=== PATIENT | male | born 1955 | race Caucasian/White ===

== ENCOUNTER 2016-07-04 09:40 | Day surgery (SDC) | payer MEDICAID, OTHER ==
--- NOTE | 2016-06-20 09:10 | HP ---
DATE OF ADMISSION: CHIEF COMPLAINT: Left inguinal hernia. HISTORY OF PRESENT ILLNESS: The patient is a 61-year-old male who is known to our service. He underwent an operative repair of a large right inguinal hernia approximately one year ago. Recently he has had complaints of increasing pain in the right and left groin. This has been persisting. Pain does seem to come and go at times and radiates back and forth from the left to the right. The patient's last hernia on the right was a direct and an indirect. This was treated with an onlay mesh with closed defect. Denies nausea or vomiting. No change of bowel habits. PAST MEDICAL HISTORY: GERD. PAST SURGICAL HISTORY: Hernia. Left orchiectomy. MEDICATIONS: Omeprazole. ALLERGIES: None. PHYSICAL EXAM: HEENT is normocephalic. Sclerae anicteric. CHEST: No deformities. ABDOMEN: Soft, nontender, nondistended. A palpable reducible left inguinal hernia noted. On examination left teste absent. IMPRESSION: A 61-year-old male with reducible left inguinal hernia. PLAN: Will proceed with robotic-assisted left inguinal herniorrhaphy on 07/04 possible bilateral if a recurrent hernia is palpable on the right. Risks of bleeding, infection, postoperative pain, scarring, numbness, recurrence, bladder injury, bowel injury and conversion to an open procedure. The patient understands and wishes to proceed.
[2016-06-29 11:51] VITALS: BMI 31.1
[~2016-07-04 09:40] MED LIST: DEXAMETHASONE SOD PHOSPHATE 10 MG/ML 1 ML VIAL IV ONE; HEPARIN SODIUM,PORCINE 5,000 UNIT/ML 1 ML VIAL SQ ONE; HYDROmorphone 1 MG/ML 1 ML SYRINGE IVP PRN; LACTATED RINGERS 1,000 ML IV SCH; MIDAZOLAM 2 MG/2 ML VIAL IV PRN; ONDANSETRON 4 MG/2 ML VIAL IVP ONE; SCOPOLAMINE 1.5MG/72HR PATCH TRANSDERM ONE; ceFAZolin 2 GM in SODIUM CHLORIDE 0.9% 100 ML IVPB ONE
[2016-07-04 10:40] VITALS: RESP 18
[2016-07-04] MEDS ORDERED: LIDOCAINE 1% 20 ML VIAL (10MG/ML) FOR IV START INTRADERMA ONE ×2 (10:45)
[2016-07-04] MEDS ORDERED: GLYCOPYRROLATE 0.2 MG/ML 2 ML VIAL ONE (13:22)
[2016-07-04] MEDS ORDERED: KETOROLAC 30 MG/ML 1 ML VIAL ONE (13:22)
[2016-07-04] MEDS ORDERED: LIDOCAINE 1% INJ 10MG/ML (20 ML MDV) ONE (13:22)
[2016-07-04] MEDS ORDERED: SUCCINYLCHOLINE CHLORIDE 100 MG/5 ML SYR IV ONE (13:22)
[2016-07-04] MEDS ORDERED: NEOSTIGMINE 1 MG/ML 10 ML VIAL ONE (13:22)
[2016-07-04] MEDS ORDERED: MIDAZOLAM 2 MG/2 ML VIAL ONE (13:22)
[2016-07-04] MEDS ORDERED: PROPOFOL 10 MG/ML 20 ML VIAL IV ONE (13:22)
[2016-07-04] MEDS ORDERED: fentaNYL (PF) 50 MCG/ML 2 ML AMP ONE (13:22)
[2016-07-04] MEDS ORDERED: VECURONIUM 10 MG VIAL IV ONE (13:22)
[2016-07-04] MEDS ORDERED: BUPIVACAIN-EPI 0.25%-1:200,000 30 ML VIAL SQ ONE (13:54)
[2016-07-04] MEDS ORDERED: LACTATED RINGERS 1,000 ML IV ONE (15:51)
[2016-07-04] MEDS ORDERED: HYDROcodone/APAP 5-325MG 1 EACH TAB PO PRN (16:00)
[2016-07-04] MEDS ORDERED: NALOXONE 0.4 MG/ML 1 ML VIAL IV PRN (16:00)
--- NOTE | 2016-07-04 16:11 | P.PCN ---
Date of Procedure: 07/04/16 Procedure(s) Performed: PREOPERATIVE DIAGNOSIS: Left inguinal hernia POSTOPERATIVE DIAGNOSIS: Same PROCEDURE: Laparoscopic repair left inguinal hernia with the da Lakshmi robot assistance SURGEON: Ramón EBL: Minimal ANESTHESIA: General COMPLICATIONS: None OPERATIVE PROCEDURE: Patient was placed in the operating table in the supine position. A Houston catheter was placed. The patient was then placed in lithotomy. The abdomen was prepped and draped in usual sterile fashion. A small curvilinear supraumbilical incision was made. The fascia was retracted anteriorly with Zina forceps. The Veress needle was inserted. The saline drop test was normal. Insufflation took place to 15 mmHg. A 5 mm trocar was then inserted. 2 additional 8 mm trochars were placed in the right upper quadrant and left upper quadrant under visualization. The initial 5 was switched to a 12 mm trocar at that time under direct visualization. The robotic arms were then brought in and docked into place. The fenestrated bipolar was used in the left arm and the laparoscopic sean was utilized in the right arm. A 30 12 mm scope was used in the up position. The peritoneal cavity was inspected. The patient was having chronic right-sided pain. I was able to visualize a silk suture at the site of the previous open repair. This appeared to be ligating the indirect sac. There was no recurrent hernia on the right side identified. The left side was then addressed. The patient had a large hernia that appeared consistent with an indirect hernia. The peritoneum was opened cephalad to the defect by several centimeters from medial to lateral. Following that careful dissection of the preperitoneal space took place. This took place using both electrocautery and sharp dissection and primarily blunt dissection. Visualization of the pubic tubercle and Dawit's ligament took place medially. Full dissection took place laterally as well. The patient's hernia was indeed a indirect hernia. The hernia sac was fully dissected. The spermatic cord structures were identified. The peritoneum was dissected down to and proximal to the iliac vessels. Once we had adequate space the 15 x 10 progrip mesh was advanced into the preperitoneal space and flattened out appropriately to cover all potential hernia sites. No sutures were used. The peritoneal defect was then closed using a 2-0 VLok suture. The pneumoperitoneum was then evacuated. The fascia at the 12 mm site was closed using the Azeem Mcdonough technique and a 0 Vicryl stitch. The skin of all 3 sites was closed using a 4-0 Monocryl stitch. Steri-Strips and sterile dressings were applied. DISPOSITION: Stable to recovery room
[2016-07-04 16:18] VITALS: TEMP 97.4
[2016-07-04 18:05] VITALS: BP 143/86; PULSE 88
[2016-07-04] MEDS ORDERED: HYDROcodone/APAP 5-325MG 1 EACH TAB PO ONE (18:20)
== END 2016-07-04 19:07 | disposition home or self-care (01) ==
LOC: OR 09:40
PROVIDERS: ATTEND Surgery
DX: K40.90 Unilateral inguinal hernia, without obstruction or gangrene, not specified as recurrent (principal); K21.9 Gastro-esophageal reflux disease without esophagitis; Z79.899 Other long term (current) drug therapy; Z90.79 Acquired absence of other genital organ(s)
CPT/HCPCS: 49650; C1781; J2250; J1644; J1100; J2710; J0690; J2405; J2001; J3010; J1885; J0330; J2704

== ENCOUNTER → 2017-09-15 | Outpatient (CLI) | payer MEDICAID ==
[2017-09-15 16:47] LABS: Basophils # (A) 0.1 k/uL (0-0.2); Basophils % (A) 1 %; Eosinophils # (A) 0.1 k/uL (0-0.7); Eosinophils % (A) 1 %; HCT 48.7 % (39.0-53.0); HGB 16.1 gm/dL (13.0-17.5); Lymphocytes # (A) 1.9 k/uL (1.0-4.8); Lymphocytes % (A) 24 %; MCHC 33.1 g/dL (31.0-37.0); MCV 90.6 fL (80.0-100.0); Mean Platelet Volume 6.2; Monocytes # (A) 0.6 k/uL (0-1.0); Monocytes % (A) 8 %; Neutrophils # (A) 4.7 k/uL (1.3-7.7); Neutrophils % (A) 62 %; Platelet Count 242 k/uL (150-450); RBC 5.37 m/uL (4.30-5.90); RDW 13.3 % (11.5-15.5); WBC 7.6 k/uL (3.8-10.6)
[2017-09-15 16:53] LABS: Appearance,Urine Clear (Clear); Bilirubin,Urine Negative (Negative); Blood,Urine Negative (Negative); Color,Urine Yellow; Glucose,Urine (UA) Negative (Negative); Ketones,Urine Negative (Negative); Leukocyte Esterase,Urine Negative (Negative); Nitrite,Urine Negative (Negative); PH, Urine 5.5 (5.0-8.0); Protein,Urine Negative (Negative); Urobilinogen,Urine <2.0 mg/dL (<2.0)
[2017-09-15 17:30] LABS: Albumin 4.4 g/dL (3.5-5.0); Calcium 9.6 mg/dL (8.4-10.2); Potassium 4.7 mmol/L (3.5-5.1); Total Bilirubin 0.7 mg/dL (0.2-1.3); Total Protein 7.1 g/dL (6.3-8.2)
[2017-09-15 17:41] LABS: T4, Free (Free Thyroxine) 0.96 ng/dL (0.78-2.19)
[2017-09-15 17:55] LABS: Prostate Specific Antigen 0.99 ng/mL (0.00-4.00)
[2017-09-16 00:43] LABS: Vitamin D 25 Hydroxy 20.2 ng/mL (30.0-100.0)
== END | disposition home or self-care (01) ==
LOC: LABWHC1 15:52
PROVIDERS: ATTEND Family Medicine
DX: E66.9 Obesity, unspecified (principal); R41.3 Other amnesia
CPT/HCPCS: 36415; 80053; 80061; 81003; 82175; 82306; 82570; 82607; 83036; 83655; 83825; 84153; 84439; 84443; 85025; 86780

== ENCOUNTER → 2017-10-24 | Outpatient (CLI) | payer MEDICAID ==
--- NOTE | 2017-10-24 21:36 | CT ---
EXAMINATION TYPE: CT brain wo con DATE OF EXAM: 10/24/2017 HISTORY: Amnesia CT DLP: 1156 mGycm. Automated Exposure Control for Dose Reduction was Utilized. TECHNIQUE: CT scan of the head is performed without contrast. COMPARISON: None. FINDINGS: There is no acute intracranial hemorrhage or midline shift identified. There is diffuse v entricular and sulcal prominence consistent with diffuse age-related cerebral atrophy. Huffman-white mat ter differentiation is maintained.. The globes are intact and the visualized sinuses are clear. IMPRESSION: No acute intracranial hemorrhage or midline shift. There is mild minimal diffuse age-re lated cerebral atrophy otherwise unremarkable study.
== END ==
LOC: RADCTMAIN 18:19
PROVIDERS: ATTEND Family Medicine
DX: G31.9 Degenerative disease of nervous system, unspecified (principal); R41.3 Other amnesia
CPT/HCPCS: 70450

== ENCOUNTER → 2017-11-13 | Outpatient (CLI) | payer MEDICAID ==
[2017-11-14 02:08] LABS: Protein, Total 6.8 g/dL (6.2-8.2)
[2017-11-14 10:59] LABS: Lyme IgG/IgM 0.1 Index
[2017-11-14 13:36] LABS: Albumin 3.86 g/dL (3.80-4.90); Gamma Globulin 1.02 g/dL (0.70-1.50)
== END | disposition home or self-care (01) ==
LOC: LABWHC1 16:34
PROVIDERS: ATTEND Psychiatry & Neurology Neurology
DX: R20.0 Anesthesia of skin (principal)
CPT/HCPCS: 36415; 82607; 84165; 85652; 86038; 86334; 86618

== ENCOUNTER → 2017-12-16 | Outpatient (CLI) | payer MEDICAID ==
--- NOTE | 2017-12-19 09:58 | EEG ---
ELECTROENCEPHALOGRAM REPORT EEG SUBJECTIVE: This is a digitally acquired EEG utilizing 10-20 international system placement was standard montages able to be digitally reformatted for at least 20 minutes duration in the evaluation of a 62-year-old male for increasing memory loss. EEG FINDINGS: The resting alert record is characterized as 8.5 - 9 hertz posterior dominant background activity which is well developed, formed and sustained of 20-30 microvolts radiating to the central head regions bilaterally. There are no gross hemispheric asymmetries appreciated. There are no persistent areas of focal slow waves. The background attenuates symmetrically on eye opening. Bifrontal low voltage fast activity predominates. Photo stimulus reveals a symmetric driving response. Hyperventilation did not add any new features to the record. There was spontaneous drowsiness as the record progressed into stage 2 sleep, characterized by symmetric vertex sharp waves and slowing of the background activity into the theta region. There were no paroxysmal discharges, temporal slowing, epileptiform activity or electrographic seizures noted. EKG rhythm strip was regular throughout. IMPRESSION: Unremarkable EEG for age and state of the patient. No epileptiform activity noted. MMODL / IJN: [id number] /
== END | disposition home or self-care (01) ==
LOC: NEUROMAIN 07:00
PROVIDERS: ATTEND Psychiatry & Neurology Neurology
DX: R41.3 Other amnesia (principal)
CPT/HCPCS: 95816

== ENCOUNTER → 2018-02-27 | Outpatient (CLI) | payer MEDICAID ==
--- NOTE | 2018-02-27 21:48 | CONS ---
CONSULTATION REASON FOR THE CONSULT: Sleep apnea. HISTORY OF PRESENT ILLNESS: 62-year-old male patient has been having difficulty with memory for the past few years and his condition gradually getting worse. His Suzanna works at the [employer]. The patient has been having difficulty with short and long-term memory. He has already seen his neurologist, Dr. Fortune and the patient has undergone a workup including CT scan of the brain came back negative. The patient states that he forgets names of people, objects and has been forgetting relationships. 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 He does not get lost and is able to drive and his motor skills are well preserved. No tremors. No seizures or CVA. No history of head trauma. No history of closed head injury. No seizure activity. No history of meningitis. No substance abuse. No alcoholism. No history of any sepsis or connective tissue disease. No history of underlying malignancy. Along with memory difficulties, the patient has been having some increased tiredness and sleepiness and this raised concern for obstructive sleep apnea especially that he snores loud. His current Axtell score is at 12. No history of anxiety. No history of depression. He goes to bed between 9:00-10:00 p.m., wakes up 4:30 am in the morning. He is able to average good 6-7 hours of sleep. He does not take any naps during the day. He does not fall asleep during day-to-day activities. No recent weight gain. PAST MEDICAL HISTORY: Heartburn. He is also known to have sciatica. PAST SURGICAL HISTORY: Includes appendectomy and hernia repair. DRUG ALLERGIES: Not known. OUTPATIENT MEDICATIONS INCLUDE: Omeprazole 20 mg p.o. daily. Magnesium 500 mg p.o. daily, vitamin D3 and vitamin B12. He is also taking supplements including Gingko biloba. FAMILY HISTORY: Negative for sleep apnea. Also negative for dementia. REVIEW OF SYSTEMS: 12-point review of system was done. Positive findings are mentioned above in history of present illness. He has no other complaints for now. PHYSICAL EXAMINATION: BP is 126/78, pulse 72, respirations 16, temperature 97.5, saturation 97% on room air. GENERAL APPEARANCE: Calm comfortable in no acute distress. Head is atraumatic, normocephalic. NECK: Supple. There is no JVD. No goiter or neck masses. LUNGS: Diminished breath sounds. Otherwise clear. HEART: Sounds regular. Normal S1, S2. No S3. No murmurs. ABDOMEN: Soft, nontender. No organomegaly. EXTREMITIES: No edema. No cyanosis or clubbing. IMPRESSION: Memory loss. Consider underlying obstructive sleep apnea. Sleep breathing disorders have been associated with early onset mild cognitive impairment. This can include memory, typically some mild memory deficits may occur. However, not enough to impair day-to-day activities or functioning. This patient is experiencing forgetfulness and amnesia of recent and old events. His workup including blood work, a CT scan of the brain is negative. We are in the process of ruling out a sleep breathing disorder causing impairment of cognition and memory. The possibility of early onset Alzheimer's dementia cannot be completely ruled out. The patient is already seeing a neurologist. We will proceed with a screening polysomnogram and make further recommendations based on the findings. MMODL / IJN: [id number] /
== END ==
LOC: SLEEP 16:19
PROVIDERS: ATTEND Internal Medicine Critical Care Medicine
DX: F06.8 Other specified mental disorders due to known physiological condition (principal); R12 Heartburn; Z79.899 Other long term (current) drug therapy
CPT/HCPCS: 99211

== ENCOUNTER → 2018-05-29 | Outpatient (CLI) | payer MEDICAID ==
--- NOTE | 2018-05-29 18:29 | PN ---
PROGRESS NOTE I am seeing this patient for a followup. This is a compliancy check. This patient is [id number] and he was referred to me for difficulty with memory and concentration. He was found to have mild obstructive sleep apnea. I told the patient that his sleep apnea is not the main cause for his memory loss. Nevertheless, he had some increased fatigue and tiredness and sleepiness and we decided to proceed with a CPAP therapy. The patient is currently utilizing a APAP, minimum pressure of 5 and maximum pressure of 20. He is benefiting from the treatment. He is waking up more refreshed and alert during the day. Based on the compliance data, he has been averaging around 4.3 hours of CPAP use per night. His CPAP use for more than 4 hours is 26 out of 30 over the past 1 month. His average pressure is at 7.2, his leak is around 14 L/minute. AHI is down to 1. He is using a DreamWear nose mask. He has no specific complaints. He is following treatment for now. No major improvement in terms of his memory. PHYSICAL EXAMINATION: BP is 130/84, pulse 72, respirations 16, temperature 98.1, weight is 231. [place] score is at 7. General appearance is calm and comfortable. Head is atraumatic, normocephalic. Neck is supple. There is no JVD. No goiter or neck masses. LUNGS: Clear to auscultation. Heart sounds are regular rate and rhythm. Normal S1, S2. No S3, S4. No murmurs. Abdomen is soft, nontender. No organomegaly. EXTREMITIES: No edema. No cyanosis or clubbing. Neurologically: Memory impairment. No focal neurological deficits. IMPRESSION: 1. Obstructive sleep apnea mild with an AHI of 9.1, successfully treated with an APAP, minimum pressure of 5 maximum pressure of 20. 2. Memory impairment. Rule out early signs of dementia. PLAN: CPAP therapy and sleep apnea treatment is successful. The patient is tolerating the treatment without any major difficulties. Continue same setting. Continue same mask interface which is a DreamWear nose mask. Encourage weight loss. Consider neurology evaluation in regards to his memory loss. MMODL / IJN: [id number] /
== END | disposition home or self-care (01) ==
LOC: SLEEP 16:13
PROVIDERS: ATTEND Internal Medicine Critical Care Medicine
DX: G47.33 Obstructive sleep apnea (adult) (pediatric) (principal); R41.3 Other amnesia; R53.83 Other fatigue; Z99.89 Dependence on other enabling machines and devices

== ENCOUNTER → 2018-07-04 | Outpatient (CLI) | payer MEDICAID ==
--- NOTE | 2018-07-04 22:35 | MR ---
EXAMINATION TYPE: MR brain wo con DATE OF EXAM: 07/04/2018 COMPARISON: CT brain October 24, 2017. HISTORY: Memory loss. TECHNIQUE: Multiplanar, multisequence imaging of the brain and brainstem is performed without IV cont rast. FINDINGS: Diffusion weighted images demonstrate no evidence of a recent infarct or other diffusion abnormality. There is no worrisome extra-axial fluid collection. There is mild ventricular and sulcal prominence. There are some scattered foci of T2 hyperintensity seen throughout the deep and periventricular white matter. Midline structures demonstrate normal morphology. The craniocervical junction appears within normal limits. Normal vascular flow voids are present. The visualized sinuses are clear and the globes are i ntact. IMPRESSION: Mild diffuse cerebral atrophy and chronic small vessel ischemic changes.
== END | disposition home or self-care (01) ==
LOC: RADMRIMAIN 18:33
PROVIDERS: ATTEND Family Medicine
DX: G31.9 Degenerative disease of nervous system, unspecified (principal); I67.82 Cerebral ischemia
CPT/HCPCS: 70551

== ENCOUNTER → 2019-01-25 | Outpatient (CLI) | payer MEDICAID ==
[2019-01-25 13:44] LABS: Appearance,Urine Clear (Clear); Bilirubin,Urine Negative (Negative); Blood,Urine Negative (Negative); Color,Urine Yellow; Glucose,Urine (UA) Negative (Negative); Ketones,Urine Negative (Negative); Leukocyte Esterase,Urine Negative (Negative); Nitrite,Urine Negative (Negative); Protein,Urine Negative (Negative); Specific Gravity,Urine 1.022 (1.001-1.035); Urobilinogen,Urine <2.0 mg/dL (<2.0)
[2019-01-25 14:10] LABS: HGB 16.1 gm/dL (13.0-17.5); MCH 30.1 pg (25.0-35.0); MCHC 32.8 g/dL (31.0-37.0); MCV 91.6 fL (80.0-100.0); Mean Platelet Volume 6.5; Platelet Count 279 k/uL (150-450); RBC 5.35 m/uL (4.30-5.90); RDW 12.5 % (11.5-15.5); WBC 8.5 k/uL (3.8-10.6)
[2019-01-25 19:14] LABS: ALT 25 U/L (10-49); AST 22 U/L (14-35); African American GFR (CKD) 83.5 (60.0-200.0); Albumin/Globulin Ratio 2.09 (1.60-3.17); Alkaline Phosphatase 75 U/L (41-126); BUN/Creat Ratio 16.36 Ratio (12.00-20.00); Calcium 9.6 mg/dL (8.7-10.3); Carbon Dioxide 25.7 mmol/L (21.6-31.8); Chloride 106 mmol/L (96-109); Chol/HDL Ratio 4.07; Cholesterol 175 mg/dL (0-200); Globulin 2.2 g/dL (1.6-3.3); Glucose 86 mg/dL (70-110); Potassium 4.3 mmol/L (3.5-5.5); Sodium 142 mmol/L (135-145); Total Bilirubin 0.7 mg/dL (0.3-1.2); Total Protein 6.8 g/dL (6.2-8.2); Triglycerides <50.0 mg/dL (0.0-149.0)
[2019-01-25 19:56] LABS: Hepatitis C IgG Antibody Non-Reactive (Non-Reactive)
[2019-01-25 21:11] LABS: Hemoglobin A1C 5.9 % (4.0-6.0)
[2019-01-25 22:41] LABS: Erythrocyte Sedimentation Rate 8 mm/hr (0-15)
== END | disposition home or self-care (01) ==
LOC: LABWHC1 13:17
PROVIDERS: ATTEND Psychiatry & Neurology Neurology
DX: Z00.00 Encounter for general adult medical examination without abnormal findings (principal); G62.9 Polyneuropathy, unspecified; R41.3 Other amnesia
CPT/HCPCS: 36415; 80053; 80061; 81003; 82607; 83036; 84153; 84439; 84443; 85027; 85652; 86038; 86803

== ENCOUNTER 2019-06-09 11:39 | Inpatient (IN) | payer MEDICAID ==
--- NOTE | 2019-06-09 12:09 | ED ---
General Adult HPI - General Chief complaint: Shortness of Breath Stated complaint: chest discomfort; shortness of breath Time Seen by Provider: 06/09/19 11:40 Source: patient, RN notes reviewed, old records reviewed Mode of arrival: ambulatory Limitations: no limitations - History of Present Illness Initial comments: This is a 64-year-old male who presents emergency Department complaining of central chest pain as well as some epigastric abdominal pain. Patient states it started on Monday. Patient states it hurts worse when he lays on his stomach or when he takes a deep breath. Patient states definitely worse with movement. Patient states he is not breathing or coughing he states it is much improved. Patient denies any fever chills or cough. Patient denies any vomiting or diarrhea. Patient states she's on multiple medications and he is not sure how long he has been on them and he states he stopped a couple of is not sure which ones they are. Patient states his urine has been really dark lately and he had very loose stools this morning. Patient denies any lightheadedness or dizziness. Patient denies headache patient denies numbness weakness. - Related Data Home Medications Medication Instructions Recorded Confirmed Cholecalciferol [Vitamin D3 (25 1,000 unit PO DAILY 06/09/19 06/09/19 Mcg = 1000 Iu)] Cyanocobalamin (Vitamin B-12) 1,000 mcg PO DAILY 06/09/19 06/09/19 [Vitamin B-12] Escitalopram [Lexapro] 10 mg PO DAILY 06/09/19 06/09/19 Galantamine HBr [Galantamine ER] 16 mg PO DAILY 06/09/19 06/09/19 Magnesium Oxide [Daíz] 500 mg PO DAILY 06/09/19 06/09/19 Monroe-3 Fatty Acids/Fish Oil [Fish 1 cap PO DAILY 06/09/19 06/09/19 Oil 1,000 mg Softgel] Omeprazole 20 mg PO DAILY 06/09/19 06/09/19 Vitamin E 400 unit PO DAILY 06/09/19 06/09/19 diphenhydrAMINE [Benadryl] 50 mg PO HS PRN 06/09/19 06/09/19 Allergies Allergy/AdvReac Type Severity Reaction Status Date / Time donepezil [From Aricept] AdvReac Diarrhea Verified 03/15/20 12:33 Review of Systems ROS Statement: Those systems with pertinent positive or pertinent negative responses have been documented in the HPI. ROS Other: All systems not noted in ROS Statement are negative. Past Medical History Past Medical History: GERD/Reflux Additional Past Medical History / Comment(s): INGUINAL HERNIA History of Any Multi-Drug Resistant Organisms: None Reported Past Surgical History: Appendectomy, Hernia Repair Additional Past Surgical History / Comment(s): LT ORCHIECTOMY, LT bone spur, RT INGUINAL HERNIA REPAIR, Past Anesthesia/Blood Transfusion Reactions: No Reported Reaction Past Psychological History: No Psychological Hx Reported Smoking Status: Never smoker Past Alcohol Use History: None Reported Past Drug Use History: None Reported - Past Family History Mother Family Medical History: No Reported History General Exam - General Exam Comments Initial Comments: GENERAL: Patient is well-developed and well-nourished. Patient is nontoxic and well- hydrated and is in no acute distress. ENT: Neck is soft and supple. No significant lymphadenopathy is noted. Oropharynx is clear. Moist mucous membranes. Neck has full range of motion without eliciting any pain. EYES: The sclera were anicteric and conjunctiva were pink and moist. Extraocular movements were intact and pupils were equal round and reactive to light. Eyelids were unremarkable. PULMONARY: Unlabored respirations. Good breath sounds bilaterally. No audible rales rhonchi or wheezing was noted. CARDIOVASCULAR: There is a regular rate and rhythm without any murmurs gallops or rubs. ABDOMEN: Patient has some epigastric and right upper quadrant abdominal tenderness SKIN: Skin is clear with no lesions or rashes and otherwise unremarkable. NEUROLOGIC: Patient is alert and oriented x3. Cranial nerves II through XII are grossly intact. Motor and sensory are also intact. Normal speech, volume and content. Symmetrical smile. MUSCULOSKELETAL: Normal extremities with adequate strength and full range of motion. No lower extremity swelling or edema. No calf tenderness. LYMPHATICS: No significant lymphadenopathy is noted PSYCHIATRIC: Normal psychiatric evaluation. Limitations: no limitations Course Vital Signs 06/09/19 06/09/19 06/09/19 11:41 12:20 12:30 Temperature 98.9 F Pulse Rate 85 85 83 Respiratory 18 16 16 Rate Blood Pressure 151/89 128/82 128/82 O2 Sat by Pulse 98 96 96 Oximetry 06/09/19 06/09/19 06/09/19 13:00 13:30 13:33 Temperature Pulse Rate 85 82 87 Respiratory 20 16 16 Rate Blood Pressure 131/93 127/80 125/80 O2 Sat by Pulse 95 96 98 Oximetry 06/09/19 06/09/19 14:00 14:30 Temperature Pulse Rate 81 80 Respiratory 16 18 Rate Blood Pressure 136/87 144/90 O2 Sat by Pulse 96 95 Oximetry Medical Decision Making - Medical Decision Making EKG shows normal sinus rhythm at 82 bpm ME interval is 152 QRS is 88 QT interval 356 QTC is 4:15. Patient's EKG shows no ST segment elevation or depression CT shows a small pulmonary embolism I started the patient on heparin high dose. Patient's liver enzymes were elevated consistent with hepatitis I ordered a hepatitis panel and a heterophile heterophile was negative. I ordered ultrasound the gallbladder. Spoke with Dr. Agrawal he agreed to admit the patient admitted the patient consult Dr. Staley. I continued heparin on the floor. - Lab Data Result diagrams: 06/09/19 12:00 06/09/19 12:10 Lab Results 06/09/19 06/09/19 06/09/19 Range/Units 12:00 12:00 12:00 WBC 5.8 (3.8-10.6) k/uL RBC 5.24 (4.30-5.90) m/uL Hgb 15.6 (13.0-17.5) gm/dL Hct 47.8 (39.0-53.0) % MCV 91.2 (80.0-100.0) fL MCH 29.7 (25.0-35.0) pg MCHC 32.6 (31.0-37.0) g/dL RDW 13.5 (11.5-15.5) % Plt Count 252 (150-450) k/uL Neutrophils % 59 % Lymphocytes % 21 % Monocytes % 13 % Eosinophils % 2 % Basophils % 1 % Neutrophils # 3.4 (1.3-7.7) k/uL Lymphocytes # 1.2 (1.0-4.8) k/uL Monocytes # 0.8 (0-1.0) k/uL Eosinophils # 0.1 (0-0.7) k/uL Basophils # 0.0 (0-0.2) k/uL PT 9.5 (9.0-12.0) sec INR 0.9 (<1.2) APTT 22.3 (22.0-30.0) sec D-Dimer 2.76 H (<0.60) mg/L FEU Sodium (137-145) mmol/L Potassium (3.5-5.1) mmol/L Chloride (98-107) mmol/L Carbon Dioxide (22-30) mmol/L Anion Gap mmol/L BUN (9-20) mg/dL Creatinine (0.66-1.25) mg/dL Est GFR (CKD-EPI)AfAm (>60 ml/min/1.73 sqM) Est GFR (CKD-EPI)NonAf (>60 ml/min/1.73 sqM) Glucose (74-99) mg/dL Plasma Lactic Acid Ambrocio (0.7-2.0) mmol/L Calcium (8.4-10.2) mg/dL Magnesium (1.6-2.3) mg/dL Total Bilirubin (0.2-1.3) mg/dL AST (17-59) U/L ALT (4-49) U/L Alkaline Phosphatase (38-126) U/L Troponin I <0.012 (0.000-0.034) ng/mL Total Protein (6.3-8.2) g/dL Albumin (3.5-5.0) g/dL Amylase (30-110) U/L Lipase (23-300) U/L Hepatitis A IgM Ab Heterophile Antibody (Negative) 06/09/19 06/09/19 06/09/19 Range/Units 12:10 12:10 12:10 WBC (3.8-10.6) k/uL RBC (4.30-5.90) m/uL Hgb (13.0-17.5) gm/dL Hct (39.0-53.0) % MCV (80.0-100.0) fL MCH (25.0-35.0) pg MCHC (31.0-37.0) g/dL RDW (11.5-15.5) % Plt Count (150-450) k/uL Neutrophils % % Lymphocytes % % Monocytes % % Eosinophils % % Basophils % % Neutrophils # (1.3-7.7) k/uL Lymphocytes # (1.0-4.8) k/uL Monocytes # (0-1.0) k/uL Eosinophils # (0-0.7) k/uL Basophils # (0-0.2) k/uL PT (9.0-12.0) sec INR (<1.2) APTT (22.0-30.0) sec D-Dimer (<0.60) mg/L FEU Sodium 138 (137-145) mmol/L Potassium 3.7 (3.5-5.1) mmol/L Chloride 104 (98-107) mmol/L Carbon Dioxide 25 (22-30) mmol/L Anion Gap 9 mmol/L BUN 15 (9-20) mg/dL Creatinine 0.91 (0.66-1.25) mg/dL Est GFR (CKD-EPI)AfAm >90 (>60 ml/min/1.73 sqM) Est GFR (CKD-EPI)NonAf >90 (>60 ml/min/1.73 sqM) Glucose 121 H (74-99) mg/dL Plasma Lactic Acid Ambrocio 1.3 (0.7-2.0) mmol/L Calcium 9.3 (8.4-10.2) mg/dL Magnesium 1.9 (1.6-2.3) mg/dL Total Bilirubin 8.6 H (0.2-1.3) mg/dL AST 225 H (17-59) U/L ALT 345 H (4-49) U/L Alkaline Phosphatase 226 H (38-126) U/L Troponin I (0.000-0.034) ng/mL Total Protein 7.7 (6.3-8.2) g/dL Albumin 4.2 (3.5-5.0) g/dL Amylase 54 (30-110) U/L Lipase 142 (23-300) U/L Hepatitis A IgM Ab Heterophile Antibody Negative (Negative) 06/09/19 Range/Units 13:00 WBC (3.8-10.6) k/uL RBC (4.30-5.90) m/uL Hgb (13.0-17.5) gm/dL Hct (39.0-53.0) % MCV (80.0-100.0) fL MCH (25.0-35.0) pg MCHC (31.0-37.0) g/dL RDW (11.5-15.5) % Plt Count (150-450) k/uL Neutrophils % % Lymphocytes % % Monocytes % % Eosinophils % % Basophils % % Neutrophils # (1.3-7.7) k/uL Lymphocytes # (1.0-4.8) k/uL Monocytes # (0-1.0) k/uL Eosinophils # (0-0.7) k/uL Basophils # (0-0.2) k/uL PT (9.0-12.0) sec INR (<1.2) APTT (22.0-30.0) sec D-Dimer (<0.60) mg/L FEU Sodium (137-145) mmol/L Potassium (3.5-5.1) mmol/L Chloride (98-107) mmol/L Carbon Dioxide (22-30) mmol/L Anion Gap mmol/L BUN (9-20) mg/dL Creatinine (0.66-1.25) mg/dL Est GFR (CKD-EPI)AfAm (>60 ml/min/1.73 sqM) Est GFR (CKD-EPI)NonAf (>60 ml/min/1.73 sqM) Glucose (74-99) mg/dL Plasma Lactic Acid Ambrocio (0.7-2.0) mmol/L Calcium (8.4-10.2) mg/dL Magnesium (1.6-2.3) mg/dL Total Bilirubin (0.2-1.3) mg/dL AST (17-59) U/L ALT (4-49) U/L Alkaline Phosphatase (38-126) U/L Troponin I (0.000-0.034) ng/mL Total Protein (6.3-8.2) g/dL Albumin (3.5-5.0) g/dL Amylase (30-110) U/L Lipase (23-300) U/L Hepatitis A IgM Ab NEGATIVE Heterophile Antibody (Negative) Critical Care Time Critical Care Time: Yes Total Critical Care Time: 35 Disposition Clinical Impression: Pulmonary embolism, Hepatitis Disposition: ADMITTED IP TO THIS [facility] Referrals: Paolo Quach DO [Primary Care Provider] - 1-2 days Time of Disposition: 15:46
[2019-06-09 12:30] LABS: ALT 345 U/L (4-49); AST 225 U/L (17-59); African American GFR (CKD) >90 (>60 ml/min/1.73 sqM); Albumin 4.2 g/dL (3.5-5.0); Alkaline Phosphatase 226 U/L (38-126); Amylase 54 U/L (30-110); Anion Gap 9 mmol/L; Blood Urea Nitrogen 15 mg/dL (9-20); Calcium 9.3 mg/dL (8.4-10.2); Carbon Dioxide 25 mmol/L (22-30); Chloride 104 mmol/L (98-107); Glucose 121 mg/dL (74-99); Magnesium 1.9 mg/dL (1.6-2.3); Non-African American GFR(CKD) >90 (>60 ml/min/1.73 sqM); Potassium 3.7 mmol/L (3.5-5.1); Sodium 138 mmol/L (137-145); Total Bilirubin 8.6 mg/dL (0.2-1.3); Total Protein 7.7 g/dL (6.3-8.2)
--- NOTE | 2019-06-09 12:30 | XR ---
EXAMINATION TYPE: XR chest 2V DATE OF EXAM: 06/09/2019 COMPARISON: NONE TECHNIQUE: PA and lateral views submitted. HISTORY: Difficulty breathing FINDINGS: The lungs are clear and there is no pneumothorax, pleural effusion, or focal pneumonia. Coarsened i nterstitium with subsegmental changes. Hypertrophic and degenerative change of the spine. IMPRESSION: 1. Basilar atelectasis favored over pneumonia..
[2019-06-09 12:46] LABS: INR 0.9 (<1.2); Partial Thromboplastin Time 22.3 sec (22.0-30.0); Prothrombin Time 9.5 sec (9.0-12.0)
[2019-06-09 12:49] LABS: Basophils % (A) 1 %; Eosinophils # (A) 0.1 k/uL (0-0.7); Eosinophils % (A) 2 %; HCT 47.8 % (39.0-53.0); HGB 15.6 gm/dL (13.0-17.5); Lymphocytes # (A) 1.2 k/uL (1.0-4.8); Lymphocytes % (A) 21 %; MCH 29.7 pg (25.0-35.0); MCHC 32.6 g/dL (31.0-37.0); MCV 91.2 fL (80.0-100.0); Mean Platelet Volume 7.3; Monocytes # (A) 0.8 k/uL (0-1.0); Monocytes % (A) 13 %; Neutrophils # (A) 3.4 k/uL (1.3-7.7); Neutrophils % (A) 59 %; Platelet Count 252 k/uL (150-450); RBC 5.24 m/uL (4.30-5.90); RDW 13.5 % (11.5-15.5); WBC 5.8 k/uL (3.8-10.6)
[2019-06-09 13:02] LABS: D-Dimer 2.76 mg/L FEU (<0.60)
[2019-06-09] MEDS ORDERED: NITROGLYCERIN SL TABS 0.4 MG TAB SUBLINGUAL STA (14:04)
[2019-06-09] MEDS ORDERED: ASPIRIN 81 MG PO STA (14:04)
[2019-06-09] MEDS ORDERED: NITROGLYCERIN OINT 1 INCH/GM PACKET TOPICAL STA (14:04)
[2019-06-09 14:17] LABS: Hepatitis A Antibody IgM NEGATIVE
--- NOTE | 2019-06-09 15:09 | CT ---
EXAMINATION TYPE: CT chest angio for PE DATE OF EXAM: 06/09/2019 COMPARISON: HISTORY: chest pain, suspected pulmonary embolus CT DLP: 459.4 mGycm Automated exposure control for dose reduction was used. CONTRAST: CT Chest for pulmonary embolism performed with with IV Contrast, patient injected with 100 mL of Isov ue 370. FINDINGS: LUNGS: Basilar bronchiectasis noted with subsegmental areas of consolidation most typical of atelecta sis. No pneumothorax or pleural effusion. MEDIASTINUM: There is a small filling defect within the left lower lobe branch of the pulmonary arter y axial image 66. There are no greater than 1 cm hilar or mediastinal lymph nodes. No pericardial effusion is seen. Aorta of normal caliber. OTHER: Hypertrophic and degenerative change of the spine.. There is a small hiatal hernia. Hypodensi ty within the liver is too small to characterize IMPRESSION: 1. Small filling defect left lower lobe distal branch suspicious for small pulmonary embolism. Subseg mental changes at the lung bases are noted.
[2019-06-09] MEDS ORDERED: HEPARIN SODIUM,PORCINE 10,000 UNIT/ML 1 ML VIAL IV ONE (15:12)
[2019-06-09] MEDS: HEPARIN SOD,PORK IN 0.45% NACL 25,000 UNIT in 0.45% NACL 1 250ML.BAG IV SCH (15:27)
[2019-06-09] MEDS ORDERED: SODIUM CHLORIDE 0.9% 1,000 ML IV ONE (15:44)
--- NOTE | 2019-06-09 16:23 | US ---
EXAMINATION TYPE: US gallbladder DATE OF EXAM: 06/09/2019 COMPARISON: NONE CLINICAL HISTORY: Elevated liver enzymes . Elevated liver enzymes, nausea, loss of appetite, epigastr ic pain, SOB EXAM MEASUREMENTS: Liver Length: 18.1 cm Gallbladder Wall: 0.3 cm CBD: 0.8 cm Right Kidney: 12.2 x 5.2 x 5.1 cm Technical limitations due to large amount of overlying bowel content Pancreas: Obscured by bowel gas Liver: limited evaluation, only visualized intercostally Gallbladder: hydropic = 12.2cm Evidence for sonographic Diaz's sign: no CBD: appears dilated Right Kidney: no evidence of hydronephrosis IMPRESSION: 1. The gallbladder is hydropic measuring 12 cm and the common bile duct is dilated measuring 8 mm. Ga llbladder wall measures at the upper limits of normal and there are no definite gallstones. Findings are suspicious for a distal obstruction likely within the CBD. Correlate clinically.
[2019-06-09] MEDS: HYDROmorphone 0.5 MG/0.5 ML SYRINGE IVP PRN (18:27)
[2019-06-09] MEDS: IOPAMIDOL CONTRAST (ORAL USE) VIAL PO PRN ×2 (20:07→21:14)
[2019-06-09] MEDS: SODIUM CHLORIDE 0.9% 1,000 ML IV SCH (20:16)
[2019-06-09] MEDS: PANTOPRAZOLE 40 MG/10 ML VIAL IVP SCH (20:19)
--- NOTE | 2019-06-09 20:21 | HP ---
HISTORY AND PHYSICAL DATE OF SERVICE: 06/09/2019 CHIEF COMPLAINT: Abdominal and chest pain, shortness of breath. HISTORY OF PRESENT ILLNESS: This is a 64-year-old gentleman with a past medical history of multiple medical problems including history of GERD, history of inguinal hernia, history of appendectomy, history of hernia repair, history of some memory impairment, being followed by Dr. 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 The pain was felt in the anterior part of the chest and subsequently felt upwards and increasing with respiration, also some shortness of breath. The patient went home and had significant itching also. The next day, he did not seek any medical attention. The next day, he returned to work and the patient was better. Because of increasing pains and difficulties, the patient came and patient came to [facility] and was admitted for evaluation and treatment. The patient also had some high colored urine and has seen some black colored material at the end of the urination also. After admission, the patient found to have obstructive jaundice with significant abnormalities in the liver and ultrasound showed possible CBD obstruction. The patient also had a suspected small left lower lobe pulmonary embolism also. Patient admitted for evaluation. Heparin was initiated. There is no history of fever, rigors or chills. No history of headache or loss of consciousness. The patient is severely jaundiced. PAST MEDICAL HISTORY: History of GERD, inguinal hernia, memory impairment, appendectomy, hernia repair. MEDICATIONS: Home medications are: 1. Benadryl 50 mg q.h.s. 2. Vitamin E 400 units daily. 3. Omeprazole 20 mg daily. 5. Magnesium oxide 500 mg daily. 6. Galantamine ER 60 mg daily. 7. Lexapro 10 mg daily. 8. Vitamin B12 1000 mcg daily. 9. Vitamin D3 2000 daily. ALLERGIES: ARICEPT. FAMILY HISTORY: No history of heart disease or strokes in the family. SOCIAL HISTORY: No history of smoking. No history of alcohol intake. REVIEW OF SYSTEMS: ENT as mentioned earlier. CARDIOVASCULAR: No angina or palpitations. RESPIRATION: As mentioned earlier. GASTROINTESTINAL: As mentioned earlier. no dysuria or retention. NERVOUS SYSTEM: No numbness or weakness. ALLERGY/IMMUNOLOGY: No asthma or hayfever. MUSCULOSKELETAL as mentioned earlier. HEMATOLOGY/ONCOLOGY: No history of anemia. ENDOCRINE: No history of diabetes. CONSTITUTIONAL: As mentioned earlier. DERMATOLOGY: Negative. RHEUMATOLOGY: Negative. PSYCHIATRY: As mentioned earlier. PHYSICAL EXAMINATION: Alert and oriented x3. Pulse is 91, blood pressure 150/83, respiration 20, temperature 98.8, pulse ox 97% on room air. HEENT: Conjunctivae icteric. Oral mucosa is also high colored. NECK is no jugular venous distention. No carotid bruit. No lymph node enlargement. CARDIOVASCULAR system: S1, S2 muffled. No S3, no S4. RESPIRATIONS: Breath sounds diminished in the bases. A few scattered rhonchi. No crackles. ABDOMEN: Soft. No mass palpable. Mild diffuse tenderness in the epigastric area and also right upper quadrant present. Otherwise, no ascites. Bowel sounds present. LEGS no edema. No swelling. NERVOUS SYSTEM: Higher functions as mentioned earlier. Moves all four limbs. No focal deficits. LYMPHATICS: No lymph nodes palpable in the neck, axillae or groin. SKIN: No ulcer, no rashes and no bleeding. JOINTS: No active deforming arthropathy. LABS: CBC within normal limits. D-dimer is 2.76. Glucose 121. Total bilirubin is 8.6, AST is 225, ALT is 345, and alkaline phosphatase 226. ASSESSMENT: 1. Obstructive jaundice for evaluation, rule out common bile duct obstruction. Rule out gallstones. 2. Hydrops gallbladder. 3. Elevated bilirubin, AST, ALT, alkaline phosphatase. 4. Increased random blood sugar. 5. Elevated D-dimer. 6. Possible small left lower lobe pulmonary embolism. 7. History of memory difficulty. 8. History of gastroesophageal reflux disease. 9. History of inguinal hernia. 10.History of appendectomy. 11.History of hernia repair. 12.History of left orchiectomy. 13.History of left inguinal repair. RECOMMENDATIONS AND DISCUSSION: In this 64-year-old gentleman who presented with multiple medical issues, at this time I recommend continue the current medications, management and symptomatic treatment. The exact etiology for obstructive jaundice are unknown at this time. I recommend a CT scan of the abdomen and pelvis. Gastroenterology evaluation. Continue the heparin. Pulmonary consultation for the suspected small pulmonary embolism. Other symptomatic treatment will be provided. Avoid hepatotoxic medications. We will hold off home medications and provide just symptomatic treatment currently and continue to monitor. Prognosis guarded because of multiple complex medical issues. Further recommendations to follow. A copy of dictation being forwarded to Dr. Quach who is the primary physician. MMPRISCILLAL / IJN: [id number] / MALINI
[2019-06-09 21:31] LABS: Amylase 37 U/L (30-110)
--- NOTE | 2019-06-09 22:23 | CT ---
EXAMINATION TYPE: CT brain wo con DATE OF EXAM: 06/09/2019 COMPARISON: 10/24/2017 HISTORY: weakness, memory loss CT DLP: 1056.4 mGycm Automated exposure control for dose reduction was used. There is mild cerebral atrophy. There is no mass effect nor midline shift. There is no sign of intrac ranial hemorrhage. Calvarium is intact. IMPRESSION: Negative unenhanced head CT scan. No change.
--- NOTE | 2019-06-09 22:34 | CT ---
EXAMINATION TYPE: CT abdomen pelvis wo con DATE OF EXAM: 06/09/2019 COMPARISON: None HISTORY: abdominal pain, nausea CT DLP: 925.7 mGycm Automated exposure control for dose reduction was used. Multiple axial sections were obtained from the diaphragm to the floor the pelvis with oral contrast o nly. FINDINGS: There is hiatal hernia. Stomach is large. Gallbladder is enlarged and measures 11.5 x 4.8 cm. Spleen is intact. The bile ducts are not dilated. There is infiltrate and atelectasis at the lung bases. The re is no pleural effusion. Heart is fairly normal. There is no pancreatic mass. There is contrast in the kidneys from recent chest CT scan. There is no hydronephrosis. Ureters are not dilated. There is no adrenal mass. Bladder distends smoothly without contrast. There is left side scrotal hernia that contains fat. Ther e are a few sigmoid diverticula. There is no sign of diverticulitis. There is no free fluid in the pe lvis. Terminal ileum appears normal. There is no evidence of thickened appendix. Appendix not definit chaim seen. There is no mesenteric edema. There is no ascites or free air. There is no sign of a bowel obstruction. Lumbar vertebra have normal alignment. Disc spaces are normal for age. There is no compression fractu re. Bony pelvis appears intact. IMPRESSION: There is some sigmoid diverticulosis without diverticulitis. Patchy infiltrate and atelectasis at both lung bases. Hiatal hernia. Dilated gallbladder could relate to gallbladder dysfunction or cholecystitis. No dilated ducts.
[2019-06-10] MEDS: HEPARIN SOD,PORK IN 0.45% NACL 25,000 UNIT in 0.45% NACL 1 250ML.BAG IV SCH (02:44)
[2019-06-10] MEDS: HYDROmorphone 0.5 MG/0.5 ML SYRINGE IVP PRN ×4 (02:47→20:26)
[2019-06-10 03:33] LABS: Appearance,Urine Clear (Clear); Bilirubin,Urine 2+ (Negative); Blood,Urine Negative (Negative); Color,Urine Dark Yellow; Glucose,Urine (UA) Negative (Negative); Ketones,Urine Trace (Negative); Leukocyte Esterase,Urine Negative (Negative); Nitrite,Urine Negative (Negative); Protein,Urine Trace (Negative); Urobilinogen,Urine <2.0 mg/dL (<2.0)
[2019-06-10] MEDS ORDERED: ONDANSETRON 4 MG/2 ML VIAL IVP STA (06:50)
[2019-06-10 06:59] LABS: Basophils % (A) 0 %; Eosinophils # (A) 0.1 k/uL (0-0.7); Eosinophils % (A) 1 %; HCT 46.3 % (39.0-53.0); HGB 14.8 gm/dL (13.0-17.5); Lymphocytes # (A) 1.7 k/uL (1.0-4.8); Lymphocytes % (A) 24 %; MCH 29.8 pg (25.0-35.0); MCHC 31.9 g/dL (31.0-37.0); MCV 93.4 fL (80.0-100.0); Mean Platelet Volume 7.4; Monocytes # (A) 0.8 k/uL (0-1.0); Monocytes % (A) 11 %; Neutrophils # (A) 4.3 k/uL (1.3-7.7); Neutrophils % (A) 60 %; Platelet Count 231 k/uL (150-450); RBC 4.95 m/uL (4.30-5.90); RDW 13.8 % (11.5-15.5); WBC 7.1 k/uL (3.8-10.6)
[2019-06-10 08:24] LABS: ALT 298 U/L (4-49); AST 203 U/L (17-59); African American GFR (CKD) >90 (>60 ml/min/1.73 sqM); Albumin 3.5 g/dL (3.5-5.0); Alkaline Phosphatase 225 U/L (38-126); Anion Gap 11 mmol/L; Blood Urea Nitrogen 15 mg/dL (9-20); Calcium 8.8 mg/dL (8.4-10.2); Carbon Dioxide 21 mmol/L (22-30); Chloride 105 mmol/L (98-107); Cholesterol 222 mg/dL (<200); Glucose 117 mg/dL (74-99); HDL Cholesterol 19 mg/dL (40-60); LDL Cholesterol,Calculated 140 mg/dL (0-99); Non-African American GFR(CKD) >90 (>60 ml/min/1.73 sqM); Potassium 3.8 mmol/L (3.5-5.1); Sodium 137 mmol/L (137-145); Total Bilirubin 8.5 mg/dL (0.2-1.3); Total Protein 6.7 g/dL (6.3-8.2); Triglycerides 314 mg/dL (<150)
--- NOTE | 2019-06-10 10:16 | P.GSCN ---
<Millie Godoy - Last Filed: 06/10/19 10:07> History of Present Illness Consult date: 06/10/19 Reason for Consult: Elevated liver enzymes Requesting physician: Betty Agrawal History of present illness: CHIEF COMPLAINT: Elevated liver enzymes, abdominal pain HISTORY OF PRESENT ILLNESS: 64-year-old male who presented to emergency room with chief complaint of abdominal pain. Patient reports he has been having epigastric pain for approximately one week at home. He denies nausea or vomiting at home. However he reports 2 episodes of bilious emesis this morning. Denies diarrhea or constipation. Denies fever or chills. Patient currently complains of epigastric pain. Rating 5/10. He does report dark colored urine at home for the past few days. Denies known history of gallbladder disease or gallstones. Patient was also found to have a pulmonary embolism during workup in the emergency room and was started on IV heparin. PAST MEDICAL HISTORY: See list. PAST SURGICAL HISTORY: See list. SOCIAL HISTORY: No illicit drug use. REVIEW OF SYSTEMS: CONSTITUTIONAL: Denies fever or chills. HEENT: Denies blurred vision, vision changes, or eye pain. Denies hemoptysis CARDIOVASCULAR: Denies chest pain or pressure. RESPIRATORY: No shortness of breath. GASTROINTESTINAL: Refer to HPI for pertinent findings HEMATOLOGIC: Denies bleeding disorders. GENITOURINARY: Denies any blood in urine. Reports dark urine. SKIN: Denies pruitis. Denies rash. PHYSICAL EXAM: VITAL SIGNS: Reviewed. GENERAL: Well-developed in no acute distress. Mild Jaundice. HEENT: Mild sclera icterus. Extraocular movements grossly intact. Moist buccal mucosa. Head is atraumatic, normocephalic. ABDOMEN: Soft. Nondistended. Nontender. . NEUROLOGIC: Alert and oriented. Cranial nerves II through XII grossly intact. LABORATORY DATA: WBC 7.1. Hemoglobin 14.8. Platelet count 231. Sodium 137. Potassium 3.8. BUN 15. Creatinine 0.79. Lactic acid 1.3. Magnesium 2.0 Bilirubin 8.5. AST 203. ALT 298. Alkaline phosphatase 225. IMAGIN. Gallbladder ultrasound: Hydropic gallbladder measuring 12 cm. Common bile duct dilated measuring 8 mm. Gallbladder wall measures at the upper limits of normal. No definite gallstones. Findings are suspicious for distal obstruction likely within the common bile duct. 2. CT abdomen and pelvis: Sigmoid diverticulosis without diverticulitis. Dilated gallbladder could relate to gallbladder dysfunction or cholecystitis. No dilated ducts. ASSESSMENT: 1. Epigastric pain 2. Hyperbilirubinemia 3. Transaminitis 4. Hydropic gallbladder 5. Obstructive jaundice, suspect choledocholithiasis 6. Pulmonary embolism PLAN: Patient was given clear liquid tray for breakfast. However, he has had two episodes of emesis this morning. Will change diet to NPO. Add antiemetics PRN Monitor LFTs daily GI on consult. Await input and recommendations No immediate surgical intervention recommended Nurse practitioner note has been reviewed by physician. Signing provider agrees with the documented findings, assessment, and plan of care. Past Medical History Past Medical History: GERD/Reflux Additional Past Medical History / Comment(s): INGUINAL HERNIA. Memory impairment. Patient states he can remember things but has a hard time piecing his words together, this has been going on for years. History of Any Multi-Drug Resistant Organisms: None Reported Past Surgical History: Appendectomy, Hernia Repair Additional Past Surgical History / Comment(s): LT ORCHIECTOMY (done at age 17) , LT bone spur, RT INGUINAL HERNIA REPAIR, Past Anesthesia/Blood Transfusion Reactions: No Reported Reaction Past Psychological History: No Psychological Hx Reported Smoking Status: Never smoker Past Alcohol Use History: None Reported Past Drug Use History: None Reported - Past Family History Mother Family Medical History: No Reported History Medications and Allergies Home Medications Medication Instructions Recorded Confirmed Type Cholecalciferol [Vitamin D3 (25 1,000 unit PO DAILY 06/09/19 06/09/19 History Mcg = 1000 Iu)] Cyanocobalamin (Vitamin B-12) 1,000 mcg PO DAILY 06/09/19 06/09/19 History [Vitamin B-12] Escitalopram [Lexapro] 10 mg PO DAILY 06/09/19 06/09/19 History Galantamine HBr [Galantamine ER] 16 mg PO DAILY 06/09/19 06/09/19 History Magnesium Oxide [Díaz] 500 mg PO DAILY 06/09/19 06/09/19 History Byron-3 Fatty Acids/Fish Oil [Fish 1 cap PO DAILY 06/09/19 06/09/19 History Oil 1,000 mg Softgel] Omeprazole 20 mg PO DAILY 06/09/19 06/09/19 History Vitamin E 400 unit PO DAILY 06/09/19 06/09/19 History diphenhydrAMINE [Benadryl] 50 mg PO HS PRN 06/09/19 06/09/19 History Allergies Allergy/AdvReac Type Severity Reaction Status Date / Time donepezil [From Aricept] AdvReac Diarrhea Verified 06/09/19 12:33 Surgical - Exam Vital Signs Temp Pulse Resp BP Pulse Ox 98.9 F 85 18 151/89 98 06/09/19 11:41 06/09/19 11:41 06/09/19 11:41 06/09/19 11:41 06/09/19 11:41 Results - Labs 06/10/19 05:54 06/10/19 05:54 Abnormal Lab Results - Last 24 Hours (Table) 06/09/19 06/09/19 06/09/19 Range/Units 12:00 12:10 20:56 APTT 61.3 H (22.0-30.0) sec D-Dimer 2.76 H (<0.60) mg/L FEU Carbon Dioxide (22-30) mmol/L Glucose 121 H (74-99) mg/dL Total Bilirubin 8.6 H (0.2-1.3) mg/dL AST 225 H (17-59) U/L ALT 345 H (4-49) U/L Alkaline Phosphatase 226 H (38-126) U/L Triglycerides (<150) mg/dL Cholesterol (<200) mg/dL LDL Cholesterol, Calc (0-99) mg/dL HDL Cholesterol (40-60) mg/dL Urine Protein (Negative) Urine Ketones (Negative) Urine Bilirubin (Negative) 06/10/19 06/10/19 06/10/19 Range/Units 00:56 05:54 05:54 APTT 62.7 H (22.0-30.0) sec D-Dimer (<0.60) mg/L FEU Carbon Dioxide 21 L (22-30) mmol/L Glucose 117 H (74-99) mg/dL Total Bilirubin 8.5 H (0.2-1.3) mg/dL AST 203 H (17-59) U/L ALT 298 H (4-49) U/L Alkaline Phosphatase 225 H (38-126) U/L Triglycerides 314 H (<150) mg/dL Cholesterol 222 H (<200) mg/dL LDL Cholesterol, Calc 140 H (0-99) mg/dL HDL Cholesterol 19 L (40-60) mg/dL Urine Protein Trace H (Negative) Urine Ketones Trace H (Negative) Urine Bilirubin 2+ H (Negative) Diabetes panel 06/09/19 06/10/19 Range/Units 12:10 05:54 Sodium 138 137 (137-145) mmol/L Potassium 3.7 3.8 (3.5-5.1) mmol/L Chloride 104 105 (98-107) mmol/L Carbon Dioxide 25 21 L (22-30) mmol/L BUN 15 15 (9-20) mg/dL Creatinine 0.91 0.79 (0.66-1.25) mg/dL Glucose 121 H 117 H (74-99) mg/dL Calcium 9.3 8.8 (8.4-10.2) mg/dL AST 225 H 203 H (17-59) U/L ALT 345 H 298 H (4-49) U/L Alkaline Phosphatase 226 H 225 H (38-126) U/L Total Protein 7.7 6.7 (6.3-8.2) g/dL Albumin 4.2 3.5 (3.5-5.0) g/dL Triglycerides 314 H (<150) mg/dL HDL Cholesterol 19 L (40-60) mg/dL Calcium panel 06/09/19 06/10/19 Range/Units 12:10 05:54 Calcium 9.3 8.8 (8.4-10.2) mg/dL Albumin 4.2 3.5 (3.5-5.0) g/dL Pituitary panel 06/09/19 06/10/19 Range/Units 12:10 05:54 Sodium 138 137 (137-145) mmol/L Potassium 3.7 3.8 (3.5-5.1) mmol/L Chloride 104 105 (98-107) mmol/L Carbon Dioxide 25 21 L (22-30) mmol/L BUN 15 15 (9-20) mg/dL Creatinine 0.91 0.79 (0.66-1.25) mg/dL Glucose 121 H 117 H (74-99) mg/dL Calcium 9.3 8.8 (8.4-10.2) mg/dL Adrenal panel 06/09/19 06/10/19 Range/Units 12:10 05:54 Sodium 138 137 (137-145) mmol/L Potassium 3.7 3.8 (3.5-5.1) mmol/L Chloride 104 105 (98-107) mmol/L Carbon Dioxide 25 21 L (22-30) mmol/L BUN 15 15 (9-20) mg/dL Creatinine 0.91 0.79 (0.66-1.25) mg/dL Glucose 121 H 117 H (74-99) mg/dL Calcium 9.3 8.8 (8.4-10.2) mg/dL Total Bilirubin 8.6 H 8.5 H (0.2-1.3) mg/dL AST 225 H 203 H (17-59) U/L ALT 345 H 298 H (4-49) U/L Alkaline Phosphatase 226 H 225 H (38-126) U/L Total Protein 7.7 6.7 (6.3-8.2) g/dL Albumin 4.2 3.5 (3.5-5.0) g/dL <Darell Melgar - Last Filed: 06/10/19 14:21> History of Present Illness History of present illness: As above. Patient tentatively scheduled for ERCP tomorrow. Currently having a VQ scan to evaluate CAT scan findings of pulmonary embolism. Await findings of ERCP before surgical recommendations available. Will follow. Surgical - Exam Vital Signs Temp Pulse Resp BP Pulse Ox 98.9 F 85 18 151/89 98 06/09/19 11:41 06/09/19 11:41 06/09/19 11:41 06/09/19 11:41 06/09/19 11:41 Results - Labs 06/10/19 05:54 06/10/19 05:54 Abnormal Lab Results - Last 24 Hours (Table) 06/09/19 06/10/19 06/10/19 Range/Units 20:56 00:56 05:54 APTT 61.3 H (22.0-30.0) sec Carbon Dioxide 21 L (22-30) mmol/L Glucose 117 H (74-99) mg/dL Total Bilirubin 8.5 H (0.2-1.3) mg/dL AST 203 H (17-59) U/L ALT 298 H (4-49) U/L Alkaline Phosphatase 225 H (38-126) U/L Triglycerides 314 H (<150) mg/dL Cholesterol 222 H (<200) mg/dL LDL Cholesterol, Calc 140 H (0-99) mg/dL HDL Cholesterol 19 L (40-60) mg/dL Urine Protein Trace H (Negative) Urine Ketones Trace H (Negative) Urine Bilirubin 2+ H (Negative) 06/10/19 Range/Units 05:54 APTT 62.7 H (22.0-30.0) sec Carbon Dioxide (22-30) mmol/L Glucose (74-99) mg/dL Total Bilirubin (0.2-1.3) mg/dL AST (17-59) U/L ALT (4-49) U/L Alkaline Phosphatase (38-126) U/L Triglycerides (<150) mg/dL Cholesterol (<200) mg/dL LDL Cholesterol, Calc (0-99) mg/dL HDL Cholesterol (40-60) mg/dL Urine Protein (Negative) Urine Ketones (Negative) Urine Bilirubin (Negative) Diabetes panel 06/10/19 Range/Units 05:54 Sodium 137 (137-145) mmol/L Potassium 3.8 (3.5-5.1) mmol/L Chloride 105 (98-107) mmol/L Carbon Dioxide 21 L (22-30) mmol/L BUN 15 (9-20) mg/dL Creatinine 0.79 (0.66-1.25) mg/dL Glucose 117 H (74-99) mg/dL Calcium 8.8 (8.4-10.2) mg/dL AST 203 H (17-59) U/L ALT 298 H (4-49) U/L Alkaline Phosphatase 225 H (38-126) U/L Total Protein 6.7 (6.3-8.2) g/dL Albumin 3.5 (3.5-5.0) g/dL Triglycerides 314 H (<150) mg/dL HDL Cholesterol 19 L (40-60) mg/dL Calcium panel 06/10/19 Range/Units 05:54 Calcium 8.8 (8.4-10.2) mg/dL Albumin 3.5 (3.5-5.0) g/dL Pituitary panel 06/10/19 Range/Units 05:54 Sodium 137 (137-145) mmol/L Potassium 3.8 (3.5-5.1) mmol/L Chloride 105 (98-107) mmol/L Carbon Dioxide 21 L (22-30) mmol/L BUN 15 (9-20) mg/dL Creatinine 0.79 (0.66-1.25) mg/dL Glucose 117 H (74-99) mg/dL Calcium 8.8 (8.4-10.2) mg/dL Adrenal panel 06/10/19 Range/Units 05:54 Sodium 137 (137-145) mmol/L Potassium 3.8 (3.5-5.1) mmol/L Chloride 105 (98-107) mmol/L Carbon Dioxide 21 L (22-30) mmol/L BUN 15 (9-20) mg/dL Creatinine 0.79 (0.66-1.25) mg/dL Glucose 117 H (74-99) mg/dL Calcium 8.8 (8.4-10.2) mg/dL Total Bilirubin 8.5 H (0.2-1.3) mg/dL AST 203 H (17-59) U/L ALT 298 H (4-49) U/L Alkaline Phosphatase 225 H (38-126) U/L Total Protein 6.7 (6.3-8.2) g/dL Albumin 3.5 (3.5-5.0) g/dL
[2019-06-10 10:20] LABS: Hepatitis B Core IgM Non-Reactive (Non-Reactive); Hepatitis B Surface Antigen Non-Reactive (Non-Reactive); Hepatitis C IgG Antibody Non-Reactive (Non-Reactive)
--- NOTE | 2019-06-10 10:31 | ECHOF ---
Referral Reason:pericardial effusion MEASUREMENTS -------- HEIGHT: 182.9 cm WEIGHT: 97.1 kg BP: 131/76 RVIDd: 3.3 cm (< 3.3) IVSd: 0.9 cm (0.6 - 1.1) LVIDd: 3.9 cm (3.9 - 5.3) LVPWd: 1.2 cm (0.6 - 1.1) IVSs: 1.4 cm LVIDs: 2.7 cm LVPWs: 1.5 cm LA Diam: 3.7 cm (2.7 - 3.8) LAESV Index (A-L): 30.36 ml/m Ao Diam: 3.4 cm (2.0 - 3.7) AV Cusp: 1.9 cm (1.5 - 2.6) LA Diam: 4.3 cm (2.7 - 3.8) MV EXCURSION: 22.560 mm (> 18.000) MV EF SLOPE: 110 mm/s (70 - 150) EPSS: 0.2 cm MV E Anselmo: 0.55 m/s MV DecT: 189 ms MV A Anselmo: 0.84 m/s MV E/A Ratio: 0.65 RAP: 5.00 mmHg RVSP: 22.75 mmHg FINDINGS -------- Sinus rhythm. This was a technically good study. LV size, wall thickness and systolic function are normal, with an EF greater than 55%. The left yeimi tricular size is normal. The diastolic filling pattern is normal for the age of the patient 7.91. The right ventricle is normal in size. The left atrium is mildly dilated. LA is midly dilated 29-33ml/m2. The right atrial size is normal. The aortic valve is trileaflet, and appears structurally normal. No aortic stenosis or regurgitation. Mild mitral annular calcification present. Mild mitral regurgitation is present. Mild tricuspid regurgitation present. Right ventricular systolic pressure is normal at < 35 mmHg. There is no evidence of pulmonary hypertension. Trace/mild (physiologic) pulmonic regurgitation. The aortic root size is normal. There is no pericardial effusion. CONCLUSIONS -------- 1. Sinus rhythm. 2. This was a technically good study. 3. LV size, wall thickness and systolic function are normal, with an EF greater than 55%. 4. The left ventricular size is normal. 5. The diastolic filling pattern is normal for the age of the patient 7.91 6. The right ventricle is normal in size. 7. The left atrium is mildly dilated. 8. LA is midly dilated 29-33ml/m2. 9. The right atrial size is normal. 10. The aortic valve is trileaflet, and appears structurally normal. No aortic stenosis or regurgitat ion. 11. Mild mitral annular calcification present. 12. Mild mitral regurgitation is present. 13. Mild tricuspid regurgitation present. 14. Right ventricular systolic pressure is normal at < 35 mmHg. 15. There is no evidence of pulmonary hypertension. 16. Trace/mild (physiologic) pulmonic regurgitation. 17. The aortic root size is normal. 18. There is no pericardial effusion. CHIP MACHINE OPERATOR: Laurel Herring RDCS
[2019-06-10] MEDS: PANTOPRAZOLE 40 MG/10 ML VIAL IVP SCH ×2 (10:38→20:26)
--- NOTE | 2019-06-10 10:55 | US ---
EXAMINATION TYPE: US venous doppler duplex LE DATE OF EXAM: 06/10/2019 10:43 AM COMPARISON: NONE CLINICAL HISTORY: r/o dvt. R/O DVT, possible PE visualized on CT SIDE PERFORMED: Bilateral TECHNIQUE: The lower extremity deep venous system is examined utilizing real time linear array sonog kiah with graded compression, doppler sonography and color-flow sonography. VESSELS IMAGED: External Iliac Vein (EIV) Common Femoral Vein Deep Femoral Vein Greater Saphenous Vein * Femoral Vein Popliteal Vein Small Saphenous Vein * Proximal Calf Veins (* superficial vessels) Grayscale, color doppler, spectral doppler imaging performed of the deep veins of the lower extremiti es. There is normal flow, compressibility, vascular waveforms. Right Leg: Negative for DVT Left Leg: Negative for DVT IMPRESSION: No sonographic evidence of deep venous thrombosis within either the bilateral lower extr emities.
--- NOTE | 2019-06-10 11:28 | CONS ---
CONSULTATION Mr. Vallejo is a 64-year-old gentleman who is seen for cardiac evaluation. The patient's medical records are reviewed. This patient came to the hospital with the complaint of epigastric abdominal pain. The patient's pain started on Monday and he says the pain gets worse when he lies on his stomach and when he takes a deep breath and the pain was also high with movement. The patient did not have any nausea or vomiting or diarrhea. He denies any definite fever or chills. The patient was seen in the emergency room where he underwent a CT scan of the chest which showed a small subsegmental PE, however, patient's liver enzymes were elevated and subsequent evaluation shows hydrops of the gallbladder and dilated common bile duct. The patient denies any history of angina or prior cardiac history. PAST MEDICAL HISTORY: Hernia repair and appendectomy. PHYSICAL EXAMINATION: Physical examination in the emergency room revealed the patient's temperature was normal, blood pressure was 158/98 mmHg, oxygen saturation was 98%. HEENT: Examination is negative. The patient has evidence of jaundice. NECK: Supple. There is no increase in jugular venous pressure. Both the carotid pulses are felt. There is no bruit. CHEST: Symmetrical. HEART: The PMI is not felt. The first and second heart sounds are normal. LUNGS: Clinically clear to auscultation and percussion. ABDOMEN: Abdomen has epigastric tenderness. EXTREMITIES: Peripheral pulses are 2+. LABORATORY DATA: This patient had a mildly elevated D-dimer. The patient's total bilirubin is 8.6. The patient has elevated liver enzymes. The troponins are normal. Lipase is 239. EKG is normal. FINAL IMPRESSION: This patient is mainly admitted with epigastric discomfort. The patient has evidence of most likely acute cholangitis and common bile duct stone. I really doubt this patient has any evidence of pulmonary embolism which could be falsely positive. We will await Pulmonary consultation but we will get a venous duplex study as well as a VQ scan. MMODL / IJN: [id number] /
--- NOTE | 2019-06-10 13:12 | P.CNPUL ---
History of Present Illness Consult date: 06/10/19 Reason for consult: dyspnea, chest pain, other Chief complaint: Epigastric discomfort, chest pain History of present illness: 64-year-old white male patient with history of GERD/reflux, left inguinal hernia with surgical repair, lifetime nonsmoker, presented to the emergency department on 06/09/2019 for evaluation of epigastric discomfort radiating to his central chest, palpitations, and difficulty breathing. Patient states that the pain in his epigastric abdomen was so sharp that he was having trouble taking deep breaths. The onset of symptoms was last Monday, and fell to improve, denied any fever chills or cough. Patient noted dark urine, and very loose stools. No lightheadedness, no dizziness, difficulty of an episode of palpitations. Chest x-ray showed basilar atelectasis, d-dimer was elevated at 2.76, is CTA chest was completed showing small filling defect in the left lower lobe distal branch suspicious for small pulmonary embolism. No leukocytosis, electrolyte and renal profile were unremarkable, lactic acid was 1.3, total bilirubin was elevated at 8.6, AST was 225, ALT was 345, alkaline phosphatase was 226, lipase was 239, amylase was 37, gallbladder ultrasound showed hydropic gallbladder measuring 12 cm and dilated common bile duct measuring 8 mm, there were no definite gallstones, however findings were suspicious for distal obstruction within the CBD. CT of abdomen and pelvis showed sigmoid diverticulosis without diverticulitis, patchy infiltrate and atelectasis at both lung bases, hiatal hernia, and dilated gallbladder that could relate to gallbladder dysfunction or cholecystitis, no dilated ducts reported on the CT of abdomen and pelvis. Surgical services were consulted. Patient was started on heparin infusion, her regimen consulted, echocardiogram showed LVEF greater than 55%, mild MR, mild TR, right ventricle systolic pressure less than 35 mmHg, no evidence of pulmonary hypertension. Denies any history of prior thromboembolic events, no history of DVT or PE in the family, no recent history of immobility or surgical procedure. Lower extremity Dopplers were negative for DVT, VQ scan is pending. Hemodynamically patient remains stable Review of Systems All systems: negative Constitutional: Denies chills, Denies fever Eyes: denies blurred vision, denies pain Ears, nose, mouth and throat: Denies headache, Denies sore throat Cardiovascular: Reports chest pain, Denies shortness of breath Respiratory: Reports dyspnea, Denies cough Gastrointestinal: Reports abdominal pain, Reports jaundice, Denies diarrhea, Denies nausea, Denies vomiting Musculoskeletal: Denies myalgias Integumentary: Reports pruritus, Reports rash Neurological: Denies numbness, Denies weakness Psychiatric: Denies anxiety, Denies depression Endocrine: Denies fatigue, Denies weight change Past Medical History Past Medical History: GERD/Reflux Additional Past Medical History / Comment(s): INGUINAL HERNIA. Memory impairment. Patient states he can remember things but has a hard time piecing his words together, this has been going on for years. History of Any Multi-Drug Resistant Organisms: None Reported Past Surgical History: Appendectomy, Hernia Repair Additional Past Surgical History / Comment(s): LT ORCHIECTOMY (done at age 17) , LT bone spur, RT INGUINAL HERNIA REPAIR, Past Anesthesia/Blood Transfusion Reactions: No Reported Reaction Past Psychological History: No Psychological Hx Reported Smoking Status: Never smoker Past Alcohol Use History: None Reported Past Drug Use History: None Reported - Past Family History Mother Family Medical History: No Reported History Medications and Allergies Home Medications Medication Instructions Recorded Confirmed Type Cholecalciferol [Vitamin D3 (25 1,000 unit PO DAILY 06/09/19 06/09/19 History Mcg = 1000 Iu)] Cyanocobalamin (Vitamin B-12) 1,000 mcg PO DAILY 06/09/19 06/09/19 History [Vitamin B-12] Escitalopram [Lexapro] 10 mg PO DAILY 06/09/19 06/09/19 History Galantamine HBr [Galantamine ER] 16 mg PO DAILY 06/09/19 06/09/19 History Magnesium Oxide [Díaz] 500 mg PO DAILY 06/09/19 06/09/19 History [place]-3 Fatty Acids/Fish Oil [Fish 1 cap PO DAILY 06/09/19 06/09/19 History Oil 1,000 mg Softgel] Omeprazole 20 mg PO DAILY 06/09/19 06/09/19 History Vitamin E 400 unit PO DAILY 06/09/19 06/09/19 History diphenhydrAMINE [Benadryl] 50 mg PO HS PRN 06/09/19 06/09/19 History Allergies Allergy/AdvReac Type Severity Reaction Status Date / Time donepezil [From Aricept] AdvReac Diarrhea Verified 06/09/19 12:33 Physical Exam Vitals: Vital Signs Temp Pulse Pulse Resp BP BP Pulse Ox 06/10/19 08:45 97.9 F 74 18 120/77 95 06/10/19 04:00 97.7 F 80 18 131/76 97 06/10/19 00:00 97.3 F L 73 18 134/80 97 06/09/19 20:00 83 18 129/80 95 06/09/19 16:17 98.8 F 91 20 150/83 97 06/09/19 16:00 81 18 126/86 95 06/09/19 15:30 88 16 138/81 95 06/09/19 15:00 89 20 145/88 97 06/09/19 14:30 80 18 144/90 95 06/09/19 14:00 81 16 136/87 96 06/09/19 13:33 87 16 125/80 98 06/09/19 13:30 82 16 127/80 96 06/09/19 13:00 85 20 131/93 95 Intake and Output 06/09/19 06/10/19 06/10/19 22:59 06:59 14:59 Intake Total 1200 211.89 Output Total 1000 Balance 200 211.89 Intake: Intake, IV Titration 211.89 Amount Heparin Sod,Pork in 0.45% 211.89 NaCl 25,000 unit In 0.45 % NaCl 1 250ml.bag @ 18 UNITS/KG/HR 18.779 mls/hr IV .[id number] [facility] Rx#: [id number] Oral 1200 Output: Emesis 1000 Other: Voiding Method Urinal # Voids 1 1 1 Weight 104.326 kg 97.3 kg GENERAL EXAM: Alert, very pleasant, 64-year-old white male, resting comfortably in bed, comfortable in no apparent distress. HEAD: Normocephalic/atraumatic. EYES: Normal reaction of pupils, equal size. Conjunctiva pink, sclera white. NOSE: Clear with pink turbinates. THROAT: No erythema or exudates. NECK: No masses, no JVD, no thyroid enlargement, no adenopathy. CHEST: No chest wall deformity. Symmetrical expansion. LUNGS: Equal air entry with no crackles, wheeze, rhonchi or dullness. CVS: Regular rate and rhythm, normal S1 and S2, no gallops, no murmurs, no rubs ABDOMEN: Soft, nontender. No hepatosplenomegaly, normal bowel sounds, no guarding or rigidity. EXTREMITIES: No clubbing, no edema, no cyanosis, 2+ pulses and upper and lower extremities. MUSCULOSKELETAL: Muscle strength and tone normal. SPINE: No scoliosis or deformity SKIN: No rashes CENTRAL NERVOUS SYSTEM: Alert and oriented -3. No focal deficits, tone is normal in all 4 extremities. PSYCHIATRIC: Alert and oriented -3. Appropriate affect. Intact judgment and insight. Results - Laboratory Findings CBC and BMP: 06/10/19 05:54 06/10/19 05:54 PT/INR, D-dimer PT 9.5 sec (9.0-12.0) 06/09/19 12:00 INR 0.9 (<1.2) 06/09/19 12:00 D-Dimer 2.76 mg/L FEU (<0.60) H 06/09/19 12:00 Abnormal lab findings: Abnormal Labs 06/09/19 06/09/19 06/09/19 12:00 12:10 20:56 APTT 61.3 H D-Dimer 2.76 H Carbon Dioxide Glucose 121 H Total Bilirubin 8.6 H AST 225 H ALT 345 H Alkaline Phosphatase 226 H Triglycerides Cholesterol LDL Cholesterol, Calc HDL Cholesterol Urine Protein Urine Ketones Urine Bilirubin 06/10/19 06/10/19 06/10/19 00:56 05:54 05:54 APTT 62.7 H D-Dimer Carbon Dioxide 21 L Glucose 117 H Total Bilirubin 8.5 H AST 203 H ALT 298 H Alkaline Phosphatase 225 H Triglycerides 314 H Cholesterol 222 H LDL Cholesterol, Calc 140 H HDL Cholesterol 19 L Urine Protein Trace H Urine Ketones Trace H Urine Bilirubin 2+ H - Diagnostic Findings Chest x-ray: report reviewed, image reviewed CT scan - chest: report reviewed, image reviewed U/S of Legs: report reviewed, image reviewed Additional studies: EKG reviewed, brain CT reviewed, CT of abdomen and pelvis reviewed Assessment and Plan Plan: Assessment: #1. Obstructive jaundice, hydropic gallbladder, epigastric pain, surgical services following #2. Elevated d-dimer, CTA chest showed small filling defect in the left lower lobe, suspicious for small pulmonary embolism. Lower extremity Dopplers were negative for DVT #3. Elevated liver enzymes #4. History of GERD/reflux #5. History of left inguinal hernia with surgical repair #6. History of appendectomy #7. History of memory difficulty #8. Mild obstructive sleep apnea with an AHI score of 9.1, on APAP, with minimum pressure of 5 and maximum pressure of 20 #9. Lifetime nonsmoker Plan: Continue heparin infusion, echocardiogram results, CTA chest and bilateral lower extremity Dopplers have been reviewed, discussed case with cardiology, VQ scan is currently pending, hemodynamically patient is stable, no complaints of chest pain, he is on room air. He is being evaluated by surgical services in regards to hydrops gallbladder, and obstructive jaundice. Patient may wear his APAP device from home if available. Vital signs are stable, await results of the VQ scan. We'll continue to follow I performed a history & physical examination of the patient and discussed their management with my nurse practitioner, Ginette Hyde. I reviewed the nurse practitioner's note and agree with the documented findings and plan of care. Lung sounds are positive for diminished breath sounds. The findings and the impression was discussed with the patient. I attest to the documentation by the nurse practitioner. Time with Patient: Greater than 30
--- NOTE | 2019-06-10 15:07 | NM ---
EXAMINATION TYPE: NM pul vent and perfuse DATE OF EXAM: 06/10/2019 COMPARISON: CT chest dated 06/09/2019 HISTORY: Chest pain TECHNIQUE: Utilizing inhalation of 66 mCi Tc 99m DTPA aerosol and intravenous injection of 5.23 mCi of Tc 99m MAA, ventilation and perfusion images are acquired post injection in multiple projections. FINDINGS: Normal radiotracer distribution is noted in the lungs. There is no evidence of mismatched defects. He art is enlarged. IMPRESSION: Exam is limited without chest x-ray of the same date. Overall low probability for pulmona ry embolus.
[2019-06-10] MEDS: ONDANSETRON 4 MG/2 ML VIAL IVP PRN ×2 (15:29→20:25)
[2019-06-10] MEDS: SODIUM CHLORIDE 0.9% 1,000 ML IV SCH ×2 (19:54→22:23)
--- NOTE | 2019-06-10 20:34 | PN ---
PROGRESS NOTE DATE OF SERVICE: 06/10/2019 This 64-year-old gentleman admitted with possible CBD obstruction also had multiple other medical problems, including obstructive jaundice as well as suspected pulmonary embolus. V/Q scan is low probability. Dr. Dillard has recommended stopping the heparin at this time. The patient was seen by multiple consultants, including Cardiology and Surgery. A 2D echo with Doppler was also done which showed ejection fraction more than 55% and no pericardial effusion. Surgery has seen the patient and recommended GI consultation. GI is planning planning ERCP. No chest pain. No palpitations. Past medical history reviewed. REVIEW OF SYSTEMS: CARDIOVASCULAR SYSTEM: No angina, palpitations. RESPIRATORY SYSTEM: As mentioned earlier. GI: As mentioned earlier. : No dysuria or retention. NERVOUS SYSTEM: No numbness, weakness. CURRENT MEDICATIONS: Reviewed. They include: 1. Dilaudid p.r.n. 2. Zofran. 3. Protonix. PHYSICAL EXAMINATION: Patient is alert, oriented x3. Pulse 74, blood pressure 127/70, respiration 18, temperature 97.9, pulse ox 94%. HEENT: Conjunctivae dry. Oral mucosa moist. NAUSEA NECK: No jugular venous distention. No carotid bruit. No lymph node enlargement. CARDIOVASCULAR SYSTEM: S1, S2 muffled. No S3. No S4. RESPIRATORY SYSTEM: Breath sounds diminished at the bases. A few scattered rhonchi. No crackles. ABDOMEN: Soft. Minimal diffuse discomfort in the epigastrium. Otherwise no mass palpable. No ascites. No guarding. No rigidity. LEGS: No edema. No swelling. NERVOUS SYSTEM: Higher functions as mentioned earlier. Moves all 4 limbs. No focal motor or sensory deficit. LYMPHATICS: No lymph node palpable in neck, axillae or groin. SKIN: No ulcer, rash, bleeding. JOINTS: No active deforming arthropathy. LABS: CBC within normal limits. Sodium 137. Total bilirubin is 8.5. Triglycerides 214. Cholesterol is 222. Hepatitis is negative. Heterophile antibody is negative, also. ASSESSMENT: 1. Obstructive jaundice for evaluation. Rule out CBD obstruction. Rule out gallstones. 2. Hydrops gallbladder. 3. Elevated bilirubin, AST, ALT, alkaline phosphatase. 4. Increased random blood sugar. 5. Elevated D-dimer. 6. Pulmonary embolism unlikely, per Pulmonary. 7. History of memory difficulties. 8. History of gastroesophageal reflux disease. 9. History of inguinal hernia. 10.Appendectomy. 11.History of hernia repair. 12.Left orchiectomy. 13.History of left inguinal hernia repair. RECOMMENDATIONS AND DISCUSSION: I recommend to continue current medications, continue with the monitoring, symptomatic treatment. Follow the patient closely with Gastroenterology. I would also obtain a couple of blood cultures. The 2D echo was noted. Continue with IV fluids. Guarded prognosis because of multiple complex medical issues. ERCP. Further recommendations to follow. Cardiology has also seen the patient. Prognosis is guarded. MMODL / IJN: [id number] /
--- NOTE | 2019-06-10 22:20 | CONS ---
CONSULTATION DATE OF SERVICE: June 10, 2019. REQUESTING PHYSICIAN: Dr. Quach REASON FOR CONSULTATION: Abdominal pain. Elevated LFTs and shortness of breath. HISTORY OF PRESENT ILLNESS: The patient is a 64-year-old pleasant white male with no significant past medical history, came to the emergency room complaining of some chest pain and epigastric abdominal pain that has been going on since last Monday. The pain is mostly in the epigastric area and gets worse with deep breath. He denies any specific chest pain. He came into the emergency room and was noted to have elevated LFTs and jaundice and hence we are consulted in regards to this issue. The patient denies any prior history of chronic liver disease. No history of alcohol abuse. In the ER, he had routine labs done which showed a bilirubin of 8.6, AST and ALT are 225 and 345 respectively. Alkaline phosphatase was 226. He subsequently had ultrasound of the gallbladder that showed hydropic gallbladder with a dilated common bile duct measuring 8 mm in size. No gross definite gallstones were noted. Subsequently, he had a CT of the abdomen and pelvis done that showed dilated common gallbladder with no evidence of biliary ductal dilation. He denies any symptoms in the past. He reports no nausea, vomiting, weight loss of about 5 pounds in the last 2 weeks duration. He also had a CT of the chest done in the emergency room that showed a small filling defect in the left lower lobe of the liver suspicious for small pulmonary embolism and he was started on IV heparin. He is scheduled for a V/Q scan today. PAST MEDICAL HISTORY: Past medical history is significant for gastroesophageal reflux disease and mild memory impairment. PAST SURGICAL HISTORY: Appendectomy, hernia repair, left orchiectomy. MEDICATIONS: At home include vitamin D3, vitamin B12, Lexapro, milk of magnesia, fatty acids, Donepezil, Benadryl and vitamin D. ALLERGIES: TO ARICEPT. SOCIAL HISTORY: No smoking. No alcohol use. FAMILY HISTORY: Unremarkable. REVIEW OF SYSTEMS: Cardiopulmonary: He denies any chest pain, shortness of breath. : No dysuria or hematuria. MUSCULOSKELETAL unremarkable. SKIN unremarkable. ENDOCRINE unremarkable. PSYCHIATRIC unremarkable. NEUROLOGY: Complains of some memory impairment. ENT vision unremarkable. CONSTITUTIONAL: No recent weight loss. No fever, chills, night sweats. PHYSICAL EXAMINATION: He appears comfortable. No apparent distress. Vital signs stable. Blood pressure is 133/76, pulse rate 80, temperature 97.7. HEENT examination unremarkable. Conjunctivae pink. Sclerae deeply icteric. Oral cavity no lesions NECK: No JVD or lymph node enlargement. CHEST: Clear to auscultation. HEART: Regular rate and rhythm. ABDOMEN: Soft. There was tenderness in the epigastric area. No rebound or rigidity. EXTREMITIES: No pedal edema. SKIN: No rashes. NEUROLOGIC: Alert and oriented x3. No focal deficits. LABS: Done yesterday, WBC 5.8, hemoglobin 15.6, platelets normal. Basic metabolic panel is within normal limits. BUN and creatinine are within normal limits. Bilirubin is 8.6. AST and ALT are 225 and 346 respectively. Alkaline phosphatase is 226. Labs from today, bilirubin is 8.5, AST and ALT are 203 and 298 respectively and alkaline phosphatase is 223. Hepatitis serologies for A, B and C are negative. IMPRESSION: 1. This is a patient who presents to the hospital with epigastric pain for the last 1 week duration and noted to have jaundice with elevated serum transaminases. The ultrasound of the abdomen did show evidence of hydrops of the gallbladder with a slightly dilated common bile duct measuring about [address] of the abdomen showed hydrops of the gallbladder but no evidence of gallstones or biliary ductal dilation. At this time, possibility of extrahepatic biliary obstruction versus intrahepatic cholestasis cannot be excluded. The patient does not recall starting any new medications in the last 1 month. 2. Possible pulmonary embolism on CT of the chest on IV heparin. He is scheduled for a V/Q scan this afternoon. 3. History of gastroesophageal reflux disease. RECOMMENDATIONS: 1. Await V/Q scan results. 2. We will proceed with an ERCP tomorrow. I discussed with the patient, risks, benefits and complications of procedure and he is agreeable to it. 3. Repeat labs in the morning and follow with you closely. Thank you for this consultation. MMODL / IJN: [id number] /
[2019-06-11 06:10] LABS: Basophils % (A) 1 %; Eosinophils # (A) 0.1 k/uL (0-0.7); Eosinophils % (A) 2 %; HCT 51.3 % (39.0-53.0); Lymphocytes # (A) 1.4 k/uL (1.0-4.8); Lymphocytes % (A) 18 %; MCH 29.4 pg (25.0-35.0); MCHC 31.2 g/dL (31.0-37.0); MCV 94.1 fL (80.0-100.0); Monocytes # (A) 0.7 k/uL (0-1.0); Monocytes % (A) 10 %; Neutrophils # (A) 5.2 k/uL (1.3-7.7); Neutrophils % (A) 68 %; Platelet Count 289 k/uL (150-450); RBC 5.45 m/uL (4.30-5.90); RDW 13.9 % (11.5-15.5); WBC 7.6 k/uL (3.8-10.6)
[2019-06-11 06:21] LABS: ALT 299 U/L (4-49); AST 229 U/L (17-59); African American GFR (CKD) >90 (>60 ml/min/1.73 sqM); Albumin 3.9 g/dL (3.5-5.0); Alkaline Phosphatase 279 U/L (38-126); Anion Gap 14 mmol/L; Blood Urea Nitrogen 16 mg/dL (9-20); Carbon Dioxide 22 mmol/L (22-30); Chloride 102 mmol/L (98-107); Glucose 118 mg/dL (74-99); Non-African American GFR(CKD) 88 (>60 ml/min/1.73 sqM); Potassium 3.8 mmol/L (3.5-5.1); Sodium 138 mmol/L (137-145); Total Bilirubin 11.1 mg/dL (0.2-1.3); Total Protein 7.4 g/dL (6.3-8.2)
[2019-06-11] MEDS: ONDANSETRON 4 MG/2 ML VIAL IVP PRN ×3 (06:37→20:26)
[2019-06-11] MEDS: HYDROmorphone 0.5 MG/0.5 ML SYRINGE IVP PRN ×3 (06:38→20:27)
--- NOTE | 2019-06-11 09:39 | P.PN ---
Subjective Progress Note Date: 06/11/19 64-year-old white male patient with history of GERD/reflux, left inguinal hernia with surgical repair, lifetime nonsmoker, presented to the emergency department on 06/09/2019 for evaluation of epigastric discomfort radiating to his central chest, palpitations, and difficulty breathing. Patient states that the pain in his epigastric abdomen was so sharp that he was having trouble taking deep breaths. The onset of symptoms was last Monday, and fell to improve, denied any fever chills or cough. Patient noted dark urine, and very loose stools. No lightheadedness, no dizziness, difficulty of an episode of palpitations. Chest x-ray showed basilar atelectasis, d-dimer was elevated at 2.76, is CTA chest was completed showing small filling defect in the left lower lobe distal branch suspicious for small pulmonary embolism. No leukocytosis, electrolyte and renal profile were unremarkable, lactic acid was 1.3, total bilirubin was elevated at 8.6, AST was 225, ALT was 345, alkaline phosphatase was 226, lipase was 239, amylase was 37, gallbladder ultrasound showed hydropic gallbladder measuring 12 cm and dilated common bile duct measuring 8 mm, there were no definite gallstones, however findings were suspicious for distal obstruction within the CBD. CT of abdomen and pelvis showed sigmoid diverticulosis without diverticulitis, patchy infiltrate and atelectasis at both lung bases, hiatal hernia, and dilated gallbladder that could relate to gallbladder dysfunction or cholecystitis, no dilated ducts reported on the CT of abdomen and pelvis. Surgical services were consulted. Patient was started on heparin infusion, her regimen consulted, echocardiogram showed LVEF greater than 55%, mild MR, mild TR, right ventricle systolic pressure less than 35 mmHg, no evidence of pulmonary hypertension. Denies any history of prior thromboembolic events, no history of DVT or PE in the family, no recent history of immobility or surgical procedure. Lower extremity Dopplers were negative for DVT, VQ scan is pending. Hemodynamically patient remains stable On 06/11/2019 patient seen in follow-up on selective care unit, he is resting flat in bed on his back, he states he still has tenderness across his mid abdomen and occasionally has sudden sharp pains in his right upper quadrant. Abdomen is soft, there has been no nausea vomiting or diarrhea, no shortness of breath, V/Q scan was completed yesterday showing low probability of pulmonary embolism, and heparin drip has been discontinued, this morning patient is on 0.9 normal saline at a rate of 75 ML per hour, Levaquin has been added per GI service. No complaints of chest pain, no complaints of pleuritic discomfort, room air pulse ox is 94%, hemodynamically stable, no fever or chills, lung sounds are clear to auscultation, no rhonchi or wheezes, today's labs have been reviewed showing CBC within normal limits, electrolytes and renal profile were unremarkable, there has been further increase in patient's LFTs, with the total bilirubin up to 11.1, AST of 229, ALT of 299, alkaline phosphatase at 279, CA 199 antigen came back elevated at 187.6. Patient is scheduled for ERCP evaluation today Objective - Vital Signs Vital signs: Vital Signs Temp 98.8 F 06/11/19 08:15 Pulse 74 06/11/19 08:15 Resp 18 06/11/19 08:15 BP 120/72 06/11/19 08:15 Pulse Ox 94 L 06/11/19 08:15 Intake & Output 06/10/19 06/11/19 06/11/19 18:59 06:59 18:59 Intake Total 825 Output Total 500 750 Balance -500 75 Weight 97.7 kg Intake: Intake, IV Titration 825 Amount Sodium Chloride 0.9% 1, 825 000 ml @ 75 mls/hr IV . [id number] [facility] Rx#:[id number] Output: Urine 500 750 Other: Voiding Method Urinal # Voids 1 1 # Bowel Movements 1 - Exam GENERAL EXAM: Alert, very pleasant, 64-year-old white male, resting comfortably in bed, comfortable in no apparent distress. HEAD: Normocephalic/atraumatic. EYES: Normal reaction of pupils, equal size. Conjunctiva pink, sclera white. NOSE: Clear with pink turbinates. THROAT: No erythema or exudates. NECK: No masses, no JVD, no thyroid enlargement, no adenopathy. CHEST: No chest wall deformity. Symmetrical expansion. LUNGS: Equal air entry with no crackles, wheeze, rhonchi or dullness. CVS: Regular rate and rhythm, normal S1 and S2, no gallops, no murmurs, no rubs ABDOMEN: Soft, slightly tender to palpation, across the midabdomen with occasional sharp sudden pains in the right upper quadrant. No hepatosplenomegaly, normal bowel sounds, no guarding or rigidity. EXTREMITIES: No clubbing, no edema, no cyanosis, 2+ pulses and upper and lower extremities. MUSCULOSKELETAL: Muscle strength and tone normal. SPINE: No scoliosis or deformity SKIN: No rashes CENTRAL NERVOUS SYSTEM: Alert and oriented -3. No focal deficits, tone is normal in all 4 extremities. PSYCHIATRIC: Alert and oriented -3. Appropriate affect. Intact judgment and insight. - Labs CBC & Chem 7: 06/11/19 05:57 06/11/19 05:57 Labs: Abnormal Lab Results - Last 24 Hours (Table) 06/10/19 06/11/19 Range/Units 05:54 05:57 Glucose 118 H (74-99) mg/dL Total Bilirubin 11.1 H (0.2-1.3) mg/dL AST 229 H (17-59) U/L ALT 299 H (4-49) U/L Alkaline Phosphatase 279 H (38-126) U/L CA 19-9 Antigen 187.6 H (0.0-34.9) U/mL Assessment and Plan Plan: Assessment: #1. Obstructive jaundice, hydropic gallbladder, epigastric pain, surgical services following #2. Elevated d-dimer, CTA chest showed small filling defect in the left lower lobe, suspicious for small pulmonary embolism. Lower extremity Dopplers were negative for DVT, VQ scan showed low probability for pulmonary embolism, heparin drip has been discontinued #3. Elevated liver enzymes #4. History of GERD/reflux #5. History of left inguinal hernia with surgical repair #6. History of appendectomy #7. History of memory difficulty #8. Mild obstructive sleep apnea with an AHI score of 9.1, on APAP, with minimum pressure of 5 and maximum pressure of 20 #9. Lifetime nonsmoker #10. Elevated CA 19-9, patient is scheduled for ERCP today Plan: VQ scan has been reviewed showing low probability of pulmonary embolism, heparin drip has been discontinued, patient denies any chest pain, denies any pleuritic discomfort, he is on room air, sounds are clear, he is awaiting ERCP this afternoon. Patient states he has not been wearing his sleep apnea device consistently. If patient experiences any lethargy we may place him on high-dose device with above-mentioned settings.We'll continue to follow I performed a history & physical examination of the patient and discussed their management with my nurse practitioner, Ginette Hyde. I reviewed the nurse practitioner's note and agree with the documented findings and plan of care. Lung sounds are positive for diminished breath sounds. The findings and the impression was discussed with the patient. I attest to the documentation by the nurse practitioner. Time with Patient: Less than 30
[2019-06-11] MEDS: PANTOPRAZOLE 40 MG/10 ML VIAL IVP SCH ×2 (10:26→20:26)
--- NOTE | 2019-06-11 11:00 | P.PN ---
<Millie Godoy - Last Filed: 06/11/19 10:54> Subjective Progress Note Date: 06/11/19 CHIEF COMPLAINT: Elevated liver enzymes, abdominal pain HISTORY OF PRESENT ILLNESS: Patient examined this morning at the bedside. Patient denies any further episodes of emesis. Denies nausea. He is currently rating his epigastric discomfort 5/10. He states it is improved since yesterday . Bilirubin 11.1. AST 229. ALT 299. CA 19-9 187.6 PHYSICAL EXAM: VITAL SIGNS: Reviewed. GENERAL: Well-developed in no acute distress. Mild Jaundice. HEENT: Sclera icterus. Extraocular movements grossly intact. Moist buccal mucosa. Head is atraumatic, normocephalic. ABDOMEN: Soft. Nondistended. Nontender. NEUROLOGIC: Alert and oriented. Cranial nerves II through XII grossly intact. ASSESSMENT: 1. Epigastric pain 2. Hyperbilirubinemia 3. Transaminitis 4. Hydropic gallbladder 5. Jaundice, possible choledocholithiasis 6. Pulmonary embolism, now ruled out per pulmonary PLAN: NPO Monitor LFTs daily GI on consult. Patient scheduled for ERCP today. Await findings. Further recommendations from surgical team pending ERCP Nurse practitioner note has been reviewed by physician. Signing provider agrees with the documented findings, assessment, and plan of care. Objective - Vital Signs Vital signs: Vital Signs Temp 98.8 F 06/11/19 08:15 Pulse 74 06/11/19 08:15 Resp 18 06/11/19 08:15 BP 120/72 06/11/19 08:15 Pulse Ox 94 L 06/11/19 08:15 Intake & Output 06/10/19 06/11/19 06/11/19 18:59 06:59 18:59 Intake Total 825 Output Total 500 750 Balance -500 75 Weight 97.7 kg Intake: Intake, IV Titration 825 Amount Sodium Chloride 0.9% 1, 825 000 ml @ 75 mls/hr IV . [id number] [facility] Rx#:[id number] Output: Urine 500 750 Other: Voiding Method Urinal # Voids 1 1 # Bowel Movements 1 - Labs CBC & Chem 7: 06/11/19 05:57 06/11/19 05:57 Labs: Abnormal Lab Results - Last 24 Hours (Table) 06/10/19 06/11/19 Range/Units 05:54 05:57 Glucose 118 H (74-99) mg/dL Total Bilirubin 11.1 H (0.2-1.3) mg/dL AST 229 H (17-59) U/L ALT 299 H (4-49) U/L Alkaline Phosphatase 279 H (38-126) U/L CA 19-9 Antigen 187.6 H (0.0-34.9) U/mL <Darell Melgar - Last Filed: 06/11/19 15:36> Subjective As above. Patient was evaluated while he was having his ERCP performed. Only a few images of the CBD obtained because of the diverticulum. There does appear to be a stricture however involving the distal common bile duct. Patient will be sent for MRI at this time. Likely will require stent placement. Decision regarding transfer will be made following review of the MRCP. Objective - Vital Signs Vital signs: Vital Signs Temp 98.8 F 06/11/19 11:30 Pulse 79 06/11/19 11:30 Resp 18 06/11/19 11:30 BP 122/73 06/11/19 11:30 Pulse Ox 95 06/11/19 11:30 Intake & Output 06/10/19 06/11/19 06/11/19 18:59 06:59 18:59 Intake Total 825 700 Output Total 500 750 Balance -500 75 700 Weight 97.7 kg Intake: IV 700 Intake, IV Titration 825 Amount Sodium Chloride 0.9% 1, 825 000 ml @ 75 mls/hr IV . [id number] [facility] Rx#:[id number] Output: Urine 500 750 Other: Voiding Method Urinal # Voids 1 1 1 # Bowel Movements 1 - Labs CBC & Chem 7: 06/11/19 05:57 06/11/19 05:57 Labs: Abnormal Lab Results - Last 24 Hours (Table) 06/10/19 06/11/19 Range/Units 05:54 05:57 Glucose 118 H (74-99) mg/dL Total Bilirubin 11.1 H (0.2-1.3) mg/dL AST 229 H (17-59) U/L ALT 299 H (4-49) U/L Alkaline Phosphatase 279 H (38-126) U/L CA 19-9 Antigen 187.6 H (0.0-34.9) U/mL
[2019-06-11] MEDS: SODIUM CHLORIDE 0.9% 1,000 ML IV SCH (11:32)
[2019-06-11] MEDS ORDERED: INDOMETHACIN 50MG SUPPOSITORY RECTAL ONE (12:00)
[2019-06-11] MEDS ORDERED: LEVOFLOXACIN 500MG-D5W PMX 500 MG in DEXTROSE/WATER 1 100ML.BAG IVPB SCH (12:00)
--- NOTE | 2019-06-11 13:00 | P.PN ---
Subjective Progress Note Date: 06/11/19 64-year-old white male patient with history of GERD/reflux, left inguinal hernia with surgical repair, lifetime nonsmoker, presented to the emergency department on 06/09/2019 for evaluation of epigastric discomfort radiating to his central chest, palpitations, and difficulty breathing. Patient states that the pain in his epigastric abdomen was so sharp that he was having trouble taking deep breaths. Patient was seen in the emergency room and underwent a CAT scan of the chest which showed small subsegmental pulmonary embolism however the patient's liver enzymes were elevated and subsequent evaluation showed hydrops of the gallbladder and dilated common bile duct. Patient underwent a lung perfusion study which was low probability for pulmonary embolism. Venous duplex study of the lower extremities was negative for DVT. Patient scheduled today to undergo ERCP. Echocardiogram with Doppler study revealed an ejection fraction greater than 55%. Objective - Vital Signs Vital signs: Vital Signs Temp 98.8 F 06/11/19 08:15 Pulse 74 06/11/19 08:15 Resp 18 06/11/19 08:15 BP 120/72 06/11/19 08:15 Pulse Ox 94 L 06/11/19 08:15 Intake & Output 06/10/19 06/11/19 06/11/19 18:59 06:59 18:59 Intake Total 825 Output Total 500 750 Balance -500 75 Weight 97.7 kg Intake: Intake, IV Titration 825 Amount Sodium Chloride 0.9% 1, 825 000 ml @ 75 mls/hr IV . [id number] [facility] Rx#:[id number] Output: Urine 500 750 Other: Voiding Method Urinal # Voids 1 1 1 # Bowel Movements 1 - Exam HEAD: Normocephalic/atraumatic. EYES: Normal reaction of pupils, equal size. Conjunctiva pink, sclera white. NOSE: Clear with pink turbinates. THROAT: No erythema or exudates. NECK: No masses, no JVD, no thyroid enlargement, no adenopathy. CHEST: No chest wall deformity. Symmetrical expansion. LUNGS: Equal air entry with no crackles, wheeze, rhonchi or dullness. CVS: Regular rate and rhythm, normal S1 and S2, no gallops, no murmurs, no rubs ABDOMEN: Soft, nontender. No hepatosplenomegaly, normal bowel sounds, no guarding or rigidity. EXTREMITIES: No clubbing, no edema, no cyanosis, 2+ pulses and upper and lower extremities. MUSCULOSKELETAL: Muscle strength and tone normal. SPINE: No scoliosis or deformity SKIN: No rashes CENTRAL NERVOUS SYSTEM: Alert and oriented -3. No focal deficits, tone is n ormal in all 4 extremities. PSYCHIATRIC: Alert and oriented -3. Appropriate affect. Intact judgment and insight. - Labs CBC & Chem 7: 06/11/19 05:57 06/11/19 05:57 Labs: Abnormal Lab Results - Last 24 Hours (Table) 06/10/19 06/11/19 Range/Units 05:54 05:57 Glucose 118 H (74-99) mg/dL Total Bilirubin 11.1 H (0.2-1.3) mg/dL AST 229 H (17-59) U/L ALT 299 H (4-49) U/L Alkaline Phosphatase 279 H (38-126) U/L CA 19-9 Antigen 187.6 H (0.0-34.9) U/mL Assessment and Plan Plan: Assessment and plan: #1. Obstructive jaundice, hydropic gallbladder, epigastric pain, surgical services following scheduled for ERCP today #2. Elevated d-dimer, CTA chest showed small filling defect in the left lower lobe, suspicious for small pulmonary embolism. Lower extremity Dopplers were negative for DVT, lung perfusion scan low probability for PE #3. Lifetime nonsmoker #4. History of GERD/reflux #5. History of left inguinal hernia with surgical repair #6. History of appendectomy #7. History of memory difficulty #8. Mild obstructive sleep apnea with an AHI score of 9.1, on APAP, with minimum pressure of 5 and maximum pressure of 20 Plan From cardiology's perspective, we'll follow this patient along with you now on an as-needed basis only, please don't hesitate to call with any questions. DNP note has been reviewed, I agree with a documented findings and plan of care. Patient was seen and examined.
[2019-06-11] MEDS ORDERED: PROPOFOL 10 MG/ML 20 ML VIAL IV ONE (13:36)
[2019-06-11] MEDS ORDERED: KETAMINE 10 MG/ML 20 ML VIAL ONE (13:36)
[2019-06-11] MEDS ORDERED: MIDAZOLAM 2 MG/2 ML VIAL ONE (13:36)
[2019-06-11] MEDS ORDERED: fentaNYL (PF) 50 MCG/ML 2 ML AMP ONE (13:36)
[2019-06-11] MEDS ORDERED: LIDOCAINE 1% INJ 10MG/ML (20 ML MDV) ONE (13:36)
[2019-06-11] MEDS ORDERED: IV FLUID CONTINUATION 1,000 ML IV ONE (13:36)
[2019-06-11] MEDS ORDERED: IOPAMIDOL-300 50ML BTL INJ ONE ×2 (13:40→13:52)
--- NOTE | 2019-06-11 14:48 | FL ---
EXAMINATION TYPE: FL ERCP DATE OF EXAM: 06/11/2019 CLINICAL HISTORY: Common bile duct obstruction. Fluoroscopic documentation during ERCP. TECHNIQUE: Fluoroscopy. COMPARISON: None. FINDINGS: Fluoroscopic guidance was provided during procedure performed by Dr. Staley. A total of 2. 27 minutes of fluoroscopic time was utilized during the procedure and 3 spot images was acquired demo nstrating cannulation and opacification of the common bile duct during ERCP. IMPRESSION: As Above.
--- NOTE | 2019-06-11 14:51 | P.PCN ---
Date of Procedure: 06/11/19 Procedure(s) Performed: Brief history: Patient is a 64 year-old pleasant white male, admitted to the hospital with epigastric pain, nausea, weakness and jaundice that started a week ago. Came into the ER and was noted to have a bilirubin of 8 g/dL with mild elevation of serum transaminases and alkaline phosphatase. CT of the abdomen and pelvis revealed hydrops of the gallbladder with no dilated ducts. No pancreatic mass seen. Ultrasound revealed dilated CBD measuring 8 mm and distended gallbladder with no stones. Because of a clinical suspicion for possible excised. Biliary obstruction he is scheduled for an ERCP. Preoperative diagnoses: Jaundice and elevated LFTs/ rule out extrahepatic biliary obstruction Procedure performed: ERCP IV sedation per anesthesia: Procedure: After informed consent was obtained from the patient and after the risks benefits and complications including bleeding perforation and pancreatitis explained in detail the patient was brought into the endoscopy unit. The patient was placed in prone position and IV conscious sedation was administered by anesthesia under continuous monitoring. The Olympus side-viewing duodenoscope was then inserted into the mouth and esophagus intubated without any difficulty. The scope was gradually advanced into the stomach and duodenum. The major papilla was identified without any difficulty. It was located a large periampullary diverticulum. With some difficulty and was able to cannulate the common bile duct and upon injection of the dye the distal common bile duct appeared normal. There was a mid common bile duct stricture measuring about 2 cm in length with proximal CBD and .intrahepatic biliary ductal dilation. At this time I tried to advance the catheter but during this process the catheter fell out along with the scope. The scope was advanced back into the duodenum and from here on, despite multiple attempts I was not able to cannulate the common bile duct. I tried to 30 minutes and the procedure was terminated and the patient tolerated the procedure Impression: Mid common bile duct stricture measuring 2-3 cm in length with mild proximal biliary dilation, but deep cannulation of the common bile duct could not be achieved hence procedure was terminated Large periampullary diverticulum Pancreatic duct not cannulated Recommendations: The findings of this examination were discussed with the patient as well as a family. Since the study wasn't conclusive I will proceed with an MRCP today. If the MRCP that showed any evidence of excessive hepatic biliary obstruction will transfer him to a tertiary hospital/[facility] for further management
--- NOTE | 2019-06-11 17:00 | MR ---
EXAMINATION TYPE: MR MRCP DATE OF EXAM: 06/11/2019 COMPARISON: None HISTORY: Abd pain, failed ERCP, r/o CBD stone Multiplanar multiecho imaging of the abdomen was performed without contrast. There are 3-D post proce ssed images. Gallbladder is dilated and measures 13 x 4.7 cm. There is mildly dilated biliary tree. The common luann e duct is 16 mm. There is mild dilation of the intrahepatic bile ducts. Liver shows no focal defect. There is no evidence of a pancreatic mass. Pancreatic duct appears shawn l. Spleen appears normal. Kidneys have normal size and contour. There is no hydronephrosis. There is no ascites. There is mild atelectasis and pleural thickening at the lung bases. I see no filling defect within the common bile duct. There is smooth tapering of the distal common bi le duct. There is 12 mm cortical cyst lateral right kidney. There is no evidence of retroperitoneal a denopathy. There is no adrenal mass. IMPRESSION: Dilated gallbladder and biliary tree. No definite filling defect seen. This could relate to a strictu re of the distal common bile duct or tiny obstructing distal common duct stone.
[2019-06-11] MEDS: BENZOCAINE/MENTHOL LOZENG 1 EACH LOZENGE MUCOUS MEM PRN (18:46)
--- NOTE | 2019-06-11 20:42 | PN ---
PROGRESS NOTE DATE OF SERVICE: 06/11/2019 This 64-year-old gentleman who was admitted with obstructive jaundice had ERCP by Dr. Staley. Distal CBD obstruction was suspected and the scope could not be negotiated. MRCP also showed the possibility of distal CBD obstruction. The patient had obstructive jaundice and bilirubin has gone up to 11.1 at this time. The patient is being closely monitored. The patient had also. There is no history of any fever, rigor or chills at this time. CA 19.9 is 187.6. Past medical history reviewed. REVIEW OF SYSTEMS: CARDIOVASCULAR SYSTEM: No angina, palpitations. RESPIRATORY SYSTEM: As mentioned earlier. GI: As mentioned earlier. : No dysuria or retention. NERVOUS SYSTEM: No numbness, weakness. CURRENT MEDICATIONS: Reviewed. They include: 1. Cepacol p.r.n. 2. Dilaudid 0.5 mg q.4 p.r.n. 3. Zofran. 4. Protonix. PHYSICAL EXAMINATION: Patient is alert, oriented x3. Pulse 79, blood pressure 122/73, respiration 18, temperature 98.8, pulse ox 95% on room air. HEENT: Conjunctivae icteric. NECK: No jugular venous distention. CARDIOVASCULAR SYSTEM: S1, S2 muffled. RESPIRATORY SYSTEM: Breath sounds diminished at the bases. A few scattered rhonchi. ABDOMEN: Soft. Mild diffuse tenderness in the epigastrium present. No mass palpable. No ascites. LEGS: No edema. No swelling. NERVOUS SYSTEM: No focal deficit. LABS: CBC within normal limits. Sodium 138. Bilirubin is 11.1 and AST is 229 and ALT is 219, alkaline phosphatase 279. Glucose 118. Triglycerides 314. Cholesterol is 222. LDL is 140. UA noted. CA 19.9 is 187.6. ASSESSMENT: 1. Obstructive jaundice, possibly with distal common bile duct obstruction. Rule out pancreatic malignancy. Rule out gallstones. Rule out stricture. 2. Hydrops gallbladder secondary to number 1. 3. Elevated bilirubin, AST, ALT, alkaline phosphatase; obstructive jaundice. 4. Increased random blood sugar. 5. Elevated D-dimer without any evidence of pulmonary embolism, which is unlikely per Pulmonary. 6. History of memory difficulties. 7. History of gastroesophageal reflux disease. 8. History of inguinal hernia. 9. Appendectomy. 10.History of hernia repair. 11.Left orchiectomy history remotely for possible torsion. 12.History of left inguinal hernia repair. 13.Hyperlipidemia and hypertriglyceridemia. 14.Elevated CA 19.9. 15.FULL CODE. RECOMMENDATIONS AND DISCUSSION: In this 64-year-old gentleman who presented with multiple complex medical issues, we will monitor the patient closely, continue the symptomatic treatment. The patient had significant CBD obstruction as detailed above. Discussed at length with Dr. Staley, who recommended possible transfer to [facility]. Multiple consultants are following the patient closely. The patient will require endoscopic ultrasound and other evaluations. As mentioned earlier, the possibility of malignancy is also a concern. Guarded prognosis. Further recommendations to follow. Discussed with the patient at length. Dr. Staley discussed with the patient's also at length. We will possibly consider transfer to [facility] tomorrow. TAIL / JUAN MN: [phone] / MTDD
[2019-06-12] MEDS: SODIUM CHLORIDE 0.9% 1,000 ML IV SCH ×2 (00:24→03:25)
[2019-06-12] MEDS: HYDROmorphone 0.5 MG/0.5 ML SYRINGE IVP PRN ×2 (03:25→08:47)
[2019-06-12] MEDS: ONDANSETRON 4 MG/2 ML VIAL IVP PRN (03:25)
[2019-06-12] MEDS: BENZOCAINE/MENTHOL LOZENG 1 EACH LOZENGE MUCOUS MEM PRN ×2 (03:30→08:45)
[2019-06-12 06:25] LABS: Basophils % (A) 0 %; Eosinophils % (A) 0 %; HCT 41.5 % (39.0-53.0); HGB 13.2 gm/dL (13.0-17.5); Lymphocytes # (A) 0.9 k/uL (1.0-4.8); Lymphocytes % (A) 7 %; MCH 29.7 pg (25.0-35.0); MCHC 31.8 g/dL (31.0-37.0); MCV 93.5 fL (80.0-100.0); Mean Platelet Volume 7.1; Monocytes # (A) 0.7 k/uL (0-1.0); Monocytes % (A) 6 %; Neutrophils # (A) 10.6 k/uL (1.3-7.7); Neutrophils % (A) 85 %; Platelet Count 217 k/uL (150-450); RBC 4.44 m/uL (4.30-5.90); RDW 14.2 % (11.5-15.5); WBC 12.5 k/uL (3.8-10.6)
[2019-06-12 06:46] LABS: ALT 215 U/L (4-49); AST 136 U/L (17-59); African American GFR (CKD) >90 (>60 ml/min/1.73 sqM); Albumin 2.9 g/dL (3.5-5.0); Alkaline Phosphatase 229 U/L (38-126); Anion Gap 6 mmol/L; Blood Urea Nitrogen 16 mg/dL (9-20); Calcium 8.3 mg/dL (8.4-10.2); Carbon Dioxide 25 mmol/L (22-30); Chloride 106 mmol/L (98-107); Glucose 103 mg/dL (74-99); Non-African American GFR(CKD) 86 (>60 ml/min/1.73 sqM); Potassium 4.3 mmol/L (3.5-5.1); Sodium 137 mmol/L (137-145); Total Bilirubin 10.7 mg/dL (0.2-1.3)
[2019-06-12 08:33] VITALS: TEMP 98.4
[2019-06-12] MEDS: PANTOPRAZOLE 40 MG/10 ML VIAL IVP SCH (08:47)
--- NOTE | 2019-06-12 09:32 | P.PN ---
Subjective Progress Note Date: 06/12/19 Principal diagnosis: Obstructive jaundice Patient still having mild upper quadrant and right-sided abdominal pain. Bilirubin remains elevated. ERCP yesterday only partially successful. No stent was able to be placed. MRI results noted. Distal CBD stricture suspected. No large mass lesions seen. White blood cell count mildly elevated. Objective - Vital Signs Vital signs: Vital Signs Temp 98.4 F 06/12/19 08:00 Pulse 81 06/12/19 08:00 Resp 17 06/12/19 08:00 BP 136/82 06/12/19 08:00 Pulse Ox 97 06/12/19 08:00 Intake & Output 06/11/19 06/12/19 06/12/19 18:59 06:59 18:59 Intake Total 700 1425 Output Total 975 Balance 700 450 Weight 98.5 kg Intake: IV 700 Intake, IV Titration 825 Amount Sodium Chloride 0.9% 1, 825 000 ml @ 75 mls/hr IV . [id number] [facility] Rx#:[id number] Oral 0 600 Output: Urine 975 Other: Voiding Method Urinal Urinal # Voids 1 # Bowel Movements 0 - Exam Abdomen: Soft, nondistended, right upper quadrant tenderness - Labs CBC & Chem 7: 06/12/19 05:49 06/12/19 05:49 Labs: Abnormal Lab Results - Last 24 Hours (Table) 06/12/19 06/12/19 Range/Units 05:49 05:49 WBC 12.5 H (3.8-10.6) k/uL Neutrophils # 10.6 H (1.3-7.7) k/uL Lymphocytes # 0.9 L (1.0-4.8) k/uL Glucose 103 H (74-99) mg/dL Calcium 8.3 L (8.4-10.2) mg/dL Total Bilirubin 10.7 H (0.2-1.3) mg/dL AST 136 H (17-59) U/L ALT 215 H (4-49) U/L Alkaline Phosphatase 229 H (38-126) U/L Total Protein 6.0 L (6.3-8.2) g/dL Albumin 2.9 L (3.5-5.0) g/dL Microbiology - Last 24 Hours (Table) 06/10/19 18:43 Blood Culture - Preliminary Blood No Growth after 24 hours Assessment and Plan (1) Obstructive jaundice Narrative/Plan: Begin empiric antibiotics with elevated white blood cell count. Agree with plans for tertiary care transfer for endoscopic ultrasound and CBD stent placement. Current Visit: Yes Status: Acute Code(s): K83.1 - OBSTRUCTION OF BILE DUCT SNOMED Code(s): 64574962 (2) Acute cholecystitis Current Visit: Yes Status: Acute Code(s): K81.0 - ACUTE CHOLECYSTITIS SNOMED Code(s): 25691421
[2019-06-12] MEDS: PIPERACILLIN-TAZOBACTAM 3.375 GM in SODIUM CHLORIDE 0.9% 100 ML IVPB SCH ×2 (11:33→17:52)
[2019-06-12] MEDS ORDERED: CYANOCOBALAMIN 500 MCG TAB PO SCH (12:15)
[2019-06-12] MEDS ORDERED: ESCITALOPRAM 10 MG TAB PO SCH (12:15)
--- NOTE | 2019-06-12 12:41 | PN ---
PROGRESS NOTE DATE OF SERVICE: 06/12/2019 Patient is a 64-year-old pleasant white male admitted to hospital with some epigastric pain, weakness, and jaundice of 1 week duration. He had an ERCP done by me yesterday that showed a distal common bile duct stricture measuring 2 cm in size with a proximal biliary dilation; however, I could not a deep cannulation and hence a brushing and stent could not be done. In any event, he had an MRCP done subsequently that showed dilated common bile duct with distal common bile duct stricture with a stone, but no pancreatic lesions identified. CA 99 was ordered, which was 187. Patient in the meantime is doing well. He denies any symptoms. PHYSICAL EXAMINATION: Appears comfortable, in no apparent distress. VITAL SIGNS: Stable. Blood pressure is 114/66, pulse rate 94, temperature 98. HEENT: Examination unremarkable. Conjunctivae are pink. Sclerae nonicteric. Oral cavity no lesions. NECK: No JVD or lymph node enlargement. CHEST: Clear to auscultation. HEART: Regular rate and rhythm. ABDOMEN: Soft. There was mild tenderness in the epigastric area. Bowel sounds are positive. No organomegaly. EXTREMITIES: No pedal edema. SKIN: No rashes. NEUROLOGIC: Alert and oriented x3. No focal deficits. LABS: Done today WBC 12.5, hemoglobin 13, platelets normal, basic metabolic panel is within normal limits. BUN and creatinine are normal. Bilirubin is up to 10.7. AST, ALT are 136 and 215 respectively. Alkaline phosphatase 229. CA 99 is 187.6. IMPRESSION: Jaundice secondary to extrahepatic biliary obstruction. ERCP done yesterday showed distal common bile duct stricture measuring 2 cm in length with proximal biliary dilation and pancreatic duct could not be cannulated. MRCP subsequently done yesterday showed distal common bile duct stricture and no pancreatic masses. CA 99 is 187, bilirubin is 10.7 today. RECOMMENDATION: I had a lengthy discussion with the patient as an as well as his and with Dr. Sumner at this time. Will talk to the patient for further management and transfer the patient to a tertiary institute at [facility] for further management. Thank you for this consultation. MMODL / IJN: [id number] /
[2019-06-12 18:46] VITALS: BP 126/66; PULSE 90; RESP 18
[2019-06-13] MEDS ORDERED: PANTOPRAZOLE 40 MG TABLET PO SCH (07:30)
--- NOTE | 2019-06-15 21:28 | DS ---
DISCHARGE SUMMARY DATE OF ADMISSION: June 09, 2019. DATE OF DISCHARGE: June 12, 2019. FINAL DIAGNOSES: 1. Obstructive jaundice due to stricture in the common bile duct. 2. Gastroesophageal reflux disease. 3. Moderate cognitive impairment. 4. Inguinal hernia. 5. Hyperbilirubinemia. 6. Hyperlipidemia. 7. Elevated CA19. HOSPITAL COURSE: The patient presented with nonspecific chest pain, felt more to be epigastric. Itching, dark-colored urine. The patient is found to have obstructive jaundice. Ultrasound showed CBD obstruction. Did undergo ERCP. Dr. Staley could not go past the ampulla. It was decided to call [facility] to transfer for higher level of care. I spoke to the accepting physician there, Dr. Driscoll who accepted the patient. Care was discussed with the patient. Also information was conveyed to the . Discussion and discharge planning more than 35 minutes. CONSULTATIONS: Dr. Melgar from General surgery[facility], Dr. Peña Staley from Gastroenterology. PHYSICAL EXAMINATION: Temperature 98.4, pulse 81, respirations 17, blood pressure 136/92, pulse ox 97% on room air. Eyes: Icterus. Lungs fair entry. Cardiovascular: First and second sounds normal. ABDOMEN: Soft, nontender. Psychiatry able to answer simple questions. INVESTIGATIONS: White count 12.5, hemoglobin 13.2, potassium 4.3, total bilirubin 2.7, AST 136, ALT 215, CA 19 187. PROCEDURES PERFORMED: ERCP. Perfusion scan low probability for PE. Doppler ultrasound negative for DVT in both the legs. A 2D echo, EF 55%. CT abdomen and pelvis shows diverticulosis, sigmoid' hiatal hernia, dilated gallbladder. CT scan of the brain negative. Chest CTA small filling defect. DISCHARGE MEDICATIONS: 1. B12 1000 mcg daily. 2. Lexapro 10 mg p.o. daily. 3. Galantamine ER 60 mg p.o. daily. 4. Fish oil 1000 mg p.o. daily. 5. Omeprazole 20 mg p.o. daily. 6. Cepacol q.4h p.r.n. 7. Zosyn 3.375 g IV piggyback q.8. DISPOSITION: [facility] for higher level of care. Copy to Dr. Quach. MMPRISCILLAL / JUAN MN: [phone] /
== END 2019-06-12 20:25 | disposition short-term general hospital (02) | DRG 445 ==
LOC: EC 11:39 → 3SCARD 15:44
PROVIDERS: ADMIT Hospitalist; ATTEND Hospitalist
PROC: 0FJB8ZZ Inspection of Hepatobiliary Duct, Via Natural or Artificial Opening Endoscopic (ICD-10-PCS; principal; 2019-06-11 07:30)
DX: K83.1 Obstruction of bile duct (principal); J98.11 Atelectasis; K82.1 Hydrops of gallbladder; E78.1 Pure hyperglyceridemia; E78.5 Hyperlipidemia, unspecified; G47.33 Obstructive sleep apnea (adult) (pediatric); K21.9 Gastro-esophageal reflux disease without esophagitis; K40.90 Unilateral inguinal hernia, without obstruction or gangrene, not specified as recurrent; K57.30 Diverticulosis of large intestine without perforation or abscess without bleeding; K75.9 Inflammatory liver disease, unspecified; Z79.899 Other long term (current) drug therapy; Z90.49 Acquired absence of other specified parts of digestive tract; R79.89 Other specified abnormal findings of blood chemistry; R41.89 Other symptoms and signs involving cognitive functions and awareness
CPT/HCPCS: 36415; 43235; 43260; 70450; 71046; 71275; 74176; 74181; 74330; 76705; 78582; 80053; 80061; 80074; 81003; 82150; 83605; 83690; 83735; 84484; 85025; 85379; 85610; 85730; 86301; 86308; 87040; 93005; 93306; 93970; 96365; 96376; 99291

== ENCOUNTER 2019-06-25 16:32 | Emergency (ER) | payer MEDICAID ==
[2019-06-25] MEDS ORDERED: SODIUM CHLORIDE 0.9% 1,000 ML IV STA (17:07)
[2019-06-25 18:07] LABS: Basophils % (A) 1 %; Eosinophils % (A) 0 %; HCT 47.8 % (39.0-53.0); HGB 15.5 gm/dL (13.0-17.5); Lymphocytes % (A) 23 %; MCH 29.1 pg (25.0-35.0); MCHC 32.5 g/dL (31.0-37.0); MCV 89.4 fL (80.0-100.0); Mean Platelet Volume 7.4; Monocytes # (A) 0.5 k/uL (0-1.0); Monocytes % (A) 12 %; Neutrophils # (A) 2.6 k/uL (1.3-7.7); Neutrophils % (A) 62 %; Platelet Count 359 k/uL (150-450); RBC 5.35 m/uL (4.30-5.90); RDW 14.2 % (11.5-15.5); WBC 4.2 k/uL (3.8-10.6)
--- NOTE | 2019-06-25 18:09 | ED ---
General Adult HPI - General Chief complaint: Upper Respiratory Infection Stated complaint: SOB,Cough Time Seen by Provider: 06/25/19 16:44 Source: patient Mode of arrival: ambulatory Limitations: no limitations - History of Present Illness Initial comments: Patient is a 64-year-old male with recently diagnosed pancreatic cancer presenting to the emergency Department with chief complaint of cough and shortness of breath. Patient states he was in the ED about 2 weeks ago and diagnosed with hepatitis and pulmonary embolism. Patient states [facility]CP was at [facility] in this hospital and afterwards the patient was sent to [facility] in [place]. patient patient reports he had a biliary stent placed there and was also diagnosed with pancreatic cancer. Hepatic lesions were also noted and he scheduled for a biopsy. Patient states he was discharged one week ago. States he was initially improving over the last, however he has developed a nonproductive cough with some shortness of breath. Denies dyspnea on exertion. Also reports nausea but no vomiting. Does report nonbloody diarrhea. Patient states increased fatigue and weakness over the last 3 days. States has no appetite today. Denies any night sweats fevers or chills at home. Denies any urinary symptoms. - Related Data Home Medications Medication Instructions Recorded Confirmed Cyanocobalamin (Vitamin B-12) 1,000 mcg PO DAILY 06/09/19 06/25/19 [Vitamin B-12] Escitalopram [Lexapro] 10 mg PO HS 06/09/19 06/25/19 Galantamine HBr [Galantamine ER] 16 mg PO HS 06/09/19 06/25/19 Omeprazole 20 mg PO DAILY 06/09/19 06/25/19 Cholecalciferol [Vitamin D3 (25 3,000 unit PO DAILY 06/25/19 06/25/19 Mcg = 1000 Iu)] Magnesium 500 mg PO DAILY 06/25/19 06/25/19 Ubidecarenone [Coenzyme Q10] 200 mg PO DAILY 06/25/19 06/25/19 Vitamin E 400 unit PO DAILY 06/25/19 06/25/19 Allergies Allergy/AdvReac Type Severity Reaction Status Date / Time donepezil [From Aricept] AdvReac Diarrhea Verified 06/25/19 17:35 Review of Systems ROS Statement: Those systems with pertinent positive or pertinent negative responses have been documented in the HPI. ROS Other: All systems not noted in ROS Statement are negative. Past Medical History Past Medical History: GERD/Reflux Additional Past Medical History / Comment(s): INGUINAL HERNIA.alzeheimers Memory impairment. Patient states he can remember things but has a hard time piecing his words together, this has been going on for years. History of Any Multi-Drug Resistant Organisms: None Reported Past Surgical History: Appendectomy, Hernia Repair Additional Past Surgical History / Comment(s): LT ORCHIECTOMY (done at age 17) , LT bone spur, RT INGUINAL HERNIA REPAIR, Past Anesthesia/Blood Transfusion Reactions: No Reported Reaction Past Psychological History: No Psychological Hx Reported Smoking Status: Never smoker Past Alcohol Use History: None Reported Past Drug Use History: None Reported - Past Family History Mother Family Medical History: No Reported History General Exam Limitations: no limitations General appearance: alert, in no apparent distress Head exam: Present: atraumatic, normocephalic, normal inspection Eye exam: Present: normal appearance, PERRL, EOMI Pupils: Present: normal accommodation ENT exam: Present: normal exam, normal oropharynx, mucous membranes moist, TM's normal bilaterally, normal external ear exam Neck exam: Present: normal inspection, full ROM. Absent: lymphadenopathy Respiratory exam: Present: normal lung sounds bilaterally. Absent: respiratory distress, wheezes, rales, rhonchi Cardiovascular Exam: Present: regular rate, normal rhythm, normal heart sounds GI/Abdominal exam: Present: soft, tenderness (Mild epigastric tenderness). Absent: distended, guarding Extremities exam: Present: normal inspection, full ROM Back exam: Present: normal inspection, full ROM Neurological exam: Present: alert, oriented X3 Psychiatric exam: Present: normal affect, normal mood Skin exam: Present: warm, dry, intact, normal color Course Vital Signs 06/25/19 06/25/19 06/25/19 16:35 17:11 18:12 Temperature 98.0 F 100.7 F H Pulse Rate 84 83 Respiratory 18 18 18 Rate Blood Pressure 110/78 117/77 O2 Sat by Pulse 97 96 Oximetry 06/25/19 06/25/19 06/25/19 18:30 18:54 19:00 Temperature 101.6 F H Pulse Rate Respiratory 18 16 Rate Blood Pressure 117/77 112/77 O2 Sat by Pulse 95 97 Oximetry 06/25/19 19:49 Temperature 101.6 F H Pulse Rate 83 Respiratory 16 Rate Blood Pressure 112/77 O2 Sat by Pulse 97 Oximetry EKG Findings - EKG Comments: EKG Findings:: Normal sinus rhythm. Ventricular rate 81, NC 142, QRS 80, QTC 415. Medical Decision Making - Medical Decision Making Patient is 64-year-old male with recent diagnosis of pancreatic cancer presenting to emergency Department with a chief complaint of cough and shortness of breath. On examination patient is resting comfortably and is not in any respiratory distress. No wheezing rhonchi or stridor appreciated. CBC and coags unremarkable. Elevated potassium levels due to hemolysis. Redraw showed potassium level of 4.5. Patient has a downtrending liver enzymes and bilirubin levels. Lipase does appear elevated but not diagnostic of pancreatitis at this time. Chest x-ray shows no significant changes compared to imaging from 2 weeks ago. No signs of focal consolidation. Patient did develop a fever during hospital stay. Patient administered antipyretics and fluids. Patient did report decreased oral intake. States the fluids greatly helped and states the weakness is somewhat resolved. Patient was able to ambulate without any issues. EKG showed normal sinus rhythm with no ST changes. Return parameters thoroughly discussed the patient is understanding and agreeable. Case discussed with physician. - Lab Data Result diagrams: 06/25/19 17:30 06/25/19 18:47 Lab Results 06/25/19 06/25/19 06/25/19 Range/Units 17:30 17:30 17:30 WBC 4.2 (3.8-10.6) k/uL RBC 5.35 (4.30-5.90) m/uL Hgb 15.5 (13.0-17.5) gm/dL Hct 47.8 (39.0-53.0) % MCV 89.4 (80.0-100.0) fL MCH 29.1 (25.0-35.0) pg MCHC 32.5 (31.0-37.0) g/dL RDW 14.2 (11.5-15.5) % Plt Count 359 (150-450) k/uL Neutrophils % 62 % Lymphocytes % 23 % Monocytes % 12 % Eosinophils % 0 % Basophils % 1 % Neutrophils # 2.6 (1.3-7.7) k/uL Lymphocytes # 1.0 (1.0-4.8) k/uL Monocytes # 0.5 (0-1.0) k/uL Eosinophils # 0.0 (0-0.7) k/uL Basophils # 0.0 (0-0.2) k/uL PT 9.9 (9.0-12.0) sec INR 0.9 (<1.2) APTT 25.7 (22.0-30.0) sec Sodium 129 L (137-145) mmol/L Potassium 6.3 H* (3.5-5.1) mmol/L Chloride 100 (98-107) mmol/L Carbon Dioxide 20 L (22-30) mmol/L Anion Gap 9 mmol/L BUN 17 (9-20) mg/dL Creatinine 0.90 (0.66-1.25) mg/dL Est GFR (CKD-EPI)AfAm >90 (>60 ml/min/1.73 sqM) Est GFR (CKD-EPI)NonAf >90 (>60 ml/min/1.73 sqM) Glucose 113 H (74-99) mg/dL Calcium 8.3 L (8.4-10.2) mg/dL Total Bilirubin 2.0 H (0.2-1.3) mg/dL AST 138 H (17-59) U/L ALT 127 H (4-49) U/L Alkaline Phosphatase 102 (38-126) U/L Troponin I (0.000-0.034) ng/mL Total Protein 7.6 (6.3-8.2) g/dL Albumin 3.7 (3.5-5.0) g/dL Lipase 554 H (23-300) U/L 06/25/19 06/25/19 Range/Units 17:30 18:47 WBC (3.8-10.6) k/uL RBC (4.30-5.90) m/uL Hgb (13.0-17.5) gm/dL Hct (39.0-53.0) % MCV (80.0-100.0) fL MCH (25.0-35.0) pg MCHC (31.0-37.0) g/dL RDW (11.5-15.5) % Plt Count (150-450) k/uL Neutrophils % % Lymphocytes % % Monocytes % % Eosinophils % % Basophils % % Neutrophils # (1.3-7.7) k/uL Lymphocytes # (1.0-4.8) k/uL Monocytes # (0-1.0) k/uL Eosinophils # (0-0.7) k/uL Basophils # (0-0.2) k/uL PT (9.0-12.0) sec INR (<1.2) APTT (22.0-30.0) sec Sodium (137-145) mmol/L Potassium 4.7 (3.5-5.1) mmol/L Chloride (98-107) mmol/L Carbon Dioxide (22-30) mmol/L Anion Gap mmol/L BUN (9-20) mg/dL Creatinine (0.66-1.25) mg/dL Est GFR (CKD-EPI)AfAm (>60 ml/min/1.73 sqM) Est GFR (CKD-EPI)NonAf (>60 ml/min/1.73 sqM) Glucose (74-99) mg/dL Calcium (8.4-10.2) mg/dL Total Bilirubin (0.2-1.3) mg/dL AST (17-59) U/L ALT (4-49) U/L Alkaline Phosphatase (38-126) U/L Troponin I <0.012 (0.000-0.034) ng/mL Total Protein (6.3-8.2) g/dL Albumin (3.5-5.0) g/dL Lipase (23-300) U/L Disposition Clinical Impression: Cough with fever, Bronchitis Disposition: HOME SELF-CARE Condition: Stable Instructions (If sedation given, give patient instructions): Acute Bronchitis (ED) Additional Instructions: Drink lots of fluids. Return to emergency department if symptoms worsen. Follow-up with primary care. Is patient prescribed a controlled substance at d/c from ED?: No Referrals: Paolo Quach DO [Primary Care Provider] - 1-2 days Time of Disposition: 19:46
[2019-06-25 18:13] VITALS: PULSE 83
[2019-06-25 18:14] LABS: ALT 127 U/L (4-49); AST 138 U/L (17-59); African American GFR (CKD) >90 (>60 ml/min/1.73 sqM); Albumin 3.7 g/dL (3.5-5.0); Alkaline Phosphatase 102 U/L (38-126); Anion Gap 9 mmol/L; Blood Urea Nitrogen 17 mg/dL (9-20); Calcium 8.3 mg/dL (8.4-10.2); Carbon Dioxide 20 mmol/L (22-30); Chloride 100 mmol/L (98-107); Glucose 113 mg/dL (74-99); Non-African American GFR(CKD) >90 (>60 ml/min/1.73 sqM); Sodium 129 mmol/L (137-145); Total Protein 7.6 g/dL (6.3-8.2)
[2019-06-25] MEDS ORDERED: ACETAMINOPHEN TAB 500 MG TAB PO STA ×2 (18:15→18:53)
[2019-06-25 18:18] LABS: Potassium 6.3 mmol/L (3.5-5.1)
--- NOTE | 2019-06-25 18:18 | XR ---
EXAMINATION TYPE: XR chest 1V portable DATE OF EXAM: 06/25/2019 COMPARISON: 06/09/2019 HISTORY: Dyspnea TECHNIQUE: Single frontal view of the chest is obtained. FINDINGS: Similar-appearing streak-like bibasilar opacities in comparison the prior of 06/09/2019. The re is no new focal air space opacity, pleural effusion, or pneumothorax seen. The cardiac silhouette size is within normal limits. The osseous structures are intact. IMPRESSION: No new focal consolidation. Similar streak-like opacities at the lung bases as seen on t he exam of 06/09/2019 again likely relate to minimal bibasilar atelectasis.
[2019-06-25 18:29] LABS: INR 0.9 (<1.2); Partial Thromboplastin Time 25.7 sec (22.0-30.0); Prothrombin Time 9.9 sec (9.0-12.0)
[2019-06-25 18:55] VITALS: TEMP 101.6
[2019-06-25 19:21] VITALS: BP 112/77; RESP 16
== END 2019-06-25 19:53 | disposition home or self-care (01) ==
LOC: EC 16:32
DX: J40 Bronchitis, not specified as acute or chronic (principal); R50.9 Fever, unspecified; G30.9 Alzheimer's disease, unspecified; K21.9 Gastro-esophageal reflux disease without esophagitis; Z79.899 Other long term (current) drug therapy
CPT/HCPCS: 36415; 71045; 80053; 83690; 84132; 84484; 85025; 85610; 85730; 93005; 96360; 99285

== ENCOUNTER → 2019-07-30 | Outpatient (CLI) | payer MEDICAID | END | disposition home or self-care (01) | LOC: LABWHC1 09:17 | PROVIDERS: ATTEND Internal Medicine Hematology & Oncology | DX: U07.1 COVID-19 (principal) | CPT/HCPCS: 87635 ==

== ENCOUNTER 2019-08-01 10:53 | Day surgery (SDC) | payer MEDICAID ==
[2019-07-31 13:00] VITALS: BMI 27.1
--- NOTE | 2019-08-01 10:17 | P.GSHP ---
History of Present Illness H&P Date: 08/01/19 CHIEF COMPLAINT: Pancreatic cancer HISTORY OF PRESENT ILLNESS: The patient is a 64-year-old male diagnosed with pancreatic cancer. He needs a Mediport placement for chemotherapy. PAST MEDICAL HISTORY: See list PAST SURGICAL HISTORY: See list CURRENT MEDICATIONS: See list. ALLERGIES: See list. SOCIAL HISTORY: No active tobacco or alcohol use. FAMILY HISTORY: Noncontributory. REVIEW OF ORGAN SYSTEMS: CONSTITUTIONAL: Has weight loss. PHYSICAL EXAMINATION: Vital signs: Stable GENERAL: Well developed and in no acute distress. Pleasant. HEENT: No sclera icterus. Extraocular movements grossly intact. Moist buccal mucosa. Head is atraumatic, normocephalic. Hears conversational speech. No nasal drainage. NECK: Supple without lymphadenopathy. No JV distention. CHEST: Non-labored respirations and equal bilateral excursions. CARDIOVASCULAR: Regular rate and rhythm. Palpable 2+ radial pulses. ABDOMEN: Nontender. MUSCULOSKELETAL: No clubbing, cyanosis or edema. NEUROLOGIC: No focal or lateralizing signs. PSYCH: Appropriate affect. Alert and oriented to person, place and time. ASSESSMENT: 1. Pancreatic cancer 2. Need for chemotherapeutic access. PLAN: 1. Agree with Port-A-Cath placement. Past Medical History Past Medical History: Cancer, GERD/Reflux, Memory Impairment, Sleep Apnea/CPAP/BIPAP Additional Past Medical History / Comment(s): MILD SLEEP APNEA (NO MACHINE) MEMORY IMPAIRMENT " PRIMARY PROGRESSIVE APHASIA- HAS DIFFICULTY RECALLING WORDS- AFFECTED MEMORY AND SOME COGNITIVE. , HOSPITALIZED AT [facility] JUNE 08 THROUGH 06/15/19 WITH BLOCKAGE AT [facility] AND JAUNDICE, HE WAS TRANSFERRED TO [facility], PANCREATITIS, AND LIVER INFECTION & INFECTION AT [facility]- STENT INSERTED AT [facility]., DISCHARGED AND THEN WAS DIAGNOSED WITH COVID 19- DENIES CURRENT SYMPTOMS AND STATES HE WAS TESTED 07/22/19 AND WAITING FOR RESULTS SO HE CAN HAVE MEDIPORT INSERTED FOR NEW DIAGNOSIS OF PANCREATIC CANCER. History of Any Multi-Drug Resistant Organisms: None Reported Past Surgical History: Appendectomy, Hernia Repair Additional Past Surgical History / Comment(s): LT ORCHIECTOMY (done at age 17) , LT bone spur, MARIO INGUINAL HERNIA REPAIR, STENT IN [facility]. Past Anesthesia/Blood Transfusion Reactions: No Reported Reaction Smoking Status: Never smoker - Past Family History Mother Family Medical History: No Reported History Father Family Medical History: Cancer Additional Family Medical History / Comment(s): PROSTATE CANCER Medications and Allergies Home Medications Medication Instructions Recorded Confirmed Type Omeprazole 20 mg PO DAILY PRN 06/09/19 07/31/19 History Allergies Allergy/AdvReac Type Severity Reaction Status Date / Time donepezil [From Aricept] AdvReac Diarrhea Verified 07/31/19 12:51
[~2019-08-01 10:53] MED LIST changes: -HEPARIN SODIUM,PORCINE 5,000 UNIT/ML 1 ML VIAL SQ ONE; +HYDROmorphone 0.5 MG/0.5 ML SYRINGE IVP PRN; -HYDROmorphone 1 MG/ML 1 ML SYRINGE IVP PRN; -MIDAZOLAM 2 MG/2 ML VIAL IV PRN; +Pre Op ABX Message 1 EACH MISC MISCELLANE ONE; -SCOPOLAMINE 1.5MG/72HR PATCH TRANSDERM ONE; -ceFAZolin 2 GM in SODIUM CHLORIDE 0.9% 100 ML IVPB ONE
[2019-08-01] MEDS ORDERED: LIDOCAINE 1% (10MG/ML) FOR IV START INTRADERMA ONE (11:35)
[2019-08-01 11:49] VITALS: TEMP 98.9
[2019-08-01] MEDS ORDERED: fentaNYL (PF) 50 MCG/ML 2 ML AMP ONE (12:17)
[2019-08-01] MEDS ORDERED: PROPOFOL 10 MG/ML 20 ML VIAL IV ONE (12:17)
[2019-08-01] MEDS ORDERED: MIDAZOLAM 2 MG/2 ML VIAL ONE (12:17)
[2019-08-01] MEDS ORDERED: BUPIVACAIN-EPI 0.25%-1:200,000 30 ML VIAL SQ ONE (12:17)
[2019-08-01] MEDS ORDERED: SODIUM CHLORIDE 0.9% 500 ML 500 ML with HEPARIN SODIUM,PORCINE 5,000 UNIT IV ONE ×2 (12:34)
--- NOTE | 2019-08-01 13:30 | P.OP ---
Date of Procedure: 08/01/19 Description of Procedure: SURGEON: ROXANA TOUSSAINT MD DEVELOPMENTAL EDUCATION INSTRUCTOR: None. PREOPERATIVE DIAGNOSES: 1. Pancreatic cancer 2. Need for chemotherapeutic access. POSTOPERATIVE DIAGNOSES: 1. Pancreatic cancer 2. Need for chemotherapeutic access. PROCEDURES PERFORMED: 1. Ultrasound guided central venous access of the right internal jugular venous vein. 2. Fluoroscopic guidance for central venous access right internal jugular vein 1 seconds. 3. Placement of right internal jugular power port 6 [place]anian by Bard. ANESTHESIA: IV sedation with 20 mL 1% lidocaine. ESTIMATED BLOOD LOSS: 5 mL. SPECIMENS REMOVED: None. COMPLICATIONS: None. HISTORY: The patient is a 74-year-old male recently diagnosed with pancreatic. He now presents for chemotherapeutic access. Benefits and risks of surgical intervention were described including bleeding, infection, mechanical problems with her port. Informed consent was obtained. DESCRIPTION OR PROCEDURE: The patient was brought into the operating room, laid in supine position. After adequate IV sedation, the chest and right neck were prepped and draped in a standard sterile fashion including the shoulder with ChloraPrep. Timeout protocol was confirmed with the surgical team regarding the patient's name, procedure to be performed including preoperative medications for which he received Ancef 2 g IV piggyback. Bilateral SCDs were placed. An ultrasound was used to capture views of the right internal jugular vein including right carotid artery, which was patent and without thrombus along its course. The right IJ was then localized using anesthetic for the skin. A 16 Tanzanian needle was used to access the IJ. The needle was advanced into the IJ with successful dark nonpulsatile venous blood. A J-wire was placed under fluoroscopic guidance. The skin was generally localized using anesthetic along the proposed port site as well as subcutaneous tract. Two fingerbreadths distal to the clavicle, on the lateral third, a transverse 2-cm incision was deepened into the skin after localizing the skin. A pocket was created for the port. The port on the back table was flushed with heparinized saline and then attached to the catheter tubing. An adapter was fastened to the actual port site over the tubing. The port easily had fit snug into the pocket. A subcutaneous tunneler was placed along the open end of the tubing and brought out through the separate stab incision. Fluoroscopic guidance confirmed no kinking along the tubing and the port site. Next, the J-wire was exchanged for a catheter sheath for which the tubing was cut to 24 cm and then advanced through the catheter sheath. The Peel-away sheath was then removed and the tubing was secured at the junction of the superior vena cava as well as the right atrium. Easy pullback of the syringe with return and aspiration was obtained of the port. The skin incision was closed using layers using 3-0 Vicryl for the subcu followed by 4-0 Monocryl in a running subcuticular fashion. At the stick site this was also reapproximated using 4-0 Monocryl. The skin was cleansed and Dermabond was applied. The incisions were covered with Optifoam. A total of 20 mL of local anesthetic was placed. At the end of the procedure, needle, sponge, and instrument count was verified correct by ammonia technician. Heparin lock of 4 mL was placed. The patient was awoken and pain free and taken to the second stage postanesthesia care unit. The patient tolerated the procedure well. FINDINGS: 1. No thrombus encountered along the right carotid artery or right internal jugular vein. 2. Access of the right internal jugular vein under ultrasound guidance. 3. Fluoroscopy of 1 seconds. 4. Final fluoroscopic image confirmed no mechanical kink of the port site or at the junction at the skin puncture site. Plan - Discharge Summary Discharge Rx Participant: Yes New Discharge Prescriptions: New Acetaminophen Tab [Tylenol Tab] 500 mg PO Q6H PRN #30 tablet PRN Reason: Pain No Action Omeprazole 20 mg PO DAILY PRN PRN Reason: Heartburn Discharge Medication List Omeprazole 20 mg PO DAILY PRN 06/09/19 [History] Acetaminophen Tab [Tylenol Tab] 500 mg PO Q6H PRN #30 tablet 08/01/19 [Rx] Follow up Appointment(s)/Referral(s): Roxana Toussaint MD [STAFF PHYSICIAN] - As Needed Patient Instructions/Handouts: Implanted Venous Access Port (GEN), How to Care for Your Implanted Venous Access Port (DC) Activity/Diet/Wound Care/Special Instructions: Remove dressing on 08/06/2019 May shower. No bathtub soaks for 2 weeks. No wide motions of the right arm to prevent dislodge of your port for 3 weeks. EXPECT BRUISING AND SLEEP WITH 2 TO 3 PILLOWS. BRUISING RESOLVES IN 2 TO 3 WEEKS. Use tylenol, Motrin or Aleve for pain. Discharge Disposition: HOME SELF-CARE
--- NOTE | 2019-08-01 13:48 | FL ---
Fluoroscopy History: PORT A CATH INSERTION 1 second of fluoroscopic time and 1 film are submitted for PORT A CATH INSERTION .
--- NOTE | 2019-08-01 13:52 | XR ---
EXAMINATION TYPE: XR chest 1V confirm line [facility] DATE OF EXAM: 08/01/2019 HISTORY: Shortness of breath. COMPARISON: 06/25/2019 TECHNIQUE: Single view of the chest is submitted. FINDINGS: Demonstrated are scattered senescent parenchymal change. Port-A-Cath is noted with its distal tip ov erlying the SVC. No evidence for pneumothorax. There is no evidence for focal infiltrate. The heart is stable. Hilar and mediastinal structures are within normal limits. Degenerative changes are seen of the dorsal spine. IMPRESSION: 1. Chronic changes without evidence for acute pulmonary disease.
[2019-08-01 14:04] VITALS: RESP 18
[2019-08-01] MEDS ORDERED: ACETAMINOPHEN TAB 500 MG TAB PO ONE (14:05)
[2019-08-01 14:22] VITALS: BP 118/74; PULSE 77
== END 2019-08-01 14:36 | disposition home or self-care (01) ==
LOC: OR 10:53
PROVIDERS: ATTEND Surgery Plastic and Reconstructive Surgery
DX: C25.9 Malignant neoplasm of pancreas, unspecified (principal); K21.9 Gastro-esophageal reflux disease without esophagitis; G47.30 Sleep apnea, unspecified; G31.01 Pick's disease; F02.80 Dementia in other diseases classified elsewhere, unspecified severity, without behavioral disturbance, psychotic disturbance, mood disturbance, and anxiety; Z79.899 Other long term (current) drug therapy; Z90.49 Acquired absence of other specified parts of digestive tract; Z98.890 Other specified postprocedural states; Z95.828 Presence of other vascular implants and grafts; Z80.42 Family history of malignant neoplasm of prostate; Z88.8 Allergy status to other drugs, medicaments and biological substances
CPT/HCPCS: 77001

== ENCOUNTER → 2019-08-09 | Outpatient (CLI) | payer MEDICAID ==
[2019-08-09 10:30] LABS: INR 0.9 (<1.2); Partial Thromboplastin Time 23.7 sec (22.0-30.0); Prothrombin Time 9.5 sec (9.0-12.0)
[2019-08-09 10:31] LABS: Basophils # (A) 0.1 k/uL (0-0.2); Basophils % (A) 1 %; Eosinophils # (A) 0.2 k/uL (0-0.7); Eosinophils % (A) 3 %; HCT 45.9 % (39.0-53.0); HGB 15.3 gm/dL (13.0-17.5); Lymphocytes # (A) 1.7 k/uL (1.0-4.8); Lymphocytes % (A) 21 %; MCH 30.4 pg (25.0-35.0); MCHC 33.3 g/dL (31.0-37.0); MCV 91.3 fL (80.0-100.0); Mean Platelet Volume 7.1; Monocytes # (A) 0.5 k/uL (0-1.0); Monocytes % (A) 6 %; Neutrophils # (A) 5.5 k/uL (1.3-7.7); Neutrophils % (A) 67 %; Platelet Count 271 k/uL (150-450); RBC 5.03 m/uL (4.30-5.90); RDW 14.3 % (11.5-15.5); WBC 8.2 k/uL (3.8-10.6)
--- NOTE | 2019-08-09 11:24 | PE ---
Nuclear medicine PET/CT HISTORY: C25.1, pancreatic carcinoma, initial Patient received 12.3 mCi F-18 FDG intravenously in delayed scanning was performed from the skull bas e to the mid thighs. Localization and attenuation correction CT scan was performed. Correlation to prior CT scan dated 06/09/2019, MRCP 06/11/2019 Neck and chest: There is no cervical or supraclavicular adenopathy. Port-A-Cath is present in the rig ht pectoral region, right internal jugular vein catheter courses to the level of the cavoatrial junct ion. There is no mediastinal, axillary, or hilar adenopathy. Hiatal hernia is present. There is no ev ident lung mass or suspicious hypermetabolic uptake. No pleural or pericardial effusion. ABDOMEN: There is a stent present within the common bile duct at head of the pancreas, focus of incre ased uptake is present at this level, SUV is 3. The focus of T2 bright signal on the MRCP and corresp onding hypodensity seen on CT scan noncontrast does not show any hypermetabolic uptake on PET/CT and measures 16 mm. There is no retroperitoneal adenopathy. Duodenal diverticulum is present at the head of the pancreas level. No additional suspicious hypermetabolic uptake. Prostate is enlarged. No pelvi c adenopathy or free fluid. Bowel uptake is likely physiologic. Osseous structures show no suspicious uptake. Degenerative disc changes are present in the visualized spine. IMPRESSION: There is no suspicious hypermetabolic uptake to suggest metastasis. Indeterminate lesion within the liver does not show associated hypermetabolic uptake and may be cystic.
[2019-08-09 11:35] LABS: ALT 27 U/L (4-49); AST 26 U/L (17-59); African American GFR (CKD) >90 (>60 ml/min/1.73 sqM); Albumin 4.1 g/dL (3.5-5.0); Alkaline Phosphatase 79 U/L (38-126); Anion Gap 7 mmol/L; Blood Urea Nitrogen 23 mg/dL (9-20); Calcium 9.7 mg/dL (8.4-10.2); Carbon Dioxide 25 mmol/L (22-30); Chloride 106 mmol/L (98-107); Glucose 128 mg/dL (74-99); Magnesium 2.1 mg/dL (1.6-2.3); Non-African American GFR(CKD) >90 (>60 ml/min/1.73 sqM); Phosphorus 3.7 mg/dL (2.5-4.5); Potassium 4.5 mmol/L (3.5-5.1); Sodium 138 mmol/L (137-145); Total Bilirubin 0.5 mg/dL (0.2-1.3); Total Protein 7.3 g/dL (6.3-8.2)
[2019-08-09 15:37] LABS: % Iron Saturation 19.81 (15.00-50.00); Iron 61 ug/dL (65-175); Total Iron Binding Capacity 308 ug/dL (228-460)
[2019-08-09 15:45] LABS: Ferritin 289.7 ng/mL (22.0-322.0); Folate, Serum 6.8 ng/mL
== END | disposition home or self-care (01) ==
LOC: RADPETMAIN 07:10
PROVIDERS: ATTEND Internal Medicine Hematology & Oncology
DX: C25.1 Malignant neoplasm of body of pancreas (principal); G30.9 Alzheimer's disease, unspecified; R97.20 Elevated prostate specific antigen [PSA]
CPT/HCPCS: 84153; 80053; 82607; 82728; 82746; 83540; 83550; 83735; 84100; 85025; 85610; 85730; 86301; 78815; A9552

== ENCOUNTER → 2019-08-22 | Outpatient (CLI) | payer MEDICAID | END | disposition home or self-care (01) | LOC: RADMRIMAIN 15:48 | PROVIDERS: ATTEND Internal Medicine Hematology & Oncology | DX: Z53.9 Procedure and treatment not carried out, unspecified reason (principal) ==

== ENCOUNTER → 2019-08-26 | Outpatient (CLI) | payer MEDICAID ==
--- NOTE | 2019-08-26 13:44 | MR ---
EXAMINATION TYPE: MR brain wo/w con DATE OF EXAM: 08/26/2019 COMPARISON: CT brain August 09, 2019 HISTORY: Memory loss, aphasia, pancreatic cancer TECHNIQUE: Multiplanar, multisequence images of the brain and brainstem is performed without and with IV contras t, utilizing 10 mL intravenous Gadavist . FINDINGS: Diffusion weighted images demonstrate no evidence of a recent infarct or other diffusion ab normality. There is no worrisome some extra-axial fluid collection. Ventricles and sulci are within normal limits in size for patient's age. Some scattered areas of T2 hyperintensity seen throughout th e white matter greatest at the posterior periventricular levels. Lesions presumed basis of product of chronic small vessel ischemic change in patient of this age. Midline structures demonstrate normal morphology. The craniocervical junction appears within normal limits. Post contrast images demonstrate no suspicious enhancement or enhancing masses. The dural ve nous sinuses appear patent. The visualized sinuses are clear and the globes are intact. IMPRESSION: Mild nonspecific white matter changes presumed on the basis of product of chronic small v essel ischemic change. No suspicious enhancing masses to suggest metastatic disease to the brain.
== END | disposition home or self-care (01) ==
LOC: RADMRIMAIN 12:48
PROVIDERS: ATTEND Internal Medicine Hematology & Oncology
DX: R90.82 White matter disease, unspecified (principal); R47.01 Aphasia
CPT/HCPCS: 70553; A9585

== ENCOUNTER → 2019-10-14 | Outpatient (CLI) | payer MEDICAID ==
[2019-10-14 12:56] LABS: African American GFR (CKD) >90 (>60 ml/min/1.73 sqM); Blood Urea Nitrogen 14 mg/dL (9-20); Non-African American GFR(CKD) >90 (>60 ml/min/1.73 sqM)
--- NOTE | 2019-10-14 14:40 | CT ---
EXAMINATION TYPE: CT ChestAbdPelvis w con DATE OF EXAM: 10/14/2019 COMPARISON: PET CT 08/09/2019 and abdomen and pelvis 06/09/2019 HISTORY: 64-year-old male Pancreatic cancer TECHNIQUE: Contiguous axial scanning of the chest, abdomen, and pelvis performed with IV Contrast, pa tient injected with 100 mL of Isovue 300. Delayed images through the kidneys were obtained. Coronal/s agittal reconstructions performed. CT DLP: 1462.6 mGycm Automated exposure control for dose reduction was used. FINDINGS: CHEST: Right anterior chest wall injection with catheter tip at the cavoatrial junction. Heart normal size without pericardial effusion. Aorta normal caliber with conventional arch vessel branching anatomy. No thoracic lymphadenopathy by CT size criteria. No consolidation or pleural effusion. ABDOMEN: Small hiatal hernia. Hepatic steatosis. Portal venous system is patent. A bile duct stent is redemonstrated. There is seco ndary pneumobilia and air in the gallbladder lumen. No suspicious liver lesion. On the arterial images, there is a vague hypovascular area suggested involving the posterior pancreat ic head adjacent to the stent measuring 1.8 x 1.4 cm, refer to axial image 62. There is no vascular a butment. Mild dilatation of the main pancreatic duct up to 4 mm. Adrenal glands, left kidney, and spleen appear within normal limits. An intermediate attenuating 1.3 cm cortical lesion lateral right kidney shows density of around 50 Ho unsfield units but is too small for complete accurate characterization. A complicated cyst is suspect ed in should be reassessed at follow-up. No dilated small bowel, free fluid, or free air. No mesenteric or retroperitoneal lymphadenopathy. Oral contrast progressed into the proximal sigmoid colon. Moderate stool within the sigmoid colon. No pericolic inflammatory change. Mild diverticular change of the junction of the descending and sigmoi d colon. PELVIS: Prostate gland enlargement 5.0 cm wide. Bladder is urine distended. Pelvic phleboliths. Patulous left internal canal. No abnormal fluid collection the pelvis or pelvic lymphadenopathy. BONES: Mild to moderate degenerative change of the hips. Mild degenerative changes left SI joint. Hypertroph ic facet arthropathy mid to lower lumbar spine. Grade 1 retrolisthesis L1-L2. Moderate to advanced de generative disc disease L4-L5. Anterior endplate spondylosis midthoracic spine. Accentuated mid thora cic kyphosis. No osseous destructive process seen. IMPRESSION: 1. VAGUE HYPOVASCULAR AREA MEASURING 1.8 X 1.4 CM IN THE POSTERIOR PANCREATIC HEAD ADJACENT TO THE BI LIARY STENT (ARTERIAL SERIES AXIAL IMAGE 62). THIS FINDING PROBABLY RELATES TO THE PATIENT'S UNDERLYI NG PANCREATIC CARCINOMA. THIS IS NOT WELL DEMONSTRATED ON OTHER PHASES OF IMAGING. NO VASCULAR ABUTME NT OR EVIDENCE FOR METASTATIC DISEASE. 2. PNEUMOBILIA AND AIR IN THE GALLBLADDER LUMEN SECONDARY TO THE PRESENCE OF THE BILIARY STENT. 3. A 1.3 CM INDETERMINATE CORTICAL LESION OF THE RIGHT KIDNEY, SUSPECT A COMPLICATED CYST. ATTENTION ON FOLLOW-UP. 4. HEPATIC STEATOSIS. SMALL HIATAL HERNIA.
== END | disposition home or self-care (01) ==
LOC: RADCTMAIN 11:34
PROVIDERS: ATTEND Internal Medicine Hematology & Oncology
DX: K76.0 Fatty (change of) liver, not elsewhere classified (principal); K44.9 Diaphragmatic hernia without obstruction or gangrene; C25.1 Malignant neoplasm of body of pancreas
CPT/HCPCS: 82565; 84520; 71260; 74177; 36415; Q9967

== ENCOUNTER → 2020-02-21 | Outpatient (CLI) | payer MEDICAID ==
--- NOTE | 2020-02-25 07:55 | PE ---
EXAMINATION TYPE: PET CT fusion skull to thigh DATE OF EXAM: 02/21/2020 COMPARISON: Prior CT October 14, 2019 and older CTs. Prior PET/CT August 09, 2019. HISTORY: Pancreatic cancer into liver. Diagnosed June 12, 2019. Completed chemotherapy December 26, 2019. TECHNIQUE: Following the intravenous administration of 8.79 mCi of F-18 FDG, whole body images are p erformed from the skull base to the midthigh. Images are reviewed on the computer in the coronal, ax ial, and sagittal planes. Reconstructed rotating images are created on independent workstation and r eviewed on the computer. A noncontrast CT is performed in conjunction with the PET scan. Blood gluc ose level equals 98. SCAN: Subsequent Scan FINDINGS: SKULL BASE AND NECK: No new areas of abnormal hypermetabolic uptake. Mild uptake surrounding the luann ateral shoulder joints presumed postinflammatory. CHEST, MEDIASTINUM, AND HILAR REGION: No new areas of abnormal hypermetabolic uptake. ABDOMEN AND PELVIS: Redemonstration of metallic biliary stent with some central pneumobilia suggestin g persistent patency despite lack of aeration centrally in the stent. No new biliary dilatation also noted positive sign. Persistent abnormal hypermetabolic uptake along the right anterior aspect of stent image 144 is suspi cious for residual active neoplasm, max SUV is 5.58. This is more prominent from prior PET/CT. There is more fullness to the pancreas at this level relative to the body and tail which show mild to moder ate generalized atrophy. No ductal dilatation is identified. No discrete mass identified on attenuati on correction CT. Scattered nonspecific diffuse bowel uptake. Excretion into kidneys and bladder noted. No new areas of suspicious hypermetabolic uptake. OSSEOUS STRUCTURES: No new areas of suspicious hypermetabolic uptake. OTHER CT: Stable right internal jugular Mediport catheter. Marked fatty infiltration of liver redemonstrated. Persistent small duodenal diverticulum with air-fl uid level axial image 146. A few distal colonic diverticula. Few scattered left-sided pelvic phleboli ths. Moderate multilevel spurring in the spine. Moderate disc space narrowing and vacuum disc phenomenon w ith facet arthropathy in lower lumbar spine. IMPRESSION: Persistent slightly more prominent hypermetabolic uptake in the pancreatic head worrisome for local active neoplastic progression. No new metastatic disease or adenopathy identified.
== END | disposition home or self-care (01) ==
LOC: RADPETMAIN 12:47
PROVIDERS: ATTEND Internal Medicine Hematology & Oncology
DX: C25.1 Malignant neoplasm of body of pancreas (principal)
CPT/HCPCS: 78815; A9552

== ENCOUNTER → 2020-04-24 | Outpatient (CLI) | payer MEDICAID ==
[2020-04-24 13:46] LABS: African American GFR (CKD) >90 (>60 ml/min/1.73 sqM); Blood Urea Nitrogen 10 mg/dL (9-20); Non-African American GFR(CKD) 84 (>60 ml/min/1.73 sqM)
--- NOTE | 2020-04-25 17:56 | CT ---
EXAMINATION TYPE: CT ChestAbdPelvis w con DATE OF EXAM: 04/24/2020 COMPARISON: PET/CT scan 02/21/2020 HISTORY: pancreatic ca f/u CT DLP: 1406 mGycm Automated exposure control for dose reduction was used. CONTRAST: Performed with IV Contrast, patient injected with 100 mL of Isovue 300. The lungs are clear of infiltrate. There is no pleural effusion. There is no evidence of a pulmonary mass. Heart size is normal. There is no pericardial effusion. There is no mediastinal adenopathy. The re are no hilar masses. Thoracic aorta is intact. There is no aneurysm or dissection. There is diffuse fatty infiltration of the liver. There is reflux of air into the biliary tree. There is biliary stent noted. Gallbladder is contracted. Spleen is intact. There is some bulkiness of the pancreatic head. The body and tail of the pancreas appear normal. There is no adrenal mass. Kidneys show satisfactory contrast opacification. There is no hydronephrosi s. Ureters are not dilated. Delayed images show normal renal excretion. There is no retroperitoneal a denopathy. Bladder distends smoothly. There is no inguinal hernia. There is no free fluid in the pelv is. There is some retained fecal material in the left colon. Terminal ileum appears normal. Appendix is not seen. There is no sign of thickened appendix. There is no mesenteric edema. There is no ascites or free air. There is no sign of a bowel obstructio n. There are a few sigmoid diverticula. There is no sign of diverticulitis. The thoracic and lumbar s pine appear intact. There is no compression fracture. Bony pelvis is intact. The hip joints are intac t. There is moderately severe spinal stenosis at L4-5 due to facet arthropathy and posterior disc mil d herniation. IMPRESSION: Fatty infiltration of the liver. No focal defect. There is stent noted in good position. Minimal air reflux into the biliary tree unchanged. Slight bulkiness of the pancreatic head but no discrete mass seen. This appears stable compared to ol d exam. I see no sign of metastatic disease. Moderately severe L4-5 spinal stenosis.
== END | disposition home or self-care (01) ==
LOC: RADPROMAIN 12:48
PROVIDERS: ATTEND Internal Medicine Hematology & Oncology
DX: K76.0 Fatty (change of) liver, not elsewhere classified (principal); K21.9 Gastro-esophageal reflux disease without esophagitis; C25.1 Malignant neoplasm of body of pancreas
CPT/HCPCS: 82565; 84520; 71260; 74177; 36415; Q9967

== ENCOUNTER → 2020-05-08 | Outpatient (CLI) | payer MEDICAID ==
--- NOTE | 2020-05-09 03:24 | MR ---
EXAMINATION TYPE: MR abdomen wo/w con DATE OF EXAM: 05/08/2020 COMPARISON: CT scan 04/24/2020 HISTORY: Cancer staging for radiation, hx of abd ca CONTRAST: Standard multiplanar, multisequence MRI departmental protocol utilizing 10 mL intravenous Gadavist ga dolinium contrast. There is 1.3 cm area of increased signal in the subcortical lateral aspect of right lobe of the liver on the T2 images. This shows ring enhancement on the contrast images. The bile ducts are not dilated . Gallbladder has normal size and contour. There is mild ectasia of the mid pancreatic duct that sade ures up to 6 mm. There is some bulkiness of the right lateral aspect of the pancreatic head. This are a measures 2.5 x 1.5 cm. This is adjacent to the second part of the duodenum. This area shows slight decreased signal on T2 images. There is no adrenal mass. Kidneys have normal size. There is no hydronephrosis. There is 1 cm cortica l cyst upper pole of the right kidney. There is 1 cm cortical cyst upper pole left kidney. There is n o sign of retroperitoneal adenopathy. There is no ascites. There is no pleural effusion. I do not see any significant pathologic enhancement. There is a biliary stent noted. IMPRESSION: There is some enlargement of the right lateral aspect of the pancreatic head with decreased signal co nsistent with residual tumor that appears not changed significantly compared to the CT scan of 021. There is small ring-enhancing focus in the lateral right lobe of the liver that could be a site of metastatic disease.
== END | disposition home or self-care (01) ==
LOC: RADMRIMAIN 09:13
PROVIDERS: ATTEND Radiology Radiation Oncology
DX: R93.2 Abnormal findings on diagnostic imaging of liver and biliary tract (principal); K86.89 Other specified diseases of pancreas; C25.0 Malignant neoplasm of head of pancreas; C78.7 Secondary malignant neoplasm of liver and intrahepatic bile duct
CPT/HCPCS: 74183; A9585

== ENCOUNTER → 2020-07-24 | Outpatient (CLI) | payer MEDICAID ==
--- NOTE | 2020-07-27 06:40 | PE ---
EXAMINATION TYPE: PET CT fusion skull to thigh DATE OF EXAM: 07/24/2020 COMPARISON: Most recent CT April 24, 2020 and older studies. Original PET CT August 09, 2019 HISTORY: History of pancreatic cancer metastatic to liver. Diagnosed June 12, 2019. Completed chem otherapy and radiation treatment reasonably. TECHNIQUE: Following the intravenous administration of 10.44 mCi of F-18 FDG, whole body images are performed from the skull base to the midthigh. Images are reviewed on the computer in the coronal, a xial, and sagittal planes. Reconstructed rotating images are created on independent workstation and reviewed on the computer. A localization and attenuation correction CT is performed in conjunction with the PET scan. Blood glucose level equals 111. SCAN: Subsequent Scan FINDINGS: SKULL BASE AND NECK: No new areas of suspicious hypermetabolic uptake. Mild hypermetabolic uptake le ft shoulder region presumed postinflammatory. CHEST, MEDIASTINUM, AND HILAR REGION: No new areas of abnormal hypermetabolic uptake. ABDOMEN AND PELVIS: Redemonstration of metallic biliary stent with some central pneumobilia suggestin g persistent patency despite lack of aeration centrally in significant portion of the stent. No new b iliary dilatation also noted positive sign. Marked improvement in the abnormal hypermetabolic uptake along the metallic stent, max SUV is 3.26 on current study. This is much less prominent versus most recent PET/CT. There is more generalized atro phy at this level similar to the body and tail which redemonstrated mild to moderate generalized atro phy. No new ductal dilatation is identified. No discrete mass identified on attenuation correction CT . Nonspecific bowel uptake redemonstrated. Normal excretion. No new areas of abnormal hypermetabolic up take. OSSEOUS STRUCTURES: No new areas of suspicious hypermetabolic uptake. OTHER CT: Stable right internal jugular Mediport catheter. Marked fatty infiltration of liver redemonstrated. Persistent small duodenal diverticulum with air-fl uid level axial image 149 current study. A few distal colonic diverticula. Several scattered left-skylar ed pelvic phleboliths redemonstrated. Moderate multilevel spurring in the spine. Moderate disc space narrowing and vacuum disc phenomenon w ith facet arthropathy in lower lumbar spine. Exaggerated kyphosis. IMPRESSION: Positive treatment response, marked interval improvement in abnormal hypermetabolic uptak e surrounding biliary stent. No new areas of abnormal hypermetabolic uptake noted.
== END | disposition home or self-care (01) ==
LOC: RADPETMAIN 14:53
PROVIDERS: ATTEND Internal Medicine Hematology & Oncology
DX: C25.1 Malignant neoplasm of body of pancreas (principal); C78.7 Secondary malignant neoplasm of liver and intrahepatic bile duct
CPT/HCPCS: 78815; A9552

== ENCOUNTER → 2020-09-03 | Outpatient (CLI) | payer MEDICAID ==
--- NOTE | 2020-09-04 05:43 | MR ---
EXAMINATION TYPE: MR liver wo/w con DATE OF EXAM: 09/03/2020 COMPARISON: 05/08/2020 HISTORY: Hx of liver/pancreatic ca, f/u treatment CONTRAST: Standard multiplanar, multisequence MRI departmental protocol utilizing 9 mL intravenous Gadavist obie olinium contrast. There are numerous ring-enhancing lesions in the liver. The largest is in the anterior left lobe of t he liver and measures 2.1 cm. Most of the lesions are approximately 1 cm. There is no pleural effusio n. The spleen is intact. Common bile duct measures 8 mm. The pancreatic duct is not dilated. There is minimal bulkiness of the right lateral aspect of the pancreatic head There is no adrenal mass. Kidneys have fairly normal size. There are small cortical cysts that measur e less than 1 cm. There is no hydronephrosis. There is no sign of retroperitoneal adenopathy. Gallbla dder distends smoothly. The spleen is intact. There is no ascites. There is no sign of a bowel obstruction. IMPRESSION: Multiple ring-enhancing liver lesions are significantly increased in size and number compared to old exam. This is consistent with progression of metastatic disease. Mild bulkiness of the anterior and right lateral pancreatic head suggestive of tumor. Unchanged.
== END | disposition home or self-care (01) ==
LOC: RADMRIMAIN 12:21
PROVIDERS: ATTEND Radiology Radiation Oncology
DX: C25.0 Malignant neoplasm of head of pancreas (principal); K76.9 Liver disease, unspecified
CPT/HCPCS: 74183; A9585

== ENCOUNTER 2020-09-23 22:16 | Inpatient (IN) | payer MEDICAID ==
[2020-09-23 23:37] LABS: Basophils % (A) 0 %; Eosinophils # (A) 0.1 k/uL (0-0.7); Eosinophils % (A) 1 %; HGB 11.5 gm/dL (13.0-17.5); Lymphocytes # (A) 0.2 k/uL (1.0-4.8); Lymphocytes % (A) 3 %; MCH 33.4 pg (25.0-35.0); MCHC 33.8 g/dL (31.0-37.0); MCV 98.7 fL (80.0-100.0); Mean Platelet Volume 7.6; Monocytes # (A) 0.2 k/uL (0-1.0); Monocytes % (A) 2 %; Neutrophils % (A) 94 %; Platelet Count 140 k/uL (150-450); RBC 3.44 m/uL (4.30-5.90); RDW 12.9 % (11.5-15.5); WBC 7.5 k/uL (3.8-10.6)
[2020-09-23 23:44] LABS: ALT 143 U/L (4-49); AST 203 U/L (17-59); African American GFR (CKD) 89 (>60 ml/min/1.73 sqM); Albumin 3.1 g/dL (3.5-5.0); Alkaline Phosphatase 146 U/L (38-126); Amylase <30 U/L (30-110); Anion Gap 8 mmol/L; Blood Urea Nitrogen 13 mg/dL (9-20); Calcium 8.1 mg/dL (8.4-10.2); Carbon Dioxide 20 mmol/L (22-30); Chloride 110 mmol/L (98-107); Glucose 141 mg/dL (74-99); Lipase <10 U/L (23-300); Non-African American GFR(CKD) 77 (>60 ml/min/1.73 sqM); Sodium 138 mmol/L (137-145); Total Bilirubin 1.2 mg/dL (0.2-1.3)
--- NOTE | 2020-09-24 00:01 | XR ---
EXAMINATION TYPE: XR KUB DATE OF EXAM: 09/23/2020 COMPARISON: NONE HISTORY: Abdominal pain TECHNIQUE: 3 views FINDINGS: 3 views upright were obtained. There is no sign of intestinal obstruction or pneumoperitone um. Fecal pattern is normal. There is no sign of a mass. There is minimal atelectasis left costophren ic angle. There are no pathologic calcifications over the kidneys. IMPRESSION: Nonacute abdomen.
[2020-09-24 00:03] LABS: Amorphous Sediment,Urine Rare /hpf; Appearance,Urine Clear (Clear); Bilirubin,Urine 1+ (Negative); Blood,Urine Negative (Negative); Color,Urine Orange; Glucose,Urine (UA) Trace (Negative); Ketones,Urine Negative (Negative); Leukocyte Esterase,Urine Negative (Negative); Mucus,Urine Moderate /hpf; Nitrite,Urine Negative (Negative); PH, Urine 5.5 (5.0-8.0); Protein,Urine 1+ (Negative); RBC,Urine 2 /hpf (0-5); Specific Gravity,Urine 1.028 (1.001-1.035); WBC,Urine 2 /hpf (0-5)
--- NOTE | 2020-09-24 00:29 | XR ---
EXAMINATION TYPE: XR chest 2V DATE OF EXAM: 09/24/2020 COMPARISON: 08/01/2019 HISTORY: Postop TECHNIQUE: 2 views FINDINGS: There is right central venous catheter with tip in the superior vena cava. There is no hear t failure. Lungs are clear of consolidation. Heart size is normal. There are no hilar masses. Bony th orax is intact. IMPRESSION: No pulmonary consolidation or heart failure. Suboptimal inspiration. No adverse change co mpared to old exam.
[2020-09-24] MEDS ORDERED: CEFEPIME 2 GM in SODIUM CHLORIDE 0.9% 100 ML IVPB STA (02:00)
[2020-09-24] MEDS ORDERED: SODIUM CHLORIDE 0.9% 500 ML 500 ML IV ONE (02:05)
[2020-09-24] MEDS ORDERED: SODIUM CHLORIDE 0.9% 1,000 ML IV ONE (02:05)
[2020-09-24] MEDS ORDERED: IBUPROFEN 600 MG TAB PO STA (02:07)
[2020-09-24] MEDS ORDERED: ONDANSETRON 4 MG/2 ML VIAL IVP PRN (02:08)
[2020-09-24] MEDS ORDERED: NALOXONE 0.4 MG/ML 1 ML VIAL IV PRN (02:08)
--- NOTE | 2020-09-24 02:10 | ED ---
General Adult HPI - General Chief complaint: Abdominal Pain Stated complaint: Fever,High heart rate,ABD pain Time Seen by Provider: 09/23/20 23:28 Source: patient, family Mode of arrival: wheelchair Limitations: no limitations - History of Present Illness Initial comments: 65 year-old male patient with history significant for pancreatic and liver cancer presents to the emergency department for evaluation of fever and abdominal discomfort. Patient states symptoms started today. reports that he slept in later than usual. Reported upper abdominal discomfort that has now resolved. He did have some nausea. Was able to eat today. Denies any cough, c ongestion, rash, wounds, or urinary symptoms. Does report diarrhea but states this is usual due to his chemotherapy. He does take imodium for this. Did not take any tylenol or motrin. Started new chemotherapy on Monday. Patient denies any recent rash, shortness of breath, chest pain, back pain, numbness, tingling, dizziness, weakness, headache, visual changes, or any other complaints. - Related Data Home Medications Medication Instructions Recorded Confirmed Omeprazole 20 mg PO DAILY PRN 06/09/19 08/01/19 Previous Rx's Medication Instructions Recorded Acetaminophen Tab [Tylenol Tab] 500 mg PO Q6H PRN #30 tablet 08/01/19 Allergies Allergy/AdvReac Type Severity Reaction Status Date / Time donepezil [From Aricept] AdvReac Diarrhea Verified 09/23/20 22:22 Review of Systems ROS Statement: Those systems with pertinent positive or pertinent negative responses have been documented in the HPI. ROS Other: All systems not noted in ROS Statement are negative. Past Medical History Past Medical History: Cancer, GERD/Reflux, Memory Impairment, Sleep Apnea/CPAP/BIPAP Additional Past Medical History / Comment(s): MILD SLEEP APNEA (NO MACHINE) MEMORY IMPAIRMENT " PRIMARY PROGRESSIVE APHASIA- HAS DIFFICULTY RECALLING WORDS- AFFECTED MEMORY AND SOME COGNITIVE. , HOSPITALIZED AT [facility] JUNE 08 THROUGH 06/15/19 WITH BLOCKAGE AT [facility] AND [facility], HE WAS TRANSFERRED TO [facility], PANCREATITIS, AND LIVER INFECTION & INFECTION AT [facility]- STENT INSERTED AT [facility] DISCHARGED AND THEN WAS DIAGNOSED WITH COVID 19- DENIES CURRENT SYMPTOMS AND STATES HE WAS TESTED 07/22/19 AND WAITING FOR RESULTS SO HE CAN HAVE MEDIPORT INSERTED FOR NEW DIAGNOSIS OF PANCREATIC CANCER. History of Any Multi-Drug Resistant Organisms: None Reported Past Surgical History: Appendectomy, Hernia Repair Additional Past Surgical History / Comment(s): LT ORCHIECTOMY (done at age 17) , LT bone spur, MARIO INGUINAL HERNIA REPAIR, STENT IN [facility]. Past Anesthesia/Blood Transfusion Reactions: No Reported Reaction Past Psychological History: No Psychological Hx Reported Smoking Status: Never smoker Past Alcohol Use History: Rare Past Drug Use History: None Reported - Past Family History Mother Family Medical History: No Reported History Father Family Medical History: Cancer Additional Family Medical History / Comment(s): PROSTATE CANCER General Exam Limitations: no limitations General appearance: alert, in no apparent distress, other (This is a well developed, well nourished adult male patient in no acute distress. Vital signs upon arrival show temp 99.7, pulse 104, respirations 20, BP 96/63, PUlse ox 96% on room air. ) ENT exam: Present: normal exam, normal oropharynx, mucous membranes moist Respiratory exam: Present: normal lung sounds bilaterally. Absent: respiratory distress, wheezes, rales, rhonchi, stridor Cardiovascular Exam: Present: normal rhythm, tachycardia, normal heart sounds. Absent: systolic murmur, diastolic murmur, rubs, gallop, clicks GI/Abdominal exam: Present: soft, normal bowel sounds. Absent: distended, tenderness, guarding, rebound, rigid Neurological exam: Present: alert, oriented X3, CN II-XII intact Psychiatric exam: Present: normal affect, normal mood Skin exam: Present: warm, dry, intact, normal color. Absent: rash Course Vital Signs 09/23/20 09/23/20 09/24/20 22:23 22:45 01:48 Temperature 99.7 F H 103.0 F H 100.2 F H Pulse Rate 104 H 85 Respiratory 20 18 Rate Blood Pressure 96/63 93/65 O2 Sat by Pulse 96 96 Oximetry Medical Decision Making - Medical Decision Making 65-year-old male patient currently in treatment for pancreatic and liver cancer presents for evaluation of fever and abdominal discomfort. Labs reviewed and did show white blood cell count of 7.5. Lactic acid is 2.2. Elevated liver enzymes. Urinalysis shows no signs of infection. Negative for carotid. Chest x-ray is negative. KUB was unremarkable. Patient's abdomen was soft and nontender during my physical exam. He'll be admitted to the hospital for fever of unknown origin. We will give a dose of cefepime. I did discuss findings and results with patient and his . Case discussed with my attending Dr. Gross. - Lab Data Result diagrams: 09/23/20 23:08 09/23/20 23:08 Lab Results 09/23/20 09/23/20 09/23/20 Range/Units 23:08 23:08 23:08 WBC 7.5 (3.8-10.6) k/uL RBC 3.44 L (4.30-5.90) m/uL Hgb 11.5 L (13.0-17.5) gm/dL Hct 34.0 L (39.0-53.0) % MCV 98.7 (80.0-100.0) fL MCH 33.4 (25.0-35.0) pg MCHC 33.8 (31.0-37.0) g/dL RDW 12.9 (11.5-15.5) % Plt Count 140 L (150-450) k/uL MPV 7.6 Neutrophils % 94 % Lymphocytes % 3 % Monocytes % 2 % Eosinophils % 1 % Basophils % 0 % Neutrophils # 7.0 (1.3-7.7) k/uL Lymphocytes # 0.2 L (1.0-4.8) k/uL Monocytes # 0.2 (0-1.0) k/uL Eosinophils # 0.1 (0-0.7) k/uL Basophils # 0.0 (0-0.2) k/uL Sodium 138 (137-145) mmol/L Potassium 4.0 (3.5-5.1) mmol/L Chloride 110 H (98-107) mmol/L Carbon Dioxide 20 L (22-30) mmol/L Anion Gap 8 mmol/L BUN 13 (9-20) mg/dL Creatinine 1.03 (0.66-1.25) mg/dL Est GFR (CKD-EPI)AfAm 89 (>60 ml/min/1.73 sqM) Est GFR (CKD-EPI)NonAf 77 (>60 ml/min/1.73 sqM) Glucose 141 H (74-99) mg/dL Lactic Ac Sepsis Rflx Plasma Lactic Acid [place] (0.7-2.0) mmol/L Calcium 8.1 L (8.4-10.2) mg/dL Total Bilirubin 1.2 (0.2-1.3) mg/dL AST 203 H (17-59) U/L ALT 143 H (4-49) U/L Alkaline Phosphatase 146 H (38-126) U/L Total Protein 6.0 L (6.3-8.2) g/dL Albumin 3.1 L (3.5-5.0) g/dL Amylase <30 L (30-110) U/L Lipase <10 L (23-300) U/L Urine Color [place] Urine Appearance Clear (Clear) Urine pH 5.5 (5.0-8.0) Ur Specific [place] 1.028 (1.001-1.035) Urine Protein 1+ H (Negative) Urine Glucose (UA) Trace H (Negative) Urine Ketones Negative (Negative) Urine Blood Negative (Negative) Urine Nitrite Negative (Negative) Urine Bilirubin 1+ H (Negative) Urine Urobilinogen 2.0 (<2.0) mg/dL Ur Leukocyte Esterase Negative (Negative) Urine RBC 2 (0-5) /hpf Urine WBC 2 (0-5) /hpf Amorphous Sediment Rare H (None) /hpf Urine Mucus Moderate H (None) /hpf 09/23/20 09/23/20 Range/Units 23:08 23:53 WBC (3.8-10.6) k/uL RBC (4.30-5.90) m/uL Hgb (13.0-17.5) gm/dL Hct (39.0-53.0) % MCV (80.0-100.0) fL MCH (25.0-35.0) pg MCHC (31.0-37.0) g/dL RDW (11.5-15.5) % Plt Count (150-450) k/uL MPV Neutrophils % % Lymphocytes % % Monocytes % % Eosinophils % % Basophils % % Neutrophils # (1.3-7.7) k/uL Lymphocytes # (1.0-4.8) k/uL Monocytes # (0-1.0) k/uL Eosinophils # (0-0.7) k/uL Basophils # (0-0.2) k/uL Sodium (137-145) mmol/L Potassium (3.5-5.1) mmol/L Chloride (98-107) mmol/L Carbon Dioxide (22-30) mmol/L Anion Gap mmol/L BUN (9-20) mg/dL Creatinine (0.66-1.25) mg/dL Est GFR (CKD-EPI)AfAm (>60 ml/min/1.73 sqM) Est GFR (CKD-EPI)NonAf (>60 ml/min/1.73 sqM) Glucose (74-99) mg/dL Lactic Ac Sepsis Rflx Y Plasma Lactic Acid [place] 2.2 H* (0.7-2.0) mmol/L Calcium (8.4-10.2) mg/dL Total Bilirubin (0.2-1.3) mg/dL AST (17-59) U/L ALT (4-49) U/L Alkaline Phosphatase (38-126) U/L Total Protein (6.3-8.2) g/dL Albumin (3.5-5.0) g/dL Amylase (30-110) U/L Lipase (23-300) U/L Urine Color Urine Appearance (Clear) Urine pH (5.0-8.0) Ur Specific [place] (1.001-1.035) Urine Protein (Negative) Urine Glucose (UA) (Negative) Urine Ketones (Negative) Urine Blood (Negative) Urine Nitrite (Negative) Urine Bilirubin (Negative) Urine Urobilinogen (<2.0) mg/dL Ur Leukocyte Esterase (Negative) Urine RBC (0-5) /hpf Urine WBC (0-5) /hpf Amorphous Sediment (None) /hpf Urine Mucus (None) /hpf - Radiology Data Radiology results: report reviewed, image reviewed Chest x-ray shows no pulmonary consolidation a heart failure. Suboptimal inspiration. No adverse change compared to old exam. Abdominal x-ray shows nonacute abdomen. Disposition Clinical Impression: Fever, unknown origin, Sepsis Disposition: ADMITTED IP TO THIS [facility] Condition: Serious Decision to Admit Reason: Admit from EC Decision Date: 09/24/20 Decision Time: 02:10
[2020-09-24] MEDS: SODIUM CHLORIDE 0.9% 1,000 ML IV SCH ×2 (03:20→11:11)
[2020-09-24] MEDS ORDERED: LOPERAMIDE 2 MG CAP PO PRN (10:47)
[2020-09-24] MEDS: AMPICILLIN-SULBACTAM 3 GM in SODIUM CHLORIDE 0.9% 100 ML IVPB SCH ×2 (11:12→19:33)
[2020-09-24 12:41] VITALS: BMI 27.1
--- NOTE | 2020-09-24 15:34 | P.HPIM ---
History of Present Illness 65-year-old male who was diagnosed with pancreatic cancer recently and I was started on chemotherapy last Monday came in with complaints of for generalized weakness fever. Apparently patient complained about abdominal discomfort patie nt didn't give me any such history patient doesn't remember if she had abdominal pain although patient was having diarrhea for which patient was using Imodium. Patient did have fever area and patient denied any cough, denied any increasing confusion patient appears to have some baseline dementia for which patient is on Nemanda, denied any dysuria. Urinalysis is not significant for DONATO chest x-ray is not significant for pneumonic infiltrate. Patient does have metastatic pancreatic cancer. Patient does have elevated liver enzymes counseling that he has abdominal pain on admission and elevated liver enzymes I was started the workup with U/S of the abdomen to see if there is any cholelithiasis or ascending cholangitis, patient does have metastatic disease to liver which may be contributing to his elevated liver enzymes. If ultrasound of the abdomen is negative we'll obtain a CT of the abdomen to see if there is any intra-abdominal source of his infection. be started on Unasyn patient received a dose of cefepime in ER. REVIEW OF SYSTEMS: CONSTITUTIONAL: No fever, no malaise, no fatigue. HEENT: No recent visual problems or hearing problems. Denied any sore throat. CARDIOVASCULAR: No chest pain, orthopnea, PND, no palpitations, no syncope. PULMONARY: No shortness of breath, no cough, no hemoptysis. GASTROINTESTINAL: No diarrhea, no nausea, no vomiting, no abdominal pain. NEUROLOGICAL: No headaches, no weakness, no numbness. HEMATOLOGICAL: Denies any bleeding or petechiae. GENITOURINARY: Denies any burning micturition, frequency, or urgency. MUSCULOSKELETAL/RHEUMATOLOGICAL: Denies any joint pain, swelling, or any muscle pain. ENDOCRINE: Denies any polyuria or polydipsia. The rest of the 14-point review of systems is negative. PHYSICAL EXAMINATION: GENERAL: The patient is alert and oriented x3, not in any acute distress. Well developed, well nourished. HEENT: Pupils are round and equally reacting to light. EOMI. No scleral icterus. No conjunctival pallor. Normocephalic, atraumatic. No pharyngeal erythema. No thyromegaly. CARDIOVASCULAR: S1 and S2 present. No murmurs, rubs, or gallops. PULMONARY: Chest is clear to auscultation, no wheezing or crackles. ABDOMEN: Soft, nontender, nondistended, normoactive bowel sounds. No palpable organomegaly. MUSCULOSKELETAL: No joint swelling or deformity. EXTREMITIES: No cyanosis, clubbing, or pedal edema. NEUROLOGICAL: Gross neurological examination did not reveal any focal deficits. SKIN: No rashes. Assessment and plan -Fever: Can be related to cancer although sepsis cannot be completely ruled out. There is no obvious source of infection at this time patient does have elevated liver enzymes which can be secondary to metastatic disease from the pancreatic cancer although ascending cholangitis cannot be ruled out will obtain ultrasound of the common bile duct and gallbladder and if that's negative. CT of the abdomen with and without contrast to evaluate for any intra-abdominal infection. Patient will be continued on Unasyn empirically for now. -Pancreatic cancer, stage IV: Oncology will evaluate the patient patient is recently started on chemotherapy -Gastroesophageal reflux disease -Sleep apnea -Depression -Early dementia: Possibly Alzheimer's appears to be mild DVT prophylaxis: Lovenox Past Medical History Past Medical History: Cancer, GERD/Reflux, Memory Impairment, Sleep Apnea/CPAP/BIPAP Additional Past Medical History / Comment(s): MILD SLEEP APNEA (NO MACHINE) MEMORY IMPAIRMENT " PRIMARY PROGRESSIVE APHASIA- HAS DIFFICULTY RECALLING WORDS- AFFECTED MEMORY AND SOME COGNITIVE. , HOSPITALIZED AT [facility] JUNE 08 THROUGH 06/15/19 WITH BLOCKAGE AT CBD AND JAUNDICE, HE WAS TRANSFERRED TO [facility], PANCREATITIS, AND LIVER INFECTION & INFECTION AT CBD- STENT INSERTED AT [facility]., DISCHARGED AND THEN WAS DIAGNOSED WITH COVID 19- DENIES CURRENT SYMPTOMS AND STATES HE WAS TESTED 07/22/19 AND WAITING FOR RESULTS SO HE CAN HAVE MEDIPORT INSERTED FOR NEW DIAGNOSIS OF PANCREATIC CANCER. History of Any Multi-Drug Resistant Organisms: None Reported Past Surgical History: Appendectomy, Hernia Repair Additional Past Surgical History / Comment(s): LT ORCHIECTOMY (done at age 17) , LT bone spur, MARIO INGUINAL HERNIA REPAIR, STENT IN CBD. Past Anesthesia/Blood Transfusion Reactions: No Reported Reaction Past Psychological History: No Psychological Hx Reported Smoking Status: Never smoker Past Alcohol Use History: Rare Past Drug Use History: None Reported - Past Family History Mother Family Medical History: No Reported History Father Family Medical History: Cancer Additional Family Medical History / Comment(s): PROSTATE CANCER Medications and Allergies Home Medications Medication Instructions Recorded Confirmed Type Acetaminophen Tab [Tylenol Tab] 500 mg PO Q6H PRN #30 tablet 08/01/19 09/24/20 Rx Colestipol HCl 2 gm PO BID 09/24/20 09/24/20 History Cyanocobalamin (Vitamin B-12) 1,000 mcg PO DAILY 09/24/20 09/24/20 History [Vitamin B-12] Escitalopram [Lexapro] 10 mg PO DAILY 09/24/20 09/24/20 History Loperamide HCl [Imodium A-D] 1 tab PO Q6HR PRN 09/24/20 09/24/20 History Memantine [Namenda] 10 mg PO BID 09/24/20 09/24/20 History OLANZapine [ZyPREXA] 5 mg PO HS 09/24/20 09/24/20 History Omeprazole [PriLOSEC] 40 mg PO AC-BRKFST 09/24/20 09/24/20 History Pyridoxine HCl (Vitamin B6) 1 tab PO DAILY 09/24/20 09/24/20 History [Vitamin B-6] Allergies Allergy/AdvReac Type Severity Reaction Status Date / Time donepezil [From Aricept] AdvReac Diarrhea Verified 09/24/20 07:37 Physical Exam Vitals: Vital Signs Temp Pulse Pulse Resp BP BP Pulse Ox 09/24/20 05:05 100.1 F H 80 16 107/58 80 L 09/24/20 03:51 99.2 F 82 14 111/63 97 09/24/20 03:40 100.1 F H 90 18 102/66 94 L 09/24/20 02:54 99.2 F 82 14 111/63 97 09/24/20 01:48 100.2 F H 85 18 93/65 96 09/23/20 22:45 103.0 F H 09/23/20 22:23 99.7 F H 104 H 20 96/63 96 Intake and Output 09/23/20 09/24/20 09/24/20 22:59 06:59 14:59 Intake Total 590 Balance 590 Intake: Oral 590 Other: Voiding Method Toilet Weight 90.718 kg 90.718 kg Results CBC & Chem 7: 09/23/20 23:08 09/23/20 23:08 Labs: Abnormal Lab Results - Last 24 Hours (Table) 09/23/20 09/23/20 09/23/20 Range/Units 23:08 23:08 23:08 RBC 3.44 L (4.30-5.90) m/uL Hgb 11.5 L (13.0-17.5) gm/dL Hct 34.0 L (39.0-53.0) % Plt Count 140 L (150-450) k/uL Lymphocytes # 0.2 L (1.0-4.8) k/uL Chloride 110 H (98-107) mmol/L Carbon Dioxide 20 L (22-30) mmol/L Glucose 141 H (74-99) mg/dL Plasma Lactic Acid Ambrocio (0.7-2.0) mmol/L Calcium 8.1 L (8.4-10.2) mg/dL AST 203 H (17-59) U/L ALT 143 H (4-49) U/L Alkaline Phosphatase 146 H (38-126) U/L Total Protein 6.0 L (6.3-8.2) g/dL Albumin 3.1 L (3.5-5.0) g/dL Amylase <30 L (30-110) U/L Lipase <10 L (23-300) U/L Urine Protein 1+ H (Negative) Urine Glucose (UA) Trace H (Negative) Urine Bilirubin 1+ H (Negative) Amorphous Sediment Rare H (None) /hpf Urine Mucus Moderate H (None) /hpf 09/23/20 Range/Units 23:08 RBC (4.30-5.90) m/uL Hgb (13.0-17.5) gm/dL Hct (39.0-53.0) % Plt Count (150-450) k/uL Lymphocytes # (1.0-4.8) k/uL Chloride (98-107) mmol/L Carbon Dioxide (22-30) mmol/L Glucose (74-99) mg/dL Plasma Lactic Acid Ambrocio 2.2 H* (0.7-2.0) mmol/L Calcium (8.4-10.2) mg/dL AST (17-59) U/L ALT (4-49) U/L Alkaline Phosphatase (38-126) U/L Total Protein (6.3-8.2) g/dL Albumin (3.5-5.0) g/dL Amylase (30-110) U/L Lipase (23-300) U/L Urine Protein (Negative) Urine Glucose (UA) (Negative) Urine Bilirubin (Negative) Amorphous Sediment (None) /hpf Urine Mucus (None) /hpf Thrombosis Risk Factor Assmnt - Choose All That Apply Any of the Below Risk Factors Present?: No Each Risk Factor Represents 2 Points: Age 61-74 years Other congenital or acquired thrombophilia - If yes, enter type in comment: No Thrombosis Risk Factor Assessment Total Risk Factor Score: 2 Thrombosis Risk Factor Assessment Level: Low Risk
--- NOTE | 2020-09-24 15:35 | P.CONS ---
History of Present Illness - Reason for Consult Consult date: 09/24/20 fever NOS, pancreatic adenocarcinoma Requesting physician: Diana Modi - Chief Complaint fever - History of Present Illness Mr Vallejo is a very pleasant 65-year-old male patient of Dr. Rousseau, he is a poor historian, his provides most of his historical information. Patient was admitted to [facility] 06/12/19 with obstructive jaundice, bilirubin 8.6 elev ated LFTs. 06/11/19 ERCP performed revealing CBD stricture, cannulation of the CBD was unable to be performed. MRCP demonstrated dilated gallbladder and biliary tree. Patient was treated for cholangitis. ERCP was reperformed with stent placement, found what appeared to be a malignant-appearing structure in the bile duct. CT of the pancreas performed revealed pancreatic head mass and undefined lesions on the adrenal gland and liver. FNA positive for adenocarcinoma. 06/13/19 CT of the pelvis with contrast revealed noncirrhotic liver, 1.4 cm hypodense lesion within the right hepatic lobe, slightly irregular margins. Pancreas 1.9 x 1.7 x 2.1 cm mass located at the posterior pancreatic head. There were a few prominent non-enlarged peripancreatic and portal, lymph nodes. 1.5 cm lesion in the midpole of the right kidney, too small to characterize. Clinical stage TIc, N1 MX. Multidisciplinary clinic at [facility] reviewed his case. Biopsy of the liver lesion was ordered but when patient presented for the biopsy there was no abnormal area found on imaging to collect tissue from. Neoadjuvant chemotherapy was recommended. FOLFIRINOX started 08/28/19. Repeat PET scan and MRI of the brain showed no metastases. He completed 9 cycles in early 01/13. Dr. Barnes at [facility] evaluated him for surgery, 02/05/20 preop laparoscopic evaluation unfortunately, found the liver lesions, biopsy was positive. Patient was deemed a nonsurgical. He was started back on chemotherapy and completed a total of 12 cycles 04/08/20. He was referred to radiation oncology with plan for concurrent chemoradiation to treat the pancreatic head mass and evaluate liver lesions and treat with stereotactic radiosurgery. He completed chemotherapy/RT 07/01/20. He had 3 XRT treatments to the liver. CA-19-9 was significantly elevated in the 1200 range after radiation. PET scan done showed no uptake other than low level at the primary site. 08/14 CA-19-9 was down in the 600 range, plan was to continue on observation. MRI done by radiation oncology 09/03/20 unfortunately showed multiple ring enhancing lesions in the liver. Patient is status post first cycle of Gemzar and Abraxane 3 days ago. His at the bedside reports that the day after treatment he started to show symptoms of swallowing down, 2 days after treatment he had a fever, increased belching and gas, denied cough, sore throat, nausea, vomiting, dysuria, epigastric pain, he does have chronic diarrhea at baseline, no bleeding, swelling or pain. Patient's brought him to the emergency department, MAXIMUM TEMPERATURE 103 Fahrenheit. He has been started on empiric antibiotics. Watson cultures have been collected. Patient's fever pattern has abated since admit. Review of Systems 10 point ROS is neg except as stated and HPI Past Medical History Past Medical History: Cancer, GERD/Reflux, Memory Impairment, Sleep Apnea/CPAP/BIPAP Additional Past Medical History / Comment(s): MILD SLEEP APNEA (NO MACHINE) MEMORY IMPAIRMENT " PRIMARY PROGRESSIVE APHASIA- HAS DIFFICULTY RECALLING WORDS- AFFECTED MEMORY AND SOME COGNITIVE. , HOSPITALIZED AT [facility] JUNE 08 THROUGH 06/15/19 WITH BLOCKAGE AT [facility] AND JAUNDICE, HE WAS TRANSFERRED TO [facility], PANCREATITIS, AND LIVER INFECTION & INFECTION AT [facility]- STENT INSERTED AT [facility]., DISCHARGED AND THEN WAS DIAGNOSED WITH COVID 19- DENIES CURRENT SYMPTOMS AND STATES HE WAS TESTED 07/22/19 AND WAITING FOR RESULTS SO HE CAN HAVE MEDIPORT INSERTED FOR NEW DIAGNOSIS OF PANCREATIC CANCER. History of Any Multi-Drug Resistant Organisms: None Reported Past Surgical History: Appendectomy, Hernia Repair Additional Past Surgical History / Comment(s): LT ORCHIECTOMY (done at age 17) , LT bone spur, MARIO INGUINAL HERNIA REPAIR, STENT IN CBD. Past Anesthesia/Blood Transfusion Reactions: No Reported Reaction Past Psychological History: No Psychological Hx Reported Smoking Status: Never smoker Past Alcohol Use History: Rare Past Drug Use History: None Reported - Past Family History Mother Family Medical History: No Reported History Father Family Medical History: Cancer Additional Family Medical History / Comment(s): PROSTATE CANCER Medications and Allergies Home Medications Medication Instructions Recorded Confirmed Type Acetaminophen Tab [Tylenol Tab] 500 mg PO Q6H PRN #30 tablet 08/01/19 09/24/20 Rx Colestipol HCl 2 gm PO BID 09/24/20 09/24/20 History Cyanocobalamin (Vitamin B-12) 1,000 mcg PO DAILY 09/24/20 09/24/20 History [Vitamin B-12] Escitalopram [Lexapro] 10 mg PO DAILY 09/24/20 09/24/20 History Loperamide HCl [Imodium A-D] 1 tab PO Q6HR PRN 09/24/20 09/24/20 History Memantine [Namenda] 10 mg PO BID 09/24/20 09/24/20 History OLANZapine [ZyPREXA] 5 mg PO HS 09/24/20 09/24/20 History Omeprazole [PriLOSEC] 40 mg PO AC-BRKFST 09/24/20 09/24/20 History Pyridoxine HCl (Vitamin B6) 1 tab PO DAILY 09/24/20 09/24/20 History [Vitamin B-6] Allergies Allergy/AdvReac Type Severity Reaction Status Date / Time donepezil [From Aricept] AdvReac Diarrhea Verified 09/24/20 07:37 Physical Exam Vitals: Vital Signs Temp Pulse Pulse Resp BP BP Pulse Ox 09/24/20 12:06 97.6 F 60 16 98/61 98 09/24/20 05:05 100.1 F H 80 16 107/58 80 L 09/24/20 03:51 99.2 F 82 14 111/63 97 09/24/20 03:40 100.1 F H 90 18 102/66 94 L 09/24/20 02:54 99.2 F 82 14 111/63 97 09/24/20 01:48 100.2 F H 85 18 93/65 96 09/23/20 22:45 103.0 F H 09/23/20 22:23 99.7 F H 104 H 20 96/63 96 Intake and Output 09/24/20 09/24/20 09/24/20 06:59 14:59 22:59 Intake Total 590 Balance 590 Intake: Oral 590 Other: Voiding Method Toilet Weight 90.718 kg 90.718 kg - Constitutional General appearance: average body habitus, cooperative, no acute distress - EENT Eyes: anicteric sclerae, EOMI ENT: hearing grossly normal, normal oropharynx - Neck Neck: no lymphadenopathy - Respiratory Respiratory: bilateral: CTA - Cardiovascular Rhythm: regular Heart sounds: normal: S1, S2 Abnormal Heart Sounds: no systolic murmur, no diastolic murmur, no rub, no S3 Gallop, no S4 Gallop, no click, no other leg Peripheral Edema: bilateral: None - Gastrointestinal General gastrointestinal: no absent bowel sounds, no decreased bowel sounds, no distended, no hepatomegaly, no hyperactive bowel sounds, normal bowel sounds, no organomegaly, no rigid, no scaphoid, soft, no splenomegaly, no tenderness, no umbilical hernia, no ventral hernia - Integumentary Integumentary: normal - Neurologic Neurologic: CNII-XII intact - Musculoskeletal Musculoskeletal: generalized weakness, strength equal bilaterally - Psychiatric flat affect, poor long-term memory recall Psychiatric: A&O x's 3 Results CBC & Chem 7: 09/23/20 23:08 09/23/20 23:08 Labs: Abnormal Lab Results - Last 24 Hours (Table) 09/23/20 09/23/20 09/23/20 Range/Units 23:08 23:08 23:08 RBC 3.44 L (4.30-5.90) m/uL Hgb 11.5 L (13.0-17.5) gm/dL Hct 34.0 L (39.0-53.0) % Plt Count 140 L (150-450) k/uL Lymphocytes # 0.2 L (1.0-4.8) k/uL Chloride 110 H (98-107) mmol/L Carbon Dioxide 20 L (22-30) mmol/L Glucose 141 H (74-99) mg/dL Plasma Lactic Acid Ambrocio (0.7-2.0) mmol/L Calcium 8.1 L (8.4-10.2) mg/dL AST 203 H (17-59) U/L ALT 143 H (4-49) U/L Alkaline Phosphatase 146 H (38-126) U/L Total Protein 6.0 L (6.3-8.2) g/dL Albumin 3.1 L (3.5-5.0) g/dL Amylase <30 L (30-110) U/L Lipase <10 L (23-300) U/L Urine Protein 1+ H (Negative) Urine Glucose (UA) Trace H (Negative) Urine Bilirubin 1+ H (Negative) Amorphous Sediment Rare H (None) /hpf Urine Mucus Moderate H (None) /hpf 09/23/20 Range/Units 23:08 RBC (4.30-5.90) m/uL Hgb (13.0-17.5) gm/dL Hct (39.0-53.0) % Plt Count (150-450) k/uL Lymphocytes # (1.0-4.8) k/uL Chloride (98-107) mmol/L Carbon Dioxide (22-30) mmol/L Glucose (74-99) mg/dL Plasma Lactic Acid Ambrocio 2.2 H* (0.7-2.0) mmol/L Calcium (8.4-10.2) mg/dL AST (17-59) U/L ALT (4-49) U/L Alkaline Phosphatase (38-126) U/L Total Protein (6.3-8.2) g/dL Albumin (3.5-5.0) g/dL Amylase (30-110) U/L Lipase (23-300) U/L Urine Protein (Negative) Urine Glucose (UA) (Negative) Urine Bilirubin (Negative) Amorphous Sediment (None) /hpf Urine Mucus (None) /hpf Chest x-ray: report reviewed Abdominal x-ray: report reviewed Assessment and Plan (1) Fever, unknown origin Current Visit: Yes Status: Acute Code(s): R50.9 - FEVER, UNSPECIFIED SNOMED Code(s): 9080750 Plan: patient is status post first cycle of Abraxane and Gemzar. It was discussed with the patient and his that the extraordinarily high fever could be secondary to Gemzar, tumor fever or infection. Currently patient is being worked up for infection, is on empiric antibiotics. If the patient is having a tumor fever then as tumor is treated the fevers should regress. If patient is having a reaction to Gemzar this can sometimes be premedicated for with success so that the patient can continue on therapy. Will see how patient progresses through this hospitalization and make further decisions regarding treatment after he has recovered. Agree with current plan of care. Pending watson culture workup completion. Stool studies have been ordered due to patient stating chronic diarrhea. Continue antibiotics per Internal Medicine. Patient is due for day 8 of cycle 1 on 09/28. May need to be delayed based on patient's response to treatment and if there is an infection found. Will make a djustments in scheduling of treatment as needed. attests: I have seen and examined patient, performed H&P, developed impression and plan of care. Discussed with dictator. Agree with dictation, documented as a scribe.
--- NOTE | 2020-09-24 15:49 | US ---
EXAMINATION TYPE: US gallbladder DATE OF EXAM: 09/24/2020 COMPARISON: CT, MRI 09/03/2020 ultrasound 06/09/2019 CLINICAL HISTORY: elevated liver enzymes. Pancreatic CA with metastasis to liver; just started back o n chemotherapy; CBD stent per patient's , abdominal pain per patient EXAM MEASUREMENTS: Liver Length: 16.8 cm Gallbladder Wall: 0.4 cm CBD: 0.5 cm Right Kidney: 12.4 x 7.1 x 5.3 cm Pancreas: Obscured by bowel gas Liver: multiple, oval/round, calcific masses seen in right lobe with largest = 1.7 x 1.8 x 1.7cm i nferior right lobe. These findings are worrisome for metastatic disease. A CT or MRI using liver prot ocol is recommended for further evaluation. Most recent MRI of the liver with 09/03/2020; diffuse fatt y infiltration of liver. Gallbladder: Abnormally thickened wall with pericholecystic fluid; mobile, internal, mixed fundal con tents measuring 1.4 x 0.6 x 0.6 cm. Evidence for sonographic Diaz's sign: yes CBD: wnl Right Kidney: No hydronephrosis or masses seen IMPRESSION: 1. Multiple rounded masses within the liver are suggestive of metastatic disease. A CT or MRI could b e used for further evaluation. Most recent MRI of the liver with 09/03/2020. 2. Diffuse fatty infiltration liver. 3. The pancreas is obscured by overlying bowel gas. 4. The gallbladder wall is abnormally thickened measuring up to 4 mm. There is pericholecystic fluid. There are multiple fundal contents measuring up to 1.4 cm with calcifications. The sonographic Chary y's sign is positive per echo technologist. These findings are worrisome for acute or chronic c holecystitis. Surgical evaluation is strongly recommended.
[2020-09-24] MEDS: OLANZapine 5 MG TAB PO SCH (19:35)
[2020-09-24] MEDS: COLESTIPOL HCL 1 GM PO SCH (19:35)
[2020-09-24] MEDS: MEMANTINE 10 MG TAB PO SCH (19:35)
[2020-09-24] MEDS ORDERED: ACETAMINOPHEN TAB 325 MG TAB PO STA (21:41)
[2020-09-25] MEDS: SODIUM CHLORIDE 0.9% 1,000 ML IV SCH ×4 (02:00→22:53)
[2020-09-25] MEDS: AMPICILLIN-SULBACTAM 3 GM in SODIUM CHLORIDE 0.9% 100 ML IVPB SCH ×3 (04:17→20:38)
[2020-09-25 05:46] LABS: HCT 30.4 % (39.0-53.0); HGB 9.8 gm/dL (13.0-17.5); MCH 32.9 pg (25.0-35.0); MCHC 32.4 g/dL (31.0-37.0); MCV 101.6 fL (80.0-100.0); Macrocytosis Slight; Mean Platelet Volume 8.5; RBC 2.99 m/uL (4.30-5.90); RDW 13.5 % (11.5-15.5); WBC 3.8 k/uL (3.8-10.6)
[2020-09-25 05:51] LABS: Platelet Count 76 k/uL (150-450)
[2020-09-25 06:19] LABS: Eosinophils # (M) 0.04 k/uL (0-0.7); Lymphocytes # (M) 0.15 k/uL (1.0-4.8); Neutrophils # (M) 3.61 k/uL (1.3-7.7); Neutrophils % (M) 95 %; Nucleated Red Blood Cells 0 /100 WBC (0-0); Total Cells Counted 100
[2020-09-25 11:40] LABS: African American GFR (CKD) 110.2 (60.0-200.0); Albumin/Globulin Ratio 1.58 (1.60-3.17); Anion Gap 6.8 mmol/L (4.00-12.00); BUN/Creat Ratio 8.75 Ratio (12.00-20.00); Calcium 7.3 mg/dL (8.7-10.3); Carbon Dioxide 21.2 mmol/L (21.6-31.8); Globulin 1.9 g/dL (1.6-3.3); Non-African American GFR(CKD) 95.1 (60.0-200.0); Potassium 3.6 mmol/L (3.5-5.5); Total Bilirubin 1.7 mg/dL (0.3-1.2); Total Protein 4.9 g/dL (6.2-8.2)
[2020-09-25] MEDS: MEMANTINE 10 MG TAB PO SCH ×2 (12:55→20:38)
[2020-09-25] MEDS: PANTOPRAZOLE 40 MG TABLET PO SCH (12:55)
[2020-09-25] MEDS: PYRIDOXINE 50 MG TAB PO SCH (12:55)
[2020-09-25] MEDS: ESCITALOPRAM 10 MG TAB PO SCH (12:55)
[2020-09-25] MEDS: COLESTIPOL HCL 1 GM PO SCH ×2 (12:55→21:15)
[2020-09-25] MEDS: ENOXAPARIN 40 MG/0.4 ML SYRINGE SQ SCH (12:55)
--- NOTE | 2020-09-25 13:08 | P.PN ---
Progress Note - Text Progress Note Date: 09/25/20 The patient states his pain has improved significantly. He denies any nausea or vomiting. He is resting comfortably in bed. On exam vital signs are stable. Abdomen soft. There is some minimal left lower quadrant tenderness. There is no significant right upper quadrant pain. Acute on chronic cholecystitis. Patient is relatively high risk with his history of pancreatic cancer. At this point the patient will be observed. We'll follow him closely.
--- NOTE | 2020-09-25 15:57 | P.PN ---
Subjective 65-year-old male who was diagnosed with pancreatic cancer recently and I was started on chemotherapy last Monday came in with complaints of for generalized weakness fever. Apparently patient complained about abdominal discomfort patient didn't give me any such history patient doesn't remember if she had abdominal pain although patient was having diarrhea for which patient was using Imodium. Patient did have fever area and patient denied any cough, denied any increasing confusion patient appears to have some baseline dementia for which patient is on Nemanda, denied any dysuria. Urinalysis is not significant for DONATO chest x-ray is not significant for pneumonic infiltrate. Patient does have metastatic pancreatic cancer. Patient does have elevated liver enzymes counseling that he has abdominal pain on admission and elevated liver enzymes I was started the workup with U/S of the abdomen to see if there is any cholelithiasis or ascending cholangitis, patient does have metastatic disease to liver which may be contributing to his elevated liver enzymes. If ultrasound of the abdomen is negative we'll obtain a CT of the abdomen to see if there is any intra-abdominal source of his infection. be started on Unasyn patient received a dose of cefepime in ER. 09/25/2020 Patient fever may be related to her cancer are cancer chemotherapy. Patient had an ultrasound which was abnormal and did show gallbladder thickening and did show multiple metastatic lesions to the liver enzymes are improving at this time. Neurosurgery valid the patient initially wanted to operate but the clinically patient's abdomen is soft didn't appear to have cholecystitis clinically because of which are just surgeries according monitoring without surgical intervention at this time REVIEW OF SYSTEMS: CONSTITUTIONAL: No fever, no malaise, no fatigue. HEENT: No recent visual problems or hearing problems. Denied any sore throat. CARDIOVASCULAR: No chest pain, orthopnea, PND, no palpitations, no syncope. PULMONARY: No shortness of breath, no cough, no hemoptysis. GASTROINTESTINAL: No diarrhea, no nausea, no vomiting, no abdominal pain. NEUROLOGICAL: No headaches, no weakness, no numbness. HEMATOLOGICAL: Denies any bleeding or petechiae. GENITOURINARY: Denies any burning micturition, frequency, or urgency. MUSCULOSKELETAL/RHEUMATOLOGICAL: Denies any joint pain, swelling, or any muscle pain. ENDOCRINE: Denies any polyuria or polydipsia. The rest of the 14-point review of systems is negative. PHYSICAL EXAMINATION: GENERAL: The patient is alert and oriented x3, not in any acute distress. Well developed, well nourished. HEENT: Pupils are round and equally reacting to light. EOMI. No scleral icterus. No conjunctival pallor. Normocephalic, atraumatic. No pharyngeal erythema. No thyromegaly. CARDIOVASCULAR: S1 and S2 present. No murmurs, rubs, or gallops. PULMONARY: Chest is clear to auscultation, no wheezing or crackles. ABDOMEN: Soft, nontender, nondistended, normoactive bowel sounds. No palpable organomegaly. MUSCULOSKELETAL: No joint swelling or deformity. EXTREMITIES: No cyanosis, clubbing, or pedal edema. NEUROLOGICAL: Gross neurological examination did not reveal any focal deficits. SKIN: No rashes. Assessment and plan -Fever: Possible cholecystitis or pancreatic cancer itself or cancer chemotherapy. Patient is on Unasyn which will be continued. -Pancreatic cancer, stage IV: Oncology will evaluate the patient patient is recently started on chemotherapy -Gastroesophageal reflux disease -Sleep apnea -Depression -Early dementia: Possibly Alzheimer's appears to be mild DVT prophylaxis: Lovenox Objective - Vital Signs Vital signs: Vital Signs Temp 99.3 F 09/25/20 13:09 Pulse 76 09/25/20 12:10 Resp 16 09/25/20 12:10 BP 119/74 09/25/20 12:10 Pulse Ox 98 09/25/20 12:10 Intake & Output 09/24/20 09/25/20 09/25/20 18:59 06:59 18:59 Intake Total 680 1300 Balance 680 1300 Weight 90.718 kg Intake: Intake, IV Titration 1300 Amount Ampicillin-Sulbactam 3 gm 100 In Sodium Chloride 0.9% 100 ml @ 200 mls/hr IVPB Q8H [facility] Rx#:[id number] Sodium Chloride 0.9% 1, 1200 000 ml @ 100 mls/hr IV . Q10H [facility] Rx#:[id number] Oral 680 Other: Voiding Method Toilet Toilet # Voids 3 3 # Bowel Movements 1 - Labs CBC & Chem 7: 09/25/20 04:50 09/25/20 04:50 Labs: Abnormal Lab Results - Last 24 Hours (Table) 09/25/20 09/25/20 Range/Units 04:50 04:50 RBC 2.99 L (4.30-5.90) m/uL Hgb 9.8 L D (13.0-17.5) gm/dL Hct 30.4 L (39.0-53.0) % MCV 101.6 H (80.0-100.0) fL Plt Count 76 L (150-450) k/uL Lymphocytes # (Manual) 0.15 L (1.0-4.8) k/uL Chloride 112 H (96-109) mmol/L Carbon Dioxide 21.2 L (21.6-31.8) mmol/L BUN 7.0 L (9.0-27.0) mg/dL BUN/Creatinine Ratio 8.75 L (12.00-20.00) Ratio Glucose 157 H (70-110) mg/dL Calcium 7.3 L (8.7-10.3) mg/dL Total Bilirubin 1.7 H (0.3-1.2) mg/dL AST 128 H (14-35) U/L ALT 137 H (10-49) U/L Total Protein 4.9 L (6.2-8.2) g/dL Albumin 3.00 L (3.80-4.90) g/dL Albumin/Globulin Ratio 1.58 L (1.60-3.17) g/dL Microbiology - Last 24 Hours (Table) 09/24/20 10:30 Stool Culture - Preliminary Stool 09/23/20 23:27 Blood Culture - Preliminary Blood No Growth after 24 hours 09/23/20 23:27 Blood Culture - Preliminary Blood No Growth after 24 hours
--- NOTE | 2020-09-25 18:57 | P.PN ---
Subjective Progress Note Date: 09/25/20 and had recurrent fever, up to 102.7 yesterday. He was evaluated with ultrasound of the abdomen that showed evidence of cholecystitis. He was seen by surgery and initially they were plans for cholecystectomy. The patient however is improved today with antibiotics, with no fever, and improvement in his abdominal discomfort. Objective - Vital Signs Vital signs: Vital Signs Temp 99.3 F 09/25/20 13:09 Pulse 76 09/25/20 12:10 Resp 16 09/25/20 12:10 BP 119/74 09/25/20 12:10 Pulse Ox 98 09/25/20 12:10 Intake & Output 09/24/20 09/25/20 09/25/20 18:59 06:59 18:59 Intake Total 680 1300 2400 Balance 680 1300 2400 Weight 90.718 kg Intake: Intake, IV Titration 1300 1200 Amount Ampicillin-Sulbactam 3 gm 100 In Sodium Chloride 0.9% 100 ml @ 200 mls/hr IVPB Q8H [facility] Rx#:[id number] Sodium Chloride 0.9% 1, 1200 1200 000 ml @ 100 mls/hr IV . Q10H [facility] Rx#:[id number] Oral 680 1200 Other: Voiding Method Toilet Toilet # Voids 3 3 4 # Bowel Movements 1 - Constitutional General appearance: Present: no acute distress - EENT Eyes: Present: EOMI ENT: Present: hearing grossly normal, normal oropharynx - Respiratory Respiratory: bilateral: CTA - Cardiovascular Rhythm: regular Heart sounds: normal: S1, S2 - Gastrointestinal General gastrointestinal: Present: normal bowel sounds, soft - Integumentary Integumentary: Present: normal - Neurologic Neurologic: Present: CNII-XII intact - Musculoskeletal Musculoskeletal: Present: strength equal bilaterally - Psychiatric Psychiatric Comment(s): memory loss, chronic, stable - Labs CBC & Chem 7: 09/25/20 04:50 09/25/20 04:50 Labs: Abnormal Lab Results - Last 24 Hours (Table) 09/25/20 09/25/20 Range/Units 04:50 04:50 RBC 2.99 L (4.30-5.90) m/uL Hgb 9.8 L D (13.0-17.5) gm/dL Hct 30.4 L (39.0-53.0) % MCV 101.6 H (80.0-100.0) fL Plt Count 76 L (150-450) k/uL Lymphocytes # (Manual) 0.15 L (1.0-4.8) k/uL Chloride 112 H (96-109) mmol/L Carbon Dioxide 21.2 L (21.6-31.8) mmol/L BUN 7.0 L (9.0-27.0) mg/dL BUN/Creatinine Ratio 8.75 L (12.00-20.00) Ratio Glucose 157 H (70-110) mg/dL Calcium 7.3 L (8.7-10.3) mg/dL Total Bilirubin 1.7 H (0.3-1.2) mg/dL AST 128 H (14-35) U/L ALT 137 H (10-49) U/L Total Protein 4.9 L (6.2-8.2) g/dL Albumin 3.00 L (3.80-4.90) g/dL Albumin/Globulin Ratio 1.58 L (1.60-3.17) g/dL Microbiology - Last 24 Hours (Table) 09/24/20 10:30 Stool Culture - Preliminary Stool 09/23/20 23:27 Blood Culture - Preliminary Blood No Growth after 24 hours 09/23/20 23:27 Blood Culture - Preliminary Blood No Growth after 24 hours Assessment and Plan (1) Acute cholecystitis Narrative/Plan: the patient has been diagnosed with acute cholecystitis based on imaging, during this hospitalization. This is felt to be possibly the source of his fever. - Case was discussed in detail with the surgical service. The patient was initially planned for cholecystectomy. However he has had improvement in his fever pattern with antibiotics. Abdominal exam is felt to be fairly benign. Therefore at this time the plan is to see if he can be managed conservatively with ongoing medical treatment - It was discussed with surgery, and also with the patient and his , that from the oncology standpoint, this is definitely preferable. While his WBC and platelets are in a safe range, he could have some increased risk of postoperative, occasions given very recent chemotherapy. In addition surgery would delay additional systemic chemotherapy by at least 2-4 weeks assuming no postop complications. - Continue to follow along with the surgical service. Current Visit: No Status: Acute Code(s): K81.0 - ACUTE CHOLECYSTITIS SNOMED Code(s): 41464879 (2) Fever, unknown origin Narrative/Plan: as above. Component of chemotherapy effect or tumor fever is also still a possibility. improvement with antibiotics makes these 2 etiology is less likely, however. Current Visit: Yes Status: Acute Code(s): R50.9 - FEVER, UNSPECIFIED SNOMED Code(s): 8706839 (3) Pancreatic cancer metastasized to liver Narrative/Plan: the patient has had cycle 1 day 1. Day 8 of cycle one was scheduled for 09/28/20. At this time it was discussed with nursing to produce tentatively on hold, depending on the patient's clinical progression during this admission Current Visit: Yes Status: Acute Code(s): C25.9 - MALIGNANT NEOPLASM OF PANCREAS, UNSPECIFIED; C78.7 - SECONDARY MALIG NEOPLASM OF LIVER AND IN TRAHEPATIC BILE DUCT SNOMED Code(s): 938969828
[2020-09-25] MEDS: OLANZapine 5 MG TAB PO SCH (20:38)
[2020-09-25] MEDS ORDERED: ACETAMINOPHEN TAB 325 MG TAB PO PRN (22:37)
[2020-09-26] MEDS: AMPICILLIN-SULBACTAM 3 GM in SODIUM CHLORIDE 0.9% 100 ML IVPB SCH ×3 (04:04→21:20)
[2020-09-26 06:25] LABS: HCT 29.3 % (39.0-53.0); HGB 10.4 gm/dL (13.0-17.5); MCH 34.8 pg (25.0-35.0); MCHC 35.4 g/dL (31.0-37.0); MCV 98.4 fL (80.0-100.0); Mean Platelet Volume 8.2; Platelet Count 64 k/uL (150-450); RBC 2.98 m/uL (4.30-5.90); RDW 12.9 % (11.5-15.5)
[2020-09-26 06:45] LABS: WBC 1.4 k/uL (3.8-10.6)
[2020-09-26] MEDS: PYRIDOXINE 50 MG TAB PO SCH (08:26)
[2020-09-26] MEDS: MEMANTINE 10 MG TAB PO SCH ×2 (08:26→21:21)
[2020-09-26] MEDS: COLESTIPOL HCL 1 GM PO SCH ×2 (08:26→21:21)
[2020-09-26] MEDS: ESCITALOPRAM 10 MG TAB PO SCH (08:26)
[2020-09-26] MEDS: PANTOPRAZOLE 40 MG TABLET PO SCH (08:26)
[2020-09-26] MEDS: ENOXAPARIN 40 MG/0.4 ML SYRINGE SQ SCH (08:26)
[2020-09-26] MEDS: SODIUM CHLORIDE 0.9% 1,000 ML IV SCH (09:37)
[2020-09-26 11:38] LABS: African American GFR (CKD) 116.4 (60.0-200.0); Anion Gap 7.1 mmol/L (4.00-12.00); Calcium 7.6 mg/dL (8.7-10.3); Carbon Dioxide 22.9 mmol/L (21.6-31.8); Non-African American GFR(CKD) 100.4 (60.0-200.0); Potassium 3.7 mmol/L (3.5-5.5)
--- NOTE | 2020-09-26 12:34 | PN ---
PROGRESS NOTE DATE OF SERVICE: 09/26/2020 CHIEF COMPLAINT: Tired. INTERVAL HISTORY: Norman is seen today in followup. He feels tired and weak. He has no appetite. He had a fever and chills last night. CURRENT MEDICATION: Reviewed in the electronic medical record. PHYSICAL EXAMINATION: He is alert and oriented x3. His vital signs are temperature 99.3. His temp max was 102.6, pulse is 87, respirations 20, blood pressure 127/74. HEENT: Normocephalic, atraumatic. NECK: Supple. Chest equal expansion bilaterally. Lungs are clear to auscultation. Heart is regular rate and rhythm. ABDOMEN: Soft. There is no apparent tenderness. EXTREMITIES: No edema. Skin with no significant bruises. LABORATORY DATA: WBCs are 1.4, hemoglobin is 10.4, hematocrit 29.3, platelets are 64. Sodium 139, potassium is 3.7, chloride is 109, BUN is 7, creatinine 0.7. IMPRESSION: 1. Fever in this patient who is becoming neutropenic now from recent systemic chemotherapy. The source of fever is not clear, although this could be tumor fever or even related to chemotherapy, but an underlying infection cannot be excluded, although clinically he does not seem to have clinical signs to suggest a source of infection. 2. Pancreatic carcinoma with recent progression with multiple liver metastases. He was recently started on combination of Gemzar and Abraxane chemotherapy. 3. Developing neutropenia and thrombocytopenia from recent chemotherapy. RECOMMENDATION: 1. Continue broad-spectrum antibiotic. He is currently on Unasyn. 2. Monitor blood counts. 3. Supportive transfusion. 4. IV hydration. 5. Based on his clinical progress and the final result of his cultures, further decision will be made. The above was discussed with the patient and his at bedside and answered all the questions. MMODL / IJN: [id number] /
--- NOTE | 2020-09-26 13:09 | P.PN ---
Progress Note - Text Progress Note Date: 09/26/20 The patient is resting in his bed. He has minimal abdominal pain. On exam her vital signs are stable. Abdomen soft. There is minimal tenderness right upper quadrant. Resolving cholecystitis. Patient will receive supportive care. His white count is 1.6 which is most likely due to his recent chemotherapy.
--- NOTE | 2020-09-26 13:57 | P.PN ---
Subjective 65-year-old male who was diagnosed with pancreatic cancer recently and I was started on chemotherapy last Monday came in with complaints of for generalized weakness fever. Apparently patient complained about abdominal discomfort patient didn't give me any such history patient doesn't remember if she had abdominal pain although patient was having diarrhea for which patient was using Imodium. Patient did have fever area and patient denied any cough, denied any increasing confusion patient appears to have some baseline dementia for which patient is on Nemanda, denied any dysuria. Urinalysis is not significant for DONATO chest x-ray is not significant for pneumonic infiltrate. Patient does have metastatic pancreatic cancer. Patient does have elevated liver enzymes counseling that he has abdominal pain on admission and elevated liver enzymes I was started the workup with U/S of the abdomen to see if there is any cholelithiasis or ascending cholangitis, patient does have metastatic disease to liver which may be contributing to his elevated liver enzymes. If ultrasound of the abdomen is negative we'll obtain a CT of the abdomen to see if there is any intra-abdominal source of his infection. be started on Unasyn patient received a dose of cefepime in ER. 09/25/2020 Patient fever may be related to her cancer are cancer chemotherapy. Patient had an ultrasound which was abnormal and did show gallbladder thickening and did show multiple metastatic lesions to the liver enzymes are improving at this time. Neurosurgery valid the patient initially wanted to operate but the clinically patient's abdomen is soft didn't appear to have cholecystitis clinically because of which are just surgeries according monitoring without surgical intervention at this time 09/26/2020 Patient still had fevers last night. Patient remains on Unasyn. No plans for cholecystectomy at this time patient blood cell count has gone down to 1.4 because of his recent chemotherapy patient denied any abdominal pain today p atient is feeling better today. Physical therapy and outpatient therapy will be consulted IConstitutional: Denied any fatigue denied any fever. Cardio vascular: denied any chest pain, palpitations Gastrointestinal denied any nausea vomiting Pulmonary: Denied any shortness of breath cough Neurologic denied any new focal deficits All inpatient medications were reviewed and appropriate changes in these medications as dictated in the interval history and assessment and plan. PHYSICAL EXAMINATION: GENERAL: The patient is alert and oriented x3, not in any acute distress. Well developed, well nourished. HEENT: Pupils are round and equally reacting to light. EOMI. No scleral icterus. No conjunctival pallor. Normocephalic, atraumatic. No pharyngeal erythema. No thyromegaly. CARDIOVASCULAR: S1 and S2 present. No murmurs, rubs, or gallops. PULMONARY: Chest is clear to auscultation, no wheezing or crackles. ABDOMEN: Soft, nontender, nondistended, normoactive bowel sounds. No palpable organomegaly. MUSCULOSKELETAL: No joint swelling or deformity. EXTREMITIES: No cyanosis, clubbing, or pedal edema. NEUROLOGICAL: Gross neurological examination did not reveal any focal deficits. SKIN: No rashes. Assessment and plan -Fever: Possible cholecystitis or pancreatic cancer itself or cancer chemotherapy. Patient is on Unasyn which will be continued. -Pancreatic cancer, stage IV: Oncology will evaluate the patient patient is recently started on chemotherapy -Gastroesophageal reflux disease -Sleep apnea -Depression -Early dementia: Possibly Alzheimer's appears to be mild DVT prophylaxis: Lovenox Objective - Vital Signs Vital signs: Vital Signs Temp 99.3 F 09/26/20 11:10 Pulse 86 09/26/20 11:10 Resp 20 09/26/20 11:10 BP 126/74 09/26/20 11:10 Pulse Ox 96 09/26/20 11:10 Intake & Output 09/25/20 09/26/20 09/26/20 18:59 06:59 18:59 Intake Total 2400 220 720 Balance 2400 220 720 Intake: Intake, IV Titration 1200 Amount Sodium Chloride 0.9% 1, 1200 000 ml @ 100 mls/hr IV . Q10H [facility] Rx#:[id number] Oral 1200 220 720 Other: Voiding Method Toilet Toilet Toilet # Voids 4 2 - Labs CBC & Chem 7: 09/26/20 05:38 09/26/20 05:38 Labs: Abnormal Lab Results - Last 24 Hours (Table) 09/26/20 09/26/20 Range/Units 05:38 05:38 WBC 1.4 L* (3.8-10.6) k/uL RBC 2.98 L (4.30-5.90) m/uL Hgb 10.4 L (13.0-17.5) gm/dL Hct 29.3 L (39.0-53.0) % Plt Count 64 L (150-450) k/uL BUN 7.0 L (9.0-27.0) mg/dL BUN/Creatinine Ratio 10.00 L (12.00-20.00) Ratio Calcium 7.6 L (8.7-10.3) mg/dL Microbiology - Last 24 Hours (Table) 09/23/20 23:27 Blood Culture - Preliminary Blood No Growth after 48 hours 09/23/20 23:27 Blood Culture - Preliminary Blood No Growth after 48 hours 09/24/20 10:30 Stool Culture - Preliminary Stool
[2020-09-26] MEDS: OLANZapine 5 MG TAB PO SCH (21:21)
[2020-09-27] MEDS: SODIUM CHLORIDE 0.9% 1,000 ML IV SCH ×3 (03:59→21:13)
[2020-09-27] MEDS: AMPICILLIN-SULBACTAM 3 GM in SODIUM CHLORIDE 0.9% 100 ML IVPB SCH ×3 (04:57→21:11)
[2020-09-27 06:08] LABS: Basophils % (A) 0 %; Eosinophils % (A) 2 %; HCT 28.7 % (39.0-53.0); HGB 9.9 gm/dL (13.0-17.5); Lymphocytes # (A) 0.2 k/uL (1.0-4.8); Lymphocytes % (A) 15 %; MCH 34.1 pg (25.0-35.0); MCHC 34.7 g/dL (31.0-37.0); MCV 98.4 fL (80.0-100.0); Mean Platelet Volume 8.9; Monocytes % (A) 3 %; Neutrophils % (A) 77 %; Platelet Count 46 k/uL (150-450); RBC 2.92 m/uL (4.30-5.90); RDW 12.7 % (11.5-15.5)
[2020-09-27 06:21] LABS: WBC 1.3 k/uL (3.8-10.6)
[2020-09-27] MEDS: COLESTIPOL HCL 1 GM PO SCH ×2 (08:19→21:12)
[2020-09-27] MEDS: ENOXAPARIN 40 MG/0.4 ML SYRINGE SQ SCH (08:25)
[2020-09-27] MEDS: PYRIDOXINE 50 MG TAB PO SCH (08:25)
[2020-09-27] MEDS: MEMANTINE 10 MG TAB PO SCH ×2 (08:25→21:11)
[2020-09-27] MEDS: ESCITALOPRAM 10 MG TAB PO SCH (08:25)
[2020-09-27] MEDS: PANTOPRAZOLE 40 MG TABLET PO SCH (08:29)
[2020-09-27 09:56] LABS: African American GFR (CKD) 110.2 (60.0-200.0); Anion Gap 4.8 mmol/L (4.00-12.00); BUN/Creat Ratio 8.75 Ratio (12.00-20.00); Calcium 7.3 mg/dL (8.7-10.3); Carbon Dioxide 25.2 mmol/L (21.6-31.8); Non-African American GFR(CKD) 95.1 (60.0-200.0); Potassium 3.9 mmol/L (3.5-5.5)
--- NOTE | 2020-09-27 09:59 | P.PN ---
Subjective 65-year-old male who was diagnosed with pancreatic cancer recently and I was started on chemotherapy last Monday came in with complaints of for generalized weakness fever. Apparently patient complained about abdominal discomfort patient didn't give me any such history patient doesn't remember if she had abdominal pain although patient was having diarrhea for which patient was using Imodium. Patient did have fever area and patient denied any cough, denied any increasing confusion patient appears to have some baseline dementia for which patient is on Nemanda, denied any dysuria. Urinalysis is not significant for DONATO chest x-ray is not significant for pneumonic infiltrate. Patient does have metastatic pancreatic cancer. Patient does have elevated liver enzymes counseling that he has abdominal pain on admission and elevated liver enzymes I was started the workup with U/S of the abdomen to see if there is any cholelithiasis or ascending cholangitis, patient does have metastatic disease to liver which may be contributing to his elevated liver enzymes. If ultrasound of the abdomen is negative we'll obtain a CT of the abdomen to see if there is any intra-abdominal source of his infection. be started on Unasyn patient received a dose of cefepime in ER. 09/25/2020 Patient fever may be related to her cancer are cancer chemotherapy. Patient had an ultrasound which was abnormal and did show gallbladder thickening and did show multiple metastatic lesions to the liver enzymes are improving at this time. Neurosurgery valid the patient initially wanted to operate but the clinically patient's abdomen is soft didn't appear to have cholecystitis clinically because of which are just surgeries according monitoring without surgical intervention at this time 09/26/2020 Patient still had fevers last night. Patient remains on Unasyn. No plans for cholecystectomy at this time patient blood cell count has gone down to 1.4 because of his recent chemotherapy patient denied any abdominal pain today p atient is feeling better today. Physical therapy and outpatient therapy will be consulted 09/27/2020 Patient has a pancytopenia now and this is secondary to chemotherapy further management as per oncology. With physical therapy and occupational therapy will evaluate the patient patient doesn't have any fevers any more I do not believe a pancytopenia secondary to Unasyn because of which are good and continue that antibiotic for now. IConstitutional: Denied any fatigue denied any fever. Cardio vascular: denied any chest pain, palpitations Gastrointestinal denied any nausea vomiting Pulmonary: Denied any shortness of breath cough Neurologic denied any new focal deficits All inpatient medications were reviewed and appropriate changes in these medications as dictated in the interval history and assessment and plan. PHYSICAL EXAMINATION: GENERAL: The patient is alert and oriented x3, not in any acute distress. Well developed, well nourished. HEENT: Pupils are round and equally reacting to light. EOMI. No scleral icterus. No conjunctival pallor. Normocephalic, atraumatic. No pharyngeal erythema. No thyromegaly. CARDIOVASCULAR: S1 and S2 present. No murmurs, rubs, or gallops. PULMONARY: Chest is clear to auscultation, no wheezing or crackles. ABDOMEN: Soft, nontender, nondistended, normoactive bowel sounds. No palpable organomegaly. MUSCULOSKELETAL: No joint swelling or deformity. EXTREMITIES: No cyanosis, clubbing, or pedal edema. NEUROLOGICAL: Gross neurological examination did not reveal any focal deficits. SKIN: No rashes. Assessment and plan -Fever: Possible cholecystitis or pancreatic cancer itself or cancer chemotherapy. Patient is on Unasyn which will be continued. -Chemo therapy induced a pancytopenia, platelets have come down because of which I'll discontinue the Lovenox -Pancreatic cancer, stage IV: Oncology following the patient patient is recently started on chemotherapy -Gastroesophageal reflux disease -Sleep apnea -Depression -Early dementia: Possibly Alzheimer's appears to be mild DVT prophylaxis: Lovenox Objective - Vital Signs Vital signs: Vital Signs Temp 99.1 F 09/27/20 05:00 Pulse 82 09/27/20 05:00 Resp 20 09/27/20 05:00 BP 148/84 09/27/20 05:00 Pulse Ox 97 09/27/20 05:00 Intake & Output 09/26/20 09/27/20 09/27/20 18:59 06:59 18:59 Intake Total 720 100 Balance 720 100 Intake: Oral 720 100 Other: Voiding Method Toilet Toilet # Voids 2 1 - Labs CBC & Chem 7: 09/27/20 05:42 09/27/20 05:42 Labs: Abnormal Lab Results - Last 24 Hours (Table) 09/26/20 09/27/20 09/27/20 Range/Units 05:38 05:42 05:42 WBC 1.3 L* (3.8-10.6) k/uL RBC 2.92 L (4.30-5.90) m/uL Hgb 9.9 L (13.0-17.5) gm/dL Hct 28.7 L (39.0-53.0) % Plt Count 46 L (150-450) k/uL Neutrophils # 1.0 L (1.3-7.7) k/uL Lymphocytes # 0.2 L (1.0-4.8) k/uL Chloride 110 H (96-109) mmol/L BUN 7.0 L 7.0 L (9.0-27.0) mg/dL BUN/Creatinine Ratio 10.00 L 8.75 L (12.00-20.00) Ratio Glucose 113 H (70-110) mg/dL Calcium 7.6 L 7.3 L (8.7-10.3) mg/dL Microbiology - Last 24 Hours (Table) 09/23/20 23:27 Blood Culture - Preliminary Blood No Growth after 72 hours 09/23/20 23:27 Blood Culture - Preliminary Blood No Growth after 72 hours
--- NOTE | 2020-09-27 13:40 | P.PN ---
Progress Note - Text Progress Note Date: 09/27/20 Patient feels better. He has less pain. He is tolerating diet. On exam her vital signs are stable. Abdomen soft. Pancreatic cancer with chronic cholecystitis. Patient will receive supportive care.
--- NOTE | 2020-09-27 19:08 | PN ---
PROGRESS NOTE DATE OF SERVICE: 09/27/2020 CHIEF COMPLAINT: Tired. INTERVAL HISTORY: Norman is seen today in followup. He feels a little tired. He did have a normal bowel movement. No nausea or vomiting. His fever is trending down and his cultures so far are negative. His appetite is down. CURRENT MEDICATION: Reviewed in his electronic medical record. PHYSICAL EXAMINATION: GENERAL: He is alert and x3. No distress. VITAL SIGNS: Temperature 98.7, temp max was 99.7 last night, pulse 76 regular, respirations 20. Blood pressure 125/77. HEENT: Normocephalic, atraumatic. NECK: Supple. LUNGS: Clear to auscultation. HEART: Regular rate and rhythm. ABDOMEN: Soft. No obvious tenderness or organomegaly or ascites. EXTREMITIES: No edema. LABORATORY DATA: From today, WBC is 1.3, hemoglobin 9.9, hematocrit 28.7, platelets are 47. Sodium 140, potassium 3.9, chloride 110, BUN is 7, creatinine 0.8. IMPRESSION AND RECOMMENDATIONS: 1. Fever, could be related to recent chemotherapy with Gemzar and Abraxane or could be tumor fever. Clinically and I do not believe he has acute cholecystitis and all his cultures have come back negative so far and his fever is trending down. However, in view of developing neutropenia from recent chemotherapy, it is reasonable to continue with current antibiotics, awaiting further clinical improvement in his condition. 2. Metastatic pancreatic carcinoma with liver metastasis. He is currently on Abraxane and Gemzar. 3. Developing neutropenia, anemia and thrombocytopenia related to recent chemotherapy. The Lovenox has been on hold now due to worsening thrombocytopenia. MMODL / IJN: [id number] /
[2020-09-27 20:25] VITALS: RESP 16
[2020-09-27] MEDS: OLANZapine 5 MG TAB PO SCH (21:11)
[2020-09-28] MEDS: SODIUM CHLORIDE 0.9% 1,000 ML IV SCH (04:48)
[2020-09-28] MEDS: AMPICILLIN-SULBACTAM 3 GM in SODIUM CHLORIDE 0.9% 100 ML IVPB SCH ×2 (04:51→14:00)
[2020-09-28 06:09] LABS: Basophils % (A) 1 %; Eosinophils % (A) 2 %; HCT 28.5 % (39.0-53.0); HGB 9.8 gm/dL (13.0-17.5); Lymphocytes # (A) 0.2 k/uL (1.0-4.8); Lymphocytes % (A) 12 %; MCH 33.8 pg (25.0-35.0); MCHC 34.3 g/dL (31.0-37.0); MCV 98.6 fL (80.0-100.0); Mean Platelet Volume 8.2; Monocytes # (A) 0.1 k/uL (0-1.0); Monocytes % (A) 6 %; Neutrophils # (A) 1.1 k/uL (1.3-7.7); Neutrophils % (A) 78 %; Platelet Count 36 k/uL (150-450); RBC 2.89 m/uL (4.30-5.90); RDW 12.9 % (11.5-15.5); WBC 1.5 k/uL (3.8-10.6)
[2020-09-28] MEDS: COLESTIPOL HCL 1 GM PO SCH (07:30)
[2020-09-28] MEDS: PYRIDOXINE 50 MG TAB PO SCH (07:46)
[2020-09-28] MEDS: MEMANTINE 10 MG TAB PO SCH (07:46)
[2020-09-28] MEDS: PANTOPRAZOLE 40 MG TABLET PO SCH (07:46)
[2020-09-28] MEDS: ESCITALOPRAM 10 MG TAB PO SCH (07:46)
[2020-09-28 09:41] LABS: African American GFR (CKD) 110.2 (60.0-200.0); Anion Gap 6.9 mmol/L (4.00-12.00); BUN/Creat Ratio 11.25 Ratio (12.00-20.00); Calcium 7.6 mg/dL (8.7-10.3); Carbon Dioxide 22.1 mmol/L (21.6-31.8); Non-African American GFR(CKD) 95.1 (60.0-200.0); Potassium 3.6 mmol/L (3.5-5.5)
[2020-09-28 11:40] VITALS: BP 122/76; PULSE 75; TEMP 98.7
--- NOTE | 2020-09-28 12:32 | P.PN ---
Progress Note - Text Progress Note Date: 09/28/20 Patient remains pain-free. He is tolerating diet. He is requesting a home. On exam her vital signs are stable. Abdomen soft. Resolving cholecystitis. Patient will be discharged home today.
--- NOTE | 2020-09-28 19:47 | P.PN ---
Subjective Progress Note Date: 09/28/20 the patient, and his will usually provides a significant amount of his history, report that he has been doing well. Denies any fever or chills. He is tolerating diet. No significant abdominal pain, nausea or vomiting Objective - Vital Signs Vital signs: Vital Signs Temp 98.7 F 09/28/20 11:15 Pulse 75 09/28/20 11:15 Resp 16 09/28/20 11:15 BP 122/76 09/28/20 11:15 Pulse Ox 95 09/28/20 11:15 Intake & Output 09/28/20 09/28/20 09/29/20 06:59 18:59 06:59 Intake Total 1200 Balance 1200 Weight 90.718 kg Intake: Intake, IV Titration 1200 Amount Ampicillin-Sulbactam 3 gm 200 In Sodium Chloride 0.9% 100 ml @ 200 mls/hr IVPB Q8H [facility] Rx#:[id number] Sodium Chloride 0.9% 1, 1000 000 ml @ 100 mls/hr IV . Q10H [facility] Rx#:[id number] Other: Voiding Method Toilet - Constitutional General appearance: Present: no acute distress - EENT Eyes: Present: EOMI ENT: Present: hearing grossly normal, normal oropharynx - Respiratory Respiratory: bilateral: CTA - Cardiovascular Rhythm: regular Heart sounds: normal: S1, S2 - Gastrointestinal General gastrointestinal: Present: soft - Integumentary Integumentary: Present: normal - Neurologic Neurologic: Present: CNII-XII intact - Musculoskeletal Musculoskeletal: Present: strength equal bilaterally - Psychiatric Psychiatric: Present: A&O x's 3 - Labs CBC & Chem 7: 09/28/20 05:14 09/28/20 05:14 Labs: Abnormal Lab Results - Last 24 Hours (Table) 09/28/20 09/28/20 Range/Units 05:14 05:14 WBC 1.5 L (3.8-10.6) k/uL RBC 2.89 L (4.30-5.90) m/uL Hgb 9.8 L (13.0-17.5) gm/dL Hct 28.5 L (39.0-53.0) % Plt Count 36 L (150-450) k/uL Neutrophils # 1.1 L (1.3-7.7) k/uL Lymphocytes # 0.2 L (1.0-4.8) k/uL Chloride 111 H (96-109) mmol/L BUN/Creatinine Ratio 11.25 L (12.00-20.00) Ratio Glucose 118 H (70-110) mg/dL Calcium 7.6 L (8.7-10.3) mg/dL Microbiology - Last 24 Hours (Table) 09/24/20 10:30 Stool Culture - Final Stool 09/23/20 23:27 Blood Culture - Preliminary Blood No Growth after 96 hours 09/23/20 23:27 Blood Culture - Preliminary Blood No Growth after 96 hours Assessment and Plan (1) Acute cholecystitis Narrative/Plan: the patient has a manage cause relatively by General surgery. There notes were reviewed. He has progressed well. He is tolerating a diet, and denies any abdominal pain, nausea or vomiting. Physical exam is unremarkable. - At this time it appears that the patient that hopefully not require surgery acutely. Defer to surgery for discharge recommendations Status: Acute Code(s): K81.0 - ACUTE CHOLECYSTITIS SNOMED Code(s): 80838648 (2) Fever, unknown origin Narrative/Plan: at this time it is not clear if this was due to chemotherapy, tumor necrosis, or cholecystitis. This has resolved. Infection workup was negative. Status: Acute Code(s): R50.9 - FEVER, UNSPECIFIED SNOMED Code(s): 7336314 (3) Pancreatic cancer metastasized to liver Narrative/Plan: patient was supposed to receive cycle 1 day 8 today. This will be postponed ab out 3-4 days to enable additional days of antibiotic therapy to reduce gallbladder inflammation. It was discussed with the patient and his , that resumption of chemotherapy does carry the risk of flare up of cholecystitis. Hence the decision to delay chemotherapy to improve inflammation as much as possible. They expressed understanding that if the patient had recurrent flare, he will likely need surgery and delay in chemotherapy. Status: Acute Code(s): C25.9 - MALIGNANT NEOPLASM OF PANCREAS, UNSPECIFIED; C78.7 - SECONDARY MALIG NEOPLASM OF LIVER AND INTRAHEPATIC BILE DUCT SNOMED Code(s): 277894013
--- NOTE | 2020-09-28 20:24 | DS ---
DISCHARGE SUMMARY DATE OF ADMISSION: 09/24/2020. DATE OF DISCHARGE: 09/28/2020. FINAL DIAGNOSES: 1. Febrile neutropenia, exact cause unknown. 2. Possible acute cholecystitis. 3. Metastatic pancreatic carcinoma with liver metastasis, currently on Abraxane, and Gemzar. 4. Pancytopenia secondary to chemotherapy. 5. Gastroesophageal reflux disease. 6. Cognitive impairment. 7. Gastroesophageal reflux disease. 8. Depression, not otherwise specified. CONSULTATION: 1. Dr. Silva from general surgery. 2. Oncology, Dr. Rousseau and colleagues. HOSPITAL COURSE: This is a pleasant 65-year-old patient who follows with Dr. Quach. His oncologist is Dr. Rousseau. The patient, back in May of 2019, was admitted to [facility] with obstructive jaundice. ERCP performed revealed CBD stricture. MRCP showed dilated gallbladder and biliary tree. The patient then had a stent placed. CT of the pancreas showed pancreatic head mass. FNA was positive for adenocarcinoma. Also, a hypodense lesion was found to be in the right hepatic lobe. Neoadjuvant chemotherapy was recommended. Surgery was recommended. Laparoscopic evaluation then showed liver lesions. Biopsy was positive. The patient was not felt to be a surgical candidate. The patient did complete chemotherapy in June of 2020 and radiation treatment to the liver. PET scan did not show any uptake other than low level at the primary site. MRI done on September 03 showed multiple ring-enhancing lesions in the liver. The patient had 1st cycle of Gemzar and Abraxane 3 days ago. The patient developed fever and admitted to the ER. Gallbladder ultrasound showed multiple dominant masses in the liver. Diffuse fatty infiltration of the liver. Gallbladder wall is abnormally thickened with some pericholecystic fluid. Multiple fundal contents measuring 1.4 cm with calcifications. The patient was seen by Dr. Silva from general surgery. Put on IV Zosyn. The patient's fever resolved. Blood cultures were negative. Chest x-ray did not show any obvious infiltrate. Today: The patient is sitting up. Eating well. No nausea, vomiting. No abdominal pain. The patient's at the bedside. Has been up to the bathroom. Had a bowel movement. Discussed with Dr. Silva from general surgery. The patient is stable to be discharged. Also cleared by oncology. The patient will complete a course of oral antibiotic. Plan is for patient to get chemotherapy next week. Discussion on discharge therapy more than 35 minutes. INVESTIGATIONS: WBC 1.5, hemoglobin 9.8, platelets 36, potassium 3.6, creatinine 0.8, AST 128, ALT 137. Blood culture negative. DISCHARGE MEDICATIONS: 1. Tylenol 500 mg q.6 p.r.n. 2. Colestipol 2 grams p.o. b.i.d. 3. Vitamin B12 1000 mcg p.o. daily. 4. Lexapro 10 mg p.o. daily. 5. Imodium 80, 1 tab q.6h p.r.n.. 6. Namenda 10 mg p.o. b.i.d. 7. Zyprexa 5 mg at bedtime. 8. Prilosec 40 mg before breakfast. 9. Vitamin B6 1 tablet p.o. daily. 10.Augmentin 875 1 tablet p.o. q.12, 10 tablets. FOLLOWUP: Follow up with Dr. Rousseau on October 16, 2020. Follow up Dr. Quach in 3 days. Labs: CBC, BMP 09/30/2020. MMODL / IJN: [id number] /
== END 2020-09-28 15:00 | disposition home or self-care (01) | DRG 871 ==
LOC: EC 22:16 → 5NMEDONC 09-24 02:36
PROVIDERS: ADMIT Hospitalist; ATTEND Hospitalist
DX: A41.9 Sepsis, unspecified organism (principal); D61.810 Antineoplastic chemotherapy induced pancytopenia; K83.1 Obstruction of bile duct; K81.2 Acute cholecystitis with chronic cholecystitis; C25.9 Malignant neoplasm of pancreas, unspecified; C78.7 Secondary malignant neoplasm of liver and intrahepatic bile duct; K83.09 Other cholangitis; R17 Unspecified jaundice; D70.9 Neutropenia, unspecified; D69.59 Other secondary thrombocytopenia; R50.81 Fever presenting with conditions classified elsewhere; T45.1X5A Adverse effect of antineoplastic and immunosuppressive drugs, initial encounter; G30.9 Alzheimer's disease, unspecified; F02.80 Dementia in other diseases classified elsewhere, unspecified severity, without behavioral disturbance, psychotic disturbance, mood disturbance, and anxiety; R19.7 Diarrhea, unspecified; G47.30 Sleep apnea, unspecified; M77.9 Enthesopathy, unspecified; R53.1 Weakness; Z85.05 Personal history of malignant neoplasm of liver; R74.8 Abnormal levels of other serum enzymes; K21.9 Gastro-esophageal reflux disease without esophagitis; F32.9 Major depressive disorder, single episode, unspecified; Z79.899 Other long term (current) drug therapy; Z20.822 Contact with and (suspected) exposure to COVID-19; Z86.16 Personal history of COVID-19; Z85.07 Personal history of malignant neoplasm of pancreas; Z88.8 Allergy status to other drugs, medicaments and biological substances; Z80.42 Family history of malignant neoplasm of prostate; Z87.19 Personal history of other diseases of the digestive system
CPT/HCPCS: 36415; 71046; 74018; 76705; 80048; 80053; 81001; 82150; 83605; 83690; 85025; 85027; 87040; 87045; 87046; 87635; 99285

== ENCOUNTER → 2020-09-30 | Outpatient (CLI) | payer MEDICAID ==
[2020-09-30 13:45] LABS: African American GFR (CKD) >90 (>60 ml/min/1.73 sqM); Anion Gap 7 mmol/L; Blood Urea Nitrogen 10 mg/dL (9-20); Calcium 8.4 mg/dL (8.4-10.2); Carbon Dioxide 25 mmol/L (22-30); Chloride 106 mmol/L (98-107); Glucose 107 mg/dL (74-99); Non-African American GFR(CKD) >90 (>60 ml/min/1.73 sqM); Potassium 3.9 mmol/L (3.5-5.1); Sodium 138 mmol/L (137-145)
[2020-09-30 13:59] LABS: HCT 33.9 % (39.0-53.0); HGB 11.1 gm/dL (13.0-17.5); MCH 32.7 pg (25.0-35.0); MCHC 32.8 g/dL (31.0-37.0); MCV 99.7 fL (80.0-100.0); Mean Platelet Volume 8.4; RDW 13.6 % (11.5-15.5); WBC 1.8 k/uL (3.8-10.6)
[2020-09-30 14:02] LABS: Platelet Count 56 k/uL (150-450)
== END | disposition home or self-care (01) ==
LOC: LABWHC1 12:32
PROVIDERS: ATTEND Hospitalist
DX: A41.9 Sepsis, unspecified organism (principal)
CPT/HCPCS: 36415; 80048; 85027

== ENCOUNTER 2020-10-10 12:30 | Inpatient (IN) | payer MEDICAID ==
--- NOTE | 2020-10-10 12:59 | ED ---
General Adult HPI - General Chief complaint: Fever Stated complaint: Fever Time Seen by Provider: 10/10/20 12:42 Source: patient, family, RN notes reviewed Mode of arrival: wheelchair Limitations: physical limitation - History of Present Illness Initial comments: Patient is a pleasant 65-year-old male laying to the emergency department with fever. Majority of history is taken from the . Patient has had fever increasing again over the past couple of days, usually nighttime. Fever also occurred today. Patient was given Tylenol. Patient complains of feeling iron and fatigued, otherwise no other complaints. Patient does have history of pancr eatic cancer with liver metastasis and is on chemotherapy for this. No cough or dyspnea. No upper a story symptoms. No abdominal pain. No urinary symptoms. - Related Data Home Medications Medication Instructions Recorded Confirmed Colestipol HCl 2 gm PO BID 09/24/20 10/10/20 Cyanocobalamin (Vitamin B-12) 1,000 mcg PO DAILY 09/24/20 10/10/20 [Vitamin B-12] Escitalopram [Lexapro] 10 mg PO DAILY 09/24/20 10/10/20 Loperamide HCl [Imodium A-D] 2 mg PO Q6H PRN 09/24/20 10/10/20 Memantine [Namenda] 10 mg PO BID 09/24/20 10/10/20 Omeprazole [PriLOSEC] 40 mg PO AC-BRKFST 09/24/20 10/10/20 Pyridoxine HCl (Vitamin B6) 1 tab PO DAILY 09/24/20 10/10/20 [Vitamin B-6] Docusate [Colace] 100 mg PO DAILY PRN 10/10/20 10/10/20 Ondansetron [Zofran] 4 mg PO QID PRN 10/10/20 10/10/20 Prochlorperazine [Compazine] 10 mg PO Q6H PRN 10/10/20 10/10/20 Rivastigmine 13.3MG/24Hr Patch 1 patch TRANSDERM DAILY 10/10/20 10/10/20 [Exelon 13.3MG/24Hr Patch] chlorproMAZINE [Thorazine] 10 mg PO Q8H PRN 10/10/20 10/10/20 Previous Rx's Medication Instructions Recorded Acetaminophen Tab [Tylenol] 500 mg PO Q6H PRN #30 tablet 08/01/19 Allergies Allergy/AdvReac Type Severity Reaction Status Date / Time donepezil [From Aricept] AdvReac Diarrhea Verified 10/10/20 14:07 Review of Systems ROS Statement: Those systems with pertinent positive or pertinent negative responses have been documented in the HPI. ROS Other: All systems not noted in ROS Statement are negative. 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 , HOSPITALIZED AT [facility] JUNE 08 THROUGH 06/15/19 WITH BLOCKAGE AT [facility] AND [facility], HE WAS TRANSFERRED TO [facility], PANCREATITIS, AND LIVER INFECTION & INFECTION AT [facility]- STENT INSERTED AT [facility]., DISCHARGED AND THEN WAS DIAGNOSED WITH COVID 19- DENIES CURRENT SYMPTOMS AND STATES HE WAS TESTED 07/22/19 AND WAITING FOR RESULTS SO HE CAN HAVE MEDIPORT INSERTED FOR NEW DIAGNOSIS OF PANCREATIC CANCER. History of Any Multi-Drug Resistant Organisms: None Reported Past Surgical History: Appendectomy, Hernia Repair Additional Past Surgical History / Comment(s): LT ORCHIECTOMY (done at age 17) , LT bone spur, MARIO INGUINAL HERNIA REPAIR, STENT IN [facility]. Past Anesthesia/Blood Transfusion Reactions: No Reported Reaction Past Psychological History: No Psychological Hx Reported Smoking Status: Never smoker Past Alcohol Use History: Rare Past Drug Use History: None Reported - Past Family History Mother Family Medical History: No Reported History Father Family Medical History: Cancer Additional Family Medical History / Comment(s): PROSTATE CANCER General Exam Limitations: physical limitation General appearance: alert, in no apparent distress Head exam: Present: normocephalic Eye exam: Present: normal appearance Neck exam: Present: normal inspection. Absent: tenderness, meningismus, lym phadenopathy Respiratory exam: Present: normal lung sounds bilaterally Cardiovascular Exam: Present: regular rate, normal rhythm GI/Abdominal exam: Present: soft. Absent: tenderness Extremities exam: Present: normal inspection Neurological exam: Present: alert Psychiatric exam: Present: normal affect, normal mood Skin exam: Present: normal color Course Vital Signs 10/10/20 10/10/20 10/10/20 12:33 13:25 14:05 Temperature 98.7 F 99.1 F Pulse Rate 105 H 86 87 Respiratory 18 18 18 Rate Blood Pressure 95/60 98/68 110/70 O2 Sat by Pulse 98 95 95 Oximetry EKG Findings - EKG Comments: EKG Findings:: Normal sinus rhythm with rate of 89. NM 140. QRS 80. QT 338. QTC 411 by mouth left axis. Normal QRS. No acute ST change. Medical Decision Making - Medical Decision Making Patient reevaluated and resting comfortably in bed. Patient and family updated on results and plan. Case was discussed with Dr. Rousseau who would like patient admitted to medicine with cefepime and vancomycin. He would also like Neupogen and repeat ultrasound and surgical consult. Dr. Sumner has been paged for admission, covering for Dr. Quach. - Lab Data Result diagrams: 10/10/20 13:05 10/10/20 13:05 Lab Results 10/10/20 10/10/20 10/10/20 Range/Units 13:05 13:05 13:05 WBC 0.4 L* (3.8-10.6) k/uL RBC 3.49 L (4.30-5.90) m/uL Hgb 11.2 L (13.0-17.5) gm/dL Hct 33.8 L (39.0-53.0) % MCV 96.8 (80.0-100.0) fL MCH 32.1 (25.0-35.0) pg MCHC 33.1 (31.0-37.0) g/dL RDW 14.4 (11.5-15.5) % Plt Count 120 L D (150-450) k/uL MPV 7.7 Neutrophils % Not Reportable Lymphocytes % Not Reportable Monocytes % Not Reportable Eosinophils % Not Reportable Basophils % Not Reportable Neutrophils # Not Reportable Lymphocytes # Not Reportable Monocytes # Not Reportable Eosinophils # Not Reportable Basophils # Not Reportable Differential Comment Manual Slide Review Performed Poikilocytosis (manual Present Anisocytosis (manual) Present PT 13.0 H (9.0-12.0) sec INR 1.3 H (<1.2) APTT 24.5 (22.0-30.0) sec Sodium (137-145) mmol/L Potassium (3.5-5.1) mmol/L Chloride (98-107) mmol/L Carbon Dioxide (22-30) mmol/L Anion Gap mmol/L BUN (9-20) mg/dL Creatinine (0.66-1.25) mg/dL Est GFR (CKD-EPI)AfAm (>60 ml/min/1.73 sqM) Est GFR (CKD-EPI)NonAf (>60 ml/min/1.73 sqM) Glucose (74-99) mg/dL Plasma Lactic Acid [place] (0.7-2.0) mmol/L Calcium (8.4-10.2) mg/dL Total Bilirubin (0.2-1.3) mg/dL AST (17-59) U/L ALT (4-49) U/L Alkaline Phosphatase (38-126) U/L Total Protein (6.3-8.2) g/dL Albumin (3.5-5.0) g/dL Amylase (30-110) U/L Lipase (23-300) U/L Urine Color Yellow Urine Appearance Clear (Clear) Urine pH 6.5 (5.0-8.0) Ur Specific [place] 1.004 (1.001-1.035) Urine Protein Negative (Negative) Urine Glucose (UA) Negative (Negative) Urine Ketones Negative (Negative) Urine Blood Negative (Negative) Urine Nitrite Negative (Negative) Urine Bilirubin Negative (Negative) Urine Urobilinogen <2.0 (<2.0) mg/dL Ur Leukocyte Esterase Negative (Negative) 10/10/20 10/10/20 Range/Units 13:05 13:05 WBC (3.8-10.6) k/uL RBC (4.30-5.90) m/uL Hgb (13.0-17.5) gm/dL Hct (39.0-53.0) % MCV (80.0-100.0) fL MCH (25.0-35.0) pg MCHC (31.0-37.0) g/dL RDW (11.5-15.5) % Plt Count (150-450) k/uL MPV Neutrophils % Lymphocytes % Monocytes % Eosinophils % Basophils % Neutrophils # Lymphocytes # Monocytes # Eosinophils # Basophils # Differential Comment Manual Slide Review Poikilocytosis (manual Anisocytosis (manual) PT (9.0-12.0) sec INR (<1.2) APTT (22.0-30.0) sec Sodium 131 L (137-145) mmol/L Potassium 4.4 (3.5-5.1) mmol/L Chloride 103 (98-107) mmol/L Carbon Dioxide 22 (22-30) mmol/L Anion Gap 6 mmol/L BUN 11 (9-20) mg/dL Creatinine 0.75 (0.66-1.25) mg/dL Est GFR (CKD-EPI)AfAm >90 (>60 ml/min/1.73 sqM) Est GFR (CKD-EPI)NonAf >90 (>60 ml/min/1.73 sqM) Glucose 116 H (74-99) mg/dL Plasma Lactic Acid [place] 1.4 (0.7-2.0) mmol/L Calcium 8.7 (8.4-10.2) mg/dL Total Bilirubin 1.6 H (0.2-1.3) mg/dL AST 113 H (17-59) U/L ALT 126 H (4-49) U/L Alkaline Phosphatase 138 H (38-126) U/L Total Protein 6.2 L (6.3-8.2) g/dL Albumin 3.3 L (3.5-5.0) g/dL Amylase <30 L (30-110) U/L Lipase <10 L (23-300) U/L Urine Color Urine Appearance (Clear) Urine pH (5.0-8.0) Ur Specific [place] (1.001-1.035) Urine Protein (Negative) Urine Glucose (UA) (Negative) Urine Ketones (Negative) Urine Blood (Negative) Urine Nitrite (Negative) Urine Bilirubin (Negative) Urine Urobilinogen (<2.0) mg/dL Ur Leukocyte Esterase (Negative) - Radiology Data Radiology results: image reviewed (Chest x-ray reveals no acute process) Disposition Clinical Impression: Neutropenic fever Disposition: ADMITTED IP TO THIS HOSP Is patient prescribed a controlled substance at d/c from ED?: No Referrals: Paolo Quach DO [Primary Care Provider] - 1-2 days Decision Time: 14:57
[2020-10-10] MEDS ORDERED: SODIUM CHLORIDE 0.9% 500 ML 500 ML IV SCH (13:00)
[2020-10-10 13:36] LABS: INR 1.3 (<1.2); Partial Thromboplastin Time 24.5 sec (22.0-30.0)
[2020-10-10 13:38] LABS: ALT 126 U/L (4-49); AST 113 U/L (17-59); African American GFR (CKD) >90 (>60 ml/min/1.73 sqM); Albumin 3.3 g/dL (3.5-5.0); Alkaline Phosphatase 138 U/L (38-126); Amylase <30 U/L (30-110); Anion Gap 6 mmol/L; Blood Urea Nitrogen 11 mg/dL (9-20); Calcium 8.7 mg/dL (8.4-10.2); Carbon Dioxide 22 mmol/L (22-30); Chloride 103 mmol/L (98-107); Glucose 116 mg/dL (74-99); Lipase <10 U/L (23-300); Non-African American GFR(CKD) >90 (>60 ml/min/1.73 sqM); Potassium 4.4 mmol/L (3.5-5.1); Sodium 131 mmol/L (137-145); Total Bilirubin 1.6 mg/dL (0.2-1.3); Total Protein 6.2 g/dL (6.3-8.2)
[2020-10-10 13:43] LABS: HCT 33.8 % (39.0-53.0); HGB 11.2 gm/dL (13.0-17.5); MCH 32.1 pg (25.0-35.0); MCHC 33.1 g/dL (31.0-37.0); MCV 96.8 fL (80.0-100.0); Mean Platelet Volume 7.7; Platelet Count 120 k/uL (150-450); RBC 3.49 m/uL (4.30-5.90); RDW 14.4 % (11.5-15.5)
[2020-10-10 13:46] LABS: WBC 0.4 k/uL (3.8-10.6)
--- NOTE | 2020-10-10 14:00 | XR ---
EXAMINATION TYPE: XR chest 2V DATE OF EXAM: 10/10/2020 COMPARISON: 09/24/2020 INDICATION: Fever TECHNIQUE: Frontal and lateral views of the chest are obtained. FINDINGS: The heart size is normal. The pulmonary vasculature is normal. The lungs are clear. Port is present on the right with the tip in the superior vena cava region. IMPRESSION: 1. No acute pulmonary process.
[2020-10-10 14:12] LABS: Appearance,Urine Clear (Clear); Bilirubin,Urine Negative (Negative); Blood,Urine Negative (Negative); Color,Urine Yellow; Glucose,Urine (UA) Negative (Negative); Ketones,Urine Negative (Negative); Leukocyte Esterase,Urine Negative (Negative); Nitrite,Urine Negative (Negative); PH, Urine 6.5 (5.0-8.0); Protein,Urine Negative (Negative); Specific Gravity,Urine 1.004 (1.001-1.035); Urobilinogen,Urine <2.0 mg/dL (<2.0)
[2020-10-10 14:14] LABS: Anisocytosis (M) Present; Poikilocytosis (M) Present
[2020-10-10] MEDS ORDERED: VANCOMYCIN IV PER PHARMACY 1 EACH MISC MISCELLANE PRN (14:58)
[2020-10-10] MEDS ORDERED: CEFEPIME 2 GM in SODIUM CHLORIDE 0.9% 100 ML IVPB STA (14:58)
[2020-10-10] MEDS ORDERED: NALOXONE 0.4 MG/ML 1 ML VIAL IV PRN ×2 (15:00→17:45)
[2020-10-10] MEDS ORDERED: VANCOMYCIN 1,500 MG in SODIUM CHLORIDE 0.9% 250 ML IVPB STA (15:06)
[2020-10-10] MEDS: SODIUM CHLORIDE 0.9% 1,000 ML IV SCH (15:10)
[2020-10-10] MEDS: ACETAMINOPHEN TAB 325 MG TAB PO PRN ×2 (16:51→23:35)
[2020-10-10] MEDS ORDERED: ACETAMINOPHEN TAB 500 MG TAB PO PRN (17:31)
[2020-10-10] MEDS ORDERED: LOPERAMIDE 2 MG CAP PO PRN (17:31)
[2020-10-10] MEDS ORDERED: MAGNESIUM HYDROXIDE 2,400 MG/10 ML CUP PO PRN (17:45)
[2020-10-10] MEDS ORDERED: LACTULOSE 20 GM/30 ML CUP PO PRN (17:45)
[2020-10-10] MEDS ORDERED: ONDANSETRON 4 MG/2 ML VIAL IVP PRN (17:45)
[2020-10-10] MEDS ORDERED: TEMAZEPAM 15 MG CAP PO PRN (17:45)
[2020-10-10] MEDS ORDERED: CALCIUM CARBONATE 500 MG CHEWABLE PO PRN (17:45)
[2020-10-10] MEDS ORDERED: MAG HYDROX/AL HYDROX/SIMETH 30 ML CUP PO PRN (17:45)
[2020-10-10] MEDS ORDERED: ALPRAZolam 0.25 MG TAB PO PRN (17:45)
--- NOTE | 2020-10-10 17:47 | P.HPIM ---
History of Present Illness H&P Date: 10/10/20 Chief Complaint: Fever History of presenting complaint: This is a pleasant 65-year-old patient who follows with Dr. Quach. Oncologist Dr. Rousseau. In May 2019, was admitted to [facility] with obstructive jaundice. ERCP showed CBD stricture. MRCP showed dilated gallbladder and biliary tree. Patient did have a stent placed. CT of the pancreas showed pancreatic head mass. FNA was positive for adenocarcinoma. Also hypodense lesion was found on the right hepatic lobe. Neoadjuvant chemotherapy, was recommended. Surgery was recommended. Laparoscopic evaluation showed liver lesions. Biopsy was positive. She was not felt to be a surgical candidate. Patient did complete chemotherapy in June 2020 and radiation treatment to the liver. PET scan did not show any uptake other than low level at the primary site. MRI done on 09/03/2020 showed multiple ring-enhancing lesions in the liver. Patient had first cycle of Gemzar and Abraxane end of August. Patient was then admitted to the hospital from September 24 through September 28. Had a fever. Gallbladder ultrasound showed multiple dominant masses in the liver. Diffuse fatty infiltration of liver. Gallbladder wall was abnormally thickened with some pericholecystic fluid. Multiple fundal contents measuring 1.4 cm with calcification. Seen by Dr. Sivla from general surgery. Was placed on IV Zosyn. Blood cultures were negative patient's fever resolved. Patient was discharged. October 05 patient received another course of chemotherapy. Dose was reduced by 10% at patient is having low-grade fever. October 07 patient started having a fever again. Has now presented for the same. No respiratory symptoms. No GI symptoms. No skin rash. No abdominal pain. No nausea vomiting. Appetite is fair. Patient is able to get around the house. Review of systems: GEN.: Fever, decreased appetite EYES: None HEENT: None NECK: None RESPIRATORY: None CARDIOVASCULAR: None GASTROINTESTINAL: Occasional diarrhea GENITOURINARY: None MUSCULOSKELETAL: None LYMPHATICS: None HEMATOLOGICAL: None PSYCHIATRY: Forgetful NEUROLOGICAL: None Past medical history: Pancreatic cancer with liver metastatic this, on chemotherapy, any dictation. Obstructive sleep apnea. Cognitive impairment. GERD. Social history: . No smoking. Alcohol rarely. Family history: Prostate cancer Physical examination: VITAL SIGNS: 102, 87, 18, 110/70, 95% room air GENERAL: BMI 26.4, laying in bed, tired. EYES: Pupils equal. Conjunctiva normal. HEENT: External appearance of nose and ears normal, oral cavity grossly normal. NECK: JVD not raised; masses not palpable. HEART: First and second heart sounds are normal; no edema. LUNGS: Respiratory rate normal; clear to auscultation. ABDOMEN: Soft, nontender, liver spleen not palpable, no masses palpable. PSYCH: [Alert and oriented x3; mood and affect tired l. NEUROLOGICAL: Cranial nerves grossly intact; no facial asymmetry, power and sensation grossly intact. LYMPHATICS: No lymph nodes palpable in the axilla and neck INVESTIGATIONS, reviewed in the clinical context: WBC 0.4 hemoglobin 11.2 platelets 120 potassium 4.4 creatinine 0.75 sodium 131 Total bilirubin 1.6 AST 113 ALT 126 alkaline phosphatase 138 amylase less than 30 lipase less than 10 UA negative EKG tracing personally reviewed by me-normal sinus rhythm Chest x-ray film personally reviewed by me-no infiltrates Previous labs:[09/30/2020] white count 1.8 hemoglobin 11.1 platelets 56 Assessment and plan: -Febrile neutropenia. Patient is 5 days out of course of chemotherapy. Recent admission patient did have acute cholecystitis that was treated with IV Zosyn. Patient currently has no respiratory, urinary or abdominal symptoms. Placed on IV cefepime and vancomycin. Blood cultures are drawn. -Pancytopenia from chemotherapy Filgrastim started -Metastatic pancreatic cancer. Patient received second dose of chemotherapy. Status post radiation treatment. Patient being followed by oncologist Dr. Rousseau -GERD On Prilosec -Cognitive impairment On Aricept, Namenda, Exelon patch -Depression On Lexapro -Medical asthenia from metastatic disease and possibly chemotherapy Activity as tolerated Patient started on IV cefepime and vancomycin. Blood cultures are drawn. Home medications resumed. In view of recent cold acute cholecystitis Dr. Silva's been consulted. Care was discussed with the patient and at the bedside. Oncology consulted. Follow CBC BMP. Given the complexity and severity of patient's condition expect the patient to be in the hospital at least for 2 overnights Past Medical History Past Medical History: Cancer, GERD/Reflux, Memory Impairment, Sleep Apnea/CPAP/BIPAP Additional Past Medical History / Comment(s): Pancreatic CA with liver mets 2nd dose of new chemo 10/05, radiation end of July, Alzheimer's History of Any Multi-Drug Resistant Organisms: None Reported Past Surgical History: Appendectomy, Hernia Repair Additional Past Surgical History / Comment(s): LT ORCHIECTOMY (done at age 17) , LT bone spur, MARIO INGUINAL HERNIA REPAIR, STENT IN CBD, Right infusaport Past Anesthesia/Blood Transfusion Reactions: No Reported Reaction Past Psychological History: No Psychological Hx Reported Smoking Status: Never smoker Past Alcohol Use History: Rare Additional Past Alcohol Use History / Comment(s): . Past Drug Use History: None Reported - Past Family History Mother Family Medical History: No Reported History Father Family Medical History: Cancer Additional Family Medical History / Comment(s): PROSTATE CANCER Medications and Allergies Home Medications Medication Instructions Recorded Confirmed Type Acetaminophen Tab [Tylenol] 500 mg PO Q6H PRN #30 tablet 08/01/19 10/10/20 Rx Colestipol HCl 2 gm PO BID 09/24/20 10/10/20 History Cyanocobalamin (Vitamin B-12) 1,000 mcg PO DAILY 09/24/20 10/10/20 History [Vitamin B-12] Escitalopram [Lexapro] 10 mg PO DAILY 09/24/20 10/10/20 History Loperamide HCl [Imodium A-D] 2 mg PO Q6H PRN 09/24/20 10/10/20 History Memantine [Namenda] 10 mg PO BID 09/24/20 10/10/20 History Omeprazole [PriLOSEC] 40 mg PO AC-BRKFST 09/24/20 10/10/20 History Pyridoxine HCl (Vitamin B6) 1 tab PO DAILY 09/24/20 10/10/20 History [Vitamin B-6] Docusate [Colace] 100 mg PO DAILY PRN 10/10/20 10/10/20 History Ondansetron [Zofran] 4 mg PO QID PRN 10/10/20 10/10/20 History Prochlorperazine [Compazine] 10 mg PO Q6H PRN 10/10/20 10/10/20 History Rivastigmine 13.3MG/24Hr Patch 1 patch TRANSDERM DAILY 10/10/20 10/10/20 History [Exelon 13.3MG/24Hr Patch] chlorproMAZINE [Thorazine] 10 mg PO Q8H PRN 10/10/20 10/10/20 History Allergies Allergy/AdvReac Type Severity Reaction Status Date / Time donepezil [From Aricept] AdvReac Diarrhea Verified 10/10/20 14:07 Physical Exam Vitals: Vital Signs Temp Pulse Resp BP Pulse Ox 10/10/20 16:50 102.0 F H 10/10/20 14:05 99.1 F 87 18 110/70 95 10/10/20 13:25 86 18 98/68 95 10/10/20 12:33 98.7 F 105 H 18 95/60 98 Intake and Output 10/10/20 10/10/20 10/10/20 06:59 14:59 22:59 Other: Weight 88.451 kg 88.451 kg Results CBC & Chem 7: 10/10/20 13:05 10/10/20 13:05 Labs: Abnormal Lab Results - Last 24 Hours (Table) 10/10/20 10/10/20 10/10/20 Range/Units 13:05 13:05 13:05 WBC 0.4 L* (3.8-10.6) k/uL RBC 3.49 L (4.30-5.90) m/uL Hgb 11.2 L (13.0-17.5) gm/dL Hct 33.8 L (39.0-53.0) % Plt Count 120 L D (150-450) k/uL PT 13.0 H (9.0-12.0) sec INR 1.3 H (<1.2) Sodium 131 L (137-145) mmol/L Glucose 116 H (74-99) mg/dL Total Bilirubin 1.6 H (0.2-1.3) mg/dL AST 113 H (17-59) U/L ALT 126 H (4-49) U/L Alkaline Phosphatase 138 H (38-126) U/L Total Protein 6.2 L (6.3-8.2) g/dL Albumin 3.3 L (3.5-5.0) g/dL Amylase <30 L (30-110) U/L Lipase <10 L (23-300) U/L Thrombosis Risk Factor Assmnt - Choose All That Apply Any of the Below Risk Factors Present?: Yes Other Risk Factors: Yes Each Risk Factor Represents 2 Points: Age 61-74 years, Malignancy Other congenital or acquired thrombophilia - If yes, enter type in comment: No Thrombosis Risk Factor Assessment Total Risk Factor Score: 4 Thrombosis Risk Factor Assessment Level: Moderate Risk
--- NOTE | 2020-10-10 17:54 | US ---
EXAMINATION TYPE: US gallbladder DATE OF EXAM: 10/10/2020 COMPARISON: US, CT CLINICAL HISTORY: fever. Fever. Hx CBD stent per patient's , pancreatic cancer with metastasis to the liver. EXAM MEASUREMENTS: Liver Length: 17.1 cm Gallbladder Wall: 0.46 cm CBD: Unable to visualize. Right Kidney: 11.6 x 5.8 x 5.2 cm Limited due to overlying bowel gas. Pancreas: Not visualized due to gas. Liver: Measures upper limits of normal. Several hypoechoic areas seen throughout the right lobe. Louie e appear to be calcified. Largest defined hypoechoic area seen adjacent to the liver: 2.4 x 2.2 x 2.2 cm. Liver echotexture appears to be coarse/heterogeneous. Indistinct hypoechoic areas seen. Gallbladder: Limited. Wall appears thickened. Internal echoes seen measuring approximately: 3.0 x 2.6 x 2.2 cm. Evidence for sonographic Diaz's sign: Yes Right Kidney: No hydronephrosis or masses seen IMPRESSION: There is gallbladder wall thickening suggestive of cholecystitis. There are a few hypoechoic liver lesions. This is consistent with metastatic disease. No significant dilation of the intrahepatic bile ducts.
[2020-10-10] MEDS: FILGRASTIM-SNDZ 480 MCG/0.8 ML SYRINGE SQ SCH (18:00)
[2020-10-10] MEDS ORDERED: IBUPROFEN 200 MG TAB PO PRN (20:06)
[2020-10-10] MEDS: MEMANTINE 10 MG TAB PO SCH (20:35)
[2020-10-10] MEDS: VANCOMYCIN 1,500 MG in SODIUM CHLORIDE 0.9% 250 ML IVPB SCH (23:35)
[2020-10-11] MEDS: CEFEPIME 1 GM in SODIUM CHLORIDE 0.9% 50 ML IVPB SCH ×2 (05:40→18:26)
[2020-10-11] MEDS: SODIUM CHLORIDE 0.9% 1,000 ML IV SCH ×2 (05:40→18:27)
[2020-10-11 06:30] LABS: ALT 96 U/L (4-49); AST 82 U/L (17-59); African American GFR (CKD) >90 (>60 ml/min/1.73 sqM); Albumin 2.6 g/dL (3.5-5.0); Alkaline Phosphatase 114 U/L (38-126); Amylase <30 U/L (30-110); Anion Gap 4 mmol/L; Blood Urea Nitrogen 9 mg/dL (9-20); Calcium 8.3 mg/dL (8.4-10.2); Carbon Dioxide 25 mmol/L (22-30); Chloride 108 mmol/L (98-107); Globulin 2.7 g/dL; Glucose 118 mg/dL (74-99); Lipase <10 U/L (23-300); Non-African American GFR(CKD) >90 (>60 ml/min/1.73 sqM); Potassium 4.5 mmol/L (3.5-5.1); Sodium 137 mmol/L (137-145); Total Bilirubin 1.1 mg/dL (0.2-1.3); Total Protein 5.3 g/dL (6.3-8.2)
[2020-10-11 06:53] LABS: Basophils % (A) 1 %; Eosinophils % (A) 0 %; HCT 30.7 % (39.0-53.0); Lymphocytes # (A) 0.1 k/uL (1.0-4.8); Lymphocytes % (A) 8 %; MCH 31.3 pg (25.0-35.0); MCHC 31.6 g/dL (31.0-37.0); MCV 99.1 fL (80.0-100.0); Mean Platelet Volume 8.6; Monocytes % (A) 3 %; Neutrophils % (A) 85 %; Platelet Count 72 k/uL (150-450); RDW 14.3 % (11.5-15.5)
[2020-10-11 07:07] LABS: WBC 1.2 k/uL (3.8-10.6)
[2020-10-11 07:08] LABS: HGB 9.7 gm/dL (13.0-17.5)
[2020-10-11] MEDS ORDERED: PANTOPRAZOLE 40 MG TABLET PO SCH (07:30)
[2020-10-11] MEDS: RIVASTIGMINE 13.3MG/24HR PATCH TRANSDERM SCH (08:15)
[2020-10-11] MEDS: ESCITALOPRAM 10 MG TAB PO SCH (08:15)
[2020-10-11] MEDS: PYRIDOXINE 50 MG TAB PO SCH (08:15)
[2020-10-11] MEDS: VANCOMYCIN 1,500 MG in SODIUM CHLORIDE 0.9% 250 ML IVPB SCH ×3 (08:15→23:51)
[2020-10-11] MEDS: PANTOPRAZOLE 40 MG/10 ML VIAL IV SCH (08:15)
[2020-10-11] MEDS: MEMANTINE 10 MG TAB PO SCH ×2 (08:15→20:45)
[2020-10-11] MEDS: CYANOCOBALAMIN 500 MCG TAB PO SCH (08:16)
[2020-10-11 09:42] LABS: Band Neutrophils % 12 %; Lymphocytes # (M) 0.08 k/uL (1.0-4.8); Monocytes # (M) 0.06 k/uL (0-1.0); Neutrophils % (M) 76 %; Nucleated Red Blood Cells 0 /100 WBC (0-0); Total Cells Counted 100
[2020-10-11 09:43] LABS: Anisocytosis (M) Present; Poikilocytosis (M) Present; Toxic Granulation Present
--- NOTE | 2020-10-11 16:38 | P.PN ---
Progress Note - Text Progress Note Date: 10/11/20 Chief Complaint: Fever History of presenting complaint: This is a pleasant 65-year-old patient who follows with Dr. Quach. Oncologist Dr. Rousseau. In May 2019, was admitted to [facility] with obstructive jaundice. ERCP showed CBD stricture. MRCP showed dilated gallbladder and biliary tree. Patient did have a stent placed. CT of the pancreas showed pancreatic head mass. FNA was positive for adenocarcinoma. Also hypodense lesion was found on the right hepatic lobe. Neoadjuvant chemotherapy, was recommended. Surgery was recommended. Laparoscopic evaluation showed liver lesions. Biopsy was positive. She was not felt to be a surgical candidate. Patient did complete chemotherapy in June 2020 and radiation treatment to the liver. PET scan did not show any uptake other than low level at the primary site. MRI done on 09/03/2020 showed multiple ring-enhancing lesions in the liver. Patient had first cycle of Gemzar and Abraxane end of August. Patient was then admitted to the hospital from September 24 through September 28. Had a fever. Gallbladder ultrasound showed multiple dominant masses in the liver. Diffuse fatty infiltration of liver. Gallbladder wall was abnormally thickened with some pericholecystic fluid. Multiple fundal contents measuring 1.4 cm with calcification. Seen by Dr. Silva from general surgery. Was placed on IV Zosyn. Blood cultures were negative patient's fever resolved. Patient was discharged. October 05 patient received another course of chemotherapy. Dose was reduced by 10% at patient is having low-grade fever. October 07 patient started having a fever again. Has now presented for the same. No respiratory symptoms. No GI symptoms. No skin rash. No abdominal pain. No nausea vomiting. Appetite is fair. Patient is able to get around the house. Admitted with febrile neutropenia. Started on IV Zosyn and vancomycin. October 11: Yesterday evening patient did have fevers. Better this morning. Eating about 50%. Tired. is present. No new symptoms. Review of systems: Was done for constitutional, cardiovascular, GI, pulmonary. relevant finding as above Active Medications Acetaminophen (Acetaminophen Tab 325 Mg Tab) 650 mg PO Q6HR PRN PRN Reason: Mild Pain or Fever > 100.5 Last Admin: 10/10/20 23:35 Dose: 650 mg Documented by: Al Hydroxide/Mg Hydroxide (Mag Hydrox/Al Hydrox/Simeth 30 Ml Cup) 15 ml PO Q6HR PRN PRN Reason: Indigestion Alprazolam (Alprazolam 0.25 Mg Tab) 0.25 mg PO Q6HR PRN PRN Reason: Anxiety Calcium Carbonate/Glycine (Calcium Carbonate 500 Mg Chewable) 1,000 mg PO Q4HR PRN PRN Reason: Dyspepsia Cyanocobalamin (Cyanocobalamin 500 Mcg Tab) 1,000 mcg PO DAILY FOR[facility]LY [facility], [facility] Last Admin: 10/11/20 08:16 Dose: 1,000 mcg Documented by: Escitalopram Oxalate (Escitalopram 10 Mg Tab) 10 mg PO DAILY [facility], [facility] Last Admin: 10/11/20 08:15 Dose: 10 mg Documented by: Filgrastim-Sndz (Filgrastim-Sndz 480 Mcg/0.8 Ml Syringe) 480 mcg SQ DAILY@1800 [facility], [facility]1983 Last Admin: 10/10/20 18:00 Dose: 480 mcg Documented by: Cefepime HCl 1 gm/ Sodium (Chloride) 50 mls @ 12.5 mls/hr IVPB Q12H [facility], [facility]1983 Last Admin: 10/11/20 05:40 Dose: 12.5 mls/hr Documented by: Sodium Chloride (Saline 0.9%) 1,000 mls @ 75 mls/hr IV .[id number] [facility], [facility]–1983 Last Admin: 10/11/20 05:40 Dose: 75 mls/hr Documented by: Vancomycin HCl 1,500 mg/ (Sodium Chloride) 250 mls @ 125 mls/hr IVPB Q8HR [facility], [facility] Last Admin: 10/11/20 16:07 Dose: 125 mls/hr Documented by: Ibuprofen (Ibuprofen 200 Mg Tab) 200 mg PO Q8HR PRN PRN Reason: Mild Pain Last Admin: 10/10/20 20:36 Dose: 200 mg Documented by: Lactulose (Lactulose 20 Gm/30 Ml Cup) 20 gm PO DAILY PRN PRN Reason: Constipation Loperamide HCl (Loperamide 2 Mg Cap) 2 mg PO Q6H PRN PRN Reason: Diarrhea Magnesium Hydroxide (Magnesium Hydroxide 2,400 Mg/10 Ml Cup) 2,400 mg PO DAILY PRN PRN Reason: Constipation Melatonin (Melatonin 3 Mg Tablet) 3 mg PO HS PRN PRN Reason: Insomnia Memantine (Memantine 10 Mg Tab) 10 mg PO BID [facility] Last Admin: 10/11/20 08:15 Dose: 10 mg Documented by: Miscellaneous Information (Vancomycin Trough Due 1 Each Misc) 0 each MISCELLANE DIRECTED ONE Stop: 10/12/20 07:01 Naloxone HCl (Naloxone 0.4 Mg/Ml 1 Ml Vial) 0.2 mg IV Q2M PRN PRN Reason: Opioid Reversal Chlorpromazine 10 Mg (Tab) 10 mg PO Q8H PRN PRN Reason: hiccups Colestipol Hcl [ Colestipol Hcl] 1 Gm Tablet 2 gm PO BID [facility] Last Admin: 10/11/20 08:18 Dose: Not Given Documented by: Ondansetron HCl (Ondansetron 4 Mg/2 Ml Vial) 4 mg IVP Q8HR PRN PRN Reason: Nausea And Vomiting Pantoprazole Sodium (Pantoprazole 40 Mg/10 Ml Vial) 40 mg IV DAILY [facility], [facility] Last Admin: 10/11/20 08:15 Dose: 40 mg Documented by: Pyridoxine HCl (Pyridoxine 50 Mg Tab) 50 mg PO DAILY [facility] Last Admin: 10/11/20 08:15 Dose: 50 mg Documented by: Rivastigmine (Rivastigmine 13.3mg/24hr Patch) 1 patch TRANSDERM DAILY [facility], [facility] Last Admin: 10/11/20 08:15 Dose: 1 patch Documented by: Temazepam (Temazepam 15 Mg Cap) 15 mg PO HS PRN PRN Reason: Insomnia Past medical history: Pancreatic cancer with liver metastatic this, on chemotherapy, any dictation. Obstructive sleep apnea. Cognitive impairment. GERD. Social history: . No smoking. Alcohol rarely. Family history: Prostate cancer Physical examination: VITAL SIGNS: T-max 101.6 yesterday evening, 71, 16, 100/65, 98% room air GENERAL: BMI 26.4, laying in bed, tired. EYES: Pupils equal. Conjunctiva normal. HEENT: External appearance of nose and ears normal, oral cavity grossly normal. NECK: JVD not raised; masses not palpable. HEART: First and second heart sounds are normal; no edema. LUNGS: Respiratory rate normal; clear to auscultation. ABDOMEN: Soft, nontender, liver spleen not palpable, no masses palpable. PSYCH: [Alert and oriented x3; mood and affect tired l. INVESTIGATIONS, reviewed in the clinical context: October 11: WBC 1.2 hemoglobin 9.7 platelets 72 potassium 4.5 crit 0.75 AST 82 ALT 96 total bilirubin 1.1 Ultrasound gallbladder: Gallbladder wall thickening with internal echoes. WBC 0.4 hemoglobin 11.2 platelets 120 potassium 4.4 creatinine 0.75 sodium 131 Total bilirubin 1.6 AST 113 ALT 126 alkaline phosphatase 138 amylase less than 30 lipase less than 10 UA negative EKG tracing personally reviewed by me-normal sinus rhythm Chest x-ray film personally reviewed by me-no infiltrates Previous labs:[09/30/2020] white count 1.8 hemoglobin 11.1 platelets 56 Assessment and plan: -Febrile neutropenia. Patient is 5 days out of course of chemotherapy. Recent admission patient did have acute cholecystitis that was treated with IV Zosyn. Patient currently has no respiratory, urinary or abdominal symptoms. Placed on IV cefepime and vancomycin. Blood cultures are drawn. Ultrasound gallbladder is showing gallbladder wall thickening with some hyperechoic areas. General surgery is consulted.: Slow to respond -Pancytopenia from chemotherapy: Slow to respond Filgrastim started -Metastatic pancreatic cancer. Patient received second dose of chemotherapy. Status post radiation treatment. Patient being followed by oncologist Dr. Rousseau -MICHAEL On Prilosec -Cognitive impairment On Aricept, Namenda, Exelon patch -Depression On Lexapro -Medical asthenia from metastatic disease and possibly chemotherapy Activity as tolerated Continue IV cefepime and vancomycin. IV fluids. Pending surgical input. Repeat labs.
--- NOTE | 2020-10-11 16:47 | P.GSCN ---
History of Present Illness Consult date: 10/11/20 History of present illness: Surgery is consulted for gallstones. All history is obtained by at bedside due to chemotherapy induced encephalopathy. Patient has complicated history of recent pancreatic cancer with liver metastases diagnosed at multiple institutions including with initial work-up at [facility]. Patient started new treatment of chemotherapy including brachytherapy on the liver for liver metastases. He presented with severe neutropenic fever with high temperatures requiring ice bags along the axilla and external body cooling. He denies any epigastric or right upper quadrant abdominal pain as compared to his recent admission less than 3 weeks ago. reports history of liver infection. At this time, she is hesistant for him to have surgery with his pancytopenia and neutropenic fevers. ABDOMEN: Nontender. No peritonitis. LABS: Pancytopenia STUDIES: I personally reviewed US of the gallbladder and liver with gallstones and multiple metastatic lesions of the liver. No Diaz's sign ASSESSMENT: 1. Neutropenic fever 2. Chemotherapy induced pancytopenia 3. Metastatic pancreatic cancer to liver. PLAN: 1. Overall, patient is elevated risk with pancytopenia, neutropenic fever in undergoing cholecystectomy. 2. Recommend re-evaluating benefits and risks of surgery with oncology team. Past Medical History Past Medical History: Cancer, GERD/Reflux, Memory Impairment, Sleep Apnea/CPAP/ BIPAP Additional Past Medical History / Comment(s): Pancreatic CA with liver mets 2nd dose of new chemo 10/05, radiation end of July, Alzheimer's History of Any Multi-Drug Resistant Organisms: None Reported Past Surgical History: Appendectomy, Hernia Repair Additional Past Surgical History / Comment(s): LT ORCHIECTOMY (done at age 17) , LT bone spur, MARIO INGUINAL HERNIA REPAIR, STENT IN CBD, Right infusaport Past Anesthesia/Blood Transfusion Reactions: No Reported Reaction Past Psychological History: No Psychological Hx Reported Smoking Status: Never smoker Past Alcohol Use History: Rare Additional Past Alcohol Use History / Comment(s): . Past Drug Use History: None Reported - Past Family History Mother Family Medical History: No Reported History Father Family Medical History: Cancer Additional Family Medical History / Comment(s): PROSTATE CANCER Medications and Allergies Home Medications Medication Instructions Recorded Confirmed Type Acetaminophen Tab [Tylenol] 500 mg PO Q6H PRN #30 tablet 08/01/19 10/10/20 Rx Colestipol HCl 2 gm PO BID 09/24/20 10/10/20 History Cyanocobalamin (Vitamin B-12) 1,000 mcg PO DAILY 09/24/20 10/10/20 History [Vitamin B-12] Escitalopram [Lexapro] 10 mg PO DAILY 09/24/20 10/10/20 History Loperamide HCl [Imodium A-D] 2 mg PO Q6H PRN 09/24/20 10/10/20 History Memantine [Namenda] 10 mg PO BID 09/24/20 10/10/20 History Omeprazole [PriLOSEC] 40 mg PO AC-BRKFST 09/24/20 10/10/20 History Pyridoxine HCl (Vitamin B6) 1 tab PO DAILY 09/24/20 10/10/20 History [Vitamin B-6] Docusate [Colace] 100 mg PO DAILY PRN 10/10/20 10/10/20 History Ondansetron [Zofran] 4 mg PO QID PRN 10/10/20 10/10/20 History Prochlorperazine [Compazine] 10 mg PO Q6H PRN 10/10/20 10/10/20 History Rivastigmine 13.3MG/24Hr Patch 1 patch TRANSDERM DAILY 10/10/20 10/10/20 History [Exelon 13.3MG/24Hr Patch] chlorproMAZINE [Thorazine] 10 mg PO Q8H PRN 10/10/20 10/10/20 History Allergies Allergy/AdvReac Type Severity Reaction Status Date / Time donepezil [From Aricept] AdvReac Diarrhea Verified 10/10/20 14:07 Surgical - Exam Vital Signs Temp Pulse Resp BP Pulse Ox 98.7 F 105 H 18 95/60 98 10/10/20 12:33 10/10/20 12:33 10/10/20 12:33 10/10/20 12:33 10/10/20 12:33 Results - Labs 10/11/20 05:51 10/11/20 05:51 Abnormal Lab Results - Last 24 Hours (Table) 10/11/20 10/11/20 Range/Units 05:51 05:51 WBC 1.2 L* (3.8-10.6) k/uL RBC 3.10 L (4.30-5.90) m/uL Hgb 9.7 L D (13.0-17.5) gm/dL Hct 30.7 L (39.0-53.0) % Plt Count 72 L (150-450) k/uL Neutrophils # 1.0 L (1.3-7.7) k/uL Neutrophils # (Manual) 1.00 L (1.3-7.7) k/uL Lymphocytes # 0.1 L (1.0-4.8) k/uL Lymphocytes # (Manual) 0.08 L (1.0-4.8) k/uL Chloride 108 H (98-107) mmol/L Glucose 118 H (74-99) mg/dL Calcium 8.3 L (8.4-10.2) mg/dL AST 82 H (17-59) U/L ALT 96 H (4-49) U/L Total Protein 5.3 L (6.3-8.2) g/dL Albumin 2.6 L (3.5-5.0) g/dL Amylase <30 L (30-110) U/L Lipase <10 L (23-300) U/L Microbiology - Last 24 Hours (Table) 10/10/20 13:05 Blood Culture Gram Stain - Preliminary Blood Blood Culture - Preliminary Klebsiella pneumoniae 10/10/20 13:14 Blood Culture Gram Stain - Preliminary Blood 10/10/20 13:05 Blood Culture - Final Blood 10/10/20 13:05 Blood Culture - Final Blood Diabetes panel 10/11/20 Range/Units 05:51 Sodium 137 (137-145) mmol/L Potassium 4.5 (3.5-5.1) mmol/L Chloride 108 H (98-107) mmol/L Carbon Dioxide 25 (22-30) mmol/L BUN 9 (9-20) mg/dL Creatinine 0.75 (0.66-1.25) mg/dL Glucose 118 H (74-99) mg/dL Calcium 8.3 L (8.4-10.2) mg/dL AST 82 H (17-59) U/L ALT 96 H (4-49) U/L Alkaline Phosphatase 114 (38-126) U/L Total Protein 5.3 L (6.3-8.2) g/dL Albumin 2.6 L (3.5-5.0) g/dL Calcium panel 10/11/20 Range/Units 05:51 Calcium 8.3 L (8.4-10.2) mg/dL Albumin 2.6 L (3.5-5.0) g/dL Pituitary panel 10/11/20 Range/Units 05:51 Sodium 137 (137-145) mmol/L Potassium 4.5 (3.5-5.1) mmol/L Chloride 108 H (98-107) mmol/L Carbon Dioxide 25 (22-30) mmol/L BUN 9 (9-20) mg/dL Creatinine 0.75 (0.66-1.25) mg/dL Glucose 118 H (74-99) mg/dL Calcium 8.3 L (8.4-10.2) mg/dL Adrenal panel 10/11/20 Range/Units 05:51 Sodium 137 (137-145) mmol/L Potassium 4.5 (3.5-5.1) mmol/L Chloride 108 H (98-107) mmol/L Carbon Dioxide 25 (22-30) mmol/L BUN 9 (9-20) mg/dL Creatinine 0.75 (0.66-1.25) mg/dL Glucose 118 H (74-99) mg/dL Calcium 8.3 L (8.4-10.2) mg/dL Total Bilirubin 1.1 (0.2-1.3) mg/dL AST 82 H (17-59) U/L ALT 96 H (4-49) U/L Alkaline Phosphatase 114 (38-126) U/L Total Protein 5.3 L (6.3-8.2) g/dL Albumin 2.6 L (3.5-5.0) g/dL
[2020-10-11] MEDS: FILGRASTIM-SNDZ 480 MCG/0.8 ML SYRINGE SQ SCH (18:27)
--- NOTE | 2020-10-11 19:14 | P.CONS ---
History of Present Illness - Reason for Consult Consult date: 10/11/20 - History of Present Illness This is a 65-year-old male patient well known to myself. he is a poor historian, his provides most of his historical information. oncology history is as follows: Patient was admitted to [facility] 06/12/19 with obstructive jaundice, bilirubin 8.6 elevated LFTs. 06/11/19 ERCP performed revealing CBD stricture, cannulation of the CBD was unable to be performed. MRCP demonstrated dilated gallbladder and biliary tree. Patient was treated for cholangitis. ERCP was reperformed with stent placement, found what appeared to be a malignant- appearing structure in the bile duct. CT of the pancreas performed revealed pancreatic head mass and undefined lesions on the adrenal gland and liver. FNA positive for adenocarcinoma. 06/13/19 CT of the pelvis with contrast revealed noncirrhotic liver, 1.4 cm hypodense lesion within the right hepatic lobe, slightly irregular margins. Pancreas 1.9 x 1.7 x 2.1 cm mass located at the posterior pancreatic head. There were a few prominent non-enlarged peripancreatic and portal, lymph nodes. 1.5 cm lesion in the midpole of the rig ht kidney, too small to characterize. Clinical stage TIc, N1 MX. Multidisciplinary clinic at [facility] reviewed his case. Biopsy of the liver lesion was ordered but when patient presented for the biopsy there was no abnormal area found on imaging to collect tissue from. Neoadjuvant jamie motherapy was recommended. FOLFIRINOX started 08/28/19. Repeat PET scan and MRI of the brain showed no metastases. He completed 9 cycles in early 01/13. Dr. Barnes at [facility] evaluated him for surgery, 02/05/20 preop laparoscopic evaluation unfortunately, found the liver lesions, biopsy was positive. Patient was deemed a nonsurgical. He was started back on chemotherapy and completed a total of 12 cycles 04/08/20. He was referred to radiation oncology with plan for concurrent chemoradiation to treat the pancreatic head mass and evaluate liver lesions and treat with stereotactic radiosurgery. He completed chemotherapy/RT 07/01/20. He had 3 XRT treatments ( SBRT) to the liver. CA-19-9 was significantly elevated in the 1200 range after radiation. PET scan done showed no uptake other than low level at the primary site. 08/14 CA-19-9 was down in the 600 range, plan was to continue on observation. MRI done by radiation oncology 09/03/20 unfortunately showed multiple ring enhancing lesions in the liver. after discussion of options, including comfort care, patient and his opted for active treatment. He was therefore started on second line chemotherapy with Gemzar and Abraxane on 09/21/20. Agent was admitted after day 1 of cycle 1 with fever. He was not neutropenic. At that time differential included tumor necrosis fever, chemotherapy effect, as well as infection. Imaging did show cholecystitis. Patient was initially planned for surgery, but given his increased risk was treated conservatively initially with antibiotics. He responded very well to the same and it was therefore decided to hold off on the surgical option. Post discharge day 8 was delayed to allow the patient more days of antibiotics, and also because of low blood counts. He did subsequently receive it on 10/05/20. After receiving treatment the patient did developed low-grade fevers to about 10/07/20. He was otherwise isn't dramatic and was reluctant to come to the hospital. After discussion with his , they initially opted to manage him at home supportively. However on 10/10/20 his called the answering service with fever of 102.2. Patient was directly to come to the ER where labs showed evidence of neutropenia , with WBC 0.4. Patient also had pancytopenia with hemoglobin 11.2 and platelets 120 as discussed in detail with the ER physician, and admission with broad- spectrum antibiotics, as well as growth factor support was recommended. for our discussion the patient also had abdominal ultrasound performed, which noted thickening of the gallbladder wall and sonographic Diaz sign. chest x- ray was negative. Review of Systems Constitutional: Reports fatigue, Reports fever, Reports poor appetite Eyes: denies blurred vision, denies pain Ears: deny: decreased hearing, ear discharge, earache, tinnitus Ears, nose, mouth and throat: Denies headache, Denies sore throat Cardiovascular: Reports decreased exercise tolerance Respiratory: Denies cough Gastrointestinal: Reports diarrhea, Reports loss of appetite Genitourinary: Reports as per HPI Musculoskeletal: Denies myalgias Integumentary: Denies pruritus, Denies rash Neurological: Reports memory loss, Denies numbness, Denies weakness Psychiatric: Reports difficulty concentrating, Reports memory loss Endocrine: Reports fatigue Hematologic/Lymphatic: Reports as per HPI Past Medical History Past Medical History: Cancer, GERD/Reflux, Memory Impairment, Sleep Apnea/CPAP/BIPAP Additional Past Medical History / Comment(s): Pancreatic CA with liver mets 2nd dose of new chemo 10/05, radiation end of July, Alzheimer's History of Any Multi-Drug Resistant Organisms: None Reported Past Surgical History: Appendectomy, Hernia Repair Additional Past Surgical History / Comment(s): LT ORCHIECTOMY (done at age 17) , LT bone spur, MARIO INGUINAL HERNIA REPAIR, STENT IN CBD, Right infusaport Past Anesthesia/Blood Transfusion Reactions: No Reported Reaction Past Psychological History: No Psychological Hx Reported Smoking Status: Never smoker Past Alcohol Use History: Rare Additional Past Alcohol Use History / Comment(s): . Past Drug Use History: None Reported - Past Family History Mother Family Medical History: No Reported History Father Family Medical History: Cancer Additional Family Medical History / Comment(s): PROSTATE CANCER Medications and Allergies Home Medications Medication Instructions Recorded Confirmed Type Acetaminophen Tab [Tylenol] 500 mg PO Q6H PRN #30 tablet 08/01/19 10/10/20 Rx Colestipol HCl 2 gm PO BID 09/24/20 10/10/20 History Cyanocobalamin (Vitamin B-12) 1,000 mcg PO DAILY 09/24/20 10/10/20 History [Vitamin B-12] Escitalopram [Lexapro] 10 mg PO DAILY 09/24/20 10/10/20 History Loperamide HCl [Imodium A-D] 2 mg PO Q6H PRN 09/24/20 10/10/20 History Memantine [Namenda] 10 mg PO BID 09/24/20 10/10/20 History Omeprazole [PriLOSEC] 40 mg PO AC-BRKFST 09/24/20 10/10/20 History Pyridoxine HCl (Vitamin B6) 1 tab PO DAILY 09/24/20 10/10/20 History [Vitamin B-6] Docusate [Colace] 100 mg PO DAILY PRN 10/10/20 10/10/20 History Ondansetron [Zofran] 4 mg PO QID PRN 10/10/20 10/10/20 History Prochlorperazine [Compazine] 10 mg PO Q6H PRN 10/10/20 10/10/20 History Rivastigmine 13.3MG/24Hr Patch 1 patch TRANSDERM DAILY 10/10/20 10/10/20 History [Exelon 13.3MG/24Hr Patch] chlorproMAZINE [Thorazine] 10 mg PO Q8H PRN 10/10/20 10/10/20 History Allergies Allergy/AdvReac Type Severity Reaction Status Date / Time donepezil [From Aricept] AdvReac Diarrhea Verified 10/10/20 14:07 Physical Exam Vitals: Vital Signs Temp Pulse Resp BP Pulse Ox 10/11/20 13:00 98.5 F 71 16 100/65 98 10/11/20 05:46 97.5 F L 10/11/20 04:21 98.1 F 78 18 101/65 96 10/10/20 23:35 100.8 F H 10/10/20 21:30 100.4 F H 10/10/20 20:05 18 10/10/20 19:40 101.6 F H Intake and Output 10/11/20 10/11/20 10/11/20 06:59 14:59 22:59 Intake Total 1500 Balance 1500 Intake: Intake, IV Titration 1200 Amount Cefepime 1 gm In Sodium 50 Chloride 0.9% 50 ml @ 12. 5 mls/hr IVPB Q12H [facility] Rx #:[id number] Sodium Chloride 0.9% 1, 900 000 ml @ 75 mls/hr IV . [id number] [facility] Rx#:[id number] Vancomycin 1,500 mg In 250 Sodium Chloride 0.9% 250 ml @ 125 mls/hr IVPB Q8HR [facility] Rx#:[id number] Oral 300 Other: # Voids 3 3 # Bowel Movements 1 - Constitutional General appearance: no acute distress - EENT Eyes: EOMI, PERRLA ENT: hearing grossly normal, normal oropharynx - Neck Neck: no lymphadenopathy Thyroid: bilateral: normal size - Respiratory Respiratory: bilateral: CTA - Cardiovascular Rhythm: regular Heart sounds: normal: S1, S2 - Gastrointestinal General gastrointestinal: normal bowel sounds, soft - Integumentary Integumentary: normal - Neurologic Neurologic: CNII-XII intact - Musculoskeletal Musculoskeletal: generalized weakness, strength equal bilaterally - Psychiatric poor recall, and slow affect, chronic Psychiatric: A&O x's 3 Results CBC & Chem 7: 10/11/20 05:51 10/11/20 05:51 Labs: Abnormal Lab Results - Last 24 Hours (Table) 10/11/20 10/11/20 Range/Units 05:51 05:51 WBC 1.2 L* (3.8-10.6) k/uL RBC 3.10 L (4.30-5.90) m/uL Hgb 9.7 L D (13.0-17.5) gm/dL Hct 30.7 L (39.0-53.0) % Plt Count 72 L (150-450) k/uL Neutrophils # 1.0 L (1.3-7.7) k/uL Neutrophils # (Manual) 1.00 L (1.3-7.7) k/uL Lymphocytes # 0.1 L (1.0-4.8) k/uL Lymphocytes # (Manual) 0.08 L (1.0-4.8) k/uL Chloride 108 H (98-107) mmol/L Glucose 118 H (74-99) mg/dL Calcium 8.3 L (8.4-10.2) mg/dL AST 82 H (17-59) U/L ALT 96 H (4-49) U/L Total Protein 5.3 L (6.3-8.2) g/dL Albumin 2.6 L (3.5-5.0) g/dL Amylase <30 L (30-110) U/L Lipase <10 L (23-300) U/L Microbiology - Last 24 Hours (Table) 10/10/20 13:05 Blood Culture Gram Stain - Preliminary Blood Blood Culture - Preliminary Klebsiella pneumoniae 10/10/20 13:14 Blood Culture Gram Stain - Preliminary Blood 10/10/20 13:05 Blood Culture - Final Blood 10/10/20 13:05 Blood Culture - Final Blood Chest x-ray: report reviewed US - abdomen: report reviewed Assessment and Plan (1) Neutropenic fever Narrative/Plan: the patient is admitted with neutropenic fever, after delayed day 8 of cycle 1 with Gemzar and Abraxane. As noted in the HPI he had an admission for fever after cycle 1 day 1 but at that time was not neutropenic. - Symptomatically the patient does not have obvious source. In fact he has been fairly stable at home side of the fever. He has had some loss of appetite but and actually occurred after hospital admission. Physical exam is overall unrevealing, with no significant tenderness on abdominal exam. - Cultures are pending. Chest x-ray was negative as noted. At this time recurrent gallbladder inflammation due to chemotherapy effect and neutropenia is a major differential though the physical exam does not support the same. However physical exam features may not be prominent because of decreased inflammatory effect due to neutropenia. Other sources are not ruled out. - Continue broad-spectrum antibiotics. The patient has also been placed on growth factors. Fever pattern is improved. Current Visit: Yes Status: Acute Code(s): D70.9 - NEUTROPENIA, UNSPECIFIED; R50.81 - FEVER PRESENTING WITH CONDITIONS CLASSIFIED ELSEWHERE SNOMED Code(s): 918786864 (2) Acute cholecystitis Narrative/Plan: recurrent acute cholecystitis is a concern as noted above. Physical exam does not support the same, but as noted, findings may not be difficult in a patient with significant neutropenia.implications of the above were discussed in detail with the patient and his . We will await formal evaluation by the surgeon. I advised him that acalculous cholecystitis can occur with chemotherapy and risk of complications, including perforation is higher in patients with neutropenia. He is at high risk of developing the same with successive chemotherapies. - They were also advised that even if surgery was be strongly considered, it would be preferable to hold off till his WBC recovered, unless there was an emergent situation. - if there is no evidence of other source of fever, it would be reasonable to discuss risks and benefits of surgery once WBC recovers. Surgery will delay his next chemotherapy, which has already been delayed. On the other hand, if gallbladder remains in situ, he could potentially be at risk of recurrent cholecystitis and more serious complications with succeeding treatments Current Visit: No Status: Acute Code(s): K81.0 - ACUTE CHOLECYSTITIS SNOMED Code(s): 38272986 (3) Pancreatic cancer metastasized to liver Narrative/Plan: treatment is currently on hold until acute situation results in a satisfactory manner Current Visit: No Status: Acute Code(s): C25.9 - MALIGNANT NEOPLASM OF PA NCREAS, UNSPECIFIED; C78.7 - SECONDARY MALIG NEOPLASM OF LIVER AND INTRAHEPATIC BILE DUCT SNOMED Code(s): 430639160 (4) Pancytopenia due to antineoplastic chemotherapy Narrative/Plan: patient has been placed on growth factors were WBC support. Other counts are well within a safe range. Continue to monitor. Transfuse to keep hemoglobin greater than 7 and platelets greater than 10. Current Visit: Yes Status: Acute Code(s): D61.810 - ANTINEOPLASTIC CHEMOTHERAPY INDUCED PANCYTOPENIA; T45.1X5A - ADVERSE EFFECT OF ANTINEOPLASTIC AND IMMUNOSUP DRUGS, INIT SNOMED Code(s): 995648937386576
[2020-10-12] MEDS: SODIUM CHLORIDE 0.9% 1,000 ML IV SCH ×3 (02:15→22:02)
[2020-10-12] MEDS: CEFEPIME 1 GM in SODIUM CHLORIDE 0.9% 50 ML IVPB SCH ×2 (05:40→17:52)
[2020-10-12 06:51] LABS: ALT 84 U/L (4-49); AST 82 U/L (17-59); African American GFR (CKD) >90 (>60 ml/min/1.73 sqM); Albumin 2.4 g/dL (3.5-5.0); Albumin/Globulin Ratio 0.9; Alkaline Phosphatase 115 U/L (38-126); Anion Gap 2 mmol/L; Blood Urea Nitrogen 9 mg/dL (9-20); Calcium 8.1 mg/dL (8.4-10.2); Carbon Dioxide 26 mmol/L (22-30); Chloride 108 mmol/L (98-107); Globulin 2.7 g/dL; Glucose 94 mg/dL (74-99); Non-African American GFR(CKD) >90 (>60 ml/min/1.73 sqM); Potassium 4.3 mmol/L (3.5-5.1); Sodium 136 mmol/L (137-145); Total Bilirubin 0.8 mg/dL (0.2-1.3); Total Protein 5.1 g/dL (6.3-8.2)
[2020-10-12] MEDS ORDERED: VANCOMYCIN TROUGH DUE 1 EACH MISC MISCELLANE ONE (07:00)
[2020-10-12 07:07] LABS: HGB 9.7 gm/dL (13.0-17.5); MCH 31.9 pg (25.0-35.0); MCHC 32.3 g/dL (31.0-37.0); RBC 3.03 m/uL (4.30-5.90); RDW 14.5 % (11.5-15.5); WBC 2.8 k/uL (3.8-10.6)
[2020-10-12] MEDS: PYRIDOXINE 50 MG TAB PO SCH (08:33)
[2020-10-12] MEDS: CYANOCOBALAMIN 500 MCG TAB PO SCH (08:33)
[2020-10-12] MEDS: MEMANTINE 10 MG TAB PO SCH ×2 (08:33→20:02)
[2020-10-12] MEDS: PANTOPRAZOLE 40 MG/10 ML VIAL IV SCH (08:34)
[2020-10-12] MEDS: ESCITALOPRAM 10 MG TAB PO SCH (08:34)
[2020-10-12] MEDS: RIVASTIGMINE 13.3MG/24HR PATCH TRANSDERM SCH (08:34)
[2020-10-12 08:49] LABS: Platelet Count 60 k/uL (150-450)
[2020-10-12 09:17] LABS: Band Neutrophils % 2 %; Neutrophils % (M) 84 %; Nucleated Red Blood Cells 0 /100 WBC (0-0); Total Cells Counted 100
[2020-10-12] MEDS: VANCOMYCIN 1,500 MG in SODIUM CHLORIDE 0.9% 250 ML IVPB SCH (10:15)
--- NOTE | 2020-10-12 11:50 | P.PN ---
Subjective Progress Note Date: 10/12/20 CHIEF COMPLAINT: Fever HISTORY OF PRESENT ILLNESS: Surgical service is following in regards to patient's cholecystitis. Patient is lying in bed comfortably. Denies any abdominal pain. Denies any nausea or vomiting. He is tolerating diet. Currently afebrile. WBC is 2.8 hemoglobin 9.7 platelets are 60. One positive blood culture with Klebsiella pneumoniae. PHYSICAL EXAM: VITAL SIGNS: Reviewed. GENERAL: Well-developed in no acute distress. HEENT: No sclera icterus. Extraocular movements grossly intact. Moist buccal mucosa. Head is atraumatic, normocephalic. ABDOMEN: Soft. Nondistended. Nontender. NEUROLOGIC: Alert and oriented. Cranial nerves II through XII grossly intact. ASSESSMENT: 1. Cholecystitis with recurrent episodes of acute cholecystitis 2. Neutropenic fever 3. History of pancreatic cancer metastasized to liver 4. Pancytopenia PLAN: -Case discussed with Dr. Rousseau -Patient tentatively scheduled for laparoscopic cholecystectomy on 10/14/[address] Silva -Continue a low-fat diet -Continue antibiotics Physician Legal Instruments Examiner note has been reviewed by physician. Signing provider agrees with the documented findings, assessment, and plan of care. Objective - Vital Signs Vital signs: Vital Signs Temp 98.4 F 10/12/20 03:40 Pulse 72 10/12/20 03:40 Resp 18 10/12/20 03:40 BP 103/61 10/12/20 03:40 Pulse Ox 97 10/12/20 03:40 Intake & Output 10/11/20 10/12/20 10/12/20 18:59 06:59 18:59 Intake Total 1950 Balance 1950 Intake: Intake, IV Titration 1250 Amount Cefepime 1 gm In Sodium 50 Chloride 0.9% 50 ml @ 12. 5 mls/hr IVPB Q12H [facility] Rx #:[id number] Sodium Chloride 0.9% 1, 1200 000 ml @ 100 mls/hr IV . Q10H [facility] Rx#:[id number] Oral 700 Other: Voiding Method Toilet # Voids 3 2 # Bowel Movements 1 - Labs CBC & Chem 7: 10/12/20 06:27 10/12/20 06:27 Labs: Abnormal Lab Results - Last 24 Hours (Table) 10/12/20 10/12/20 Range/Units 06:27 06:27 WBC 2.8 L (3.8-10.6) k/uL RBC 3.03 L (4.30-5.90) m/uL Hgb 9.7 L (13.0-17.5) gm/dL Hct 30.0 L (39.0-53.0) % Plt Count 60 L (150-450) k/uL Lymphocytes # (Manual) 0.20 L (1.0-4.8) k/uL Sodium 136 L (137-145) mmol/L Chloride 108 H (98-107) mmol/L Calcium 8.1 L (8.4-10.2) mg/dL AST 82 H (17-59) U/L ALT 84 H (4-49) U/L Total Protein 5.1 L (6.3-8.2) g/dL Albumin 2.4 L (3.5-5.0) g/dL Microbiology - Last 24 Hours (Table) 10/10/20 13:05 Blood Culture Gram Stain - Preliminary Blood Blood Culture - Preliminary Klebsiella pneumoniae 10/10/20 13:14 Blood Culture Gram Stain - Preliminary Blood
--- NOTE | 2020-10-12 12:59 | P.PN ---
Subjective Progress Note Date: 10/12/20 Principal diagnosis: Increased LFTS, ? CHolelithiasis, POsitive klebsiella in Blood CUltures Afebrile 24 hours Await resolution of infection and then further discuss with surgery intervention for gallbladder which is possibly source of this cycle. Discussed with surgery PA Objective - Vital Signs Vital signs: Vital Signs Temp 98.4 F 10/12/20 03:40 Pulse 72 10/12/20 03:40 Resp 18 10/12/20 03:40 BP 103/61 10/12/20 03:40 Pulse Ox 97 10/12/20 03:40 Intake & Output 10/11/20 10/12/20 10/12/20 18:59 06:59 18:59 Intake Total 1950 Balance 1950 Intake: Intake, IV Titration 1250 Amount Cefepime 1 gm In Sodium 50 Chloride 0.9% 50 ml @ 12. 5 mls/hr IVPB Q12H [facility] Rx #:[id number] Sodium Chloride 0.9% 1, 1200 000 ml @ 100 mls/hr IV . Q10H [facility] Rx#:[id number] Oral 700 Other: Voiding Method Toilet # Voids 3 2 # Bowel Movements 1 - Exam - Constitutional General appearance: no acute distress - EENT Eyes: EOMI, PERRLA ENT: hearing grossly normal, normal oropharynx - Neck Neck: no lymphadenopathy Thyroid: bilateral: normal size - Respiratory Respiratory: bilateral: CTA - Cardiovascular Rhythm: regular Heart sounds: normal: S1, S2 - Gastrointestinal General gastrointestinal: normal bowel sounds, soft - Integumentary Integumentary: normal - Neurologic Neurologic: CNII-XII intact - Musculoskeletal Musculoskeletal: generalized weakness, strength equal bilaterally - Psychiatric poor recall, and slow affect, chronic - Labs CBC & Chem 7: 10/12/20 06:27 10/12/20 06:27 Labs: Abnormal Lab Results - Last 24 Hours (Table) 10/12/20 10/12/20 Range/Units 06:27 06:27 WBC 2.8 L (3.8-10.6) k/uL RBC 3.03 L (4.30-5.90) m/uL Hgb 9.7 L (13.0-17.5) gm/dL Hct 30.0 L (39.0-53.0) % Plt Count 60 L (150-450) k/uL Lymphocytes # (Manual) 0.20 L (1.0-4.8) k/uL Sodium 136 L (137-145) mmol/L Chloride 108 H (98-107) mmol/L Calcium 8.1 L (8.4-10.2) mg/dL AST 82 H (17-59) U/L ALT 84 H (4-49) U/L Total Protein 5.1 L (6.3-8.2) g/dL Albumin 2.4 L (3.5-5.0) g/dL Microbiology - Last 24 Hours (Table) 10/10/20 13:05 Blood Culture Gram Stain - Preliminary Blood Blood Culture - Preliminary Klebsiella pneumoniae 10/10/20 13:14 Blood Culture Gram Stain - Preliminary Blood Assessment and Plan Plan: Assessment and Plan (1) Neutropenic fever - COntinue Antibiotics - POsitive Blood Cultures - ? source CHolecystitis the patient is admitted with neutropenic fever, after delayed day 8 of cycle 1 with Gemzar and Abraxane. As noted in the HPI he had an admission for fever after cycle 1 day 1 but at that time was not neutropenic. - Continue broad-spectrum antibiotics. The patient will continue on growth factors. aFever today Current Visit: Yes Status: Acute Code(s): D70.9 - NEUTROPENIA, UNSPECIFIED; R50.81 - FEVER PRESENTING WITH CONDITIONS CLASSIFIED ELSEWHERE SNOMED Code(s): 897821881 (2) Acute cholecystitis - Antibiotics recurrent acute cholecystitis is a concern as noted above. Physical exam does not support the same, but as noted, findings may not be difficult in a patient with significant neutropenia.implications of the above were discussed in detail with the patient and his . We will await formal evaluation by the surgeon. I advised him that acalculous cholecystitis can occur with chemotherapy and risk of complications, including perforation is higher in patients with neutropenia. He is at high risk of developing the same with successive chemotherapies. - Discussed in detail with General surgery, await resolution of WBC, and Bacteremia and then plan for surgical intervention when safe Current Visit: No Status: Acute Code(s): K81.0 - ACUTE CHOLECYSTITIS SNOMED Code(s): 04640068 (3) Pancreatic cancer metastasized to liver treatment is currently on hold until acute situation results in a satisfactory manner Current Visit: No Status: Acute Code(s): C25.9 - MALIGNANT NEOPLASM OF PANCREAS, UNSPECIFIED; C78.7 - SECONDARY MALIG NEOPLASM OF LIVER AND INTRAHEPATIC BILE DUCT SNOMED Code(s): 941137613 (4) Pancytopenia due to antineoplastic chemotherapy - Daily monitoring patient has been placed on growth factors were WBC support. Other counts are well within a safe range. Continue to monitor. Transfuse to keep hemoglobin greater than 7 and platelets greater than 10. Current Visit: Yes Status: Acute Code(s): D61.810 - ANTINEOPLASTIC CHEM OTHERAPY INDUCED PANCYTOPENIA; T45.1X5A - ADVERSE EFFECT OF ANTINEOPLASTIC AND IMMUNOSUP DRUGS, INIT SNOMED Code(s): 247221666335929 Physician Attest: I have completed the full history and physical and agree with above dictation, dictated as a ascribe,
[2020-10-12 13:50] VITALS: BMI 26.4
--- NOTE | 2020-10-12 14:43 | P.PN ---
Progress Note - Text Progress Note Date: 10/12/20 Chief Complaint: Fever History of presenting complaint: This is a pleasant 65-year-old patient who follows with Dr. Quach. Oncologist Dr. Rousseau. In May 2019, was admitted to [facility] with obstructive jaundice. ERCP showed CBD stricture. MRCP showed dilated gallbladder and biliary tree. Patient did have a stent placed. CT of the pancreas showed pancreatic head mass. FNA was positive for adenocarcinoma. Also hypodense lesion was found on the right hepatic lobe. Neoadjuvant chemotherapy, was recommended. Surgery was recommended. Laparoscopic evaluation showed liver lesions. Biopsy was positive. She was not felt to be a surgical candidate. Patient did complete chemotherapy in June 2020 and radiation treatment to the liver. PET scan did not show any uptake other than low level at the primary site. MRI done on 09/03/2020 showed multiple ring-enhancing lesions in the liver. Patient had first cycle of Gemzar and Abraxane end of August. Patient was then admitted to the hospital from September 24 through September 28. Had a fever. Gallbladder ultrasound showed multiple dominant masses in the liver. Diffuse fatty infiltration of liver. Gallbladder wall was abnormally thickened with some pericholecystic fluid. Multiple fundal contents measuring 1.4 cm with calcification. Seen by Dr. Silva from general surgery. Was placed on IV Zosyn. Blood cultures were negative patient's fever resolved. Patient was discharged. October 05 patient received another course of chemotherapy. Dose was reduced by 10% at patient is having low-grade fever. October 07 patient started having a fever again. Has now presented for the same. No respiratory symptoms. No GI symptoms. No skin rash. No abdominal pain. No nausea vomiting. Appetite is fair. Patient is able to get around the house. Admitted with febrile neutropenia. Started on IV Zosyn and vancomycin. October 11: Yesterday evening patient did have fevers. Better this morning. Eating about 50%. Tired. is present. No new symptoms. October 12: Fevers are down. Blood cultures are coming back positive for Klebsiella pneumoniae. Oral intake about 50%. Surgeries planning on cholecystectomy Review of systems: Was done for constitutional, cardiovascular, GI, pulmonary. relevant finding as above Active Medications Acetaminophen (Acetaminophen Tab 325 Mg Tab) 650 mg PO Q6HR PRN PRN Reason: Mild Pain or Fever > 100.5 Last Admin: 10/10/20 23:35 Dose: 650 mg Documented by: Al Hydroxide/Mg Hydroxide (Mag Hydrox/Al Hydrox/Simeth 30 Ml Cup) 15 ml PO Q6HR PRN PRN Reason: Indigestion Alprazolam (Alprazolam 0.25 Mg Tab) 0.25 mg PO Q6HR PRN PRN Reason: Anxiety Calcium Carbonate/Glycine (Calcium Carbonate 500 Mg Chewable) 1,000 mg PO Q4HR PRN PRN Reason: Dyspepsia Cyanocobalamin (Cyanocobalamin 500 Mcg Tab) 1,000 mcg PO DAILY [facility] Last Admin: 10/12/20 08:33 Dose: 1,000 mcg Documented by: Escitalopram Oxalate (Escitalopram 10 Mg Tab) 10 mg PO DAILY [facility] Last Admin: 10/12/20 08:34 Dose: 10 mg Documented by: Filgrastim-Sndz (Filgrastim-Sndz 480 Mcg/0.8 Ml Syringe) 480 mcg SQ DAILY@1800 [facility] Last Admin: 10/11/20 18:27 Dose: 480 mcg Documented by: Cefepime HCl 1 gm/ Sodium (Chloride) 50 mls @ 12.5 mls/hr IVPB Q12H [facility] Last Admin: 10/12/20 05:40 Dose: 12.5 mls/hr Documented by: Sodium Chloride (Saline 0.9%) 1,000 mls @ 100 mls/hr IV .Q10H [facility] Last Admin: 10/12/20 02:15 Dose: 100 mls/hr Documented by: Ibuprofen (Ibuprofen 200 Mg Tab) 200 mg PO Q8HR PRN PRN Reason: Mild Pain Last Admin: 10/10/20 20:36 Dose: 200 mg Documented by: Lactulose (Lactulose 20 Gm/30 Ml Cup) 20 gm PO DAILY PRN PRN Reason: Constipation Loperamide HCl (Loperamide 2 Mg Cap) 2 mg PO Q6H PRN PRN Reason: Diarrhea Magnesium Hydroxide (Magnesium Hydroxide 2,400 Mg/10 Ml Cup) 2,400 mg PO DAILY PRN PRN Reason: Constipation Melatonin (Melatonin 3 Mg Tablet) 3 mg PO HS PRN PRN Reason: Insomnia Memantine (Memantine 10 Mg Tab) 10 mg PO BID [facility] Last Admin: 10/12/20 08:33 Dose: 10 mg Documented by: Naloxone HCl (Naloxone 0.4 Mg/Ml 1 Ml Vial) 0.2 mg IV Q2M PRN PRN Reason: Opioid Reversal Chlorpromazine 10 Mg (Tab) 10 mg PO Q8H PRN PRN Reason: hiccups Colestipol Hcl [ Colestipol Hcl] 1 Gm Tablet 2 gm PO BID [facility] Last Admin: 10/12/20 08:31 Dose: Not Given Documented by: Ondansetron HCl (Ondansetron 4 Mg/2 Ml Vial) 4 mg IVP Q8HR PRN PRN Reason: Nausea And Vomiting Pantoprazole Sodium (Pantoprazole 40 Mg/10 Ml Vial) 40 mg IV DAILY [facility] Last Admin: 10/12/20 08:34 Dose: 40 mg Documented by: Pyridoxine HCl (Pyridoxine 50 Mg Tab) 50 mg PO DAILY [facility] Last Admin: 10/12/20 08:33 Dose: 50 mg Documented by: Rivastigmine (Rivastigmine 13.3mg/24hr Patch) 1 patch TRANSDERM DAILY [facility] Last Admin: 10/12/20 08:34 Dose: 1 patch Documented by: Temazepam (Temazepam 15 Mg Cap) 15 mg PO HS PRN PRN Reason: Insomnia Past medical history: Pancreatic cancer with liver metastatic this, on chemotherapy, any dictation. Obstructive sleep apnea. Cognitive impairment. GERD. Social history: . No smoking. Alcohol rarely. Family history: Prostate cancer Physical examination: VITAL SIGNS: 98.5, 73, 18, 102.64, 97% room air GENERAL: BMI 26.4, laying in bed, awake EYES: Pupils equal. Conjunctiva normal. HEENT: External appearance of nose and ears normal, oral cavity grossly normal. NECK: JVD not raised; masses not palpable. HEART: First and second heart sounds are normal; no edema. LUNGS: Respiratory rate normal; clear to auscultation. ABDOMEN: Soft, nontender, liver spleen not palpable, no masses palpable. PSYCH: [Alert and oriented x3; mood and affect tired l. INVESTIGATIONS, reviewed in the clinical context: October 12: WBC 2.8 hemoglobin 9.7 platelets 60 potassium 4.3 creatinine 0.71 AST 82 ALT 84 total bilirubin 0.8 October 11: WBC 1.2 hemoglobin 9.7 platelets 72 potassium 4.5 crit 0.75 AST 82 ALT 96 total bilirubin 1.1 Ultrasound gallbladder: Gallbladder wall thickening with internal echoes. WBC 0.4 hemoglobin 11.2 platelets 120 potassium 4.4 creatinine 0.75 sodium 131 Total bilirubin 1.6 AST 113 ALT 126 alkaline phosphatase 138 amylase less than 30 lipase less than 10 UA negative EKG tracing personally reviewed by me-normal sinus rhythm Chest x-ray film personally reviewed by me-no infiltrates Previous labs:[09/30/2020] white count 1.8 hemoglobin 11.1 platelets 56 Assessment and plan: -Febrile neutropenia. Patient is 5 days out of course of chemotherapy. Recent admission patient did have acute cholecystitis that was treated with IV Zosyn. Patient currently has no respiratory, urinary or abdominal symptoms. Placed on IV cefepime and vancomycin. Blood cultures are drawn. Ultrasound gallbladder is showing gallbladder wall thickening with some hyperechoic areas. General surgery is consulted.: -Possible acute on chronic cholecystitis On IV cefepime and IV vancomycin. Possible cholecystectomy this Monday. -Pancytopenia from chemotherapy: Slow to respond Filgrastim -Metastatic pancreatic cancer. Patient received second dose of chemotherapy. Status post radiation treatment. Patient being followed by oncologist Dr. Rousseau -MICHAEL On Prilosec -Cognitive impairment On Aricept, Namenda, Exelon patch -Depression On Lexapro -Medical asthenia from metastatic disease and possibly chemotherapy Activity as tolerated Continue IV cefepime and vancomycin. IV fluids. Discussed with the patient. Possible cholecystectomy on Monday. Check pro-calcitonin.
[2020-10-12] MEDS: FILGRASTIM-SNDZ 480 MCG/0.8 ML SYRINGE SQ SCH (17:52)
--- NOTE | 2020-10-12 22:54 | P.CONS ---
History of Present Illness - Reason for Consult Consult date: 10/12/20 Bacteremia Requesting physician: Donny Sumner - Chief Complaint Fever 1 day - History of Present Illness Patient is a 65-year-old male with a past medical history significant for adenocarcinoma of the pancreas and episodes of cholangitis currently patient is currently on chemotherapy with a second line chemo started on 09/13/2020 and is receiving his second chemo on 10/05/2020 patient presented to the hospital on 10/10/2020 for a fever of 102 F patient denies having any headache or URI symptoms, patient denies having any chest pain shortness with minimal cough some nausea no vomiting no significant abdominal pain no diarrhea no urinary symptoms with this and that the patient has been evaluated by the ER physician on arrival to the ER patient initially was afebrile subsequently spiked a fever of 120 100 patient did have a leukopenia as well as neutropenia liver function was normal liver exams are elevated urine has been negative patient had did have a chest x- ray no acute cardiopulmonary process did have ultrasound of the gallbladder orbital wall thickening suggestive of cholecystitis patient has been treated with the cefepime and vancomycin infectious was consulted as the patient blood culture came back positive with a gram-negative bacilli.. Review of Systems Positive point has been mentioned in the HPI rest of the systems are negative Past Medical History Past Medical History: Cancer, GERD/Reflux, Memory Impairment, Sleep Apnea/CPAP/BIPAP Additional Past Medical History / Comment(s): Pancreatic CA with liver mets 2nd dose of new chemo 10/05, radiation end of July, Alzheimer's History of Any Multi-Drug Resistant Organisms: None Reported Past Surgical History: Appendectomy, Hernia Repair Additional Past Surgical History / Comment(s): LT ORCHIECTOMY (done at age 17) , LT bone spur, MARIO INGUINAL HERNIA REPAIR, STENT IN CBD, Right infusaport Past Anesthesia/Blood Transfusion Reactions: No Reported Reaction Past Psychological History: No Psychological Hx Reported Smoking Status: Never smoker Past Alcohol Use History: Rare Additional Past Alcohol Use History / Comment(s): . Past Drug Use History: None Reported - Past Family History Mother Family Medical History: No Reported History Father Family Medical History: Cancer Additional Family Medical History / Comment(s): PROSTATE CANCER Medications and Allergies Home Medications Medication Instructions Recorded Confirmed Type Acetaminophen Tab [Tylenol] 500 mg PO Q6H PRN #30 tablet 08/01/19 10/10/20 Rx Colestipol HCl 2 gm PO BID 09/24/20 10/10/20 History Cyanocobalamin (Vitamin B-12) 1,000 mcg PO DAILY 09/24/20 10/10/20 History [Vitamin B-12] Escitalopram [Lexapro] 10 mg PO DAILY 09/24/20 10/10/20 History Loperamide HCl [Imodium A-D] 2 mg PO Q6H PRN 09/24/20 10/10/20 History Memantine [Namenda] 10 mg PO BID 09/24/20 10/10/20 History Omeprazole [PriLOSEC] 40 mg PO AC-BRKFST 09/24/20 10/10/20 History Pyridoxine HCl (Vitamin B6) 1 tab PO DAILY 09/24/20 10/10/20 History [Vitamin B-6] Docusate [Colace] 100 mg PO DAILY PRN 10/10/20 10/10/20 History Ondansetron [Zofran] 4 mg PO QID PRN 10/10/20 10/10/20 History Prochlorperazine [Compazine] 10 mg PO Q6H PRN 10/10/20 10/10/20 History Rivastigmine 13.3MG/24Hr Patch 1 patch TRANSDERM DAILY 10/10/20 10/10/20 History [Exelon 13.3MG/24Hr Patch] chlorproMAZINE [Thorazine] 10 mg PO Q8H PRN 10/10/20 10/10/20 History Allergies Allergy/AdvReac Type Severity Reaction Status Date / Time donepezil [From Aricept] AdvReac Diarrhea Verified 10/10/20 14:07 Physical Exam Vitals: Vital Signs Temp Pulse Resp BP Pulse Ox 10/12/20 03:40 98.4 F 72 18 103/61 97 10/11/20 20:47 98.2 F 10/11/20 20:10 68 20 10/11/20 19:50 99.2 F 68 20 100/63 98 10/11/20 13:00 98.5 F 71 16 100/65 98 Intake and Output 10/11/20 10/12/20 10/12/20 22:59 06:59 14:59 Intake Total 200 1750 Balance 200 1750 Intake: Intake, IV Titration 1250 Amount Cefepime 1 gm In Sodium 50 Chloride 0.9% 50 ml @ 12. 5 mls/hr IVPB Q12H [facility] Rx #:[id number] Sodium Chloride 0.9% 1, 1200 000 ml @ 100 mls/hr IV . Q10H [facility] Rx#:[id number] Oral 200 500 Other: Voiding Method Toilet # Voids 3 2 # Bowel Movements 1 GENERAL DESCRIPTION: Middle-aged male lying in bed, no distress. No tachypnea or accessory muscle of respiration use. HEENT: Shows Pallor , no scleral icterus. Oral mucous membrane is dry. No pharyngeal erythema or thrush NECK: Trachea central, no thyromegaly. LUNGS: Unlabored breathing. Clear to auscultation anteriorly. No wheeze or crackle. HEART: S1, S2, regular rate and rhythm. No loud murmur ABDOMEN: Soft, no tenderness , guarding or rigidity, no organomegaly EXTREMITIES: No edema of feet. SKIN: No rash, no masses palpable. NEUROLOGICAL: The patient is awake, alert, oriented x3, mood and affect normal. Results CBC & Chem 7: 10/12/20 06:27 10/12/20 06:27 Labs: Abnormal Lab Results - Last 24 Hours (Table) 10/12/20 10/12/20 Range/Units 06:27 06:27 WBC 2.8 L (3.8-10.6) k/uL RBC 3.03 L (4.30-5.90) m/uL Hgb 9.7 L (13.0-17.5) gm/dL Hct 30.0 L (39.0-53.0) % Plt Count 60 L (150-450) k/uL Lymphocytes # (Manual) 0.20 L (1.0-4.8) k/uL Sodium 136 L (137-145) mmol/L Chloride 108 H (98-107) mmol/L Calcium 8.1 L (8.4-10.2) mg/dL AST 82 H (17-59) U/L ALT 84 H (4-49) U/L Total Protein 5.1 L (6.3-8.2) g/dL Albumin 2.4 L (3.5-5.0) g/dL Microbiology - Last 24 Hours (Table) 10/10/20 13:05 Blood Culture Gram Stain - Preliminary Blood Blood Culture - Preliminary Klebsiella pneumoniae 10/10/20 13:14 Blood Culture Gram Stain - Preliminary Blood Assessment and Plan Assessment: 1-patient admitted to hospital with febrile neutropenia in this patient who do have a history of adenocarcinoma of the head of the pancreas also with history of CBD stricture status post stent placement and episode of cholangitis now with evidence of gram-negative bacteremia possible hepatobiliary source (1) Gram-negative bacteremia Current Visit: Yes Status: Acute Code(s): R78.81 - BACTEREMIA SNOMED Code(s): 799173242135 (2) Neutropenic fever Current Visit: Yes Status: Acute Code(s): D70.9 - NEUTROPENIA, UNSPECIFIED; R50.81 - FEVER PRESENTING WITH CONDITIONS CLASSIFIED ELSEWHERE SNOMED Code(s): 145121740 Plan: 1-vancomycin discontinued as no evidence of gram-positive infection 2-cefepime dose should be adjusted up to 2 g every 8 hours 3-blood cultures will be repeated to document clearance of his bacteremia We will follow on clinical condition and cultures to further adjust medication if needed Thank you for this consultation we will follow the patient along with you Time with Patient: Greater than 30
[2020-10-12] MEDS: ACETAMINOPHEN TAB 325 MG TAB PO PRN (23:30)
[2020-10-12] MEDS: CEFEPIME 2 GM in SODIUM CHLORIDE 0.9% 100 ML IVPB SCH (23:31)
[2020-10-12] MEDS: MELATONIN 3 MG TABLET PO PRN (23:32)
[2020-10-13] MEDS: CEFEPIME 2 GM in SODIUM CHLORIDE 0.9% 100 ML IVPB SCH ×2 (07:52→16:49)
[2020-10-13] MEDS: RIVASTIGMINE 13.3MG/24HR PATCH TRANSDERM SCH (07:54)
[2020-10-13] MEDS: MEMANTINE 10 MG TAB PO SCH ×2 (07:54→21:07)
[2020-10-13] MEDS: PYRIDOXINE 50 MG TAB PO SCH (07:54)
[2020-10-13] MEDS: PANTOPRAZOLE 40 MG/10 ML VIAL IV SCH (07:54)
[2020-10-13] MEDS: ESCITALOPRAM 10 MG TAB PO SCH (07:54)
[2020-10-13] MEDS: CYANOCOBALAMIN 500 MCG TAB PO SCH (07:54)
[2020-10-13 08:17] LABS: Basophils % (A) 1 %; Eosinophils % (A) 1 %; HCT 29.8 % (39.0-53.0); HGB 9.9 gm/dL (13.0-17.5); Hypochromasia Slight; Lymphocytes # (A) 0.3 k/uL (1.0-4.8); Lymphocytes % (A) 10 %; MCH 33.4 pg (25.0-35.0); MCHC 33.1 g/dL (31.0-37.0); MCV 100.9 fL (80.0-100.0); Macrocytosis Slight; Mean Platelet Volume 9.4; Monocytes # (A) 0.4 k/uL (0-1.0); Monocytes % (A) 13 %; Neutrophils # (A) 2.3 k/uL (1.3-7.7); Neutrophils % (A) 73 %; Platelet Count 45 k/uL (150-450); RBC 2.95 m/uL (4.30-5.90); WBC 3.2 k/uL (3.8-10.6)
[2020-10-13 08:42] LABS: ALT 109 U/L (4-49); AST 150 U/L (17-59); African American GFR (CKD) >90 (>60 ml/min/1.73 sqM); Albumin 2.5 g/dL (3.5-5.0); Albumin/Globulin Ratio 0.9; Alkaline Phosphatase 166 U/L (38-126); Anion Gap 5 mmol/L; Blood Urea Nitrogen 9 mg/dL (9-20); Calcium 8.2 mg/dL (8.4-10.2); Carbon Dioxide 25 mmol/L (22-30); Chloride 109 mmol/L (98-107); Globulin 2.7 g/dL; Glucose 88 mg/dL (74-99); Non-African American GFR(CKD) >90 (>60 ml/min/1.73 sqM); Potassium 4.1 mmol/L (3.5-5.1); Sodium 139 mmol/L (137-145); Total Protein 5.2 g/dL (6.3-8.2)
--- NOTE | 2020-10-13 11:52 | P.PN ---
Subjective Progress Note Date: 10/13/20 CHIEF COMPLAINT: Fever HISTORY OF PRESENT ILLNESS: Surgical service is following in regards to patient's cholecystitis. Patient is lying in bed comfortably. Denies any abdominal pain. Denies any nausea or vomiting. He is tolerating diet. Currently afebrile. WBC is 3.2 hemoglobin 9.9 platelets are 45. Positive blood culture with Klebsiella pneumoniae infectious disease on consult. Dr. Silva did discuss case with Dr. Rousseau. PHYSICAL EXAM: VITAL SIGNS: Reviewed. GENERAL: Well-developed in no acute distress. HEENT: No sclera icterus. Extraocular movements grossly intact. Moist buccal mucosa. Head is atraumatic, normocephalic. ABDOMEN: Soft. Nondistended. Nontender. NEUROLOGIC: Alert and oriented. Cranial nerves II through XII grossly intact. ASSESSMENT: 1. Cholecystitis with recurrent episodes of acute cholecystitis 2. Neutropenic fever 3. History of pancreatic cancer metastasized to liver 4. Pancytopenia PLAN: -Patient scheduled for laparoscopic cholecystectomy on 10/14/[address] Silva -NPO after midnight -Continue antibiotics Physician Ambulatory Services Representative note has been reviewed by physician. Signing provider agrees with the documented findings, assessment, and plan of care. Objective - Vital Signs Vital signs: Vital Signs Temp 98.4 F 10/13/20 04:41 Pulse 64 10/13/20 04:41 Resp 18 10/13/20 04:41 BP 119/76 10/13/20 04:41 Pulse Ox 98 10/13/20 04:41 Intake & Output 10/12/20 10/13/20 10/13/20 18:59 06:59 18:59 Intake Total 850 1600 Balance 850 1600 Weight 88.451 kg Intake: Intake, IV Titration 850 1100 Amount Cefepime 1 gm In Sodium 50 Chloride 0.9% 50 ml @ 12. 5 mls/hr IVPB Q12H [facility] Rx #:[id number] Cefepime 2 gm In Sodium 100 Chloride 0.9% 100 ml @ 25 mls/hr IVPB Q8H [facility] Rx#: [id number] Sodium Chloride 0.9% 1, 800 1000 000 ml @ 100 mls/hr IV . Q10H [facility] Rx#:[id number] Oral 500 Other: Voiding Method Toilet # Voids 1 3 - Labs CBC & Chem 7: 10/13/20 05:24 10/13/20 05:24 Labs: Abnormal Lab Results - Last 24 Hours (Table) 10/13/20 10/13/20 Range/Units 05:24 05:24 WBC 3.2 L (3.8-10.6) k/uL RBC 2.95 L (4.30-5.90) m/uL Hgb 9.9 L (13.0-17.5) gm/dL Hct 29.8 L (39.0-53.0) % MCV 100.9 H (80.0-100.0) fL Plt Count 45 L (150-450) k/uL Lymphocytes # 0.3 L (1.0-4.8) k/uL Chloride 109 H (98-107) mmol/L Calcium 8.2 L (8.4-10.2) mg/dL AST 150 H (17-59) U/L ALT 109 H (4-49) U/L Alkaline Phosphatase 166 H (38-126) U/L Total Protein 5.2 L (6.3-8.2) g/dL Albumin 2.5 L (3.5-5.0) g/dL Microbiology - Last 24 Hours (Table) 10/10/20 13:14 Blood Culture Gram Stain - Final Blood Blood Culture - Final Klebsiella pneumoniae 10/10/20 13:05 Blood Culture Gram Stain - Final Blood Blood Culture - Final Klebsiella pneumoniae
--- NOTE | 2020-10-13 14:24 | P.PN ---
Subjective Progress Note Date: 10/13/20 Principal diagnosis: Increased LFTS, ? CHolelithiasis, POsitive klebsiella in Blood CUltures Review of general surgery note planning surgery tomorrow. PLatelets are 45K today, therefore would recommend if less than 50K to transfuse platelets immediately prior or during procedure. Objective - Vital Signs Vital signs: Vital Signs Temp 98.7 F 10/13/20 12:14 Pulse 64 10/13/20 12:14 Resp 14 10/13/20 12:14 BP 109/69 10/13/20 12:14 Pulse Ox 97 10/13/20 12:14 Intake & Output 10/12/20 10/13/20 10/13/20 18:59 06:59 18:59 Intake Total 850 1600 Balance 850 1600 Weight 88.451 kg Intake: Intake, IV Titration 850 1100 Amount Cefepime 1 gm In Sodium 50 Chloride 0.9% 50 ml @ 12. 5 mls/hr IVPB Q12H [facility] Rx #:[id number] Cefepime 2 gm In Sodium 100 Chloride 0.9% 100 ml @ 25 mls/hr IVPB Q8H [facility] Rx#: [id number] Sodium Chloride 0.9% 1, 800 1000 000 ml @ 100 mls/hr IV . Q10H [facility] Rx#:[id number] Oral 500 Other: Voiding Method Toilet # Voids 1 3 - Exam - Constitutional General appearance: no acute distress - EENT Eyes: EOMI, PERRLA ENT: hearing grossly normal, normal oropharynx - Neck Neck: no lymphadenopathy Thyroid: bilateral: normal size - Respiratory Respiratory: bilateral: CTA - Cardiovascular Rhythm: regular Heart sounds: normal: S1, S2 - Gastrointestinal General gastrointestinal: normal bowel sounds, soft - Integumentary Integumentary: normal - Neurologic Neurologic: CNII-XII intact - Musculoskeletal Musculoskeletal: generalized weakness, strength equal bilaterally - Psychiatric poor recall, and slow affect, chronic - Labs CBC & Chem 7: 10/13/20 05:24 10/13/20 05:24 Labs: Abnormal Lab Results - Last 24 Hours (Table) 10/13/20 10/13/20 Range/Units 05:24 05:24 WBC 3.2 L (3.8-10.6) k/uL RBC 2.95 L (4.30-5.90) m/uL Hgb 9.9 L (13.0-17.5) gm/dL Hct 29.8 L (39.0-53.0) % MCV 100.9 H (80.0-100.0) fL Plt Count 45 L (150-450) k/uL Lymphocytes # 0.3 L (1.0-4.8) k/uL Chloride 109 H (98-107) mmol/L Calcium 8.2 L (8.4-10.2) mg/dL AST 150 H (17-59) U/L ALT 109 H (4-49) U/L Alkaline Phosphatase 166 H (38-126) U/L Total Protein 5.2 L (6.3-8.2) g/dL Albumin 2.5 L (3.5-5.0) g/dL Microbiology - Last 24 Hours (Table) 10/12/20 11:40 Blood Culture - Preliminary Blood No Growth after 24 hours 10/10/20 13:14 Blood Culture Gram Stain - Final Blood Blood Culture - Final Klebsiella pneumoniae 10/10/20 13:05 Blood Culture Gram Stain - Final Blood Blood Culture - Final Klebsiella pneumoniae Assessment and Plan Plan: Assessment and Plan (1) Neutropenic fever - COntinue Antibiotics - POsitive Blood Cultures - ? source CHolecystitis the patient is admitted with neutropenic fever, after delayed day 8 of cycle 1 with Gemzar and Abraxane. As noted in the HPI he had an admission for fever after cycle 1 day 1 but at that time was not neutropenic. - Continue broad-spectrum antibiotics. The patient will continue on growth factors. aFever today Current Visit: Yes Status: Acute Code(s): D70.9 - NEUTROPENIA, UNSPECIFIED; R50.81 - FEVER PRESENTING WITH CONDITIONS CLASSIFIED ELSEWHERE SNOMED Code(s): 381850377 (2) Acute cholecystitis - Antibiotics recurrent acute cholecystitis is a concern as noted above. Physical exam does not support the same, but as noted, findings may not be difficult in a patient with significant neutropenia.implications of the above were discussed in detail with the patient and his . We will await formal evaluation by the surgeon. I advised him that acalculous cholecystitis can occur with chemotherapy and risk of complications, including perforation is higher in patients with neutropenia. He is at high risk of developing the same with successive chemotherapies. - Discussed in detail with General surgery, await resolution of WBC, and Bacteremia and then plan for surgical intervention when safe Current Visit: No Status: Acute Code(s): K81.0 - ACUTE CHOLECYSTITIS SNOMED Code(s): 62431394 (3) Pancreatic cancer metastasized to liver treatment is currently on hold until acute situation results in a satisfactory manner Current Visit: No Status: Acute Code(s): C25.9 - MALIGNANT NEOPLASM OF PANCREAS, UNSPECIFIED; C78.7 - SECONDARY MALIG NEOPLASM OF LIVER AND INTRAHEPATIC BILE DUCT SNOMED Code(s): 540653236 (4) Pancytopenia due to antineoplastic chemotherapy - Daily monitoring patient has been placed on growth factors were WBC support. Other counts are well within a safe range. Continue to monitor. Transfuse to keep hemoglobin greater than 7 and platelets greater than 10. Current Visit: Yes Status: Acute Code(s): D61.810 - ANTINEOPLASTIC CHEMOTHERAPY INDUCED PANCYTOPENIA; T45.1X5A - ADVERSE EFFECT OF ANTINEOPLASTIC AND IMMUNOSUP DRUGS, INIT SNOMED Code(s): 089188214123828 Review of general surgery note planning surgery tomorrow.7. PLatelets are 45K today, therefore would recommend if less than 50K to transfuse platelets immediately prior or during procedure.
[2020-10-13] MEDS: SODIUM CHLORIDE 0.9% 1,000 ML IV SCH ×2 (16:49)
[2020-10-13] MEDS: FILGRASTIM-SNDZ 480 MCG/0.8 ML SYRINGE SQ SCH (17:34)
[2020-10-13] MEDS: ACETAMINOPHEN TAB 325 MG TAB PO PRN (21:31)
[2020-10-13] MEDS: MELATONIN 3 MG TABLET PO PRN (21:33)
--- NOTE | 2020-10-13 23:18 | P.PN ---
Progress Note - Text Progress Note Date: 10/13/20 Chief Complaint: Fever History of presenting complaint: This is a pleasant 65-year-old patient who follows with Dr. Quach. Oncologist Dr. Rousseau. In May 2019, was admitted to [facility] with obstructive jaundice. ERCP showed CBD stricture. MRCP showed dilated gallbladder and biliary tree. Patient did have a stent placed. CT of the pancreas showed pancreatic head mass. FNA was positive for adenocarcinoma. Also hypodense lesion was found on the right hepatic lobe. Neoadjuvant chemotherapy, was recommended. Surgery was recommended. Laparoscopic evaluation showed liver lesions. Biopsy was positive. She was not felt to be a surgical candidate. Patient did complete chemotherapy in June 2020 and radiation treatment to the liver. PET scan did not show any uptake other than low level at the primary site. MRI done on 09/03/2020 showed multiple ring-enhancing lesions in the liver. Patient had first cycle of Gemzar and Abraxane end of August. Patient was then admitted to the hospital from September 24 through September 28. Had a fever. Gallbladder ultrasound showed multiple dominant masses in the liver. Diffuse fatty infiltration of liver. Gallbladder wall was abnormally thickened with some pericholecystic fluid. Multiple fundal contents measuring 1.4 cm with calcification. Seen by Dr. Silva from general surgery. Was placed on IV Zosyn. Blood cultures were negative patient's fever resolved. Patient was discharged. October 05 patient received another course of chemotherapy. Dose was reduced by 10% at patient is having low-grade fever. October 07 patient started having a fever again. Has now presented for the same. No respiratory symptoms. No GI symptoms. No skin rash. No abdominal pain. No nausea vomiting. Appetite is fair. Patient is able to get around the house. Admitted with febrile neutropenia. Started on IV Zosyn and vancomycin. October 11: Yesterday evening patient did have fevers. Better this morning. Eating about 50%. Tired. is present. No new symptoms. October 12: Fevers are down. Blood cultures are coming back positive for Klebsiella pneumoniae. Oral intake about 50%. Surgeries planning on cholecystectomy October 13: Feeling better. Diet. Pending cholecystectomy. No abdominal pain. Review of systems: Was done for constitutional, cardiovascular, GI, pulmonary. relevant finding as above Active Medications Acetaminophen (Acetaminophen Tab 325 Mg Tab) 650 mg PO Q6HR PRN PRN Reason: Mild Pain or Fever > 100.5 Last Admin: 10/13/20 21:31 Dose: 650 mg Documented by: Al Hydroxide/Mg Hydroxide (Mag Hydrox/Al Hydrox/Simeth 30 Ml Cup) 15 ml PO Q6HR PRN PRN Reason: Indigestion Alprazolam (Alprazolam 0.25 Mg Tab) 0.25 mg PO Q6HR PRN PRN Reason: Anxiety Calcium Carbonate/Glycine (Calcium Carbonate 500 Mg Chewable) 1,000 mg PO Q4HR PRN PRN Reason: Dyspepsia Cyanocobalamin (Cyanocobalamin 500 Mcg Tab) 1,000 mcg PO DAILY [facility] Last Admin: 10/13/20 07:54 Dose: 1,000 mcg Documented by: Escitalopram Oxalate (Escitalopram 10 Mg Tab) 10 mg PO DAILY [facility] Last Admin: 10/13/20 07:54 Dose: 10 mg Documented by: Filgrastim-Sndz (Filgrastim-Sndz 480 Mcg/0.8 Ml Syringe) 480 mcg SQ DAILY@1800 [facility] Last Admin: 10/13/20 17:34 Dose: 480 mcg Documented by: Sodium Chloride (Saline 0.9%) 1,000 mls @ 100 mls/hr IV .Q10H [facility] Last Admin: 10/13/20 16:49 Dose: 100 mls/hr Documented by: Cefepime HCl 2 gm/ Sodium (Chloride) 100 mls @ 25 mls/hr IVPB Q8H [facility] Last Admin: 10/13/20 16:49 Dose: 25 mls/hr Documented by: Ibuprofen (Ibuprofen 200 Mg Tab) 200 mg PO Q8HR PRN PRN Reason: Mild Pain Last Admin: 10/10/20 20:36 Dose: 200 mg Documented by: Lactulose (Lactulose 20 Gm/30 Ml Cup) 20 gm PO DAILY PRN PRN Reason: Constipation Loperamide HCl (Loperamide 2 Mg Cap) 2 mg PO Q6H PRN PRN Reason: Diarrhea Magnesium Hydroxide (Magnesium Hydroxide 2,400 Mg/10 Ml Cup) 2,400 mg PO DAILY PRN PRN Reason: Constipation Melatonin (Melatonin 3 Mg Tablet) 3 mg PO HS PRN PRN Reason: Insomnia Last Admin: 10/13/20 21:33 Dose: 3 mg Documented by: Memantine (Memantine 10 Mg Tab) 10 mg PO BID [facility] Last Admin: 10/13/20 21:07 Dose: 10 mg Documented by: Naloxone HCl (Naloxone 0.4 Mg/Ml 1 Ml Vial) 0.2 mg IV Q2M PRN PRN Reason: Opioid Reversal Chlorpromazine 10 Mg (Tab) 10 mg PO Q8H PRN PRN Reason: hiccups Colestipol Hcl [ Colestipol Hcl] 1 Gm Tablet 2 gm PO BID [facility] Last Admin: 10/13/20 21:06 Dose: Not Given Documented by: Ondansetron HCl (Ondansetron 4 Mg/2 Ml Vial) 4 mg IVP Q8HR PRN PRN Reason: Nausea And Vomiting Pantoprazole Sodium (Pantoprazole 40 Mg/10 Ml Vial) 40 mg IV DAILY [facility] Last Admin: 10/13/20 07:54 Dose: 40 mg Documented by: Pyridoxine HCl (Pyridoxine 50 Mg Tab) 50 mg PO DAILY [facility] Last Admin: 10/13/20 07:54 Dose: 50 mg Documented by: Rivastigmine (Rivastigmine 13.3mg/24hr Patch) 1 patch TRANSDERM DAILY [facility] Last Admin: 10/13/20 07:54 Dose: 1 patch Documented by: Temazepam (Temazepam 15 Mg Cap) 15 mg PO HS PRN PRN Reason: Insomnia Past medical history: Pancreatic cancer with liver metastatic this, on chemotherapy, any dictation. Obstructive sleep apnea. Cognitive impairment. GERD. Social history: . No smoking. Alcohol rarely. Family history: Prostate cancer Physical examination: VITAL SIGNS: 98.6, 71, 16, 116/73, 97% room air GENERAL: BMI 26.4, laying in bed, awake EYES: Pupils equal. Conjunctiva normal. HEENT: External appearance of nose and ears normal, oral cavity grossly normal. NECK: JVD not raised; masses not palpable. HEART: First and second heart sounds are normal; no edema. LUNGS: Respiratory rate normal; clear to auscultation. ABDOMEN: Soft, nontender, liver spleen not palpable, no masses palpable. PSYCH: [Alert and oriented x3; mood and affect tired l. INVESTIGATIONS, reviewed in the clinical context: October 13: WBC 3.2 hemoglobin 9.9 AST 150 ALT 109 total bilirubin 1.0 pro- calcitonin 0.3 October 12: WBC 2.8 hemoglobin 9.7 platelets 60 potassium 4.3 creatinine 0.71 AST 82 ALT 84 total bilirubin 0.8 October 11: WBC 1.2 hemoglobin 9.7 platelets 72 potassium 4.5 crit 0.75 AST 82 ALT 96 total bilirubin 1.1 Ultrasound gallbladder: Gallbladder wall thickening with internal echoes. WBC 0.4 hemoglobin 11.2 platelets 120 potassium 4.4 creatinine 0.75 sodium 131 Total bilirubin 1.6 AST 113 ALT 126 alkaline phosphatase 138 amylase less than 30 lipase less than 10 UA negative EKG tracing personally reviewed by me-normal sinus rhythm Chest x-ray film personally reviewed by me-no infiltrates Previous labs:[09/30/2020] white count 1.8 hemoglobin 11.1 platelets 56 Assessment and plan: -Febrile neutropenia. From acute cholecystitis : IV cefepime. -Possible acute on chronic cholecystitis On IV cefepime pending cholecystectomy this Monday. -Pancytopenia from chemotherapy: Improving Filgrastim -Metastatic pancreatic cancer. Patient received second dose of chemotherapy. Status post radiation treatment. Patient being followed by oncologist Dr. Rousseau -MICHAEL On Prilosec -Cognitive impairment On Aricept, Namenda, Exelon patch -Depression On Lexapro -Medical asthenia from metastatic disease and possibly chemotherapy Activity as tolerated Continue IV cefepime IV fluids. Discussed with the patient. cholecystectomy on Monday.
--- NOTE | 2020-10-14 00:03 | PN ---
PROGRESS NOTE DATE OF SERVICE: 10/13/2020 REASON FOR FOLLOWUP: Klebsiella bacteremia. Concern for possible cholangitis. INTERVAL HISTORY: Patient is afebrile. The patient is breathing comfortably. The patient denies having any chest pain, no shortness of breath or cough. No nausea, vomiting. No abdominal pain or diarrhea. PHYSICAL EXAMINATION: Blood pressure 116/73 with pulse of 71, temperature 98.6. He is 97% on room air. GENERAL DESCRIPTION: The patient is a middle-aged male lying in bed in no distress. RESPIRATORY SYSTEM: Unlabored breathing, clear to auscultation anteriorly. HEART: S1, S2. Regular rate and rhythm. ABDOMEN: Soft, no tenderness. LABS: Blood culture finalized with Klebsiella pneumonia. Blood culture repeat has been negative so far. DIAGNOSTIC IMPRESSION AND PLAN: Patient with Klebsiella pneumoniae bacteremia, concern for possible acute cholecystitis. Surgery is on the case planning for cholecystectomy in the morning. The patient to continue cefepime and monitor clinical course closely. MMODL / IJN: [id number] /
[2020-10-14] MEDS: CEFEPIME 2 GM in SODIUM CHLORIDE 0.9% 100 ML IVPB SCH ×3 (00:06→16:58)
[2020-10-14 03:15] LABS: ALT 109 U/L (4-49); AST 164 U/L (17-59); African American GFR (CKD) >90 (>60 ml/min/1.73 sqM); Albumin 2.7 g/dL (3.5-5.0); Alkaline Phosphatase 203 U/L (38-126); Anion Gap 7 mmol/L; Blood Urea Nitrogen 8 mg/dL (9-20); Calcium 8.4 mg/dL (8.4-10.2); Carbon Dioxide 24 mmol/L (22-30); Chloride 108 mmol/L (98-107); Globulin 2.7 g/dL; Glucose 96 mg/dL (74-99); Non-African American GFR(CKD) >90 (>60 ml/min/1.73 sqM); Potassium 3.8 mmol/L (3.5-5.1); Sodium 139 mmol/L (137-145); Total Bilirubin 1.3 mg/dL (0.2-1.3); Total Protein 5.4 g/dL (6.3-8.2)
[2020-10-14 03:29] LABS: INR 1.1 (<1.2); Prothrombin Time 11.8 sec (9.0-12.0)
[2020-10-14 03:41] LABS: HCT 33.1 % (39.0-53.0); HGB 10.6 gm/dL (13.0-17.5); Hypochromasia Slight; MCH 32.9 pg (25.0-35.0); MCV 102.7 fL (80.0-100.0); Macrocytosis Slight; Mean Platelet Volume 8.7; RBC 3.22 m/uL (4.30-5.90); RDW 15.1 % (11.5-15.5)
[2020-10-14 04:15] LABS: Platelet Count 60 k/uL (150-450)
[2020-10-14] MEDS: SODIUM CHLORIDE 0.9% 1,000 ML IV SCH ×2 (04:57→16:22)
[2020-10-14 05:29] LABS: Anisocytosis (M) Present; Band Neutrophils % 22 %; Eosinophils # (M) 0.06 k/uL (0-0.7); Lymphocytes # (M) 0.73 k/uL (1.0-4.8); Metamyelocytes # (M) 0.12 k/uL (0); Metamyelocytes % 2 %; Monocytes # (M) 0.49 k/uL (0-1.0); Myelocytes # (M) 0.06 k/uL (0); Myelocytes % 1 %; Neutrophils % (M) 56 %; Nucleated Red Blood Cells 5 /100 WBC (0-0); Total Cells Counted 200; WBC 6.1 k/uL (3.8-10.6)
[2020-10-14 05:30] LABS: Polychromasia Present
[2020-10-14 05:38] LABS: Poikilocytosis (M) Present
[2020-10-14] MEDS ORDERED: HYDROmorphone 0.5 MG/0.5 ML SYRINGE IVP PRN (09:03)
[2020-10-14] MEDS ORDERED: LIDOCAINE 1% (10MG/ML) FOR IV START INTRADERMA PRN (09:03)
[2020-10-14] MEDS: LACTATED RINGERS 1,000 ML IV SCH (09:23)
[2020-10-14] MEDS ORDERED: ONDANSETRON 4 MG/2 ML VIAL IVP ONE (09:24)
[2020-10-14] MEDS ORDERED: SCOPOLAMINE 1.5MG/72HR PATCH TRANSDERM ONE (09:30)
[2020-10-14] MEDS ORDERED: DEXAMETHASONE SOD PHOSPHATE 4 MG/ML 1 ML VIAL IV ONE (09:30)
[2020-10-14] MEDS ORDERED: HEPARIN SODIUM,PORCINE/PF 5,000 UNIT/0.5 ML SYRINGE SQ ONE (09:48)
[2020-10-14] MEDS ORDERED: BUPIVACAINE (PF) 0.5% 30 ML VIAL SQ ONE ×2 (10:04→10:45)
[2020-10-14] MEDS ORDERED: ceFAZolin 1,000 MG VIAL ONE (10:20)
[2020-10-14] MEDS ORDERED: GLYCOPYRROLATE 0.2 MG/ML 2 ML VIAL ONE (10:20)
[2020-10-14] MEDS ORDERED: ROCURONIUM 10 MG/ML (5 ML VIAL) IV ONE (10:20)
[2020-10-14] MEDS ORDERED: PROPOFOL 10 MG/ML 20 ML VIAL IV ONE (10:20)
[2020-10-14] MEDS ORDERED: LIDOCAINE 1% INJ 10MG/ML (20 ML MDV) ONE (10:20)
[2020-10-14] MEDS ORDERED: fentaNYL (PF) 50 MCG/ML 2 ML AMP ONE (10:20)
[2020-10-14] MEDS ORDERED: SODIUM CHLORIDE 0.9% 100 ML BAG ONE (10:20)
[2020-10-14] MEDS ORDERED: NEOSTIGMINE 1 MG/ML 10 ML VIAL ONE (10:20)
[2020-10-14] MEDS ORDERED: SUCCINYLCHOLINE CHLORIDE 100 MG/5 ML SYR IV ONE (10:20)
[2020-10-14] MEDS ORDERED: HYDROmorphone 1 MG/ML 1 ML SYRINGE IVP PRN (11:30)
--- NOTE | 2020-10-14 11:30 | P.OP ---
Date of Procedure: 10/14/20 Preoperative Diagnosis: chronic cholecystitis Postoperative Diagnosis: chronic cholecystitis Procedure(s) Performed: laparoscopic ccholecystectomy Laparoscopic liver biopsy Anesthesia: ADELA Surgeon: Nickolas Silva Estimated Blood Loss (ml): 10 Pathology: other (liver biopsy) Condition: stable Disposition: PACU Description of Procedure: lThe patient was placed on the operating table. The patient received a general endotracheal tube anesthesia. The patients abdomen was prepped and draped in the usual sterile fashion. Through an infraumbilical stab incision, the fascia of the anterior abdominal wall was grasped with a pair of Kochers and then the Veress needle was placed in the peritoneal cavity. Position of the Veress needle was confirmed with positive drop test. The abdomen was then insufflated. After adequate insufflation, the 10 mm trocar was placed in the peritoneal cavity. Following this the laparoscope was placed in the peritoneal cavity. The patient was placed in the head-up, right side up position and then a 5 mm trocar was placed in the right lateral and right subcostal position under direct visualization. A 8 mm trocar was placed in the epigastric position. The gallbladder was grasped in the fundus and infundibul um. Traction on the gallbladder was placed in the lateral and the cephalad positions. The triangle of Calot was visualized.. The cystic duct was bluntly dissected until the union of the cystic duct and common bile duct was seen. A critical view of safety was achieved. The cystic duct was ligated with 2-0 Ethibond suture and secured and then the tied knot device applied. The cystic duct was then cut using Harmonic scissors. The cystic artery divided and sealed with the Harmonic scissors. The gallbladder was then removed from the liver bed using Harmonic scissors. The gallbladder was then extracted through the epigastric port site. Operative field was checked for any bleeding spots and Harmonic scissors was used to coagulate the liver bed. The abdomen was irrigated. There were some white lesions on the left lobe of the liver which are suspicious for metastatic disease. This was biopsied with the toothed forcep. Cautery was used to control hemostasis. The specimen sent to pathology. The trocars were removed. The skin was closed using interrupted 3-0 Vicryl suture. Dermabond dressing were applied. The patient tolerated the procedure well.
--- NOTE | 2020-10-14 12:09 | P.PN ---
Subjective Progress Note Date: 10/14/20 Principal diagnosis: Increased LFTS, ? CHolelithiasis, POsitive klebsiella in Blood CUltures Seen this am, at bedside. Plan for OR today Objective - Vital Signs Vital signs: Vital Signs Temp 97.4 F L 10/14/20 11:30 Pulse 62 10/14/20 11:45 Resp 16 10/14/20 11:45 BP 132/75 10/14/20 11:45 Pulse Ox 99 10/14/20 11:45 Intake & Output 10/13/20 10/14/20 10/14/20 18:59 06:59 18:59 Intake Total 800 1720 800 Output Total 15 Balance 800 1720 785 Intake: IV 800 Intake, IV Titration 800 1400 Amount Cefepime 2 gm In Sodium 200 200 Chloride 0.9% 100 ml @ 25 mls/hr IVPB Q8H [facility] Rx#: [id number] Sodium Chloride 0.9% 1, 600 1200 000 ml @ 100 mls/hr IV . Q10H [facility] Rx#:[id number] Oral 320 Output: Estimated Blood Loss 15 Other: # Voids 4 3 - Exam - Constitutional General appearance: no acute distress - EENT Eyes: EOMI, PERRLA ENT: hearing grossly normal, normal oropharynx - Neck Neck: no lymphadenopathy Thyroid: bilateral: normal size - Respiratory Respiratory: bilateral: CTA - Cardiovascular Rhythm: regular Heart sounds: normal: S1, S2 - Gastrointestinal General gastrointestinal: normal bowel sounds, soft - Integumentary Integumentary: normal - Neurologic Neurologic: CNII-XII intact - Musculoskeletal Musculoskeletal: generalized weakness, strength equal bilaterally - Psychiatric poor recall, and slow affect, chronic - Labs CBC & Chem 7: 10/14/20 02:24 10/14/20 02:24 Labs: Abnormal Lab Results - Last 24 Hours (Table) 10/13/20 10/14/20 10/14/20 Range/Units 05:24 02:24 02:24 RBC 3.22 L (4.30-5.90) m/uL Hgb 10.6 L (13.0-17.5) gm/dL Hct 33.1 L (39.0-53.0) % MCV 102.7 H (80.0-100.0) fL Plt Count 60 L (150-450) k/uL Lymphocytes # (Manual) 0.73 L (1.0-4.8) k/uL Metamyelocytes # (Man) 0.12 H (0) k/uL Myelocytes # (Manual) 0.06 H (0) k/uL Nucleated RBCs 5 H (0-0) /100 WBC Chloride 108 H (98-107) mmol/L BUN 8 L (9-20) mg/dL AST 164 H (17-59) U/L ALT 109 H (4-49) U/L Alkaline Phosphatase 203 H (38-126) U/L Total Protein 5.4 L (6.3-8.2) g/dL Albumin 2.7 L (3.5-5.0) g/dL Procalcitonin 0.30 H (0.02-0.09) ng/mL Microbiology - Last 24 Hours (Table) 10/10/20 13:05 Blood Culture Gram Stain - Final Blood Blood Culture - Final Klebsiella pneumoniae 10/13/20 05:24 Blood Culture - Preliminary Blood No Growth after 24 hours 10/12/20 11:40 Blood Culture - Preliminary Blood No Growth after 24 hours 10/10/20 13:14 Blood Culture Gram Stain - Final Blood Blood Culture - Final Klebsiella pneumoniae Assessment and Plan Plan: Assessment and Plan (1) Neutropenic fever - COntinue Antibiotics - POsitive Blood Cultures - ? source CHolecystitis the patient is admitted with neutropenic fever, after delayed day 8 of cycle 1 with Gemzar and Abraxane. As noted in the HPI he had an admission for fever after cycle 1 day 1 but at that time was not neutropenic. - Continue broad-spectrum antibiotics. The patient will continue on growth factors. aFever today Current Visit: Yes Status: Acute Code(s): D70.9 - NEUTROPENIA, UNSPECIFIED; R50.81 - FEVER PRESENTING WITH CONDITIONS CLASSIFIED ELSEWHERE SNOMED Code(s): 276149139 (2) Acute cholecystitis - Antibiotics recurrent acute cholecystitis is a concern as noted above. Physical exam does not support the same, but as noted, findings may not be difficult in a patient with significant neutropenia.implications of the above were discussed in detail with the patient and his . We will await formal evaluation by the surgeon. I advised him that acalculous cholecystitis can occur with chemotherapy and risk of complications, including perforation is higher in patients with neutropenia. He is at high risk of developing the same with successive chemotherapies. - Discussed in detail with General surgery, await resolution of WBC, and Bacteremia and then plan for surgical intervention when safe Current Visit: No Status: Acute Code(s): K81.0 - ACUTE CHOLECYSTITIS SNOMED Code(s): 52092928 (3) Pancreatic cancer metastasized to liver treatment is currently on hold until acute situation results in a satisfactory manner Current Visit: No Status: Acute Code(s): C25.9 - MALIGNANT NEOPLASM OF PANCREAS, UNSPECIFIED; C78.7 - SECONDARY MALIG NEOPLASM OF LIVER AND INTRAHEPATIC BILE DUCT SNOMED Code(s): 822465691 (4) Pancytopenia due to antineoplastic chemotherapy - Daily monitoring patient has been placed on growth factors were WBC support. Other counts are well within a safe range. Continue to monitor. Transfuse to keep hemoglobin greater than 7 and platelets greater than 10. Current Visit: Yes Status: Acute Code(s): D61.810 - ANTINEOPLASTIC CHEMOTHERAPY INDUCED PANCYTOPENIA; T45.1X5A - ADVERSE EFFECT OF ANTINEOPLASTIC AND IMMUNOSUP DRUGS, INIT SNOMED Code(s): 601413579688754 PLatelets are 60K today, Will monitor closely after surgery s/s bleeding OR today with Dr. Silva Physician Attest: I have completed the full history and physical and agree with above dictation, dictated as a scribe
[2020-10-14] MEDS: MEMANTINE 10 MG TAB PO SCH ×2 (13:41→21:28)
[2020-10-14] MEDS: RIVASTIGMINE 13.3MG/24HR PATCH TRANSDERM SCH (13:44)
[2020-10-14] MEDS: PANTOPRAZOLE 40 MG/10 ML VIAL IV SCH (13:45)
[2020-10-14] MEDS: PYRIDOXINE 50 MG TAB PO SCH (15:40)
[2020-10-14] MEDS: CYANOCOBALAMIN 500 MCG TAB PO SCH (15:40)
[2020-10-14] MEDS: FILGRASTIM-SNDZ 480 MCG/0.8 ML SYRINGE SQ SCH (16:57)
[2020-10-14] MEDS: ESCITALOPRAM 10 MG TAB PO SCH (16:58)
--- NOTE | 2020-10-14 18:03 | PN ---
PROGRESS NOTE DATE OF SERVICE: 10/14/2020 REASON FOR FOLLOWUP: Bacteremia and cholecystitis. INTERVAL HISTORY: The patient is afebrile. The patient had laparoscopic cholecystectomy. Following the procedure, has been complaining some right upper quadrant pain. No nausea, vomiting. No chest pain, shortness of breath, no cough. PHYSICAL EXAMINATION: Blood pressure is 119/60 with a pulse of 89, temperature 98, he is 94% on room air. GENERAL DESCRIPTION: The patient is a middle-aged male lying in bed in no distress. RESPIRATORY SYSTEM: Unlabored breathing, decreased breath sounds in the bases. No wheeze. HEART: S1, S2. Regular. ABDOMEN: Soft, mildly tender, no rigidity. LABS: Hemoglobin 7.1, white count 6.1, BUN of 8, creatinine 0.71. Blood culture repeat has been negative. ASSESSMENT: Patient with Klebsiella pneumoniae bacteremia, possible cholecystitis status post cholecystectomy. Patient is covered with cefepime. Repeat blood culture has been negative. Family did have multiple questions. Those were answered in layman's terms. MMODL / IJN: [id number] /
[2020-10-14] MEDS: ACETAMINOPHEN TAB 325 MG TAB PO PRN (21:28)
[2020-10-15] MEDS: CEFEPIME 2 GM in SODIUM CHLORIDE 0.9% 100 ML IVPB SCH ×3 (00:02→16:59)
[2020-10-15] MEDS: SODIUM CHLORIDE 0.9% 1,000 ML IV SCH ×3 (03:02→21:22)
[2020-10-15] MEDS: LACTATED RINGERS 1,000 ML IV SCH (07:57)
[2020-10-15] MEDS: PANTOPRAZOLE 40 MG/10 ML VIAL IV SCH (08:01)
[2020-10-15] MEDS: RIVASTIGMINE 13.3MG/24HR PATCH TRANSDERM SCH (08:01)
[2020-10-15] MEDS: MEMANTINE 10 MG TAB PO SCH ×2 (08:01→21:22)
[2020-10-15] MEDS: PYRIDOXINE 50 MG TAB PO SCH (08:01)
[2020-10-15] MEDS: ESCITALOPRAM 10 MG TAB PO SCH (08:01)
[2020-10-15] MEDS: CYANOCOBALAMIN 500 MCG TAB PO SCH (08:01)
[2020-10-15 08:51] LABS: ALT 86 U/L (4-49); AST 125 U/L (17-59); African American GFR (CKD) >90 (>60 ml/min/1.73 sqM); Albumin 2.6 g/dL (3.5-5.0); Alkaline Phosphatase 208 U/L (38-126); Anion Gap 6 mmol/L; Blood Urea Nitrogen 12 mg/dL (9-20); Calcium 8.5 mg/dL (8.4-10.2); Carbon Dioxide 24 mmol/L (22-30); Chloride 106 mmol/L (98-107); Globulin 2.6 g/dL; Glucose 130 mg/dL (74-99); Non-African American GFR(CKD) >90 (>60 ml/min/1.73 sqM); Potassium 3.9 mmol/L (3.5-5.1); Sodium 136 mmol/L (137-145); Total Protein 5.2 g/dL (6.3-8.2)
[2020-10-15 09:15] LABS: Basophils # (A) 0.2 k/uL (0-0.2); Basophils % (A) 1 %; Eosinophils % (A) 0 %; HCT 30.4 % (39.0-53.0); HGB 9.8 gm/dL (13.0-17.5); Hypochromasia Slight; Lymphocytes # (A) 0.7 k/uL (1.0-4.8); Lymphocytes % (A) 3 %; MCH 32.4 pg (25.0-35.0); MCHC 32.1 g/dL (31.0-37.0); Macrocytosis Slight; Mean Platelet Volume 9.3; Monocytes # (A) 1.8 k/uL (0-1.0); Monocytes % (A) 7 %; Neutrophils # (A) 22.3 k/uL (1.3-7.7); Neutrophils % (A) 88 %; RBC 3.01 m/uL (4.30-5.90); RDW 15.1 % (11.5-15.5)
[2020-10-15 09:17] LABS: Platelet Count 105 k/uL (150-450)
--- NOTE | 2020-10-15 11:39 | P.PN ---
Progress Note - Text Progress Note Date: 10/14/20 Chief Complaint: Fever History of presenting complaint: This is a pleasant 65-year-old patient who follows with Dr. Quach. Oncologist Dr. Rousseau. In May 2019, was admitted to [facility] with obstructive jaundice. ERCP showed CBD stricture. MRCP showed dilated gallbladder and biliary tree. Patient did have a stent placed. CT of the pancreas showed pancreatic head mass. FNA was positive for adenocarcinoma. Also hypodense lesion was found on the right hepatic lobe. Neoadjuvant chemotherapy, was recommended. Surgery was recommended. Laparoscopic evaluation showed liver lesions. Biopsy was positive. She was not felt to be a surgical candidate. Patient did complete chemotherapy in June 2020 and radiation treatment to the liver. PET scan did not show any uptake other than low level at the primary site. MRI done on 09/03/2020 showed multiple ring-enhancing lesions in the liver. Patient had first cycle of Gemzar and Abraxane end of August. Patient was then admitted to the hospital from September 24 through September 28. Had a fever. Gallbladder ultrasound showed multiple dominant masses in the liver. Diffuse fatty infiltration of liver. Gallbladder wall was abnormally thickened with some pericholecystic fluid. Multiple fundal contents measuring 1.4 cm with calcification. Seen by Dr. Silva from general surgery. Was placed on IV Zosyn. Blood cultures were negative patient's fever resolved. Patient was discharged. October 05 patient received another course of chemotherapy. Dose was reduced by 10% at patient is having low-grade fever. October 07 patient started having a fever again. Has now presented for the same. No respiratory symptoms. No GI symptoms. No skin rash. No abdominal pain. No nausea vomiting. Appetite is fair. Patient is able to get around the house. Admitted with febrile neutropenia. Started on IV Zosyn and vancomycin. October 11: Yesterday evening patient did have fevers. Better this morning. Eating about 50%. Tired. is present. No new symptoms. October 12: Fevers are down. Blood cultures are coming back positive for Klebsiella pneumoniae. Oral intake about 50%. Surgeries planning on cholecystectomy October 13: Feeling better. Diet. Pending cholecystectomy. No abdominal pain. October 14: Underwent cholecystectomy. Some abdominal pain. Decreased appetite. Breathing stable. at the bedside Review of systems: Was done for constitutional, cardiovascular, GI, pulmonary. relevant finding as above Active Medications Acetaminophen (Acetaminophen Tab 325 Mg Tab) 650 mg PO Q6HR PRN PRN Reason: Mild Pain or Fever > 100.5 Last Admin: 10/13/20 21:31 Dose: 650 mg Documented by: Al Hydroxide/Mg Hydroxide (Mag Hydrox/Al Hydrox/Simeth 30 Ml Cup) 15 ml PO Q6HR PRN PRN Reason: Indigestion Alprazolam (Alprazolam 0.25 Mg Tab) 0.25 mg PO Q6HR PRN PRN Reason: Anxiety Calcium Carbonate/Glycine (Calcium Carbonate 500 Mg Chewable) 1,000 mg PO Q4HR PRN PRN Reason: Dyspepsia Cyanocobalamin (Cyanocobalamin 500 Mcg Tab) 1,000 mcg PO DAILY [facility] Last Admin: 10/14/20 15:40 Dose: Not Given Documented by: Escitalopram Oxalate (Escitalopram 10 Mg Tab) 10 mg PO DAILY [facility] Last Admin: 10/14/20 16:58 Dose: 10 mg Documented by: Filgrastim-Sndz (Filgrastim-Sndz 480 Mcg/0.8 Ml Syringe) 480 mcg SQ DAILY@1800 [facility] Last Admin: 10/14/20 16:57 Dose: 480 mcg Documented by: Hydromorphone HCl (Hydromorphone 0.5 Mg/0.5 Ml Syringe) 0.5 mg IVP Q5M PRN PRN Reason: Pain Control Stop: 10/14/20 23:00 Last Admin: 10/14/20 11:52 Dose: 0.5 mg Documented by: Hydromorphone HCl (Hydromorphone 1 Mg/Ml 1 Ml Syringe) 1 mg IVP Q1HR PRN PRN Reason: Severe Pain Sodium Chloride (Saline 0.9%) 1,000 mls @ 100 mls/hr IV .Q10H [facility] Last Admin: 10/14/20 16:22 Dose: Not Given Documented by: Cefepime HCl 2 gm/ Sodium (Chloride) 100 mls @ 25 mls/hr IVPB Q8H [facility] Last Admin: 10/14/20 16:58 Dose: 25 mls/hr Documented by: Lactated Ringer's (Lactated Ringers) 1,000 mls @ 20 mls/hr IV .Q24H [facility] Last Admin: 10/14/20 09:23 Dose: 900 mls Documented by: Ibuprofen (Ibuprofen 200 Mg Tab) 200 mg PO Q8HR PRN PRN Reason: Mild Pain Last Admin: 10/10/20 20:36 Dose: 200 mg Documented by: Lactulose (Lactulose 20 Gm/30 Ml Cup) 20 gm PO DAILY PRN PRN Reason: Constipation Lidocaine HCl (Lidocaine 1% (10mg/Ml) For Iv Start) 0.1 ml INTRADERMA PER PROTOCOL PRN PRN Reason: IV Start Loperamide HCl (Loperamide 2 Mg Cap) 2 mg PO Q6H PRN PRN Reason: Diarrhea Magnesium Hydroxide (Magnesium Hydroxide 2,400 Mg/10 Ml Cup) 2,400 mg PO DAILY PRN PRN Reason: Constipation Melatonin (Melatonin 3 Mg Tablet) 3 mg PO HS PRN PRN Reason: Insomnia Last Admin: 10/13/20 21:33 Dose: 3 mg Documented by: Memantine (Memantine 10 Mg Tab) 10 mg PO BID [facility] Last Admin: 10/14/20 13:41 Dose: Not Given Documented by: Naloxone HCl (Naloxone 0.4 Mg/Ml 1 Ml Vial) 0.2 mg IV Q2M PRN PRN Reason: Opioid Reversal Chlorpromazine 10 Mg (Tab) 10 mg PO Q8H PRN PRN Reason: hiccups Colestipol Hcl [ Colestipol Hcl] 1 Gm Tablet 2 gm PO BID [facility] Last Admin: 10/14/20 13:39 Dose: Not Given Documented by: Ondansetron HCl (Ondansetron 4 Mg/2 Ml Vial) 4 mg IVP Q8HR PRN PRN Reason: Nausea And Vomiting Pantoprazole Sodium (Pantoprazole 40 Mg/10 Ml Vial) 40 mg IV DAILY [facility] Last Admin: 10/14/20 13:45 Dose: 40 mg Documented by: Pyridoxine HCl (Pyridoxine 50 Mg Tab) 50 mg PO DAILY [facility] Last Admin: 10/14/20 15:40 Dose: Not Given Documented by: Rivastigmine (Rivastigmine 13.3mg/24hr Patch) 1 patch TRANSDERM DAILY [facility] Last Admin: 10/14/20 13:44 Dose: 1 patch Documented by: Temazepam (Temazepam 15 Mg Cap) 15 mg PO HS PRN PRN Reason: Insomnia Past medical history: Pancreatic cancer with liver metastatic this, on chemotherapy, any dictation. Obstructive sleep apnea. Cognitive impairment. GERD. Social history: . No smoking. Alcohol rarely. Family history: Prostate cancer Physical examination: VITAL SIGNS: 98.2, 71, 16, 99/64, 91% on room air GENERAL: BMI 26.4, laying in bed, tired EYES: Pupils equal. Conjunctiva normal. HEENT: External appearance of nose and ears normal, oral cavity grossly normal. NECK: JVD not raised; masses not palpable. HEART: First and second heart sounds are normal; no edema. LUNGS: Respiratory rate normal; clear to auscultation. ABDOMEN: Soft, tender on no guarding rigidity, liver spleen not palpable, no masses palpable. PSYCH: [Alert and oriented x3; mood and affect tired INVESTIGATIONS, reviewed in the clinical context: October 14: WBC 6.1 hemoglobin 10.6 platelets 60 potassium 3.8 creatinine 0.71 AST 164 ALT 109 October 13: WBC 3.2 hemoglobin 9.9 AST 150 ALT 109 total bilirubin 1.0 pro-ca lcitonin 0.3 October 12: WBC 2.8 hemoglobin 9.7 platelets 60 potassium 4.3 creatinine 0.71 AST 82 ALT 84 total bilirubin 0.8 October 11: WBC 1.2 hemoglobin 9.7 platelets 72 potassium 4.5 crit 0.75 AST 82 ALT 96 total bilirubin 1.1 Ultrasound gallbladder: Gallbladder wall thickening with internal echoes. WBC 0.4 hemoglobin 11.2 platelets 120 potassium 4.4 creatinine 0.75 sodium 131 Total bilirubin 1.6 AST 113 ALT 126 alkaline phosphatase 138 amylase less than 30 lipase less than 10 UA negative EKG tracing personally reviewed by me-normal sinus rhythm Chest x-ray film personally reviewed by me-no infiltrates Previous labs:[09/30/2020] white count 1.8 hemoglobin 11.1 platelets 56 Assessment and plan: -Febrile neutropenia. From acute cholecystitis : IV cefepime. -Possible acute on chronic cholecystitis Cholecystectomy today -Pancytopenia from chemotherapy: Improving Filgrastim -discontinued -Metastatic pancreatic cancer. Patient received second dose of chemotherapy. Status post radiation treatment. Patient being followed by oncologist Dr. Rousseau -MICHAEL On Prilosec -Cognitive impairment On Aricept, Namenda, Exelon patch -Depression On Lexapro -Medical asthenia from metastatic disease and possibly chemotherapy Activity as tolerated Continue IV cefepime IV fluids. Discussed with the patient and . Increase activity as tolerated. Repeat labs in the morning.
[2020-10-15 12:27] LABS: Band Neutrophils % 9 %; Metamyelocytes % 6 %; Myelocytes % 2 %; Neutrophils % (M) 76 %; Nucleated Red Blood Cells 2 /100 WBC (0-0); Total Cells Counted 200
[2020-10-15 12:28] LABS: Lymphocytes # (M) 1.25 k/uL (1.0-4.8); Monocytes # (M) 0.75 k/uL (0-1.0)
[2020-10-15 12:32] LABS: Anisocytosis (M) Present; Poikilocytosis (M) Present; Polychromasia Present
--- NOTE | 2020-10-15 12:55 | P.PN ---
Subjective Progress Note Date: 10/15/20 CHIEF COMPLAINT: Fever HISTORY OF PRESENT ILLNESS: Patient is postop day #1 status post laparoscopic cholecystectomy with liver biopsy. Patient sitting up in bed comfortably. He denies any abdominal pain. Denies any nausea or vomiting. He was able to eat some cereal for breakfast. He is having flatus. Denies any nausea or vomiting. Denies any BM. Currently on a regular diet. Afebrile. WBC is up at 25 hemoglobin 9.8 platelets 105 AST down from 164-125 ALT 109 down to 86 alk phos 203 up at 20 8 repeat blood cultures are negative PHYSICAL EXAM: VITAL SIGNS: Reviewed. GENERAL: Well-developed in no acute distress. HEENT: No sclera icterus. Extraocular movements grossly intact. Moist buccal mucosa. Head is atraumatic, normocephalic. ABDOMEN: Soft. Nondistended. Nontender. Incision sites clean dry and intact NEUROLOGIC: Alert and oriented. Cranial nerves II through XII grossly intact. ASSESSMENT: 1. Chronic cholecystitis status post laparoscopic cholecystectomy with liver b iopsy 2. Neutropenic fever 3. History of pancreatic cancer metastasized to liver 4. Pancytopenia 5. Leukocytosis possibly reactive. We'll monitor. 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 Signing provider agrees with the documented findings, assessment, and plan of care. Objective - Vital Signs Vital signs: Vital Signs Temp 98.7 F 10/15/20 11:45 Pulse 81 10/15/20 11:45 Resp 20 10/15/20 11:45 BP 97/62 10/15/20 11:45 Pulse Ox 91 L 10/15/20 11:45 Intake & Output 10/14/20 10/15/20 10/15/20 18:59 06:59 18:59 Intake Total 2240 3070 Output Total 15 Balance 2225 3070 Intake: IV 900 Intake, IV Titration 1100 1400 Amount Cefepime 2 gm In Sodium 100 1400 Chloride 0.9% 100 ml @ 25 mls/hr IVPB Q8H [facility] Rx#: [id number] Lactated Ringers 1,000 ml 1000 @ 20 mls/hr IV .Q24H [facility] Rx#:[id number] Oral 240 1670 Output: Estimated Blood Loss 15 Other: Voiding Method Toilet # Voids 1 1 - Labs CBC & Chem 7: 10/15/20 08:07 10/15/20 08:07 Labs: Abnormal Lab Results - Last 24 Hours (Table) 10/15/20 10/15/20 Range/Units 08:07 08:07 WBC 25.0 H (3.8-10.6) k/uL RBC 3.01 L (4.30-5.90) m/uL Hgb 9.8 L (13.0-17.5) gm/dL Hct 30.4 L (39.0-53.0) % MCV 101.0 H (80.0-100.0) fL Plt Count 105 L D (150-450) k/uL Neutrophils # 22.3 H (1.3-7.7) k/uL Neutrophils # (Manual) 21.20 H (1.3-7.7) k/uL Lymphocytes # 0.7 L (1.0-4.8) k/uL Monocytes # 1.8 H (0-1.0) k/uL Metamyelocytes # (Man) 1.50 H (0) k/uL Myelocytes # (Manual) 0.50 H (0) k/uL Nucleated RBCs 2 H (0-0) /100 WBC Sodium 136 L (137-145) mmol/L Creatinine 0.65 L (0.66-1.25) mg/dL Glucose 130 H (74-99) mg/dL AST 125 H (17-59) U/L ALT 86 H (4-49) U/L Alkaline Phosphatase 208 H (38-126) U/L Total Protein 5.2 L (6.3-8.2) g/dL Albumin 2.6 L (3.5-5.0) g/dL Microbiology - Last 24 Hours (Table) 10/13/20 05:24 Blood Culture - Preliminary Blood No Growth after 48 hours 10/12/20 11:40 Blood Culture - Preliminary Blood No Growth after 48 hours
--- NOTE | 2020-10-15 18:02 | PN ---
PROGRESS NOTE DATE OF SERVICE: 10/15/2020 REASON FOR FOLLOW UP: Klebsiella bacteremia secondary to cholecystitis, possible cholangitis. INTERVAL HISTORY: The patient is afebrile. The patient is feeling better. Breathing comfortably. No chest pain, shortness of breath or cough. No nausea, vomiting, abdominal pain or diarrhea. PHYSICAL EXAMINATION: Blood pressure 97/62 with a pulse of 81, temperature 98.7, saturating 91% on room air. General description is a middle-aged male lying in no distress. Respiratory system: Unlabored breathing, clear to auscultation anteriorly. Heart S1, S2. Regular rate and rhythm. Abdomen is soft, no tenderness. LABS: Hemoglobin 9.1, white count 25, BUN of 12, creatinine 0.65. DIAGNOSTIC IMPRESSION AND PLAN: Patient with Klebsiella bacteremia secondary to cholecystitis and cholangitis in this patient who seemed to have shown overall clinical improvement. Patient is covered with cefepime. Finish therapy with oral Cipro 500 mg twice a day for another 12 days and close outpatient followup. Discussed with the admitting physician. YUSEF / DAVID: [id number] /
--- NOTE | 2020-10-15 18:11 | P.PN ---
Progress Note - Text Progress Note Date: 10/15/20 Chief Complaint: Fever History of presenting complaint: This is a pleasant 65-year-old patient who follows with Dr. Quach. Oncologist Dr. Rousseau. In May 2019, was admitted to [facility] with obstructive jaundice. ERCP showed CBD stricture. MRCP showed dilated gallbladder and biliary tree. Patient did have a stent placed. CT of the pancreas showed pancreatic head mass. FNA was positive for adenocarcinoma. Also hypodense lesion was found on the right hepatic lobe. Neoadjuvant chemotherapy, was recommended. Surgery was recommended. Laparoscopic evaluation showed liver lesions. Biopsy was positive. She was not felt to be a surgical candidate. Patient did complete chemotherapy in June 2020 and radiation treatment to the liver. PET scan did not show any uptake other than low level at the primary site. MRI done on 09/03/2020 showed multiple ring-enhancing lesions in the liver. Patient had first cycle of Gemzar and Abraxane end of August. Patient was then admitted to the hospital from September 24 through September 28. Had a fever. Gallbladder ultrasound showed multiple dominant masses in the liver. Diffuse fatty infiltration of liver. Gallbladder wall was abnormally thickened with some pericholecystic fluid. Multiple fundal contents measuring 1.4 cm with calcification. Seen by Dr. Silva from general surgery. Was placed on IV Zosyn. Blood cultures were negative patient's fever resolved. Patient was discharged. October 05 patient received another course of chemotherapy. Dose was reduced by 10% at patient is having low-grade fever. October 07 patient started having a fever again. Has now presented for the same. No respiratory symptoms. No GI symptoms. No skin rash. No abdominal pain. No nausea vomiting. Appetite is fair. Patient is able to get around the house. Admitted with febrile neutropenia. Started on IV Zosyn and vancomycin. October 11: Yesterday evening patient did have fevers. Better this morning. Eating about 50%. Tired. is present. No new symptoms. October 12: Fevers are down. Blood cultures are coming back positive for Klebsiella pneumoniae. Oral intake about 50%. Surgeries planning on cholecystectomy October 13: Feeling better. Diet. Pending cholecystectomy. No abdominal pain. October 14: Underwent cholecystectomy. Some abdominal pain. Decreased appetite. Breathing stable. at the bedside October 15: Abdominal pain better. Eating some. Feeling better. present. White count is up. [place] to be from Filgastrin and received yesterday. Review of systems: Was done for constitutional, cardiovascular, GI, pulmonary. relevant finding as above Active Medications Acetaminophen (Acetaminophen Tab 325 Mg Tab) 650 mg PO Q6HR PRN PRN Reason: Mild Pain or Fever > 100.5 Last Admin: 10/14/20 21:28 Dose: 650 mg Documented by: Al Hydroxide/Mg Hydroxide (Mag Hydrox/Al Hydrox/Simeth 30 Ml Cup) 15 ml PO Q6HR PRN PRN Reason: Indigestion Alprazolam (Alprazolam 0.25 Mg Tab) 0.25 mg PO Q6HR PRN PRN Reason: Anxiety Calcium Carbonate/Glycine (Calcium Carbonate 500 Mg Chewable) 1,000 mg PO Q4HR PRN PRN Reason: Dyspepsia Cyanocobalamin (Cyanocobalamin 500 Mcg Tab) 1,000 mcg PO DAILY [facility] Last Admin: 10/15/20 08:01 Dose: 1,000 mcg Documented by: Escitalopram Oxalate (Escitalopram 10 Mg Tab) 10 mg PO DAILY [facility] Last Admin: 10/15/20 08:01 Dose: 10 mg Documented by: Hydromorphone HCl (Hydromorphone 1 Mg/Ml 1 Ml Syringe) 1 mg IVP Q1HR PRN PRN Reason: Severe Pain Sodium Chloride (Saline 0.9%) 1,000 mls @ 100 mls/hr IV .Q10H [facility] Last Admin: 10/15/20 12:20 Dose: 100 mls/hr Documented by: Cefepime HCl 2 gm/ Sodium (Chloride) 100 mls @ 25 mls/hr IVPB Q8H [facility] Last Admin: 10/15/20 16:59 Dose: 25 mls/hr Documented by: Lactated Ringer's (Lactated Ringers) 1,000 mls @ 20 mls/hr IV .Q24H [facility] Last Admin: 10/15/20 07:57 Dose: Not Given Documented by: Ibuprofen (Ibuprofen 200 Mg Tab) 200 mg PO Q8HR PRN PRN Reason: Mild Pain Last Admin: 10/10/20 20:36 Dose: 200 mg Documented by: Lactulose (Lactulose 20 Gm/30 Ml Cup) 20 gm PO DAILY PRN PRN Reason: Constipation Lidocaine HCl (Lidocaine 1% (10mg/Ml) For Iv Start) 0.1 ml INTRADERMA PER PROTOCOL PRN PRN Reason: IV Start Loperamide HCl (Loperamide 2 Mg Cap) 2 mg PO Q6H PRN PRN Reason: Diarrhea Magnesium Hydroxide (Magnesium Hydroxide 2,400 Mg/10 Ml Cup) 2,400 mg PO DAILY PRN PRN Reason: Constipation Melatonin (Melatonin 3 Mg Tablet) 3 mg PO HS PRN PRN Reason: Insomnia Last Admin: 10/13/20 21:33 Dose: 3 mg Documented by: Memantine (Memantine 10 Mg Tab) 10 mg PO BID [facility] Last Admin: 10/15/20 08:01 Dose: 10 mg Documented by: Naloxone HCl (Naloxone 0.4 Mg/Ml 1 Ml Vial) 0.2 mg IV Q2M PRN PRN Reason: Opioid Reversal Chlorpromazine 10 Mg (Tab) 10 mg PO Q8H PRN PRN Reason: hiccups Colestipol Hcl [ Colestipol Hcl] 1 Gm Tablet 2 gm PO BID [facility] Last Admin: 10/15/20 07:56 Dose: Not Given Documented by: Ondansetron HCl (Ondansetron 4 Mg/2 Ml Vial) 4 mg IVP Q8HR PRN PRN Reason: Nausea And Vomiting Pantoprazole Sodium (Pantoprazole 40 Mg Tablet) 40 mg [facility] Pyridoxine HCl (Pyridoxine 50 Mg Tab) 50 mg PO DAILY [facility] Last Admin: 10/15/20 08:01 Dose: 50 mg Documented by: Rivastigmine (Rivastigmine 13.3mg/24hr Patch) 1 patch TRANSDERM DAILY [facility] Last Admin: 10/15/20 08:01 Dose: 1 patch Documented by: Temazepam (Temazepam 15 Mg Cap) 15 mg PO HS PRN PRN Reason: Insomnia Past medical history: Pancreatic cancer with liver metastatic this, on chemotherapy, any dictation. Obstructive sleep apnea. Cognitive impairment. GERD. Social history: . No smoking. Alcohol rarely. Family history: Prostate cancer Physical examination: VITAL SIGNS: 98.7, 81, 20, 97/62, 91% room air GENERAL: BMI 26.4, laying in bed, awake EYES: Pupils equal. Conjunctiva normal. HEENT: External appearance of nose and ears normal, oral cavity grossly normal. NECK: JVD not raised; masses not palpable. HEART: First and second heart sounds are normal; no edema. LUNGS: Respiratory rate normal; clear to auscultation. ABDOMEN: Soft, mild tender , no guarding rigidity, liver spleen not palpable, no masses palpable. PSYCH: [Alert and oriented x3; mood and affect better INVESTIGATIONS, reviewed in the clinical context: October 15: WBC 25 hemoglobin 9.8 platelets 105 potassium 3.9 creatinine 0.65 AST 125 in 2085 albumin 2.6 October 14: WBC 6.1 hemoglobin 10.6 platelets 60 potassium 3.8 creatinine 0.71 AST 164 ALT 109 October 13: WBC 3.2 hemoglobin 9.9 AST 150 ALT 109 total bilirubin 1.0 pro- calcitonin 0.3 October 12: WBC 2.8 hemoglobin 9.7 platelets 60 potassium 4.3 creatinine 0.71 AST 82 ALT 84 total bilirubin 0.8 October 11: WBC 1.2 hemoglobin 9.7 platelets 72 potassium 4.5 crit 0.75 AST 82 ALT 96 total bilirubin 1.1 Blood cultures [October 10]: Klebsiella pneumoniae. [October 12 ]: Negative Ultrasound gallbladder: Gallbladder wall thickening with internal echoes. WBC 0.4 hemoglobin 11.2 platelets 120 potassium 4.4 creatinine 0.75 sodium 131 Total bilirubin 1.6 AST 113 ALT 126 alkaline phosphatase 138 amylase less than 30 lipase less than 10 UA negative EKG tracing personally reviewed by me-normal sinus rhythm Chest x-ray film personally reviewed by me-no infiltrates Previous labs:[09/30/2020] white count 1.8 hemoglobin 11.1 platelets 56 Assessment and plan: -Febrile neutropenia. From acute cholecystitis : Improving IV cefepime. -Sepsis with blood cultures positive for Klebsiella pneumoniae IV cefepime - acute on chronic cholecystitis Cholecystectomy October 15 -Pancytopenia from chemotherapy: Improving Filgrastim -discontinued -Metastatic pancreatic cancer. Patient received second dose of chemotherapy. Status post radiation treatment. Patient being followed by oncologist Dr. Rousseau -GERD On Prilosec -Cognitive impairment On Aricept, Namenda, Exelon patch -Mild protein calorie malnutrition, from decreased oral intake -Depression On Lexapro -Medical asthenia from metastatic disease and possibly chemotherapy Activity as tolerated We'll check patient's CBC CMP tomorrow morning. Discussed the care with the patient and . Per Sayed patient to be discharged home on ciprofloxacin. Hopefully discharge home tomorrow.
[2020-10-16] MEDS: CEFEPIME 2 GM in SODIUM CHLORIDE 0.9% 100 ML IVPB SCH ×2 (01:14→07:49)
[2020-10-16 04:12] VITALS: BP 102/66; PULSE 76; RESP 14; TEMP 98.6
[2020-10-16 06:45] LABS: ALT 68 U/L (4-49); AST 90 U/L (17-59); African American GFR (CKD) >90 (>60 ml/min/1.73 sqM); Albumin 2.1 g/dL (3.5-5.0); Albumin/Globulin Ratio 0.9; Alkaline Phosphatase 190 U/L (38-126); Anion Gap 1 mmol/L; Blood Urea Nitrogen 12 mg/dL (9-20); Calcium 7.8 mg/dL (8.4-10.2); Carbon Dioxide 26 mmol/L (22-30); Chloride 108 mmol/L (98-107); Globulin 2.3 g/dL; Glucose 106 mg/dL (74-99); Non-African American GFR(CKD) >90 (>60 ml/min/1.73 sqM); Potassium 3.6 mmol/L (3.5-5.1); Sodium 135 mmol/L (137-145); Total Bilirubin 0.8 mg/dL (0.2-1.3); Total Protein 4.4 g/dL (6.3-8.2)
[2020-10-16 06:52] LABS: Anisocytosis Slight; HCT 24.7 % (39.0-53.0); Hypochromasia Slight; MCH 32.3 pg (25.0-35.0); MCHC 31.5 g/dL (31.0-37.0); MCV 102.4 fL (80.0-100.0); Macrocytosis Slight; Mean Platelet Volume 8.2; RBC 2.41 m/uL (4.30-5.90); RDW 16.8 % (11.5-15.5)
[2020-10-16 07:00] LABS: HGB 7.8 gm/dL (13.0-17.5); Platelet Count 99 k/uL (150-450)
[2020-10-16] MEDS ORDERED: PANTOPRAZOLE 40 MG TABLET PO SCH (07:30)
[2020-10-16] MEDS: CYANOCOBALAMIN 500 MCG TAB PO SCH (07:48)
[2020-10-16] MEDS: PYRIDOXINE 50 MG TAB PO SCH (07:49)
[2020-10-16] MEDS: ESCITALOPRAM 10 MG TAB PO SCH (07:50)
[2020-10-16] MEDS: RIVASTIGMINE 13.3MG/24HR PATCH TRANSDERM SCH (07:50)
[2020-10-16] MEDS: MEMANTINE 10 MG TAB PO SCH (07:50)
[2020-10-16] MEDS: LACTATED RINGERS 1,000 ML IV SCH (07:51)
[2020-10-16] MEDS: SODIUM CHLORIDE 0.9% 1,000 ML IV SCH (07:52)
--- NOTE | 2020-10-16 08:27 | P.PN ---
Progress Note - Text Progress Note Date: 10/16/20 The patient feels well. He has minimal abdominal pain. He is tolerating regular diet. On exam vital signs are stable. Abdomen soft. Patient will be discharged home per the medical service.
[2020-10-16 09:21] LABS: Band Neutrophils % 3 %; Lymphocytes # (M) 0.62 k/uL (1.0-4.8); Metamyelocytes # (M) 0.41 k/uL (0); Metamyelocytes % 2 %; Neutrophils % (M) 86 %; Nucleated Red Blood Cells 1 /100 WBC (0-0); Total Cells Counted 200
[2020-10-16 09:22] LABS: Monocytes # (M) 1.44 k/uL (0-1.0); WBC 20.5 k/uL (3.8-10.6)
--- NOTE | 2020-10-16 10:14 | P.PN ---
Subjective Progress Note Date: 10/15/20 Principal diagnosis: Increased LFTS, ? CHolelithiasis, POsitive klebsiella in Blood CUltures Status Post llaparoscopic cholecystectomy with liver biopsy, no acute complaints overnight cbc stable Objective - Vital Signs Vital signs: Vital Signs Temp 98.2 F 10/15/20 05:00 Pulse 71 10/15/20 05:00 Resp 16 10/15/20 05:00 BP 99/64 10/15/20 05:00 Pulse Ox 91 L 10/15/20 05:00 Intake & Output 10/14/20 10/15/20 10/15/20 18:59 06:59 18:59 Intake Total 2240 3070 Output Total 15 Balance 2225 3070 Intake: IV 900 Intake, IV Titration 1100 1400 Amount Cefepime 2 gm In Sodium 100 1400 Chloride 0.9% 100 ml @ 25 mls/hr IVPB Q8H ALANIS Rx#: [id number] Lactated Ringers 1,000 ml 1000 @ 20 mls/hr IV .Q24H ALANIS Rx#:[id number] Oral 240 1670 Output: Estimated Blood Loss 15 Other: Voiding Method Toilet # Voids 1 1 - Exam - Constitutional General appearance: no acute distress - EENT Eyes: EOMI, PERRLA ENT: hearing grossly normal, normal oropharynx - Neck Neck: no lymphadenopathy Thyroid: bilateral: normal size - Respiratory Respiratory: bilateral: CTA - Cardiovascular Rhythm: regular Heart sounds: normal: S1, S2 - Gastrointestinal General gastrointestinal: normal bowel sounds, soft - Integumentary Integumentary: normal - Neurologic Neurologic: CNII-XII intact - Musculoskeletal Musculoskeletal: generalized weakness, strength equal bilaterally - Psychiatric poor recall, and slow affect, chronic - Labs CBC & Chem 7: 10/16/20 05:38 10/16/20 05:38 Labs: Microbiology - Last 24 Hours (Table) 10/13/20 05:24 Blood Culture - Preliminary Blood No Growth after 48 hours 10/12/20 11:40 Blood Culture - Preliminary Blood No Growth after 48 hours 10/10/20 13:05 Blood Culture Gram Stain - Final Blood Blood Culture - Final Klebsiella pneumoniae Assessment and Plan Plan: Assessment and Plan (1) Neutropenic fever - Likely secondary to recurrent chronic cholecystitis, Positive bacteremia, felt to originated gallbladder. - Treatment with Growth factor initially, now WBC have recovered. (2) Acute cholecystitis - Antibiotics - Risks and Benefits thoroughly discussed with patient and family and felt benefit of surgery was felt to outweigh risks. - Status POst laparoscopic cholecystectomy with liver biopsy on 10.14.20 Current Visit: No Status: Acute Code(s): K81.0 - ACUTE CHOLECYSTITIS SNOMED Code(s): 48817815 (3) Pancreatic cancer metastasized to liver treatment is currently on hold until acute situation results in a satisfactory manner Current Visit: No Status: Acute Code(s): C25.9 - MALIGNANT NEOPLASM OF PANCREAS, UNSPECIFIED; C78.7 - SECONDARY MALIG NEOPLASM OF LIVER AND INTRAHEPATIC BILE DUCT SNOMED Code(s): 385910051 (4) Pancytopenia due to antineoplastic chemotherapy - Daily monitoring patient has been placed on growth factors were WBC support. This has since been discontinued aas his WBC have recovered and now increased likely reactive - Monitor CBC Hemoglobin and PLatelets - Supportive Transfusions PRN Current Visit: Yes Status: Acute Code(s): D61.810 - ANTINEOPLASTIC CHEMOTHERAPY INDUCED PANCYTOPENIA; T45.1X5A - ADVERSE EFFECT OF ANTINEOPLASTIC AND IMMUNOSUP DRUGS, INIT SNOMED Code(s): 101585835747538
--- NOTE | 2020-10-16 14:01 | P.PN ---
Subjective Progress Note Date: 10/16/20 Principal diagnosis: Increased LFTS, ? CHolelithiasis, POsitive klebsiella in Blood CUltures sitting up eating breakfast with . Feels good Objective - Vital Signs Vital signs: Vital Signs Temp 98.6 F 10/16/20 04:09 Pulse 76 10/16/20 04:09 Resp 14 10/16/20 04:09 BP 102/66 10/16/20 04:09 Pulse Ox 93 L 10/16/20 04:09 Intake & Output 10/15/20 10/16/20 10/16/20 18:59 06:59 18:59 Intake Total 2290 Balance 2290 Weight 88.451 kg Intake: Intake, IV Titration 1200 Amount Sodium Chloride 0.9% 1, 1200 000 ml @ 100 mls/hr IV . Q10H ALANIS Rx#:[id number] Oral 1090 Other: Voiding Method Toilet # Voids 3 2 1 - Exam - Constitutional General appearance: no acute distress - EENT Eyes: EOMI, PERRLA ENT: hearing grossly normal, normal oropharynx - Neck Neck: no lymphadenopathy Thyroid: bilateral: normal size - Respiratory Respiratory: bilateral: CTA - Cardiovascular Rhythm: regular Heart sounds: normal: S1, S2 - Gastrointestinal General gastrointestinal: normal bowel sounds, soft - Integumentary Integumentary: normal - Neurologic Neurologic: CNII-XII intact - Musculoskeletal Musculoskeletal: generalized weakness, strength equal bilaterally - Psychiatric poor recall, and slow affect, chronic - Labs CBC & Chem 7: 10/16/20 05:38 10/16/20 05:38 Labs: Abnormal Lab Results - Last 24 Hours (Table) 10/15/20 10/16/20 10/16/20 Range/Units 08:07 05:38 05:38 WBC 25.0 H 20.5 H (3.8-10.6) k/uL RBC 2.41 L (4.30-5.90) m/uL Hgb 7.8 L D (13.0-17.5) gm/dL Hct 24.7 L (39.0-53.0) % MCV 102.4 H (80.0-100.0) fL RDW 16.8 H (11.5-15.5) % Plt Count 99 L (150-450) k/uL Neutrophils # 22.3 H (1.3-7.7) k/uL Neutrophils # (Manual) 21.20 H 18.20 H (1.3-7.7) k/uL Lymphocytes # 0.7 L (1.0-4.8) k/uL Lymphocytes # (Manual) 0.62 L (1.0-4.8) k/uL Monocytes # 1.8 H (0-1.0) k/uL Monocytes # (Manual) 1.44 H (0-1.0) k/uL Metamyelocytes # (Man) 1.50 H 0.41 H (0) k/uL Myelocytes # (Manual) 0.50 H (0) k/uL Nucleated RBCs 2 H 1 H (0-0) /100 WBC Sodium 135 L (137-145) mmol/L Chloride 108 H (98-107) mmol/L Glucose 106 H (74-99) mg/dL Calcium 7.8 L (8.4-10.2) mg/dL AST 90 H (17-59) U/L ALT 68 H (4-49) U/L Alkaline Phosphatase 190 H (38-126) U/L Total Protein 4.4 L (6.3-8.2) g/dL Albumin 2.1 L (3.5-5.0) g/dL Microbiology - Last 24 Hours (Table) 10/13/20 05:24 Blood Culture - Preliminary Blood No Growth after 72 hours 10/12/20 11:40 Blood Culture - Preliminary Blood No Growth after 72 hours Assessment and Plan Plan: Assessment and Plan (1) Neutropenic fever - Likely secondary to recurrent chronic cholecystitis, Positive bacteremia, felt to originated gallbladder. - Treatment with Growth factor initially, now WBC have recovered. (2) Acute cholecystitis - Antibiotics - Risks and Benefits thoroughly discussed with patient and family and felt benefit of surgery was felt to outweigh risks. - Status POst laparoscopic cholecystectomy with liver biopsy on 10.14.20 Current Visit: No Status: Acute Code(s): K81.0 - ACUTE CHOLECYSTITIS SNOMED Code(s): 30938761 (3) Pancreatic cancer metastasized to liver treatment is currently on hold until acute situation results in a satisfactory manner Current Visit: No Status: Acute Code(s): C25.9 - MALIGNANT NEOPLASM OF PANCREAS, UNSPECIFIED; C78.7 - SECONDARY MALIG NEOPLASM OF LIVER AND INTRAHEPATIC BILE DUCT SNOMED Code(s): 704059725 (4) Pancytopenia due to antineoplastic chemotherapy - Daily monitoring patient has been placed on growth factors were WBC support. This has since been discontinued aas his WBC have recovered and now increased likely reactive - Monitor CBC Hemoglobin and PLatelets - Supportive Transfusions PRN Current Visit: Yes Status: Acute Code(s): D61.810 - ANTINEOPLASTIC CHEMOTHERAPY INDUCED PANCYTOPENIA; T45.1X5A - ADVERSE EFFECT OF ANTINEOPLASTIC AND IMMUNOSUP DRUGS, INIT SNOMED Code(s): 331843380247829 OK for discharge from onc Will follow-up in office 1-2 weeks regarding rec to restart chemo
--- NOTE | 2020-10-16 15:04 | P.DS ---
Providers Date of admission: 10/10/20 15:00 Expected date of discharge: 10/16/20 Attending physician: Donny Sumner Consults: 10/10/20 15:00 Consult Physician Routine Consulting Provider: Nickolas Silva Consult Reason/Comments: eval for gallbladder disease Do you want consulting provider notified?: Yes Consult Physician Urgent Consulting Provider: Damion Rousseau Consult Reason/Comments: Oncological care Do you want consulting provider notified?: Already Contacted 10/12/20 10:58 Consult Physician Routine Consulting Provider: Skip Meyer Consult Reason/Comments: pos blood culture Do you want consulting provider notified?: Yes Primary care physician: [facility] Course: Chief Complaint: Fever History of presenting complaint: This is a pleasant 65-year-old patient who follows with Dr. Quach. Oncologist Dr. Rousseau. In May 2019, was admitted to [facility] with obstructive jaundice. ERCP showed CBD stricture. MRCP showed dilated gallbladder and biliary tree. Patient did have a stent placed. CT of the pancreas showed pancreatic head mass. FNA was positive for adenocarcinoma. Also hypodense lesion was found on the right hepatic lobe. Neoadjuvant chemotherapy, was recommended. Surgery was recommended. Laparoscopic evaluation showed liver lesions. Biopsy was positive. She was not felt to be a surgical candidate. Patient did complete chemotherapy in June 2020 and radiation treatment to the liver. PET scan did not show any uptake other than low level at the primary site. MRI done on 09/03/2020 showed multiple ring-enhancing lesions in the liver. Patient had first cycle of Gemzar and Abraxane end of August. Patient was then admitted to the hospital from September 24 through September 28. Had a fever. Ga llbladder ultrasound showed multiple dominant masses in the liver. Diffuse fatty infiltration of liver. Gallbladder wall was abnormally thickened with some pericholecystic fluid. Multiple fundal contents measuring 1.4 cm with calcification. Seen by Dr. Silva from general surgery. Was placed on IV Zosyn. Blood cultures were negative patient's fever resolved. Patient was discharged. October 05 patient received another course of chemotherapy. Dose was reduced by 10% at patient is having low-grade fever. October 07 patient started having a fever again. Has now presented for the same. No respiratory symptoms. No GI symptoms. No skin rash. No abdominal pain. No nausea vomiting. Appetite is fair. Patient is able to get around the house. Admitted with febrile neutropenia. Started on IV Zosyn and vancomycin. October 11: Yesterday evening patient did have fevers. Better this morning. Eating about 50%. Tired. is present. No new symptoms. October 12: Fevers are down. Blood cultures are coming back positive for Klebsiella pneumoniae. Oral intake about 50%. Surgeries planning on cholecystectomy October 13: Feeling better. Diet. Pending cholecystectomy. No abdominal pain. October 14: Underwent cholecystectomy. Some abdominal pain. Decreased appetite. Breathing stable. at the bedside October 15: Abdominal pain better. Eating some. Feeling better. present. White count is up. [place] to be from Filgastrin and received yesterday. October 16: Feeling better. Eating some. Has been out of bed. No fever no chills. Cleared by surgery to and IV to go home. Complete a course of ciprofloxacin Consultation: Dr. Silva from general surgery Dr. Rousseau from oncology Dr. Meyer from ID Past medical history: Pancreatic cancer with liver metastatic this, on chemotherapy, any dictation. Obstructive sleep apnea. Cognitive impairment. GERD. Social history: . No smoking. Alcohol rarely. Family history: Prostate cancer Physical examination: VITAL SIGNS: 98.6, 76, 14, 1 or 2 by city 6, 91% room air GENERAL: BMI 26.4, laying in bed, comfortable EYES: Pupils equal. Conjunctiva normal. HEENT: External appearance of nose and ears normal, oral cavity grossly normal. NECK: JVD not raised; masses not palpable. HEART: First and second heart sounds are normal; no edema. LUNGS: Respiratory rate normal; clear to auscultation. ABDOMEN: Soft, mild tender , no guarding rigidity, liver spleen not palpable, no masses palpable. PSYCH: [Alert and oriented x3; mood and affect better INVESTIGATIONS, reviewed in the clinical context: October 16: WBC 20.5 hemoglobin 7.8 potassium 3.6 bilirubin 0.8 AST 90 ALT 68 October 15: WBC 25 hemoglobin 9.8 platelets 105 potassium 3.9 creatinine 0.65 AST 125 in 2085 albumin 2.6 October 14: WBC 6.1 hemoglobin 10.6 platelets 60 potassium 3.8 creatinine 0.71 AST 164 ALT 109 October 13: WBC 3.2 hemoglobin 9.9 AST 150 ALT 109 total bilirubin 1.0 pro- calcitonin 0.3 October 12: WBC 2.8 hemoglobin 9.7 platelets 60 potassium 4.3 creatinine 0.71 AST 82 ALT 84 total bilirubin 0.8 October 11: WBC 1.2 hemoglobin 9.7 platelets 72 potassium 4.5 crit 0.75 AST 82 ALT 96 total bilirubin 1.1 Blood cultures [October 10]: Klebsiella pneumoniae. [October 12 ]: Negative Ultrasound gallbladder: Gallbladder wall thickening with internal echoes. WBC 0.4 hemoglobin 11.2 platelets 120 potassium 4.4 creatinine 0.75 sodium 131 Total bilirubin 1.6 AST 113 ALT 126 alkaline phosphatase 138 amylase less than 30 lipase less than 10 UA negative EKG tracing personally reviewed by me-normal sinus rhythm Chest x-ray film personally reviewed by me-no infiltrates Previous labs:[09/30/2020] white count 1.8 hemoglobin 11.1 platelets 56 Assessment and plan: - acute cholecystitis , followed by cholecystectomy IV cefepime. -Sepsis with blood cultures positive for Klebsiella pneumoniae IV cefepime. Complete 10 days of ciprofloxacin upon discharge - acute on chronic cholecystitis Cholecystectomy October 15 -Pancytopenia from chemotherapy: Improving Filgrastim -discontinued -Metastatic pancreatic cancer. Patient received second dose of chemotherapy. Status post radiation treatment. Patient being followed by oncologist Dr. Rousseau -MICHAEL On Prilosec -Cognitive impairment On Aricept, Namenda, Exelon patch -Mild protein calorie malnutrition, from decreased oral intake -Depression On Lexapro -Medical asthenia from metastatic disease and possibly chemotherapy Activity as tolerated Disposition: Home Plan - Discharge Summary Discharge Rx Participant: Yes New Discharge Prescriptions: New Ciprofloxacin HCl [Cipro] 500 mg PO Q12H #20 tab Continue Acetaminophen Tab [Tylenol] 500 mg PO Q6H PRN #30 tablet PRN Reason: Pain Colestipol HCl 2 gm PO BID Escitalopram [Lexapro] 10 mg PO DAILY Pyridoxine HCl (Vitamin B6) [Vitamin B-6] 1 tab PO DAILY Memantine [Namenda] 10 mg PO BID Ondansetron [Zofran] 4 mg PO QID PRN PRN Reason: Nausea Prochlorperazine [Compazine] 10 mg PO Q6H PRN PRN Reason: Nausea Cyanocobalamin (Vitamin B-12) [Vitamin B-12] 1,000 mcg PO DAILY Loperamide HCl [Imodium A-D] 2 mg PO Q6H PRN PRN Reason: Diarrhea Omeprazole [PriLOSEC] 40 mg PO AC-BRKFST chlorproMAZINE [Thorazine] 10 mg PO Q8H PRN PRN Reason: hiccups Docusate [Colace] 100 mg PO DAILY PRN PRN Reason: Constipation Rivastigmine 13.3MG/24Hr Patch [Exelon 13.3MG/24Hr Patch] 1 patch TRANSDERM DAILY Discharge Medication List Acetaminophen Tab [Tylenol] 500 mg PO Q6H PRN #30 tablet 08/01/19 [Rx] Colestipol HCl 2 gm PO BID 09/24/20 [History] Cyanocobalamin (Vitamin B-12) [Vitamin B-12] 1,000 mcg PO DAILY 09/24/20 [History] Escitalopram [Lexapro] 10 mg PO DAILY 09/24/20 [History] Loperamide HCl [Imodium A-D] 2 mg PO Q6H PRN 09/24/20 [History] Memantine [Namenda] 10 mg PO BID 09/24/20 [History] Omeprazole [PriLOSEC] 40 mg PO AC-BRKFST 09/24/20 [History] Pyridoxine HCl (Vitamin B6) [Vitamin B-6] 1 tab PO DAILY 09/24/20 [History] Docusate [Colace] 100 mg PO DAILY PRN 10/10/20 [History] Ondansetron [Zofran] 4 mg PO QID PRN 10/10/20 [History] Prochlorperazine [Compazine] 10 mg PO Q6H PRN 10/10/20 [History] Rivastigmine 13.3MG/24Hr Patch [Exelon 13.3MG/24Hr Patch] 1 patch TRANSDERM DAILY 10/10/20 [History] chlorproMAZINE [Thorazine] 10 mg PO Q8H PRN 10/10/20 [History] Ciprofloxacin HCl [Cipro] 500 mg PO Q12H #20 tab 10/16/20 [Rx] Follow up Appointment(s)/Referral(s): Damion Rousseau MD [STAFF PHYSICIAN] - 1 Week (OFFICE WILL CALL YOU WITH APPOINTMENT DATE/TIME. ) Paolo Quach DO [Primary Care Provider] - 1-2 days (OFFICE WILL CALL YOU WITH APPOINTMENT DATE/TIME.) Nickolas Silva MD [STAFF PHYSICIAN] - 10/27/20 3:45 am Patient Instructions/Handouts: *Surgery [facility] - (Patti Zavala) Laparoscopic Cholecystectomy, Fever in Adults (ED), Neutropenia (DC) Discharge Disposition: HOME SELF-CARE
--- NOTE | 2020-10-16 15:57 | P.PN ---
Progress Note - Text Progress Note Date: 10/16/20 REASON FOR FOLLOW UP: Klebsiella bacteremia secondary to cholecystitis, possible cholangitis. INTERVAL HISTORY: The patient remains to be afebrile. The patient is breathing comfortably. No chest pain, shortness of breath or cough. No nausea, vomiting, abdominal pain or diarrhea. PHYSICAL EXAMINATION: Blood pressure 100 /62 with a pulse of 70, temperature 98.7, saturating 91% on room air. General description is a middle-aged male lying in no distress. Respiratory system: Unlabored breathing, clear to auscultation anteriorly. Heart S1, S2. Regular rate and rhythm. Abdomen is soft, no tenderness. LABS: Repeat blood culture had been negative so far. DIAGNOSTIC IMPRESSION AND PLAN: Patient with Klebsiella bacteremia secondary to cholecystitis and cholangitis in this patient who seemed to have shown overall clinical improvement with IV cefepime. Plan is to finish therapy with oral Cipro 500 mg twice a day for another 12 days and close outpatient followup.
== END 2020-10-16 12:25 | disposition home or self-care (01) | DRG 853 ==
LOC: EC 12:30 → 5NMEDONC 15:00
PROVIDERS: ADMIT Hospitalist; ATTEND Hospitalist
PROC: 0FT44ZZ Resection of Gallbladder, Percutaneous Endoscopic Approach (ICD-10-PCS; principal; 2020-10-14 09:45)
PROC: 0FB24ZX Excision of Left Lobe Liver, Percutaneous Endoscopic Approach, Diagnostic (ICD-10-PCS; principal; 2020-10-14 09:45)
DX: A41.59 Other Gram-negative sepsis (principal); D61.810 Antineoplastic chemotherapy induced pancytopenia; K83.1 Obstruction of bile duct; C25.0 Malignant neoplasm of head of pancreas; K83.09 Other cholangitis; C78.7 Secondary malignant neoplasm of liver and intrahepatic bile duct; E44.1 Mild protein-calorie malnutrition; K81.2 Acute cholecystitis with chronic cholecystitis; K21.9 Gastro-esophageal reflux disease without esophagitis; F02.80 Dementia in other diseases classified elsewhere, unspecified severity, without behavioral disturbance, psychotic disturbance, mood disturbance, and anxiety; G31.01 Pick's disease; K76.0 Fatty (change of) liver, not elsewhere classified; G30.9 Alzheimer's disease, unspecified; R50.81 Fever presenting with conditions classified elsewhere; T45.1X5A Adverse effect of antineoplastic and immunosuppressive drugs, initial encounter; G47.33 Obstructive sleep apnea (adult) (pediatric); F32.9 Major depressive disorder, single episode, unspecified; Z79.899 Other long term (current) drug therapy; Z86.16 Personal history of COVID-19; Z96.89 Presence of other specified functional implants; Z90.49 Acquired absence of other specified parts of digestive tract; Z87.19 Personal history of other diseases of the digestive system; Z90.79 Acquired absence of other genital organ(s); Z87.39 Personal history of other diseases of the musculoskeletal system and connective tissue; Z92.3 Personal history of irradiation; Z87.438 Personal history of other diseases of male genital organs; Z98.890 Other specified postprocedural states; Z88.8 Allergy status to other drugs, medicaments and biological substances; Z80.42 Family history of malignant neoplasm of prostate
CPT/HCPCS: 36415; 71046; 76705; 80053; 80202; 81003; 82150; 83605; 83690; 84145; 85025; 85610; 85730; 86850; 86900; 86901; 87040; 87077; 87186; 88304; 88307; 88341; 88342; 93005; 99284

== ENCOUNTER 2020-10-18 14:09 | Emergency (ER) | payer MEDICAID ==
[2020-10-18 14:17] VITALS: TEMP 98.3
[2020-10-18] MEDS ORDERED: SODIUM CHLORIDE 0.9% 500 ML 500 ML IV STA (14:39)
--- NOTE | 2020-10-18 14:42 | ED ---
General Adult HPI - General Chief complaint: Recheck/Abnormal Lab/Rx Stated complaint: vomiting, low BP Time Seen by Provider: 10/18/20 14:20 Source: patient, family Mode of arrival: wheelchair Limitations: no limitations - History of Present Illness Initial comments: Dictation was produced using [employer] dictation software. please excuse any grammatical, word or spelling errors. Chief Complaint: 65-year-old male presents with nausea vomiting and low blood pressure History of Present Illness: 65-year-old male who has past medical history of pancreatic and liver cancer. 4 days ago patient had cholecystectomy and liver biopsy. Today he woke up with bruising noted to his right flank. Patient denies any significant abdominal pain. He has history of pancytopenia secondary to chemotherapy. Patient's been having poor appetite. Complains of nausea. Has not had a bowel movement since before the surgery. No constitutional sym ptoms. Patient has history of significant thrombocytopenia. 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 The ROS documented in this emergency department record has been reviewed and confirmed by me. Those systems with pertinent positive or negative responses have been documented in the HPI. All other systems are other negative and/or noncontributory. PHYSICAL EXAM: General Impression: Alert and oriented x3, not in acute distress, pale HEENT: Normocephalic atraumatic, extra-ocular movements intact, pupils equal and reactive to light bilaterally, dry mucous membranes Cardiovascular: Heart regular rate and rhythm Chest: Able to complete full sentences, no retractions, no tachypnea Abdomen: abdomen soft, non-tender, non-distended, no organomegaly, surgical site is clean dry and intact Musculoskeletal: Pulses present and equal in all extremities, no peripheral edema Motor: no focal deficits noted Neurological: CN II-XII grossly intact, no focal motor or sensory deficits noted Skin: Right Flank ecchymoses Psych: Normal affect and mood ED course: 65-year-old male presents to the emergency department for nausea vomiting and low blood pressure. Vital signs as upon arrival are within acceptable limits. Laboratory evaluation obtained. Hemoglobin was 8.1 which is improved. His plat elets are essentially improved. No leukocytosis. Coag panel is unremarkable. Metabolic panel is within acceptable limits. Computed tomography scan of the abdomen and pelvis was obtained showing no acute processes. There is redemonstration of metastatic disease to the liver. There does appear to be possibly infiltrate in the lung base. Patient does not have any respiratory symptoms. Slightly atelectasis. Patient is on antibiotics at home that would cover for ear infection. Patient reevaluated bedside at 510 after being observed in emergency department for approximately 3 hours. Disposition options were discussed. There wanting to go home and to follow-up with tomorrow on outpatient basis. I believe this is a reasonable disposition given that reports that patient's blood pressure currently is his new baseline since the last couple weeks. She is reliable patient has good social situation compared to the emergency department things get worse. He also given follow-up with outpatient doctors. Patient feels well. EKG interpretation: Ventricular rate 34, normal sinus rhythm,. Interval 142, care is 84, QTC 426. No MS prolongation, no QTC prolongation, no ST or T-wave changes noted. EKG compared to 10/10/2020 showing no changes. Overall, this EKG is unremarkable - Related Data Home Medications Medication Instructions Recorded Confirmed Colestipol HCl 2 gm PO BID 09/24/20 10/10/20 Cyanocobalamin (Vitamin B-12) 1,000 mcg PO DAILY 09/24/20 10/10/20 [Vitamin B-12] Escitalopram [Lexapro] 10 mg PO DAILY 09/24/20 10/10/20 Loperamide HCl [Imodium A-D] 2 mg PO Q6H PRN 09/24/20 10/10/20 Memantine [Namenda] 10 mg PO BID 09/24/20 10/10/20 Omeprazole [PriLOSEC] 40 mg PO AC-BRKFST 09/24/20 10/10/20 Pyridoxine HCl (Vitamin B6) 1 tab PO DAILY 09/24/20 10/10/20 [Vitamin B-6] Docusate [Colace] 100 mg PO DAILY PRN 10/10/20 10/10/20 Ondansetron [Zofran] 4 mg PO QID PRN 10/10/20 10/10/20 Prochlorperazine [Compazine] 10 mg PO Q6H PRN 10/10/20 10/10/20 Rivastigmine 13.3MG/24Hr Patch 1 patch TRANSDERM DAILY 10/10/20 10/10/20 [Exelon 13.3MG/24Hr Patch] chlorproMAZINE [Thorazine] 10 mg PO Q8H PRN 10/10/20 10/10/20 Previous Rx's Medication Instructions Recorded Acetaminophen Tab [Tylenol] 500 mg PO Q6H PRN #30 tablet 08/01/19 Ciprofloxacin HCl [Cipro] 500 mg PO Q12H #20 tab 10/16/20 Allergies Allergy/AdvReac Type Severity Reaction Status Date / Time donepezil [From Aricept] AdvReac Diarrhea Verified 10/18/20 14:12 Review of Systems ROS Statement: Those systems with pertinent positive or pertinent negative responses have been documented in the HPI. ROS Other: All systems not noted in ROS Statement are negative. Past Medical History Past Medical History: Cancer, GERD/Reflux, Memory Impairment, Sleep Apnea/CPAP/BIPAP Additional Past Medical History / Comment(s): Pancreatic CA with liver mets 2nd dose of new chemo 10/05, radiation end of July, Alzheimer's History of Any Multi-Drug Resistant Organisms: None Reported Past Surgical History: Appendectomy, Hernia Repair Additional Past Surgical History / Comment(s): LT ORCHIECTOMY (done at age 17) , LT bone spur, MARIO INGUINAL HERNIA REPAIR, STENT IN CBD, Right infusaport Past Anesthesia/Blood Transfusion Reactions: No Reported Reaction Past Psychological History: No Psychological Hx Reported Smoking Status: Never smoker Past Alcohol Use History: Rare Past Drug Use History: None Reported - Past Family History Mother Family Medical History: No Reported History Father Family Medical History: Cancer Additional Family Medical History / Comment(s): PROSTATE CANCER General Exam Limitations: no limitations Course Vital Signs 10/18/20 10/18/20 14:13 16:30 Temperature 98.3 F Pulse Rate 87 70 Respiratory 16 18 Rate Blood Pressure 96/64 97/66 O2 Sat by Pulse 97 96 Oximetry Medical Decision Making - Lab Data Result diagrams: 10/18/20 14:58 10/18/20 14:58 Lab Results 10/18/20 10/18/20 10/18/20 Range/Units 14:58 14:58 14:58 WBC 8.3 (3.8-10.6) k/uL RBC 2.51 L (4.30-5.90) m/uL Hgb 8.1 L (13.0-17.5) gm/dL Hct 25.2 L (39.0-53.0) % MCV 100.6 H (80.0-100.0) fL MCH 32.5 (25.0-35.0) pg MCHC 32.3 (31.0-37.0) g/dL RDW 17.9 H (11.5-15.5) % Plt Count 119 L (150-450) k/uL MPV 9.1 Neutrophils % 90 % Lymphocytes % 3 % Monocytes % 5 % Eosinophils % 0 % Basophils % 0 % Neutrophils # 7.5 (1.3-7.7) k/uL Lymphocytes # 0.3 L (1.0-4.8) k/uL Monocytes # 0.4 (0-1.0) k/uL Eosinophils # 0.0 (0-0.7) k/uL Basophils # 0.0 (0-0.2) k/uL Hypochromasia Slight Anisocytosis Slight Macrocytosis Slight PT 12.2 H (9.0-12.0) sec INR 1.2 H (<1.2) APTT 22.1 (22.0-30.0) sec Sodium 136 L (137-145) mmol/L Potassium 3.9 (3.5-5.1) mmol/L Chloride 105 (98-107) mmol/L Carbon Dioxide 25 (22-30) mmol/L Anion Gap 6 mmol/L BUN 13 (9-20) mg/dL Creatinine 0.62 L (0.66-1.25) mg/dL Est GFR (CKD-EPI)AfAm >90 (>60 ml/min/1.73 sqM) Est GFR (CKD-EPI)NonAf >90 (>60 ml/min/1.73 sqM) Glucose 194 H (74-99) mg/dL Calcium 8.0 L (8.4-10.2) mg/dL Total Bilirubin 0.9 (0.2-1.3) mg/dL AST 80 H (17-59) U/L ALT 64 H (4-49) U/L Alkaline Phosphatase 179 H (38-126) U/L Total Protein 5.0 L (6.3-8.2) g/dL Albumin 2.5 L (3.5-5.0) g/dL Lipase <10 L (23-300) U/L Disposition Clinical Impression: Weakness Disposition: HOME SELF-CARE Condition: Fair Instructions (If sedation given, give patient instructions): Weakness (ED) Is patient prescribed a controlled substance at d/c from ED?: No Referrals: Paolo Quach DO [Primary Care Provider] - 1-2 days Damion Rousseau MD [STAFF PHYSICIAN] - 1-2 days
[2020-10-18 15:11] LABS: Anisocytosis Slight; Basophils % (A) 0 %; Eosinophils % (A) 0 %; HCT 25.2 % (39.0-53.0); HGB 8.1 gm/dL (13.0-17.5); Hypochromasia Slight; Lymphocytes # (A) 0.3 k/uL (1.0-4.8); Lymphocytes % (A) 3 %; MCH 32.5 pg (25.0-35.0); MCHC 32.3 g/dL (31.0-37.0); MCV 100.6 fL (80.0-100.0); Macrocytosis Slight; Mean Platelet Volume 9.1; Monocytes # (A) 0.4 k/uL (0-1.0); Monocytes % (A) 5 %; Neutrophils # (A) 7.5 k/uL (1.3-7.7); Neutrophils % (A) 90 %; Platelet Count 119 k/uL (150-450); RBC 2.51 m/uL (4.30-5.90); RDW 17.9 % (11.5-15.5); WBC 8.3 k/uL (3.8-10.6)
[2020-10-18 15:21] LABS: INR 1.2 (<1.2); Prothrombin Time 12.2 sec (9.0-12.0)
[2020-10-18 15:24] LABS: ALT 64 U/L (4-49); AST 80 U/L (17-59); African American GFR (CKD) >90 (>60 ml/min/1.73 sqM); Albumin 2.5 g/dL (3.5-5.0); Alkaline Phosphatase 179 U/L (38-126); Anion Gap 6 mmol/L; Blood Urea Nitrogen 13 mg/dL (9-20); Carbon Dioxide 25 mmol/L (22-30); Chloride 105 mmol/L (98-107); Glucose 194 mg/dL (74-99); Lipase <10 U/L (23-300); Non-African American GFR(CKD) >90 (>60 ml/min/1.73 sqM); Potassium 3.9 mmol/L (3.5-5.1); Sodium 136 mmol/L (137-145); Total Bilirubin 0.9 mg/dL (0.2-1.3)
[2020-10-18 15:28] LABS: Partial Thromboplastin Time 22.1 sec (22.0-30.0)
[2020-10-18 16:31] VITALS: BP 97/66; PULSE 70; RESP 18
--- NOTE | 2020-10-18 16:56 | CT ---
EXAMINATION TYPE: CT abdomen pelvis w con DATE OF EXAM: 10/18/2020 COMPARISON: 04/24/2020 HISTORY: Hypotension, flank ecchymosis, POD [address] DLP: 1260.9 mGycm Automated exposure control for dose reduction was used. CONTRAST: Performed with IV Contrast, patient injected with 100 mL of Isovue 300. Images obtained from the diaphragm to the floor the pelvis with IV contrast. There are bilateral pleural effusions. There is some atelectasis and infiltrate at the posterior lung bases bilaterally. There is mild hiatal hernia. Heart size is normal. There is no pericardial effusi on. There is some fatty infiltration of the liver. There are multiple hypodense foci in the liver yaya t measure up to 2.5 cm. Spleen is intact. I see no pancreatic mass. There is biliary stent noted. The bile ducts are not dilated. There is air in the anterior biliary tree related to reflux. There is no adrenal mass. Kidneys have normal size and contour. There is no hydronephrosis. There is no retroperitoneal adenopathy. Ureters are not dilated. Delayed images show normal renal excretion. T here is no retroperitoneal adenopathy. There is small amount of fluid in the pelvis. Bladder distends smoothly. There is no inguinal hernia. There is no evidence of pelvic mass. There is no evidence of a bowel obstruction. There is no mesenteric edema. There is no free air. The lumbar vertebra have normal alignment. The posterior elements are intact. There is mild spurring of t he endplates. Facet joints are intact. Bony pelvis is intact. There is no hip dysplasia. There is moderate spinal stenosis at L4-5 and L3-4 due to calcified posterior disc herniation and fac et arthropathy. IMPRESSION: Multiple hypodense liver lesions consistent with metastatic disease which appear new compared to 04/24. The PET CT scan of 07/24/2020 is without contrast and is not comparable. Hypermetabolic lesions are demonstrated on the PET CT scan of 07/24/2020 in the liver. It is difficult to compare size. There are bilateral pleural effusions and basilar pulmonary atelectasis and infiltrate that are new c ompared to 07/24/2020 PET/CT scan. There is some new abdominal ascites fluid compared to old exam.
== END 2020-10-18 17:58 | disposition home or self-care (01) ==
LOC: EC 14:09
DX: R53.1 Weakness (principal); K21.9 Gastro-esophageal reflux disease without esophagitis; G30.9 Alzheimer's disease, unspecified; F02.80 Dementia in other diseases classified elsewhere, unspecified severity, without behavioral disturbance, psychotic disturbance, mood disturbance, and anxiety; Z85.07 Personal history of malignant neoplasm of pancreas; Z85.05 Personal history of malignant neoplasm of liver; Z90.49 Acquired absence of other specified parts of digestive tract; Z90.79 Acquired absence of other genital organ(s)
CPT/HCPCS: 36415; 93005; 80053; 83690; 85025; 85610; 85730; 74177; 99284; Q9967

== ENCOUNTER 2020-10-27 15:16 | Inpatient (IN) | payer MEDICAID ==
[2020-10-27] MEDS ORDERED: SODIUM CHLORIDE 0.9% 500 ML 500 ML IV ONE (16:14)
--- NOTE | 2020-10-27 16:17 | ED ---
General Adult HPI - General Chief complaint: Weakness Stated complaint: weak/not eating Time Seen by Provider: 10/27/20 15:45 Source: patient, RN notes reviewed, old records reviewed Mode of arrival: wheelchair Limitations: no limitations - History of Present Illness Initial comments: 65-year-old presented from the oncologist office. Patient has had a recent conjugated medical history including pancreatic cancer, pancytopenia, bacteremia, and upper scope cholecystectomy. Patient had been seen in follow-up and was sent to the emergency department with concern for anemia and hypotension. He is currently on ciprofloxacin wound will complete his an tibiotics today. He has no reported fever. He denies pain complaints at the time my evaluation. He is not a good historian but his who is at bedside is able to give detailed history. - Related Data Home Medications Medication Instructions Recorded Confirmed Cyanocobalamin (Vitamin B-12) 1,000 mcg PO DAILY 09/24/20 10/27/20 [Vitamin B-12] Escitalopram [Lexapro] 10 mg PO DAILY 09/24/20 10/27/20 Memantine [Namenda] 10 mg PO BID 09/24/20 10/27/20 Omeprazole [PriLOSEC] 40 mg PO HS 09/24/20 10/27/20 Pyridoxine HCl (Vitamin B6) 1 tab PO DAILY 09/24/20 10/27/20 [Vitamin B-6] Ondansetron [Zofran] 4 mg PO QID PRN 10/10/20 10/27/20 Lidocaine-Prilocaine Cream [Emla 1 applic TOPICAL DAILY PRN 10/27/20 10/27/20 Cream 2.5%/2.5%] OLANZapine [ZyPREXA] 5 mg PO HS 10/27/20 10/27/20 Rivastigmine [Exelon 13.3MG/24Hr 1 patch TRANSDERM Q24HR 10/27/20 10/27/20 Patch] dronabinoL [Marinol] 2.5 mg PO BID 10/27/20 10/27/20 Allergies Allergy/AdvReac Type Severity Reaction Status Date / Time donepezil [From Aricept] AdvReac Diarrhea Verified 10/27/20 17:05 Review of Systems ROS Statement: Those systems with pertinent positive or pertinent negative responses have been documented in the HPI. ROS Other: All systems not noted in ROS Statement are negative. Past Medical History Past Medical History: Cancer, GERD/Reflux, Memory Impairment, Sleep Apnea/CPAP/BIPAP Additional Past Medical History / Comment(s): Pancreatic CA with liver mets 2nd dose of new chemo 10/05, radiation end of July, Alzheimer's History of Any Multi-Drug Resistant Organisms: None Reported Past Surgical History: Appendectomy, Hernia Repair Additional Past Surgical History / Comment(s): LT ORCHIECTOMY (done at age 17) , LT bone spur, MARIO INGUINAL HERNIA REPAIR, STENT IN CBD, Right infusaport Past Anesthesia/Blood Transfusion Reactions: No Reported Reaction Past Psychological History: No Psychological Hx Reported Smoking Status: Never smoker Past Alcohol Use History: Rare Past Drug Use History: None Reported - Past Family History Mother Family Medical History: No Reported History Father Family Medical History: Cancer Additional Family Medical History / Comment(s): PROSTATE CANCER General Exam Limitations: no limitations General appearance: lethargic Head exam: Present: atraumatic, normocephalic Eye exam: Present: normal appearance, PERRL ENT exam: Present: mucous membranes dry Neck exam: Present: normal inspection. Absent: tenderness, meningismus Respiratory exam: Present: normal lung sounds bilaterally. Absent: respiratory distress, wheezes GI/Abdominal exam: Present: soft, other (Ecchymosis, surgical incisions are healing without purulence or surrounding cellulitis, he has right flank ecchymosis) Extremities exam: Present: normal inspection, normal capillary refill. Absent: pedal edema Neurological exam: Present: alert, CN II-XII intact. Absent: motor sensory deficit Skin exam: Present: warm, dry, intact, pallor Course Vital Signs 10/27/20 15:44 Temperature 99 F Pulse Rate 77 Respiratory 18 Rate Blood Pressure 91/58 O2 Sat by Pulse 95 Oximetry EKG Findings - EKG Comments: EKG Findings:: EKG: Normal sinus rhythm, rate of 64, GA interval 144, QRS duration 84, QTC 400, no ST segment elevation. Medical Decision Making - Lab Data Result diagrams: 10/27/20 15:53 10/27/20 15:53 Lab Results 10/27/20 10/27/20 10/27/20 Range/Units 15:53 15:53 15:53 WBC 8.0 (3.8-10.6) k/uL RBC 2.97 L (4.30-5.90) m/uL Hgb 9.9 L D (13.0-17.5) gm/dL Hct 30.3 L (39.0-53.0) % MCV 101.9 H (80.0-100.0) fL MCH 33.4 (25.0-35.0) pg MCHC 32.8 (31.0-37.0) g/dL RDW 17.5 H (11.5-15.5) % Plt Count 245 D (150-450) k/uL MPV 7.7 Neutrophils % 84 % Lymphocytes % 4 % Monocytes % 10 % Eosinophils % 0 % Basophils % 0 % Neutrophils # 6.8 (1.3-7.7) k/uL Lymphocytes # 0.3 L (1.0-4.8) k/uL Monocytes # 0.8 (0-1.0) k/uL Eosinophils # 0.0 (0-0.7) k/uL Basophils # 0.0 (0-0.2) k/uL Hypochromasia Moderate Poikilocytosis Slight Anisocytosis Slight Macrocytosis Moderate PT 11.6 (9.0-12.0) sec INR 1.1 (<1.2) APTT 22.1 (22.0-30.0) sec Sodium (137-145) mmol/L Potassium (3.5-5.1) mmol/L Chloride (98-107) mmol/L Carbon Dioxide (22-30) mmol/L Anion Gap mmol/L BUN (9-20) mg/dL Creatinine (0.66-1.25) mg/dL Est GFR (CKD-EPI)AfAm (>60 ml/min/1.73 sqM) Est GFR (CKD-EPI)NonAf (>60 ml/min/1.73 sqM) Glucose (74-99) mg/dL Plasma Lactic Acid [place] (0.7-2.0) mmol/L Calcium (8.4-10.2) mg/dL Magnesium (1.6-2.3) mg/dL Total Bilirubin (0.2-1.3) mg/dL AST (17-59) U/L ALT (4-49) U/L Alkaline Phosphatase (38-126) U/L Total Protein (6.3-8.2) g/dL Albumin (3.5-5.0) g/dL Urine Color Light [place] Urine Appearance Clear (Clear) Urine pH 6.0 (5.0-8.0) Ur Specific [place] 1.025 (1.001-1.035) Urine Protein 1+ H (Negative) Urine Glucose (UA) Negative (Negative) Urine Ketones Negative (Negative) Urine Blood Negative (Negative) Urine Nitrite Negative (Negative) Urine Bilirubin Negative (Negative) Urine Urobilinogen 4.0 (<2.0) mg/dL Ur Leukocyte Esterase Negative (Negative) Urine RBC 1 (0-5) /hpf Urine WBC 3 (0-5) /hpf Hyaline Casts 1 (0-2) /lpf Urine Mucus Many H (None) /hpf 10/27/20 10/27/20 Range/Units 15:53 16:10 WBC (3.8-10.6) k/uL RBC (4.30-5.90) m/uL Hgb (13.0-17.5) gm/dL Hct (39.0-53.0) % MCV (80.0-100.0) fL MCH (25.0-35.0) pg MCHC (31.0-37.0) g/dL RDW (11.5-15.5) % Plt Count (150-450) k/uL MPV Neutrophils % % Lymphocytes % % Monocytes % % Eosinophils % % Basophils % % Neutrophils # (1.3-7.7) k/uL Lymphocytes # (1.0-4.8) k/uL Monocytes # (0-1.0) k/uL Eosinophils # (0-0.7) k/uL Basophils # (0-0.2) k/uL Hypochromasia Poikilocytosis Anisocytosis Macrocytosis PT (9.0-12.0) sec INR (<1.2) APTT (22.0-30.0) sec Sodium 131 L (137-145) mmol/L Potassium 4.4 (3.5-5.1) mmol/L Chloride 102 (98-107) mmol/L Carbon Dioxide 22 (22-30) mmol/L Anion Gap 7 mmol/L BUN 13 (9-20) mg/dL Creatinine 0.80 (0.66-1.25) mg/dL Est GFR (CKD-EPI)AfAm >90 (>60 ml/min/1.73 sqM) Est GFR (CKD-EPI)NonAf >90 (>60 ml/min/1.73 sqM) Glucose 109 H (74-99) mg/dL Plasma Lactic Acid [place] 1.2 (0.7-2.0) mmol/L Calcium 8.3 L (8.4-10.2) mg/dL Magnesium 2.3 (1.6-2.3) mg/dL Total Bilirubin 1.2 (0.2-1.3) mg/dL AST 109 H (17-59) U/L ALT 46 (4-49) U/L Alkaline Phosphatase 168 H (38-126) U/L Total Protein 5.9 L (6.3-8.2) g/dL Albumin 2.9 L (3.5-5.0) g/dL Urine Color Urine Appearance (Clear) Urine pH (5.0-8.0) Ur Specific [place] (1.001-1.035) Urine Protein (Negative) Urine Glucose (UA) (Negative) Urine Ketones (Negative) Urine Blood (Negative) Urine Nitrite (Negative) Urine Bilirubin (Negative) Urine Urobilinogen (<2.0) mg/dL Ur Leukocyte Esterase (Negative) Urine RBC (0-5) /hpf Urine WBC (0-5) /hpf Hyaline Casts (0-2) /lpf Urine Mucus (None) /hpf Disposition Clinical Impression: Dehydration, Pancreatic cancer metastasized to liver, Weakness Disposition: ADMITTED IP TO THIS [facility] Condition: Stable Is patient prescribed a controlled substance at d/c from ED?: No Referrals: Paolo Quach DO [Primary Care Provider] - 1-2 days Time of Disposition: 17:44 Decision to Admit Reason: Admit from EC Decision Date: 10/27/20 Decision Time: 17:44
[2020-10-27] MEDS ORDERED: CEFEPIME 2 GM in SODIUM CHLORIDE 0.9% 100 ML IVPB STA (16:20)
[2020-10-27 16:25] LABS: Anisocytosis Slight; Basophils % (A) 0 %; Eosinophils % (A) 0 %; HCT 30.3 % (39.0-53.0); Hypochromasia Moderate; Lymphocytes # (A) 0.3 k/uL (1.0-4.8); Lymphocytes % (A) 4 %; MCH 33.4 pg (25.0-35.0); MCHC 32.8 g/dL (31.0-37.0); MCV 101.9 fL (80.0-100.0); Macrocytosis Moderate; Mean Platelet Volume 7.7; Monocytes # (A) 0.8 k/uL (0-1.0); Monocytes % (A) 10 %; Neutrophils # (A) 6.8 k/uL (1.3-7.7); Neutrophils % (A) 84 %; Poikilocytosis Slight; RBC 2.97 m/uL (4.30-5.90); RDW 17.5 % (11.5-15.5)
--- NOTE | 2020-10-27 16:28 | XR ---
EXAMINATION TYPE: XR chest 2V DATE OF EXAM: 10/27/2020 COMPARISON: Chest x-ray October 10, 2020 HISTORY: Weakness. TECHNIQUE: Frontal and lateral views of the chest are obtained. FINDINGS: Low lung volumes redemonstrated with diminished inspiration on current study. New small to tiny bilateral pleural effusions and associated bibasilar linear atelectasis. Cardiac silhouette size is stable and within normal limits. Stable right internal jugular Mediport catheter. Multilevel spu rring in thoracic spine. IMPRESSION: Diminished inspiration. Persistent low lung volumes with new small to tiny bilateral ple ural effusions and associated bibasilar linear atelectasis.
[2020-10-27 16:33] LABS: INR 1.1 (<1.2); Partial Thromboplastin Time 22.1 sec (22.0-30.0); Prothrombin Time 11.6 sec (9.0-12.0)
[2020-10-27 16:34] LABS: HGB 9.9 gm/dL (13.0-17.5); Platelet Count 245 k/uL (150-450)
[2020-10-27 16:35] LABS: ALT 46 U/L (4-49); AST 109 U/L (17-59); African American GFR (CKD) >90 (>60 ml/min/1.73 sqM); Albumin 2.9 g/dL (3.5-5.0); Alkaline Phosphatase 168 U/L (38-126); Anion Gap 7 mmol/L; Blood Urea Nitrogen 13 mg/dL (9-20); Calcium 8.3 mg/dL (8.4-10.2); Carbon Dioxide 22 mmol/L (22-30); Chloride 102 mmol/L (98-107); Glucose 109 mg/dL (74-99); Magnesium 2.3 mg/dL (1.6-2.3); Non-African American GFR(CKD) >90 (>60 ml/min/1.73 sqM); Potassium 4.4 mmol/L (3.5-5.1); Sodium 131 mmol/L (137-145); Total Bilirubin 1.2 mg/dL (0.2-1.3); Total Protein 5.9 g/dL (6.3-8.2)
[2020-10-27] MEDS: SODIUM CHLORIDE 0.9% 1,000 ML IV SCH (16:38)
[2020-10-27] MEDS ORDERED: NALOXONE 0.4 MG/ML 1 ML VIAL IV PRN (17:35)
[2020-10-27] MEDS ORDERED: HYDROmorphone 0.5 MG/0.5 ML SYRINGE IVP PRN (17:35)
[2020-10-27] MEDS ORDERED: ACETAMINOPHEN TAB 325 MG TAB PO PRN (17:35)
[2020-10-27 17:41] LABS: Appearance,Urine Clear (Clear); Bilirubin,Urine Negative (Negative); Blood,Urine Negative (Negative); Color,Urine Light Orange; Glucose,Urine (UA) Negative (Negative); Hyaline Casts,Urine 1 /lpf (0-2); Ketones,Urine Negative (Negative); Leukocyte Esterase,Urine Negative (Negative); Mucus,Urine Many /hpf; Nitrite,Urine Negative (Negative); Protein,Urine 1+ (Negative); RBC,Urine 1 /hpf (0-5); Specific Gravity,Urine 1.025 (1.001-1.035); WBC,Urine 3 /hpf (0-5)
[2020-10-27] MEDS ORDERED: LIDOCAINE-PRILOCAINE 2.5-2.5% CREAM 5 GM TUBE TOPICAL PRN (18:36)
[2020-10-27] MEDS ORDERED: ONDANSETRON 4 MG TAB PO PRN (18:36)
[2020-10-27] MEDS: MEMANTINE 10 MG TAB PO SCH (20:53)
[2020-10-27] MEDS: PANTOPRAZOLE 40 MG TABLET PO SCH (20:55)
[2020-10-27] MEDS: OLANZapine 5 MG TAB PO SCH (20:55)
--- NOTE | 2020-10-27 22:19 | P.HPIM ---
History of Present Illness H&P Date: 10/27/20 Chief Complaint: Weak and tired History of presenting complaint: This is a pleasant 65-year-old patient who follows with Dr. Quach. Oncologist Dr. Rousseau. In May 2019, was admitted to [facility] with obstructive jaundice. ERCP showed CBD stricture. MRCP showed dilated gallbladder and biliary tree. Patient did have a stent placed. CT of the pancreas showed p ancreatic head mass. FNA was positive for adenocarcinoma. Also hypodense lesion was found on the right hepatic lobe. Neoadjuvant chemotherapy, was recommended. Surgery was recommended. Laparoscopic evaluation showed liver lesions. Biopsy was positive. was not felt to be a surgical candidate. Patient did complete chemotherapy in June 2020 and radiation treatment to the liver. PET scan did not show any uptake other than low level at the primary site. MRI done on 09/03/2020 showed multiple ring-enhancing lesions in the liver. Patient had first cycle of Gemzar and Abraxane end of August. Patient was then admitted to the hospital from September 24 through September 28. Had a fever. Gallbladder ultrasound showed multiple dominant masses in the liver. Diffuse fatty infiltration of liver. Gallbladder wall was abnormally thickened with some pericholecystic fluid. Multiple fundal contents measuring 1.4 cm with calcification. Seen by Dr. Silva from general surgery. Was placed on IV Zosyn. Blood cultures were negative patient's fever resolved. Patient was discharged. October 05 patient received another course of chemotherapy. Dose was reduced by 10% at patient is having low-grade fever. October 07 patient started having a fever again. October [address] by [address] Silva. Did receive antibiotics and complete the course of oral antibiotic. When patient was discharged, October 16 patient is eating some. Tired. Patient now returns to the ER and has progressively been getting more and more weak. To the point today barely able to walk. Poor appetite. Doesn't feel lik e eating. No obvious fever. Constipated. No respiratory urinary symptoms. Review of systems: GEN.: Decrease appetite, tired EYES: None HEENT: None NECK: None RESPIRATORY: None CARDIOVASCULAR: None GASTROINTESTINAL: Constipation GENITOURINARY: None MUSCULOSKELETAL: Muscle weakness LYMPHATICS: None HEMATOLOGICAL: None PSYCHIATRY: Forgetful NEUROLOGICAL: None Past medical history: Pancreatic cancer with liver metastatic this, on chemotherapy, . Obstructive sleep apnea. Cognitive impairment. GERD. Social history: . No smoking. Alcohol rarely. Family history: Prostate cancer Physical examination: VITAL SIGNS: 99, 67, 20, 98/62, 95% room air GENERAL: BMI 26.4, laying in bed, tired. EYES: Pupils equal. Conjunctiva normal. HEENT: External appearance of nose and ears normal, oral cavity grossly normal. NECK: JVD not raised; masses not palpable. HEART: First and second heart sounds are normal; no edema. LUNGS: Respiratory rate normal; clear to auscultation. ABDOMEN: Soft, nontender, liver spleen not palpable, no masses palpable. Superficial bruising PSYCH: Alert and oriented x3; mood and affect tired NEUROLOGICAL: Cranial nerves grossly intact; no facial asymmetry, power and sensation grossly intact. LYMPHATICS: No lymph nodes palpable in the axilla and neck INVESTIGATIONS, reviewed in the clinical context: WBC 8 hemoglobin 9.9 platelets 245 potassium 4.4 creatinine 0.8 sodium 131 Albumin 2.9 UA negative for leukoesterase nitrite. EKG tracing personally reviewed by me-normal sinus rhythm Chest x-ray film personally reviewed by me-clear Assessment and plan: - Acute on chronic medical debility worsening from decreased oral intake. Multiple medical problems. PT OT. Hydration. -Anorexia, primarily from metastatic pancreatic cancer And Marinol -Acute myopathy likely from malignancy including proximal muscle weakness Nutritional support. PTOT -Normocytic anemia likely of malignancy Follow H&H -Metastatic pancreatic cancer. Received chemotherapy. Status post radiation treatment. Patient being followed by oncologist Dr. Rousseau -GERD On Prilosec -Cognitive impairment On Aricept, Namenda, Exelon patch -Mild protein calorie malnutrition, from decreased oral intake Dietitian consult -Depression On Lexapro Patient is rather weak. Multifactorial. Add Marinol. PTOT. Dietitian consult. Fall precautions. Patient says no obvious clinical evidence of infection. Past Medical History Past Medical History: Cancer, GERD/Reflux, Memory Impairment, Sleep Apnea/CPAP/BIPAP Additional Past Medical History / Comment(s): Pancreatic CA with liver mets 2nd dose of new chemo 10/05, radiation end of July, Alzheimer's History of Any Multi-Drug Resistant Organisms: None Reported Past Surgical History: Appendectomy, Hernia Repair Additional Past Surgical History / Comment(s): LT ORCHIECTOMY (done at age 17) , LT bone spur, MARIO INGUINAL HERNIA REPAIR, STENT IN CBD, Right infusaport Past Anesthesia/Blood Transfusion Reactions: No Reported Reaction Past Psychological History: No Psychological Hx Reported Smoking Status: Never smoker Past Alcohol Use History: Rare Past Drug Use History: None Reported - Past Family History Mother Family Medical History: No Reported History Father Family Medical History: Cancer Additional Family Medical History / Comment(s): PROSTATE CANCER Medications and Allergies Home Medications Medication Instructions Recorded Confirmed Type Cyanocobalamin (Vitamin B-12) 1,000 mcg PO DAILY 09/24/20 10/27/20 History [Vitamin B-12] Escitalopram [Lexapro] 10 mg PO DAILY 09/24/20 10/27/20 History Memantine [Namenda] 10 mg PO BID 09/24/20 10/27/20 History Omeprazole [PriLOSEC] 40 mg PO HS 09/24/20 10/27/20 History Pyridoxine HCl (Vitamin B6) 1 tab PO DAILY 09/24/20 10/27/20 History [Vitamin B-6] Ondansetron [Zofran] 4 mg PO QID PRN 10/10/20 10/27/20 History Lidocaine-Prilocaine Cream [Emla 1 applic TOPICAL DAILY PRN 10/27/20 10/27/20 History Cream 2.5%/2.5%] OLANZapine [ZyPREXA] 5 mg PO HS 10/27/20 10/27/20 History Rivastigmine [Exelon 13.3MG/24Hr 1 patch TRANSDERM Q24HR 10/27/20 10/27/20 History Patch] dronabinoL [Marinol] 2.5 mg PO BID 10/27/20 10/27/20 History Allergies Allergy/AdvReac Type Severity Reaction Status Date / Time donepezil [From Aricept] AdvReac Diarrhea Verified 10/27/20 17:05 Physical Exam Vitals: Vital Signs Temp Pulse Resp BP Pulse Ox 10/27/20 21:00 67 20 98/62 95 10/27/20 18:35 76 20 95/65 95 10/27/20 15:44 99 F 77 18 91/58 95 Intake and Output 10/27/20 10/27/20 10/27/20 06:59 14:59 22:59 Output Total 100 Balance -100 Output: Urine 100 Other: Weight 83.915 kg Results CBC & Chem 7: 10/27/20 15:53 10/27/20 15:53 Labs: Abnormal Lab Results - Last 24 Hours (Table) 10/27/20 10/27/20 10/27/20 Range/Units 15:53 15:53 15:53 RBC 2.97 L (4.30-5.90) m/uL Hgb 9.9 L D (13.0-17.5) gm/dL Hct 30.3 L (39.0-53.0) % MCV 101.9 H (80.0-100.0) fL RDW 17.5 H (11.5-15.5) % Lymphocytes # 0.3 L (1.0-4.8) k/uL Sodium 131 L (137-145) mmol/L Glucose 109 H (74-99) mg/dL Calcium 8.3 L (8.4-10.2) mg/dL AST 109 H (17-59) U/L Alkaline Phosphatase 168 H (38-126) U/L Total Protein 5.9 L (6.3-8.2) g/dL Albumin 2.9 L (3.5-5.0) g/dL Urine Protein 1+ H (Negative) Urine Mucus Many H (None) /hpf
[2020-10-28] MEDS: SODIUM CHLORIDE 0.9% 1,000 ML IV SCH ×4 (00:07→23:28)
[2020-10-28 07:12] LABS: Anisocytosis Slight; Basophils % (A) 0 %; Eosinophils # (A) 0.1 k/uL (0-0.7); Eosinophils % (A) 1 %; HGB 9.5 gm/dL (13.0-17.5); Hypochromasia Marked; Lymphocytes # (A) 0.3 k/uL (1.0-4.8); Lymphocytes % (A) 7 %; MCH 33.4 pg (25.0-35.0); MCHC 31.7 g/dL (31.0-37.0); MCV 105.4 fL (80.0-100.0); Macrocytosis Marked; Mean Platelet Volume 7.9; Monocytes # (A) 0.4 k/uL (0-1.0); Monocytes % (A) 9 %; Neutrophils # (A) 3.5 k/uL (1.3-7.7); Neutrophils % (A) 80 %; Platelet Count 206 k/uL (150-450); RBC 2.84 m/uL (4.30-5.90); RDW 17.6 % (11.5-15.5); WBC 4.3 k/uL (3.8-10.6)
[2020-10-28] MEDS: CYANOCOBALAMIN 500 MCG TAB PO SCH (08:47)
[2020-10-28] MEDS: PYRIDOXINE 50 MG TAB PO SCH (08:47)
[2020-10-28] MEDS: ESCITALOPRAM 10 MG TAB PO SCH (08:47)
[2020-10-28] MEDS: MEMANTINE 10 MG TAB PO SCH ×2 (08:48→20:01)
[2020-10-28] MEDS: RIVASTIGMINE 13.3MG/24HR PATCH TRANSDERM SCH (08:49)
[2020-10-28 09:33] LABS: Polychromasia Present
[2020-10-28] MEDS ORDERED: IOPAMIDOL CONTRAST (ORAL USE) VIAL PO PRN (10:09)
--- NOTE | 2020-10-28 10:22 | P.CONS ---
History of Present Illness - Reason for Consult Consult date: 10/28/20 weakness, pancreatic adenocarcinoma Requesting physician: Arjun Shaw - Chief Complaint weakness - History of Present Illness This is a 65-year-old male patient of Dr. Rousseau admitted to [facility] 06/12/19 with obstructive jaundice, bilirubin 8.6, elevated LFTs. 06/11/19 ERCP performed revealing CBD stricture, cannulation of the CBD was unable to be perfo rmed. MRCP demonstrated dilated gallbladder and biliary tree. Patient was treated for cholangitis. ERCP was re-performed with stent placement, found what appeared to be a malignant-appearing structure in the bile duct. CT of the pancreas revealed pancreatic head mass and undefined lesions on the adrenal gland and liver. FNA positive for adenocarcinoma. 06/13/19 CT pelvis revealed non-cirrhotic liver, 1.4 cm hypodense lesion within the right hepatic lobe, slightly irregular margins. Pancreas 1.9 x 1.7 x 2.1 cm mass located at the posterior pancreatic head. There were a few prominent non-enlarged peripancreatic and portal, lymph nodes. 1.5 cm lesion in the midpole of the right kidney, too small to characterize. Clinical stage TIc, N1 MX. Multidisciplinary clinic at [facility] reviewed his case. Biopsy of the liver lesion was ordered but when patient presented for the biopsy there was no abnormal area found on imaging to collect tissue from. Neoadjuvant chemotherapy was recommended. FOLFIRINOX started 08/28/19. Repeat PET scan and MRI of the brain showed no metastases. He completed 9 cycles in early 01/13. Dr. Barnes at [facility] evaluated him for surgery, 02/05/20 preop laparoscopic evaluation unfortunately, found the liver lesions, biopsy was positive. Patient was deemed a nonsurgical. He was started back on chemotherapy and completed a total of 12 cycles 04/08/20. He was referred to radiation oncology with plan for concurrent chemoradiation to treat the pancreatic head mass and evaluate liver lesions and treat with stereotactic radiosurgery. He completed chemotherapy/RT 07/01/20. He had 3 SBRT to liver. CA-19-9 was significantly elevated in the 1200 range after radiation. PET showed no uptake other than low level at the primary site. 08/14 CA-19-9 was down in the 600 range, plan was to continue on observation. MRI done by radiation oncology 09/03/20 unfortunately showed multiple ring enhancing lesions in the liver. after discussion of options, including comfort care, patient and his opted for active treatment. He was therefore started on se cond line chemotherapy with Gemzar and Abraxane on 09/21/20. Admitted after day 1 of cycle 1 with fever. He was not neutropenic. At that time differential included tumor necrosis fever, chemotherapy effect, as well as infection. Imaging did show cholecystitis. Patient was initially planned for surgery, but given his increased risk was treated conservatively with antibiotics with good response therefore it was decided to hold off on the surgical option. Day 8 of chemo was delayed to complete course of antibiotics, and also because of low blood counts. He did subsequently receive it on 10/05/20. After cycle 1 day 8 he developed low-grade fevers, 10/07/20. He was otherwise isn't dramatic and was reluctant to come to the hospital. After discussion with his , they initially opted to manage him at home supportively. However on 10/10/20 his called the answering service with fever of 102.2. Patient was directly to come to the ER where labs showed evidence of neutropenia , with WBC 0.4. Patient also had pancytopenia with hemoglobin 11.2 and platelets 120. He was admitted with broad-spectrum antibiotics, as well as growth factor support. Abdominal US performed, which noted thickening of the gallbladder wall and sonographic Diaz sign. Chest x-ray was negative. He had choleycystectomy, no treatment since. Pt reports anorexia for last week, progressive weakness, she is having difficulty managing his care as he is not able to assist her, V x 1 3 days ago, does not feel pt is experiencing pain, his affect is flat, pt is not verbally responding. No fever, chills, cough, diarrhea. Review of Systems per ROS unobtainable: due to mental status Past Medical History Past Medical History: Cancer, GERD/Reflux, Memory Impairment, Sleep Apnea/CPAP/BIPAP Additional Past Medical History / Comment(s): Pancreatic CA with liver mets 2nd dose of new chemo 10/05, radiation end of July, Alzheimer's History of Any Multi-Drug Resistant Organisms: None Reported Past Surgical History: Appendectomy, Hernia Repair Additional Past Surgical History / Comment(s): LT ORCHIECTOMY (done at age 17) , LT bone spur, MARIO INGUINAL HERNIA REPAIR, STENT IN CBD, Right infusaport Past Anesthesia/Blood Transfusion Reactions: No Reported Reaction Past Psychological History: No Psychological Hx Reported Smoking Status: Never smoker Past Alcohol Use History: Rare Additional Past Alcohol Use History / Comment(s): . Past Drug Use History: None Reported - Past Family History Mother Family Medical History: No Reported History Father Family Medical History: Cancer Additional Family Medical History / Comment(s): PROSTATE CANCER Medications and Allergies Home Medications Medication Instructions Recorded Confirmed Type Cyanocobalamin (Vitamin B-12) 1,000 mcg PO DAILY 09/24/20 10/27/20 History [Vitamin B-12] Escitalopram [Lexapro] 10 mg PO DAILY 09/24/20 10/27/20 History Memantine [Namenda] 10 mg PO BID 09/24/20 10/27/20 History Omeprazole [PriLOSEC] 40 mg PO HS 09/24/20 10/27/20 History Pyridoxine HCl (Vitamin B6) 1 tab PO DAILY 09/24/20 10/27/20 History [Vitamin B-6] Ondansetron [Zofran] 4 mg PO QID PRN 10/10/20 10/27/20 History Lidocaine-Prilocaine Cream [Emla 1 applic TOPICAL DAILY PRN 10/27/20 10/27/20 History Cream 2.5%/2.5%] OLANZapine [ZyPREXA] 5 mg PO HS 10/27/20 10/27/20 History Rivastigmine [Exelon 13.3MG/24Hr 1 patch TRANSDERM Q24HR 10/27/20 10/27/20 History Patch] dronabinoL [Marinol] 2.5 mg PO BID 10/27/20 10/27/20 History Allergies Allergy/AdvReac Type Severity Reaction Status Date / Time donepezil [From Aricept] AdvReac Diarrhea Verified 10/27/20 17:05 Physical Exam Vitals: Vital Signs Temp Pulse Pulse Resp BP BP Pulse Ox 10/28/20 08:58 77 16 10/28/20 05:31 97.9 F 77 16 123/88 93 L 10/27/20 23:23 98.4 F 60 16 108/69 96 10/27/20 21:00 67 20 98/62 95 10/27/20 18:35 76 20 95/65 95 10/27/20 15:44 99 F 77 18 91/58 95 Intake and Output 10/27/20 10/28/20 10/28/20 22:59 06:59 14:59 Output Total 100 Balance -100 Output: Urine 100 Other: Voiding Method Urinal Urinal # Voids 2 Weight 83.915 kg 83.915 kg - Constitutional General appearance: average body habitus, cooperative, no acute distress - EENT Eyes: anicteric sclerae, EOMI ENT: normal oropharynx - Neck Neck: no lymphadenopathy - Respiratory Respiratory: bilateral: CTA (follows commands, poor inspiratory effort) - Cardiovascular Rhythm: regular Heart sounds: normal: S1, S2 Abnormal Heart Sounds: no systolic murmur, no diastolic murmur, no rub, no S3 Gallop, no S4 Gallop, no click, no other leg Peripheral Edema: bilateral: None - Gastrointestinal General gastrointestinal: no absent bowel sounds, no decreased bowel sounds, no distended, no hepatomegaly, no hyperactive bowel sounds, normal bowel sounds, no organomegaly, no rigid, no scaphoid, soft, no splenomegaly, no tenderness, no umbilical hernia, no ventral hernia - Integumentary Integumentary: pale - Musculoskeletal Musculoskeletal: generalized weakness - Psychiatric lethargic, flat affect, not verbally communicating, did follow commands Psychiatric: no A&O x's 3, no appropriate affect, no intact judgment & insight Results CBC & Chem 7: 10/28/20 05:37 10/27/20 15:53 Labs: Abnormal Lab Results - Last 24 Hours (Table) 10/27/20 10/27/20 10/27/20 Range/Units 15:53 15:53 15:53 RBC 2.97 L (4.30-5.90) m/uL Hgb 9.9 L D (13.0-17.5) gm/dL Hct 30.3 L (39.0-53.0) % MCV 101.9 H (80.0-100.0) fL RDW 17.5 H (11.5-15.5) % Lymphocytes # 0.3 L (1.0-4.8) k/uL Macrocytosis Sodium 131 L (137-145) mmol/L Glucose 109 H (74-99) mg/dL Calcium 8.3 L (8.4-10.2) mg/dL AST 109 H (17-59) U/L Alkaline Phosphatase 168 H (38-126) U/L Total Protein 5.9 L (6.3-8.2) g/dL Albumin 2.9 L (3.5-5.0) g/dL Urine Protein 1+ H (Negative) Urine Mucus Many H (None) /hpf 10/28/20 Range/Units 05:37 RBC 2.84 L (4.30-5.90) m/uL Hgb 9.5 L (13.0-17.5) gm/dL Hct 30.0 L (39.0-53.0) % MCV 105.4 H (80.0-100.0) fL RDW 17.6 H (11.5-15.5) % Lymphocytes # (1.0-4.8) k/uL Macrocytosis Marked A Sodium (137-145) mmol/L Glucose (74-99) mg/dL Calcium (8.4-10.2) mg/dL AST (17-59) U/L Alkaline Phosphatase (38-126) U/L Total Protein (6.3-8.2) g/dL Albumin (3.5-5.0) g/dL Urine Protein (Negative) Urine Mucus (None) /hpf Chest x-ray: report reviewed Assessment and Plan (1) Weakness Current Visit: Yes Status: Acute Priority: High Code(s): R53.1 - WEAKNESS SNOMED Code(s): 85206648 (2) Pancreatic cancer metastasized to liver Current Visit: Yes Status: Acute Priority: High Code(s): C25.9 - MALIGNANT NEOPLASM OF PANCREAS, UNSPECIFIED; C78.7 - SECONDARY MALIG NEOPLASM OF LIVER AND INTRAHEPATIC BILE DUCT SNOMED Code(s): 468259760 (3) Loss of appetite Current Visit: Yes Status: Acute Priority: High Code(s): R63.0 - ANOREXIA SNOMED Code(s): 23267389 Plan: Pt mental status change work up: pancultures-CXR and UA not suggestive of infection, blood cultures ordered. CT AP to evaluate status of pancreatic adenocarcinoma, pt is post op from choley. Ammonia levels. Hold marinol. MRI brain. Ca 19.9. Will review work up once complete and meet with pt and to discuss further plan of care. Doctor attests: I performed a history and physical examination of this patient, developed impression and plan of care, discussed with dictator. I agree with dictators note, documented as a scribe.
[2020-10-28 11:45] LABS: African American GFR (CKD) 110.2 (60.0-200.0); Albumin 2.8 g/dL (3.80-4.90); Albumin/Globulin Ratio 1.12 (1.60-3.17); Anion Gap 5.5 mmol/L (4.00-12.00); BUN/Creat Ratio 13.75 Ratio (12.00-20.00); Calcium 7.9 mg/dL (8.7-10.3); Carbon Dioxide 27.5 mmol/L (21.6-31.8); Globulin 2.5 g/dL (1.6-3.3); Non-African American GFR(CKD) 95.1 (60.0-200.0); Potassium 4.5 mmol/L (3.5-5.5); Total Bilirubin 1.3 mg/dL (0.3-1.2); Total Protein 5.3 g/dL (6.2-8.2)
[2020-10-28 13:40] VITALS: BMI 26.5
--- NOTE | 2020-10-28 17:57 | P.PN ---
Progress Note - Text Progress Note Date: 10/28/20 Chief Complaint: Weak and tired History of presenting complaint: This is a pleasant 65-year-old patient who follows with Dr. Quach. Oncologist Dr. Rousseau. In May 2019, was admitted to [facility] with obstructive jaundice. ERCP showed CBD stricture. MRCP showed dilated gallbladder and biliary tree. Patient did have a stent placed. CT of the pancreas showed pancreatic head mass. FNA was positive for adenocarcinoma. Also hypodense lesion was found on the right hepatic lobe. Neoadjuvant chemotherapy, was recommended. Surgery was recommended. Laparoscopic evaluation showed liver lesions. Biopsy was positive. was not felt to be a surgical candidate. Patient did complete chemotherapy in June 2020 and radiation treatment to the liver. PET scan did not show any uptake other than low level at the primary site. MRI done on 09/03/2020 showed multiple ring-enhancing lesions in the liver. Patient had first cycle of Gemzar and Abraxane end of August. Patient was then admitted to the hospital from September 24 through September 28. Had a fever. Gallbladder ultrasound showed multiple dominant masses in the liver. Diffuse fatty infiltration of liver. Gallbladder wall was abnormally thickened with some pericholecystic fluid. Multiple fundal contents measuring 1.4 cm with calcification. Seen by Dr. Silva from general surgery. Was placed on IV Zosyn. Blood cultures were negative patient's fever resolved. Patient was discharged. October 05 patient received another course of chemotherapy. Dose was reduced by 10% at patient is having low-grade fever. October 07 patient started having a fever again. October 14 underwent chole[address] by Dr. Silva. Did receive antibiotics and complete the course of oral antibiotic. When patient was discharged, October 16 patient is eating some. Tired. Patient now returns to the ER and has progressively been getting more and more weak. To the point today barely able to walk. Poor appetite. Doesn't feel like eating. No obvious fever. Constipated. No respiratory urinary symptoms. Patient now admitted with asthenia, anorexia, myopathy, dehydration felt to be all related to malignancy. Started on IV fluids. PTOT. October 28: Sitting up in a chair. Diet. Decrease appetite. Computed tomography scan of the abdomen ordered by oncology. They discontinued discontinued the Marinol. Review of systems: Was done for constitutional, cardiovascular, GI, pulmonary. relevant finding as above Active Medications Acetaminophen (Acetaminophen Tab 325 Mg Tab) 650 mg PO Q6HR PRN PRN Reason: Mild Pain or Fever > 100.5 Cyanocobalamin (Cyanocobalamin 500 Mcg Tab) 1,000 mcg PO DAILY [facility] Last Admin: 10/28/20 08:47 Dose: 1,000 mcg Documented by: Escitalopram Oxalate (Escitalopram 10 Mg Tab) 10 mg PO DAILY [facility] Last Admin: 10/28/20 08:47 Dose: 10 mg Documented by: Hydromorphone HCl (Hydromorphone 0.5 Mg/0.5 Ml Syringe) 0.5 mg IVP Q3HR PRN PRN Reason: Moderate Pain Sodium Chloride (Saline 0.9%) 1,000 mls @ 130 mls/hr IV .Q7H42M [facility] Last Admin: 10/28/20 08:48 Dose: 130 mls/hr Documented by: Iopamidol (Iopamidol Contrast (Oral Use) Vial) 30 ml PO Q60M PRN PRN Reason: CT Scan Stop: 10/29/20 10:11 Lidocaine/Prilocaine (Lidocaine-Prilocaine 2.5-2.5% Cream 5 Gm Tube) 1 applic TOPICAL DAILY PRN; Protocol PRN Reason: PORT ACCESS Memantine (Memantine 10 Mg Tab) 10 mg PO BID [facility] Last Admin: 10/28/20 08:48 Dose: 10 mg Documented by: Naloxone HCl (Naloxone 0.4 Mg/Ml 1 Ml Vial) 0.2 mg IV Q2M PRN PRN Reason: Opioid Reversal Olanzapine (Olanzapine 5 Mg Tab) 5 mg PO [facility] Last Admin: 10/27/20 20:55 Dose: 5 mg Documented by: Ondansetron HCl (Ondansetron 4 Mg Tab) 4 mg PO QID PRN PRN Reason: Nausea Pantoprazole Sodium (Pantoprazole 40 Mg Tablet) 40 mg PO [facility] Last Admin: 10/27/20 20:55 Dose: 40 mg Documented by: Pyridoxine HCl (Pyridoxine 50 Mg Tab) 100 mg PO DAILY [facility] Last Admin: 10/28/20 08:47 Dose: 100 mg Documented by: Rivastigmine (Rivastigmine 13.3mg/24hr Patch) 1 patch TRANSDERM Q24HR [facility] Last Admin: 10/28/20 08:49 Dose: 1 patch Documented by: Past medical history: Pancreatic cancer with liver metastatic this, on chemotherapy, . Obstructive sleep apnea. Cognitive impairment. GERD. Social history: . No smoking. Alcohol rarely. Family history: Prostate cancer Physical examination: VITAL SIGNS: 98.3, 61, 16, 93/60, 94% on room air GENERAL: Declining in chair, awake, tired EYES: Pupils equal. Conjunctiva pale HEENT: External appearance of nose and ears normal, oral cavity grossly normal. NECK: JVD not raised; masses not palpable. HEART: First and second heart sounds are normal; no edema. LUNGS: Respiratory rate normal; clear to auscultation. ABDOMEN: Soft, nontender, liver spleen not palpable, no masses palpable. Superficial bruising PSYCH: Alert and oriented x3; mood and affect tired NEUROLOGICAL: Cranial nerves grossly intact; no facial asymmetry, power and sensation grossly intact. INVESTIGATIONS, reviewed in the clinical context: October 28: WBC 4.3 hemoglobin 9.5 potassium 4.5 creatinine 0.8 albumin 2.8 ammonia less than 9 WBC 8 hemoglobin 9.9 platelets 245 potassium 4.4 creatinine 0.8 sodium 131 Albumin 2.9 UA negative for leukoesterase nitrite. EKG tracing personally reviewed by me-normal sinus rhythm Chest x-ray film personally reviewed by me-clear Assessment and plan: - Acute on chronic medical debility worsening from decreased oral intake. Multiple medical problems.: Slow to respond PT OT. Hydration. -Anorexia, primarily from metastatic pancreatic cancer Marinol held by oncology -Acute myopathy likely from malignancy including proximal muscle weakness Nutritional support. PTOT -Normocytic anemia likely of malignancy Follow H&H -Metastatic pancreatic cancer. Received chemotherapy. Status post radiation treatment. Patient being followed by oncologist Dr. Rousseau -MICHAEL On Prilosec -Cognitive impairment On Aricept, Namenda, Exelon patch -Mild protein calorie malnutrition, from decreased oral intake Dietitian consult -Depression On Lexapro Computed tomography scan opted by oncology. Other medications to continue. PTOT to continue. Nose is guarded.
[2020-10-28] MEDS: PANTOPRAZOLE 40 MG TABLET PO SCH (20:01)
[2020-10-28] MEDS: OLANZapine 5 MG TAB PO SCH (20:01)
--- NOTE | 2020-10-28 21:49 | MR ---
EXAMINATION TYPE: MR brain wo/w con DATE OF EXAM: 10/28/2020 COMPARISON: 08/26/2019 HISTORY: AMS CONTRAST: Standard multiplanar, multisequence MRI departmental protocol utilizing 8.5 mL intravenous Gadavist g adolinium contrast. There is diffuse cerebral atrophy. There is no mass effect nor midline shift. Diffusion images show n o evidence of an acute infarct. There is no evidence of intracranial hemorrhage. There is some asymme tric enlargement of the temporal horn left lateral ventricle with more noticeable atrophy left anteri or temporal lobe. The brainstem is intact. There is no evidence of posterior fossa mass. There is no evidence of orbital mass. Sella turcica appears normal. Corpus callosum is intact. There is mild incr eased signal around the occipital horns of the lateral ventricles on the T2 and FLAIR images ovary re lated to mild hydrocephalus. There is normal enhancement of the venous sinuses. I see no pathologic enhancement. IMPRESSION: Cerebral atrophy. Asymmetric left temporal lobe atrophy. No acute intracranial abnormality. No signif icant change compared to old exam.
[2020-10-29] MEDS: MEMANTINE 10 MG TAB PO SCH ×2 (07:59→20:31)
[2020-10-29] MEDS: PYRIDOXINE 50 MG TAB PO SCH (07:59)
[2020-10-29] MEDS: CYANOCOBALAMIN 500 MCG TAB PO SCH (08:00)
[2020-10-29] MEDS: ESCITALOPRAM 10 MG TAB PO SCH (08:00)
[2020-10-29] MEDS: RIVASTIGMINE 13.3MG/24HR PATCH TRANSDERM SCH (08:00)
--- NOTE | 2020-10-29 10:41 | P.PN ---
Subjective Progress Note Date: 10/29/20 Principal diagnosis: weakness, anorexia from malignancy In f/u pt is more alert, he admits to not being clear in thinking. He states feeling hot and cold, no appetite, denies nausea, pain. Objective - Vital Signs Vital signs: Vital Signs Temp 98.5 F 10/29/20 04:36 Pulse 71 10/29/20 04:36 Resp 18 10/29/20 04:36 BP 120/72 10/29/20 04:36 Pulse Ox 97 10/29/20 04:36 Intake & Output 10/28/20 10/29/20 10/29/20 18:59 06:59 18:59 Intake Total 1560 1800 Balance 1560 1800 Weight 83.915 kg Intake: Intake, IV Titration 1560 1500 Amount Sodium Chloride 0.9% 1, 1560 1500 000 ml @ 130 mls/hr IV . Q7H42M [facility] Rx#:[id number] Oral 300 Other: Voiding Method Urinal Urinal # Voids 5 - Constitutional General appearance: Present: average body habitus, cooperative, no acute di stress - EENT Eyes: Present: anicteric sclerae, EOMI ENT: Present: hearing grossly normal - Respiratory Respiratory: bilateral: CTA - Cardiovascular Rhythm: regular Heart sounds: normal: S1, S2 Abnormal Heart Sounds: Absent: systolic murmur, diastolic murmur, rub, S3 Gallop, S4 Gallop, click, other - Peripheral edema leg Peripheral Edema: bilateral: None - Gastrointestinal General gastrointestinal: Present: decreased bowel sounds, soft. Absent: absent bowel sounds, distended, hepatomegaly, hyperactive bowel sounds, organomegaly, rigid, scaphoid, splenomegaly, tenderness, umbilical hernia, ventral hernia - Integumentary Integumentary: Present: pale - Neurologic Neurologic: Present: CNII-XII intact - Musculoskeletal Musculoskeletal: Present: generalized weakness - Psychiatric Psychiatric: Present: A&O x's 3 - Labs CBC & Chem 7: 10/28/20 05:37 10/28/20 05:37 Labs: Abnormal Lab Results - Last 24 Hours (Table) 10/28/20 10/28/20 Range/Units 05:37 10:58 Glucose 142 H (70-110) mg/dL Calcium 7.9 L (8.7-10.3) mg/dL Total Bilirubin 1.3 H (0.3-1.2) mg/dL AST 109 H (14-35) U/L ALT 63 H (10-49) U/L Alkaline Phosphatase 186 H (41-126) U/L Total Protein 5.3 L (6.2-8.2) g/dL Albumin 2.80 L (3.80-4.90) g/dL Albumin/Globulin Ratio 1.12 L (1.60-3.17) g/dL CA 19-9 Antigen 4979.0 H (0.0-34.9) U/mL Microbiology - Last 24 Hours (Table) 10/27/20 16:10 Blood Culture - Preliminary Blood No Growth after 24 hours 10/27/20 16:10 Blood Culture - Preliminary Blood No Growth after 24 hours - Imaging and Cardiology MRI - head: report reviewed Assessment and Plan (1) Weakness Current Visit: Yes Status: Acute Priority: High Code(s): R53.1 - WEAKNESS SNOMED Code(s): 50215925 (2) Pancreatic cancer metastasized to liver Current Visit: Yes Status: Acute Priority: High Code(s): C25.9 - MALIGNANT NEOPLASM OF PANCREAS, UNSPECIFIED; C78.7 - SECONDARY MALIG NEOPLASM OF LIVER AND INTRAHEPATIC BILE DUCT SNOMED Code(s): 420993341 (3) Loss of appetite Current Visit: Yes Status: Acute Priority: High Code(s): R63.0 - ANOREXIA SNOMED Code(s): 18570267 Plan: Pt mental status improved today. \Work up results and pending: Pancultures-CXR and UA not suggestive of infection, blood cultures neg at [address] AP to evaluate status of pancreatic adenocarcinoma, pt is post op from [facility]. Being done today. Ammonia levels normal. Marinol held. MRI brain was neg for metastatic lesions. Ca 19.9 significantly elevated. Discussed what was available with pt. Plan is to wait for the CT AP then plan a family meeting to determine what is the best course of action for the pt. Discussed with Case Management.
[2020-10-29] MEDS: SODIUM CHLORIDE 0.9% 1,000 ML IV SCH ×3 (12:30→23:22)
--- NOTE | 2020-10-29 14:49 | P.PN ---
Progress Note - Text Progress Note Date: 10/29/20 Chief Complaint: Weak and tired History of presenting complaint: This is a pleasant 65-year-old patient who follows with Dr. Quach. Oncologist Dr. Rousseau. In May 2019, was admitted to [facility] with obstructive jaundice. ERCP showed CBD stricture. MRCP showed dilated gallbladder and biliary tree. Patient did have a stent placed. CT of the pancreas showed pancreatic head mass. FNA was positive for adenocarcinoma. Also hypodense lesion was found on the right hepatic lobe. Neoadjuvant chemotherapy, was recommended. Surgery was recommended. Laparoscopic evaluation showed liver lesions. Biopsy was positive. was not felt to be a surgical candidate. Patient did complete chemotherapy in June 2020 and radiation treatment to the liver. PET scan did not show any uptake other than low level at the primary site. MRI done on 09/03/2020 showed multiple ring-enhancing lesions in the liver. Patient had first cycle of Gemzar and Abraxane end of August. Patient was then admitted to the hospital from September 24 through September 28. Had a fever. Gallbladder ultrasound showed multiple dominant masses in the liver. Diffuse fatty infiltration of liver. Gallbladder wall was abnormally thickened with some pericholecystic fluid. Multiple fundal contents measuring 1.4 cm with calcification. Seen by Dr. Silva from general surgery. Was placed on IV Zosyn. Blood cultures were negative patient's fever resolved. Patient was discharged. October 05 patient received another course of chemotherapy. Dose was reduced by 10% at patient is having low-grade fever. October 07 patient started having a fever again. October 14 underwent chole[address] by Dr. Silva. Did receive antibiotics and complete the course of oral antibiotic. When patient was discharged, October 16 patient is eating some. Tired. Patient now returns to the ER and has progressively been getting more and more weak. To the point today barely able to walk. Poor appetite. Doesn't feel like eating. No obvious fever. Constipated. No respiratory urinary symptoms. Patient now admitted with asthenia, anorexia, myopathy, dehydration felt to be all related to malignancy. Started on IV fluids. PTOT. October 28: Sitting up in a chair. Diet. Decrease appetite. Computed tomography scan of the abdomen ordered by oncology. They discontinued the Marinol. October 29: Reclining in a chair. Tired. Decreased appetite. Computed tomography scan abdomen results pending. Review of systems: Was done for constitutional, cardiovascular, GI, pulmonary. relevant finding as above Active Medications Acetaminophen (Acetaminophen Tab 325 Mg Tab) 650 mg PO Q6HR PRN PRN Reason: Mild Pain or Fever > 100.5 Cyanocobalamin (Cyanocobalamin 500 Mcg Tab) 1,000 mcg PO DAILY [facility] Last Admin: 10/29/20 08:00 Dose: 1,000 mcg Documented by: Escitalopram Oxalate (Escitalopram 10 Mg Tab) 10 mg PO DAILY [facility] Last Admin: 10/29/20 08:00 Dose: 10 mg Documented by: Hydromorphone HCl (Hydromorphone 0.5 Mg/0.5 Ml Syringe) 0.5 mg IVP Q3HR PRN PRN Reason: Moderate Pain Sodium Chloride (Saline 0.9%) 1,000 mls @ 130 mls/hr IV .Q7H42M [facility] Last Admin: 10/29/20 12:30 Dose: 130 mls/hr Documented by: Lidocaine/Prilocaine (Lidocaine-Prilocaine 2.5-2.5% Cream 5 Gm Tube) 1 applic TOPICAL DAILY PRN; Protocol PRN Reason: PORT ACCESS Memantine (Memantine 10 Mg Tab) 10 mg PO BID [facility] Last Admin: 10/29/20 07:59 Dose: 10 mg Documented by: Naloxone HCl (Naloxone 0.4 Mg/Ml 1 Ml Vial) 0.2 mg IV Q2M PRN PRN Reason: Opioid Reversal Olanzapine (Olanzapine 5 Mg Tab) 5 mg PO HS [facility] Last Admin: 10/28/20 20:01 Dose: 5 mg Documented by: Ondansetron HCl (Ondansetron 4 Mg Tab) 4 mg PO QID PRN PRN Reason: Nausea Pantoprazole Sodium (Pantoprazole 40 Mg Tablet) 40 mg PO HS [facility] Last Admin: 10/28/20 20:01 Dose: 40 mg Documented by: Pyridoxine HCl (Pyridoxine 50 Mg Tab) 100 mg PO DAILY [facility] Last Admin: 10/29/20 07:59 Dose: 100 mg Documented by: Rivastigmine (Rivastigmine 13.3mg/24hr Patch) 1 patch TRANSDERM Q24HR [facility] Last Admin: 10/29/20 08:00 Dose: 1 patch Documented by: Past medical history: Pancreatic cancer with liver metastatic this, on chemotherapy, . Obstructive sleep apnea. Cognitive impairment. GERD. Social history: . No smoking. Alcohol rarely. Family history: Prostate cancer Physical examination: VITAL SIGNS: 98, 74, 18, 99/64, 97% room air GENERAL: reclining in chair, awake, tired EYES: Pupils equal. Conjunctiva pale HEENT: External appearance of nose and ears normal, oral cavity grossly normal. NECK: JVD not raised; masses not palpable. HEART: First and second heart sounds are normal; no edema. LUNGS: Respiratory rate normal; clear to auscultation. ABDOMEN: Soft, nontender, liver spleen not palpable, no masses palpable. Superficial bruising PSYCH: Alert and oriented x3; mood and affect tired NEUROLOGICAL: Cranial nerves grossly intact; no facial asymmetry, power and sensation grossly intact. INVESTIGATIONS, reviewed in the clinical context: October 28: WBC 4.3 hemoglobin 9.5 potassium 4.5 creatinine 0.8 albumin 2.8 ammonia less than 9 CA [id number]:[id number] WBC 8 hemoglobin 9.9 platelets 245 potassium 4.4 creatinine 0.8 sodium 131 Albumin 2.9 UA negative for leukoesterase nitrite. EKG tracing personally reviewed by me-normal sinus rhythm Chest x-ray film personally reviewed by me-clear Assessment and plan: - Acute on chronic medical debility worsening from decreased oral intake. Multiple medical problems.: Slow to respond PT OT. Hydration. -Anorexia, primarily from metastatic pancreatic cancer: Slow to respond Marinol held by oncology -Acute myopathy likely from malignancy including proximal muscle weakness Nutritional support. PTOT -Normocytic anemia likely of malignancy Follow H&H -Metastatic pancreatic cancer. Received chemotherapy. Status post radiation treatment. Patient being followed by oncologist Dr. Rousseau -GERD On Prilosec -Cognitive impairment On Aricept, Namenda, Exelon patch -Mild protein calorie malnutrition, from decreased oral intake Dietitian consult -Depression On Lexapro Results of computed tomography scan abdomen and pelvis pending. Other medications PTOT to continue. Prognosis remains guarded. Patient not stable to go home. Need at least 2 more nights in the hospital. Changed to inpatient status
[2020-10-29] MEDS: PANTOPRAZOLE 40 MG TABLET PO SCH (20:31)
[2020-10-29] MEDS: OLANZapine 5 MG TAB PO SCH (20:31)
[2020-10-30] MEDS: SODIUM CHLORIDE 0.9% 1,000 ML IV SCH ×3 (07:29→19:43)
[2020-10-30] MEDS: CYANOCOBALAMIN 500 MCG TAB PO SCH (07:30)
[2020-10-30] MEDS: MEMANTINE 10 MG TAB PO SCH ×2 (07:31→19:39)
[2020-10-30] MEDS: ESCITALOPRAM 10 MG TAB PO SCH (07:31)
[2020-10-30] MEDS: RIVASTIGMINE 13.3MG/24HR PATCH TRANSDERM SCH (07:31)
[2020-10-30] MEDS: PYRIDOXINE 50 MG TAB PO SCH (07:31)
--- NOTE | 2020-10-30 10:29 | CT ---
EXAMINATION TYPE: CT abdomen pelvis w con DATE OF EXAM: 10/29/2020 COMPARISON: 10/18/2020, head CT 07/24/2020 INDICATION: Patient poor historian DLP: 2844 mGycm, Automated exposure control for dose reduction was used. CONTRAST: 100 mL of Isovue 300. Study performed with Oral Contrast TECHNIQUE: Axial images were obtained from above the diaphragm to the pubic rami in the axial plane a t 5 mm thick sections. Reconstructed images are reviewed on the computer in the coronal plane. FINDINGS: Limited CT sections are obtained the lung bases. There is a small right pleural effusion. Minimal le ft pleural effusion is present. Some adjacent compressive atelectasis is present.. Streaky atelectas is may be at the left base. CT ABDOMEN: Ascites is present. Liver: There are scattered hypodensities within the liver. These may be enlarging over the interval. Metastatic disease should be considered. Pneumobilia is present. Spleen: Normal Pancreas: Soft tissue thickening superior to the pancreatic head at the level of the stent is again e vident. The pancreas appears atrophic. Adrenal glands: The adrenal glands are normal. Gallbladder: May be surgically absent. Kidneys: No masses are evident. No hydronephrosis is present. Few cortical renal cysts are better v isualized on the delayed images. Aorta: Vascular calcification is within the aorta. Inferior vena cava: Normal. CT PELVIS: Loops of bowel within the abdomen and pelvis are normal. There are loops of bowel which are incom pletely distended or lack oral contrast limiting their evaluation. Appendix: Not identified. No suspicious inflammatory changes or dilated tubular structures are. Urinary bladder: Normal. Genitourinary structures: Prostate is prominent. Osseous structures: No suspicious lytic or sclerotic lesions. IMPRESSIONS: 1. Small bilateral pleural effusions with adjacent compressive atelectasis. Some streak atelectasis at the left base. 2. Stable appearance of soft tissue density surrounding the metallic stent in the common bile duct. 3. Pneumobilia. 4. Scattered hypodensities within the liver appear enlarging.
--- NOTE | 2020-10-30 15:09 | P.PN ---
Subjective Progress Note Date: 10/30/20 Principal diagnosis: Metastatic Cancer recurrent bacteremia CT abdomen reveals possible progression with enlarging liver mets Objective - Vital Signs Vital signs: Vital Signs Temp 98.5 F 10/30/20 11:16 Pulse 78 10/30/20 11:16 Resp 20 10/30/20 11:16 BP 114/72 10/30/20 11:16 Pulse Ox 96 10/30/20 11:16 Intake & Output 10/29/20 10/30/20 10/30/20 18:59 06:59 18:59 Intake Total 1560 2230 Balance 1560 2230 Intake: Intake, IV Titration 1560 1650 Amount Sodium Chloride 0.9% 1, 1560 1650 000 ml @ 130 mls/hr IV . Q7H42M [facility] Rx#:[id number] Oral 580 Other: Voiding Method Urinal Toilet Urinal # Voids 2 - Exam - Constitutional General appearance: Present: average body habitus, cooperative, no acute distress - EENT Eyes: Present: anicteric sclerae, EOMI ENT: Present: hearing grossly normal - Respiratory Respiratory: bilateral: CTA - Cardiovascular Rhythm: regular Heart sounds: normal: S1, S2 Abnormal Heart Sounds: Absent: systolic murmur, diastolic murmur, rub, S3 Gallop, S4 Gallop, click, other - Peripheral edema leg Peripheral Edema: bilateral: None - Gastrointestinal General gastrointestinal: Present: decreased bowel sounds, soft. Absent: absent bowel sounds, distended, hepatomegaly, hyperactive bowel sounds, organomegaly, rigid, scaphoid, splenomegaly, tenderness, umbilical hernia, ventral hernia - Integumentary Integumentary: Present: pale - Neurologic Neurologic: Present: CNII-XII intact - Musculoskeletal Musculoskeletal: Present: generalized weakness - Psychiatric Psychiatric: Present: A&O x's 3 - Labs CBC & Chem 7: 10/31/20 11:15 10/31/20 11:15 Labs: Microbiology - Last 24 Hours (Table) 10/27/20 16:10 Blood Culture - Preliminary Blood No Growth after 48 hours 10/27/20 16:10 Blood Culture - Preliminary Blood No Growth after 48 hours Assessment and Plan Plan: - Imaging and Cardiology MRI - head: report reviewed Assessment and Plan (1) Weakness Current Visit: Yes Status: Acute Priority: High Code(s): R53.1 - WEAKNESS SNOMED Code(s): 54565856 (2) Pancreatic cancer metastasized to liver Current Visit: Yes Status: Acute Priority: High Code(s): C25.9 - MALIGNANT NEOPLASM OF PANCREAS, UNSPECIFIED; C78.7 - SECONDARY MALIG NEOPLASM OF LIVER AND INTRAHEPATIC BILE DUCT SNOMED Code(s): 450195257 (3) Loss of appetite Current Visit: Yes Status: Acute Priority: High Code(s): R63.0 - ANOREXIA SNOMED Code(s): 53193621 Plan: - CT abdomen with possible progression with enlarging liver mets, patient has clinically been declining and his performance has been worsening as well. This will be reviewed with patient and regarding concern of effective treatment plan versus if plan for more comfort goal is resonable. Dr. Rousseau to discuss further with them this evening. Pancultures-CXR and UA not suggestive of infection, blood cultures neg at 24 hours. Physician Attest: I have completed the full history and physical and agree with above dictation, dictated as a ascribe,
--- NOTE | 2020-10-30 17:41 | P.PN ---
Progress Note - Text Progress Note Date: 10/30/20 Chief Complaint: Weak and tired History of presenting complaint: This is a pleasant 65-year-old patient who follows with Dr. Quach. Oncologist Dr. Rousseau. In May 2019, was admitted to [facility] with obstructive jaundice. ERCP showed CBD stricture. MRCP showed dilated gallbladder and biliary tree. Patient did have a stent placed. CT of the pancreas showed pancreatic head mass. FNA was positive for adenocarcinoma. Also hypodense lesion was found on the right hepatic lobe. Neoadjuvant chemotherapy, was recommended. Surgery was recommended. Laparoscopic evaluation showed liver lesions. Biopsy was positive. was not felt to be a surgical candidate. Patient did complete chemotherapy in June 2020 and radiation treatment to the liver. PET scan did not show any uptake other than low level at the primary site. MRI done on 09/03/2020 showed multiple ring-enhancing lesions in the liver. Patient had first cycle of Gemzar and Abraxane end of August. Patient was then admitted to the hospital from September 24 through September 28. Had a fever. Gallbladder ultrasound showed multiple dominant masses in the liver. Diffuse fatty infiltration of liver. Gallbladder wall was abnormally thickened with some pericholecystic fluid. Multiple fundal contents measuring 1.4 cm with calcification. Seen by Dr. Silva from general surgery. Was placed on IV Zosyn. Blood cultures were negative patient's fever resolved. Patient was discharged. October 05 patient received another course of chemotherapy. Dose was reduced by 10% at patient is having low-grade fever. October 07 patient started having a fever again. October 14 underwent chole[address]ectomy by Dr. Silva. Did receive antibiotics and complete the course of oral antibiotic. When patient was discharged, October 16 patient is eating some. Tired. Patient now returns to the ER and has progressively been getting more and more weak. To the point today barely able to walk. Poor appetite. Doesn't feel like eating. No obvious fever. Constipated. No respiratory urinary symptoms. Patient now admitted with asthenia, anorexia, myopathy, dehydration felt to be all related to malignancy. Started on IV fluids. PTOT. October 28: Sitting up in a chair. Diet. Decrease appetite. Computed tomography scan of the abdomen ordered by oncology. They discontinued the Marinol. October 29: Reclining in a chair. Tired. Decreased appetite. Computed tomography scan abdomen results pending. October 30: Reclining in bed. Tired. Decreased oral intake. Computed tomography scan of the abdomen showing increased density in the liver. Review of systems: Was done for constitutional, cardiovascular, GI, pulmonary. relevant finding as above Active Medications Acetaminophen (Acetaminophen Tab 325 Mg Tab) 650 mg PO Q6HR PRN PRN Reason: Mild Pain or Fever > 100.5 Cyanocobalamin (Cyanocobalamin 500 Mcg Tab) 1,000 mcg PO DAILY [facility] Last Admin: 10/30/20 07:30 Dose: 1,000 mcg Documented by: Escitalopram Oxalate (Escitalopram 10 Mg Tab) 10 mg PO DAILY [facility] Last Admin: 10/30/20 07:31 Dose: 10 mg Documented by: Hydromorphone HCl (Hydromorphone 0.5 Mg/0.5 Ml Syringe) 0.5 mg IVP Q3HR PRN PRN Reason: Moderate Pain Sodium Chloride (Saline 0.9%) 1,000 mls @ 130 mls/hr IV .Q7H42M [facility] Last Admin: 10/30/20 15:27 Dose: 130 mls/hr Documented by: Lidocaine/Prilocaine (Lidocaine-Prilocaine 2.5-2.5% Cream 5 Gm Tube) 1 applic TOPICAL DAILY PRN; Protocol PRN Reason: PORT ACCESS Memantine (Memantine 10 Mg Tab) 10 mg PO BID [facility] Last Admin: 10/30/20 07:31 Dose: 10 mg Documented by: Naloxone HCl (Naloxone 0.4 Mg/Ml 1 Ml Vial) 0.2 mg IV Q2M PRN PRN Reason: Opioid Reversal Olanzapine (Olanzapine 5 Mg Tab) 5 mg PO [facility] Last Admin: 10/29/20 20:31 Dose: 5 mg Documented by: Ondansetron HCl (Ondansetron 4 Mg Tab) 4 mg PO QID PRN PRN Reason: Nausea Pantoprazole Sodium (Pantoprazole 40 Mg Tablet) 40 mg PO HS [facility] Last Admin: 10/29/20 20:31 Dose: 40 mg Documented by: Pyridoxine HCl (Pyridoxine 50 Mg Tab) 100 mg PO DAILY [facility] Last Admin: 10/30/20 07:31 Dose: 100 mg Documented by: Rivastigmine (Rivastigmine 13.3mg/24hr Patch) 1 patch TRANSDERM Q24HR [facility] Last Admin: 10/30/20 07:31 Dose: 1 patch Documented by: Past medical history: Pancreatic cancer with liver metastatic this, on chemotherapy, . Obstructive sleep apnea. Cognitive impairment. GERD. Social history: . No smoking. Alcohol rarely. Family history: Prostate cancer Physical examination: VITAL SIGNS: 98.5, 78, 20, 114/72, 96% room air GENERAL: reclining in bed, tired EYES: Pupils equal. Conjunctiva pale HEENT: External appearance of nose and ears normal, oral cavity grossly normal. NECK: JVD not raised; masses not palpable. HEART: First and second heart sounds are normal; no edema. LUNGS: Respiratory rate normal; clear to auscultation. ABDOMEN: Soft, nontender, liver spleen not palpable, no masses palpable. Superficial bruising PSYCH: Alert and oriented x3; mood and affect tired NEUROLOGICAL: Cranial nerves grossly intact; no facial asymmetry, power and sensation grossly intact. INVESTIGATIONS, reviewed in the clinical context: Computed tomography scan of the abdomen pelvis with contrast: Enlarging scattered hyperdensity in the liver. October 28: WBC 4.3 hemoglobin 9.5 potassium 4.5 creatinine 0.8 albumin 2.8 ammonia less than 9 CA 19-9:4979 WBC 8 hemoglobin 9.9 platelets 245 potassium 4.4 creatinine 0.8 sodium 131 Albumin 2.9 UA negative for leukoesterase nitrite. EKG tracing personally reviewed by me-normal sinus rhythm Chest x-ray film personally reviewed by me-andrew Assessment and plan: - Acute on chronic medical debility worsening from decreased oral intake. Multiple medical problems.: Slow to respond PT OT. Hydration. -Anorexia, primarily from metastatic pancreatic cancer: Slow to respond Marinol held by oncology -Acute myopathy likely from malignancy including proximal muscle weakness Nutritional support. PTOT -Normocytic anemia likely of malignancy Follow H&H -Metastatic pancreatic cancer. Received chemotherapy. Status post radiation treatment. Clinically and radiologically appears to be worsening Await further input by oncologist Dr. Onelia FREITAS On Prilosec -Cognitive impairment On Aricept, Namenda, Exelon patch -Mild protein calorie malnutrition, from decreased oral intake Dietitian consult -Depression On Lexapro Prognosis poor. Worsening functional status. Increasing metastatic disease to liver as suggested by the computed tomography scan. Await further course of action as per oncology.
[2020-10-30] MEDS: PANTOPRAZOLE 40 MG TABLET PO SCH (19:40)
[2020-10-30] MEDS: OLANZapine 5 MG TAB PO SCH (19:40)
[2020-10-31] MEDS: SODIUM CHLORIDE 0.9% 1,000 ML IV SCH (04:40)
[2020-10-31] MEDS: RIVASTIGMINE 13.3MG/24HR PATCH TRANSDERM SCH (09:08)
[2020-10-31] MEDS: MEMANTINE 10 MG TAB PO SCH (09:08)
[2020-10-31] MEDS: CYANOCOBALAMIN 500 MCG TAB PO SCH (09:08)
[2020-10-31] MEDS: PYRIDOXINE 50 MG TAB PO SCH (09:08)
[2020-10-31] MEDS: ESCITALOPRAM 10 MG TAB PO SCH (09:09)
[2020-10-31 11:34] LABS: Anisocytosis Slight; Basophils % (A) 0 %; Eosinophils # (A) 0.1 k/uL (0-0.7); Eosinophils % (A) 1 %; HCT 29.9 % (39.0-53.0); HGB 9.4 gm/dL (13.0-17.5); Hypochromasia Marked; Lymphocytes # (A) 0.3 k/uL (1.0-4.8); Lymphocytes % (A) 6 %; MCH 32.8 pg (25.0-35.0); MCHC 31.5 g/dL (31.0-37.0); MCV 104.1 fL (80.0-100.0); Macrocytosis Moderate; Mean Platelet Volume 7.6; Monocytes # (A) 0.5 k/uL (0-1.0); Monocytes % (A) 13 %; Neutrophils # (A) 3.1 k/uL (1.3-7.7); Neutrophils % (A) 77 %; Platelet Count 194 k/uL (150-450); Poikilocytosis Slight; RBC 2.87 m/uL (4.30-5.90); RDW 17.4 % (11.5-15.5)
[2020-10-31 11:46] LABS: ALT 36 U/L (4-49); AST 65 U/L (17-59); African American GFR (CKD) >90 (>60 ml/min/1.73 sqM); Albumin 2.4 g/dL (3.5-5.0); Albumin/Globulin Ratio 0.9; Alkaline Phosphatase 145 U/L (38-126); Anion Gap 4 mmol/L; Blood Urea Nitrogen 4 mg/dL (9-20); Calcium 7.9 mg/dL (8.4-10.2); Carbon Dioxide 23 mmol/L (22-30); Chloride 109 mmol/L (98-107); Globulin 2.7 g/dL; Glucose 109 mg/dL (74-99); Non-African American GFR(CKD) >90 (>60 ml/min/1.73 sqM); Potassium 3.6 mmol/L (3.5-5.1); Sodium 136 mmol/L (137-145); Total Bilirubin 1.3 mg/dL (0.2-1.3); Total Protein 5.1 g/dL (6.3-8.2)
[2020-10-31 12:58] VITALS: BP 127/79; PULSE 65; RESP 17; TEMP 98.3
--- NOTE | 2020-10-31 17:30 | P.DS ---
Providers Date of admission: 10/29/20 13:49 Expected date of discharge: 10/31/20 Attending physician: Donny Sumner Consults: 10/27/20 17:39 Consult Physician Routine Consulting Provider: Damion Rousseau Consult Reason/Comments: Pancreatic cancer generalized weakness Do you want consulting provider notified?: Yes Primary care physician: [facility] Course: Chief Complaint: Weak and tired History of presenting complaint: This is a pleasant 65-year-old patient who follows with Dr. Quach. Oncologist Dr. Rousseau. In May 2019, was admitted to [facility] with obstructive jaundice. ERCP showed CBD stricture. MRCP showed dilated gallbladder and biliary tree. Patient did have a stent placed. CT of the pancreas showed pancreatic head mass. FNA was positive for adenocarcinoma. Also hypodense lesion was found on the right hepatic lobe. Neoadjuvant chemotherapy, was recommended. Surgery was recommended. Laparoscopic evaluation showed liver lesions. Biopsy was positive. was not felt to be a surgical candidate. Patient did complete chemotherapy in June 2020 and radiation treatment to the liver. PET scan did not show any uptake other than low level at the primary site. MRI done on 09/03/2020 showed multiple ring-enhancing lesions in the liver. Patient had first cycle of Gemzar and Abraxane end of August. Patient was then admitted to the hospital from September 24 through September 28. Had a fever. Gallbladder ultrasound showed multiple dominant masses in the liver. Diffuse fatty infiltration of liver. Gallbladder wall was abnormally thickened with some pericholecystic fluid. Multiple fundal contents measuring 1.4 cm with calcification. Seen by Dr. Silva from general surgery. Was placed on IV Zosyn. Blood cultures were negative patient's fever resolved. Patient was discharged. October 05 patient received another course of chemotherapy. Dose was reduced by 10% at patient is having low-grade fever. October 07 patient started having a fever again. October 14 underwent [address] by Dr. Silva. Did receive antibiotics and complete the course of oral antibiotic. When patient was discharged, October 16 patient is eating some. Tired. Patient now returns to the ER and has progressively been getting more and more weak. To the point today barely able to walk. Poor appetite. Doesn't feel like eating. No obvious fever. Constipated. No respiratory urinary symptoms. Patient now admitted with asthenia, anorexia, myopathy, dehydration felt to be all related to malignancy. Started on IV fluids. PTOT. Marinol discontinued. He'll be discharged on Megace. October 28: Sitting up in a chair. Diet. Decrease appetite. Computed tomography scan of the abdomen ordered by oncology. They discontinued the Marinol. October 29: Reclining in a chair. Tired. Decreased appetite. Computed tomography scan abdomen results pending. October 30: Reclining in bed. Tired. Decreased oral intake. Computed tomography scan of the abdomen showing increased density in the liver. October 31: Sitting up in bed. Eating a bit better. Able to walk to the bathroom holding the IV pole. is present. Lately discussion was had regarding change in pattern of food. Results of computed tomography scan and tumor markers were discussed. Also discussed with Dr. Rousseau from oncology. Patient be discharged home. It was felt that Marinol could've been contribution to his sleepiness when he first presented. it is being switched over to Megace. Prognosis guarded. Discussion and discharge planning more than 35 minutes Consultation: Dr. Rousseau from oncology Past medical history: Pancreatic cancer with liver metastatic this, on chemotherapy, . Obstructive sleep apnea. Cognitive impairment. GERD. Social history: . No smoking. Alcohol rarely. Family history: Prostate cancer Physical examination: VITAL SIGNS: 98.3, 65, 17, 127/79, 95% room air GENERAL: reclining in bed, tired EYES: Pupils equal. Conjunctiva pale HEENT: External appearance of nose and ears normal, oral cavity grossly normal. NECK: JVD not raised; masses not palpable. HEART: First and second heart sounds are normal; no edema. LUNGS: Respiratory rate normal; clear to auscultation. ABDOMEN: Soft, nontender, liver spleen not palpable, no masses palpable. Superficial bruising PSYCH: Alert and oriented x3; mood and affect tired NEUROLOGICAL: Cranial nerves grossly intact; no facial asymmetry, power and sensation grossly intact. INVESTIGATIONS, reviewed in the clinical context: October 31: WBC 4 hemoglobin 9.4 percussion 3.6 creatinine 0.57 Computed tomography scan of the abdomen pelvis with contrast: Enlarging scattered hyperdensity in the liver. October 28: WBC 4.3 hemoglobin 9.5 potassium 4.5 creatinine 0.8 albumin 2.8 ammonia less than 9 CA [id number] WBC 8 hemoglobin 9.9 platelets 245 potassium 4.4 creatinine 0.8 sodium 131 Albumin 2.9 UA negative for leukoesterase nitrite. EKG tracing personally reviewed by me-normal sinus rhythm Chest x-ray film personally reviewed by me-clear Assessment and plan: - Acute on chronic medical debility worsening from decreased oral intake. Multiple medical problems.: Some improvement PT OT. Hydration. -Anorexia, primarily from metastatic pancreatic cancer: Slow to respond Marinol discontinued. Megace prescribed -Acute myopathy likely from malignancy including proximal muscle weakness Better with IV fluids, Nutritional support. PTOT -Normocytic anemia likely of malignancy Follow H&H -Metastatic pancreatic cancer. Received chemotherapy. Status post radiation treatment. Clinically and radiologically appears to be worsening Computed tomography scan showing increased metastatic some the liver with increased tumor markers. Follow-up outpatient oncologist Dr. Rousseau -MICHAEL On Prilosec -Cognitive impairment On Aricept, Namenda, Exelon patch -Mild protein calorie malnutrition, from decreased oral intake Dietitian consult -Depression On Lexapro Disposition: Home Patient Condition at Discharge: Stable Plan - Discharge Summary Discharge Rx Participant: Yes New Discharge Prescriptions: New Megestrol Acetate [Megace] 800 mg PO DAILY #240 ml Continue Escitalopram [Lexapro] 10 mg PO DAILY Pyridoxine HCl (Vitamin B6) [Vitamin B-6] 1 tab PO DAILY Memantine [Namenda] 10 mg PO BID Ondansetron [Zofran] 4 mg PO QID PRN PRN Reason: Nausea Lidocaine-Prilocaine Cream [Emla Cream 2.5%/2.5%] 1 applic TOPICAL DAILY PRN PRN Reason: PORT ACCESS Cyanocobalamin (Vitamin B-12) [Vitamin B-12] 1,000 mcg PO DAILY Omeprazole [PriLOSEC] 40 mg PO HS OLANZapine [ZyPREXA] 5 mg PO HS Rivastigmine [Exelon 13.3MG/24Hr Patch] 1 patch TRANSDERM Q24HR Discontinued dronabinoL [Marinol] 2.5 mg PO BID Discharge Medication List Cyanocobalamin (Vitamin B-12) [Vitamin B-12] 1,000 mcg PO DAILY 09/24/20 [History] Escitalopram [Lexapro] 10 mg PO DAILY 09/24/20 [History] Memantine [Namenda] 10 mg PO BID 09/24/20 [History] Omeprazole [PriLOSEC] 40 mg PO HS 09/24/20 [History] Pyridoxine HCl (Vitamin B6) [Vitamin B-6] 1 tab PO DAILY 09/24/20 [History] Ondansetron [Zofran] 4 mg PO QID PRN 10/10/20 [History] Lidocaine-Prilocaine Cream [Emla Cream 2.5%/2.5%] 1 applic TOPICAL DAILY PRN 10/27/20 [History] OLANZapine [ZyPREXA] 5 mg PO HS 10/27/20 [History] Rivastigmine [Exelon 13.3MG/24Hr Patch] 1 patch TRANSDERM Q24HR 10/27/20 [History] Megestrol Acetate [Megace] 800 mg PO DAILY #240 ml 10/31/20 [Rx] Follow up Appointment(s)/Referral(s): Damion Rousseau MD [STAFF PHYSICIAN] - 3 Days Paolo Quach DO [Primary Care Provider] - 1-2 days Patient Instructions/Handouts: Dehydration (DC), Pancreatic Cancer (DC), Weakness (DC) Discharge Disposition: HOME SELF-CARE
--- NOTE | 2020-10-31 18:14 | P.PN ---
Subjective Progress Note Date: 10/31/20 Principal diagnosis: Metastatic Cancer recurrent bacteremia Patient is being released today. They had long discussion with Dr. Rousseau yesterday and will be re-evaluated as outpatient. At this time the concern is if he is able to increase performance and improve strength to be able to continue treatment safely. PLan for PT/OT at home and re-evaluation Objective - Vital Signs Vital signs: Vital Signs Temp 98.3 F 10/31/20 12:57 Pulse 65 10/31/20 12:57 Resp 17 10/31/20 12:57 BP 127/79 10/31/20 12:57 Pulse Ox 95 10/31/20 12:57 Intake & Output 10/30/20 10/31/20 10/31/20 18:59 06:59 18:59 Intake Total 1560 1800 Balance 1560 1800 Weight 83.915 kg Intake: Intake, IV Titration 1560 1500 Amount Sodium Chloride 0.9% 1, 1560 1500 000 ml @ 130 mls/hr IV . [facility]M [facility] Rx#:[id number] Oral 300 Other: Voiding Method Toilet Toilet Toilet Urinal Urinal Urinal # Voids 5 - Exam - Constitutional General appearance: Present: average body habitus, cooperative, no acute distress - EENT Eyes: Present: anicteric sclerae, EOMI ENT: Present: hearing grossly normal - Respiratory Respiratory: bilateral: CTA - Cardiovascular Rhythm: regular Heart sounds: normal: S1, S2 Abnormal Heart Sounds: Absent: systolic murmur, diastolic murmur, rub, S3 Gallop, S4 Gallop, click, other - Peripheral edema leg Peripheral Edema: bilateral: None - Gastrointestinal General gastrointestinal: Present: decreased bowel sounds, soft. Absent: absent bowel sounds, distended, hepatomegaly, hyperactive bowel sounds, organomegaly, rigid, scaphoid, splenomegaly, tenderness, umbilical hernia, ventral hernia - Integumentary Integumentary: Present: pale - Neurologic Neurologic: Present: CNII-XII intact - Musculoskeletal Musculoskeletal: Present: generalized weakness - Psychiatric Psychiatric: Present: A&O x's 3 - Labs CBC & Chem 7: 10/31/20 11:15 10/31/20 11:15 Labs: Abnormal Lab Results - Last 24 Hours (Table) 10/31/20 10/31/20 Range/Units 11:15 11:15 RBC 2.87 L (4.30-5.90) m/uL Hgb 9.4 L (13.0-17.5) gm/dL Hct 29.9 L (39.0-53.0) % MCV 104.1 H (80.0-100.0) fL RDW 17.4 H (11.5-15.5) % Lymphocytes # 0.3 L (1.0-4.8) k/uL Sodium 136 L (137-145) mmol/L Chloride 109 H (98-107) mmol/L BUN 4 L (9-20) mg/dL Creatinine 0.57 L (0.66-1.25) mg/dL Glucose 109 H (74-99) mg/dL Calcium 7.9 L (8.4-10.2) mg/dL AST 65 H (17-59) U/L Alkaline Phosphatase 145 H (38-126) U/L Total Protein 5.1 L (6.3-8.2) g/dL Albumin 2.4 L (3.5-5.0) g/dL Microbiology - Last 24 Hours (Table) 10/27/20 16:10 Blood Culture - Preliminary Blood No Growth after 72 hours 10/27/20 16:10 Blood Culture - Preliminary Blood No Growth after 72 hours Assessment and Plan Plan: - Imaging and Cardiology MRI - head: report reviewed Assessment and Plan (1) Weakness Current Visit: Yes Status: Acute Priority: High Code(s): R53.1 - WEAKNESS SNOMED Code(s): 39181299 (2) Pancreatic cancer metastasized to liver Current Visit: Yes Status: Acute Priority: High Code(s): C25.9 - MALIGNANT NEOPLASM OF PANCREAS, UNSPECIFIED; C78.7 - SECONDARY MALIG NEOPLASM OF LIVER AND INTRAHEPATIC BILE DUCT SNOMED Code(s): 743243097 (3) Loss of appetite Current Visit: Yes Status: Acute Priority: High Code(s): R63.0 - ANOREXIA SNOMED Code(s): 54848088 Plan: - CT abdomen with possible progression with enlarging liver mets, patient has clinically been declining and his performance has been worsening as well. This will be reviewed with patient and regarding concern of effective treatment plan versus if plan for more comfort goal is resonable. Dr. Rousseau to discuss further with them this evening. Discussed plan for discharge and follow-up. Appointment with Dr. Rousseau made for next week PT/OT at home and focus of improving strength and performance prior to re- initiation of treatment or choice for hospice care
== END 2020-10-31 13:40 | disposition home or self-care (01) | DRG 436 ==
LOC: EC 15:16 → 5NMEDONC 17:35 → OBSVTOIN 10-29 13:49
PROVIDERS: ADMIT Hospitalist; ATTEND Hospitalist
DX: C25.0 Malignant neoplasm of head of pancreas (principal); C78.7 Secondary malignant neoplasm of liver and intrahepatic bile duct; D61.818 Other pancytopenia; E44.1 Mild protein-calorie malnutrition; R78.81 Bacteremia; R53.81 Other malaise; G72.89 Other specified myopathies; G47.33 Obstructive sleep apnea (adult) (pediatric); E86.0 Dehydration; F02.80 Dementia in other diseases classified elsewhere, unspecified severity, without behavioral disturbance, psychotic disturbance, mood disturbance, and anxiety; F32.9 Major depressive disorder, single episode, unspecified; G30.9 Alzheimer's disease, unspecified; K21.9 Gastro-esophageal reflux disease without esophagitis; K59.00 Constipation, unspecified; Z79.899 Other long term (current) drug therapy; Z80.42 Family history of malignant neoplasm of prostate; Z85.07 Personal history of malignant neoplasm of pancreas; Z92.3 Personal history of irradiation; R63.0 Anorexia; D63.0 Anemia in neoplastic disease
CPT/HCPCS: 36415; 70553; 71046; 74177; 80053; 81001; 82140; 83605; 83735; 85025; 85610; 85730; 86301; 87040; 93005; 99285